=== PATIENT | male | born 1960 | race Caucasian/White ===

== ENCOUNTER 2022-10-17 15:57 | Outpatient (REF) | payer OTHER, SELFPAY | END 2022-10-17 15:58 | disposition home or self-care (01) | LOC: HO.HOSX 15:57 | PROVIDERS: Visit Provider Orthopaedic Surgery | DX: Z13.89 Encounter for screening for other disorder (principal) ==

== ENCOUNTER 2022-10-18 09:44 | Outpatient (REF) | payer OTHER, SELFPAY ==
--- NOTE | ~2022-10-18 | XR_ITS ---
EXAMINATION: XR PELVIS CLINICAL INFORMATION: Hip pain COMPARISON: None available. TECHNIQUE: AP view of the pelvis. FINDINGS: No acute fracture or dislocation. Advanced degenerative changes of the left hip with complete loss of joint space and bony remodeling of the femoral head and acetabulum. Moderate degenerative changes of the right hip with loss of joint space. Sacroiliac joint spaces are maintained. The tissues are unremarkable. XR/XR pelvis 1-2V IMPRESSION: Advanced degenerative changes of the left hip and moderate degenerative changes of the right hip.
== END 2022-10-18 09:45 | disposition home or self-care (01) ==
LOC: HO.HOSX 09:44
PROVIDERS: Visit Provider Orthopaedic Surgery
DX: M16.12 Unilateral primary osteoarthritis, left hip (principal); E66.01 Morbid (severe) obesity due to excess calories; Z68.43 Body mass index [BMI] 50.0-59.9, adult
CPT/HCPCS: 72170; 99202

== ENCOUNTER 2022-10-31 09:56 | Outpatient (REF) | payer OTHER, SELFPAY ==
[2022-10-31 10:24] LABS: Hemoglobin 15.5 g/dl (14.0-18.0); Mean Corpuscular Hemoglobin 28.7 pg (27.0-33.0); Mean Corpuscular Volume 86.9 fL (80.0-98.0); Mean Platelet Volume 10.1 fL (9.4-12.4); Platelet Count 233 X10*3/uL (160-400); Red Blood Count 5.41 X10*6/uL (4.60-5.80); Red Cell Distribution Width 13.5 % (11.0-16.0); White Blood Count 8.1 X10*3/uL (4.8-10.8)
[2022-10-31 11:01] LABS: Alanine Aminotransferase 32 U/L (0-40); Albumin Level 4.4 g/dL (3.5-5.0); Alkaline Phosphatase 108 U/L (39-117); Anion Gap 14 (12-20); Aspartate Amino Transferase 23 U/L (5-37); Bilirubin Total 0.8 mg/dL (0.0-1.0); Blood Urea Nitrogen 14 mg/dL (9-16); Calcium 9.4 mg/dL (8.4-10.2); Carbon Dioxide 25 mmol/L (22-29); Chloride 105 mmol/L (96-108); Cholesterol 274 mg/dL; Estimated Glomerular Filt Rate > 60; Glucose Fasting 122 mg/dL (60-99); HDL Cholesterol 40 mg/dL; LDL Cholesterol Calculated 197 mg/dl; Potassium 4.5 mmol/L (3.3-5.1); Sodium 139 mmol/L (135-145); Total Protein 7.1 g/dL (6.5-8.0); Triglycerides 186 mg/dL
[2022-10-31 11:19] LABS: TSH reflex Free T4 3.09 uIU/mL (0.32-4.0)
[2022-10-31 11:34] LABS: Appearance Urine Clear; Color Urine Yellow; Glucose Urine UA Negative (Negative); Leukocyte Esterase Urine Negative (Negative); Nitrite Urine Negative (Negative); Urine Blood Negative (Negative); Urine Ketones Negative (Negative); Urine Protein Negative (Neg-Trace)
[2022-11-07 01:03] LABS: PSA, Ultra Sensitive 0.49 ng/mL
== END 2022-10-31 09:57 | disposition home or self-care (01) ==
LOC: HO.LAB 09:56
PROVIDERS: PCP Family Medicine; Visit Provider Nurse Practitioner Family
DX: Z00.00 Encounter for general adult medical examination without abnormal findings (principal); Z12.5 Encounter for screening for malignant neoplasm of prostate; R39.9 Unspecified symptoms and signs involving the genitourinary system
CPT/HCPCS: 36415; 80053; 80061; 81003; 84153; 84443; 85027

== ENCOUNTER → 2022-11-07 14:36 | Outpatient (BNVA) | payer OTHER, SELFPAY | PROVIDERS: PCP Family Medicine; Visit Provider Physician Assistant | DX: Z12.11 Encounter for screening for malignant neoplasm of colon (principal); I48.91 Unspecified atrial fibrillation; G47.30 Sleep apnea, unspecified; E66.01 Morbid (severe) obesity due to excess calories; Z68.43 Body mass index [BMI] 50.0-59.9, adult; Z79.82 Long term (current) use of aspirin; Z99.89 Dependence on other enabling machines and devices | CPT/HCPCS: 99202 ==

== ENCOUNTER → 2022-11-28 14:02 | Outpatient (BNVA) | payer OTHER, SELFPAY | PROVIDERS: PCP Family Medicine; Visit Provider Urology | DX: N40.1 Benign prostatic hyperplasia with lower urinary tract symptoms (principal); N13.8 Other obstructive and reflux uropathy; R39.12 Poor urinary stream; R39.15 Urgency of urination | CPT/HCPCS: 51798; 99202 ==

== ENCOUNTER → 2022-12-03 15:03 | Outpatient (BNVA) | payer OTHER, SELFPAY | PROVIDERS: PCP Nurse Practitioner Family; Referring Provider Nurse Practitioner Family; Visit Provider Internal Medicine Cardiovascular Disease | DX: Z01.810 Encounter for preprocedural cardiovascular examination (principal); I48.19 Other persistent atrial fibrillation | CPT/HCPCS: 93005; 99202 ==

== ENCOUNTER 2022-12-07 12:30 | Outpatient (REF) | payer OTHER, SELFPAY ==
--- NOTE | ~2022-12-07 | US_ITS ---
EXAMINATION: US RETROPERITONEAL COMPLETE (RENAL) CLINICAL INFORMATION: Benign prostatic hyperplasia with lower urinary tract symptoms. COMPARISON: None available. TECHNIQUE: Real-time imaging of the kidneys and bladder. FINDINGS: RIGHT KIDNEY: 13.4 x 6.1 x 5.8 cm (SAG x AP x TRV). The kidney is normal in size, contour, and echogenicity. Renal cortical thickness is normal. A few punctate nonshadowing echogenic foci are noted within the right kidney. There is no hydronephrosis. LEFT KIDNEY: 14.7 x 5.6 x 5.7 cm (SAG x AP x TRV). The kidney is normal in size, contour, and echogenicity. Renal cortical thickness is normal.. A few punctate nonshadowing echogenic foci are noted within the left kidney. There is no hydronephrosis. BLADDER: Well distended and normal. Bilateral ureteral jets are demonstrated. Prevoid bladder volume is 328 mL. Postvoid bladder volume is 58.4 mL. Prostate gland: Poorly visualized. Suspected volume 120 mL. US/US retroperitoneal comp IMPRESSION: 1. A few punctate nonshadowing echogenic foci are noted within both kidneys. These are nonspecific but may represent tiny nonobstructing calculi or vascular reflections. There is no hydronephrosis of either kidney. 2. Poorly visualized but suspected significantly enlarged prostate gland. 3. Prominent post void bladder residual of 55 mL.
== END 2022-12-07 12:31 | disposition home or self-care (01) ==
LOC: HO.US 12:30
PROVIDERS: PCP Nurse Practitioner Family; Visit Provider Urology
DX: N40.1 Benign prostatic hyperplasia with lower urinary tract symptoms (principal)
CPT/HCPCS: 76770

== ENCOUNTER → 2022-12-21 07:57 | Outpatient (REF) | payer OTHER, SELFPAY ==
--- NOTE | ~2022-12-21 | NM_ITS ---
Lexiscan Myocardial perfusion study Indication: Preoperative cardiovascular exam Technique: The patient was brought in for a Lexiscan perfusion study on 12/21/2022 and was injected 0.4 mg of Lexiscan intravenously. Within a minute of this injection 40 mCi of sestamibi was given intravenously. Images were obtained using the SPECT gamma camera interlaced with the gating device. Images were obtained in supine position. Resting perfusion study was performed on 12/26/2022. Patient was administered 40 mCi of sestamibi intravenously at rest. Images were then obtained in supine position. Images were processed with the software and compared side to side in short axis, horizontal long axis and vertical long axis views. Total DLP 198mGy-cm. Findings: Raw acquisition reviewed. The stress perfusion study showed diminished tracer uptake along the anterior wall most prominent in the midportion. There is also reduced tracer uptake along the inferior wall. With CT attenuation correction, inferior wall uptake improves. Anterior wall without major changes. The gated study shows low normal LV systolic function with calculated LVEF of 53%. LV cavity is normal in size. The gated study shows possibly reduced anterior wall thickening in the midportion. Resting study shows mildly reduced tracer uptake along the inferior wall. There is improvement with CT attenuation correction suggestive of diaphragmatic attenuation artifact. Gating at rest reveals normal wall motion with ejection fraction at 49%. The findings are consistent with reversible anterior wall perfusion defect that is suggestive of ischemia. NM/NM rehana perf SPECT rest & str Impression: 1. Myocardial perfusion imaging moderate to severe ischemia in the LAD territory. 2. Gated LVEF is 50% during stress and 49% during rest. 3. Transient ischemic dilatation not present. EKG component of the test reported separately.
--- NOTE | 2022-12-21 07:59 | CA_ITS ---
Transthoracic Echocardiogram Patient (Last, First, Middle): Silver Valladares, Gender: Male Date of : 1960 Age: 62 Procedure Date: 12/21/2022 Procedure Type: Transthoracic Echocardiogram Location: OP Height: 180.34 cm Weight: 159.21 kg BSA: 2.68 m2 Heart Rate: bpm BP: 122 / 76 mmHg Asset Management Coordinator: TO Referring MD: Jeffrey Youngblood MD Symptoms: I48.19 - Other persistent atrial fibrillation Study Quality: Fair/Contrast ECG Rhythm: Atrial Fibrillation Conclusions: - The left ventricular systolic function is normal. The visually estimated ejection fraction is between 60-65%. - There is severe septal asymmetric hypertrophy. - No obvious valvular pathology seen on this study. Findings Procedure Information Contrast agent, definity, is being given per protocol without apparent complications. Left Ventricle Normal left ventricular cavity size. There is mildly increased left ventricular wall thickness. The left ventricular systolic function is normal. The visually estimated ejection fraction is between 60-65%. There is no evidence of regional wall motion abnormalities. Diastolic function is indeterminate on the basis of available data. There is severe septal asymmetric hypertrophy. Right Ventricle Normal right ventricular cavity size. There is mildly decreased right ventricular systolic function. Atria Both atria are normal in size. Aortic Valve There is a normal trileaflet aortic valve. There is mild calcification of the aortic valve. There is no aortic valve stenosis. There is trace (trivial) aortic valve regurgitation. Mitral Valve The mitral valve appears normal. There is no mitral valve regurgitation. There is no mitral valve stenosis. Pulmonic Valve The pulmonic valve is likely normal. Tricuspid Valve There is no tricuspid valve regurgitation. Tricuspid regurgitation envelope is inadequate for calculation of right ventricular systolic pressure. Great Vessels The asc aorta is normal in size. Venous The inferior vena cava is normal in size and collapses greater than 50% with inspiration. Pericardium/Pleural Prominent epicardial adipose tissue noted. There is no evidence of pericardial effusion. Prior Study Comparison No prior study available for comparison. Recommendations, Care & Conclusions No obvious valvular pathology seen on this study. Measurements 2D Linear Measurements IVSd: 1.71 0.6-0.9/0.6-1.0 cm LVIDd: 4.98 3.9-5.3/4.2-5.9 cm LVIDd Index: 1.86 2.4-3.2/2.2-3.1 cm/m2 LVIDs: 3.06 2.0-3.6 cm LVPWd: 1.12 0.7-1.1 cm LA Diam: 4.60 2.7-3.8/3.0-4.0 cm LAIDs Index: 1.72 1.5-2.3 cm/m2 LV Mass: 366.99 67-162/88-224 g LV Mass Index: 136.94 43-95/49-115 g/m2 LVOT Diam: 2.50 3.0+(-)1.3 cm 2D Systolic Function EF 4C: 56.60 >55% Mitral Valve MV Pk E: 0.82 MV Decel Time: 170.00 E'Lateral: 11.10 E'Medial: 8.92 E/E' Med: 9.20 E/E' Lat: 7.40 PHT: 50.00 MVA PHT: 4.40 Decel [place]: 4.82 Aortic Valve AoV Pk [place]: 0.89 AoV Pk Grad: 3.00 LVOT LVOT Pk [place]: 0.67 LVOT Mn [place]: 0.43 LVOT VTI: 0.12 LVOT Pk Grad: 2.00 LVOT Mn Grad: 1.00 LVOT Diam: 2.50 LVOT Area: 4.91 Diastolic Function MV Pk E: 0.82 E'Medial: 8.92 E/E' Med: 9.20 E' Laterial: 11.10 E/E' Lat: 7.40 Right Ventricle TAPSE (mm): 16.20 TVS' [place]: 8.05 Tricuspid Valve RA Press: 3.00 Great Vessels Aorta Sinus of Valsalva: 3.92 2.0-3.[address] [place]: 2.74 1.7-3.4 cm Ao Asc: 3.80 2.1-3.4 cm Updated in Other Vendor System with Status of Final Gilberto Frye MD electronically signed on 12/22/2022 1:58:08 PM with status of Final
--- NOTE | 2022-12-21 07:59 | CA_ITS ---
Acquisition Time: 2022-12-21 09:23:09 Total Exercise Time: 00:02:00 Test Indications: AFIB, CP Medications: SEE H Protocol: LEXISCAN Max HR: 116 BPM 72% of Pred: 160 BPM Max BP: 132/082 mmHG Max Work Load: 1.0 METS Pharmacological stress test with Lexiscan injection while sitting and kicking his legs, without anginal symptoms, without arrhythmias, with normotensive reponse to injection, without EKG changes, Aminophylline 75mg IVP given to reverse Lexiscan. Nuclear images pending. Test reviewed with Dr. Frye. Referred By: Jeffrey Youngblood Overread By: MARU LOPEZ
--- NOTE | 2022-12-21 07:59 | HM_ITS ---
* Total monitoring time 3 days. * Underlying rhythm is atrial fibrillation. * Average ventricular rate 94/Min. Range 63 to 189/Min. * About 17% of the time, rate > 100/Min. * Rare PVCs. * No significant pauses or AV blocks. * No patient markers or events in diary. * Overall, atrial fibrillation with less than optimal rate control. MTDD
== END ==
LOC: HO.CARD 07:57
PROVIDERS: PCP Family Medicine; Visit Provider Internal Medicine Cardiovascular Disease
DX: Z01.810 Encounter for preprocedural cardiovascular examination (principal); I48.19 Other persistent atrial fibrillation
CPT/HCPCS: 78452; 93017; 93242; 93306; A9500; J0280; J2785; Q9957

== ENCOUNTER → 2023-01-10 14:49 | Outpatient (BNVA) | payer OTHER, SELFPAY | PROVIDERS: PCP Family Medicine; Visit Provider Urology ==

== ENCOUNTER 2023-01-24 08:30 | Outpatient (REF) | payer OTHER, SELFPAY ==
[2023-01-24 10:22] LABS: Hematocrit 46.7 % (42.0-52.0); Hemoglobin 15.3 g/dl (14.0-18.0); Mean Corpuscular HGB Conc 32.8 g/dl (31.0-36.0); Mean Corpuscular Volume 88.6 fL (80.0-98.0); Mean Platelet Volume 10.8 fL (9.4-12.4); Platelet Count 250 X10*3/uL (160-400); Red Blood Count 5.27 X10*6/uL (4.60-5.80); Red Cell Distribution Width 14.1 % (11.0-16.0); White Blood Count 10.2 X10*3/uL (4.8-10.8)
[2023-01-24 10:25] LABS: INTERNATIONAL NORM RATIO 1.1 (0.9-1.1); Prothrombin Time 12.5 SEC (10.0-13.1)
[2023-01-24 10:56] LABS: Anion Gap 14 (12-20); Blood Urea Nitrogen 21 mg/dL (9-16); Calcium 10.2 mg/dL (8.4-10.2); Carbon Dioxide 24 mmol/L (22-29); Chloride 108 mmol/L (96-108); Estimated Glomerular Filt Rate > 60; Glucose Random 118 mg/dL (60-115); Potassium 4.7 mmol/L (3.3-5.1); Sodium 141 mmol/L (135-145)
== END 2023-01-24 08:31 | disposition home or self-care (01) ==
LOC: HO.LAB 08:30
PROVIDERS: PCP Family Medicine; Referring Provider Family Medicine; Visit Provider Internal Medicine Cardiovascular Disease
DX: R07.9 Chest pain, unspecified (principal); I48.19 Other persistent atrial fibrillation; Z79.899 Other long term (current) drug therapy
CPT/HCPCS: 36415; 80048; 85027; 85610; 99212

== ENCOUNTER → 2023-01-31 23:59 | Outpatient (BNV) | payer OTHER, SELFPAY | PROVIDERS: PCP Family Medicine; Visit Provider Internal Medicine Cardiovascular Disease | DX: I20.0 Unstable angina (principal); R93.1 Abnormal findings on diagnostic imaging of heart and coronary circulation | CPT/HCPCS: 93458; 99152 ==

== ENCOUNTER 2023-02-13 10:59 | Outpatient (AMB) | payer OTHER, SELFPAY ==
[2023-02-13 11:02] VITALS: BP 120/72; PULSE 93; O2SAT 95; BMI 50.8
--- NOTE | 2023-02-13 11:02 | MHC.PC.OV ---
Vital Signs 02/13/23 11:02 Height 5 ft 10.5 in Weight 359 lb BMI 50.8 BP 120/72 Blood Pressure Location Lt brachial Position Sitting Pulse 93 Pulse Source Pulse Oximeter Pulse Oximetry (%) 95 Oxygen Delivery Method Room Air Intake Visit Reasons: Trans of care Intake Note: Patient is here for transfer of care from [facility]. Allergies Penicillins Allergy (Mild, Verified 02/13/23 11:06) Hives Tobacco use date assessed: 02/13/23 Dental Screening Dental Screen Date: 02/13/23 Did you have a dental visit in the last 12 months?: No Did you have a dental problem in the last 6 months where you did not have access to dental care?: No Was dental information given to patient?: No HPI Trans of care HPI Details New patient/transfer of care from [place] Prior PCP: Karan Hansen Last office visit/CPE: Acute issue(s): Morbid Obesity L Hip osteoarthritis PMHx: Multivessel CAD, AFib, left hip osteoarthritis Dr. [facility], psoriasis, hypertension, hyperlipidemia, Morbid obesity, BPH SurgHx: R TibFib ORIF. FHx:Dad: CAD, HLD. Mom: COPD, GERD, Asthma, Afib. Sister: Gall Bladder CA. Brother: DM SocHx: Nonsmoker, EtOH: 2 drinks a week. No drugs. 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 Govind Hoang, Jessica Padilla, Agustin Appiah and colleagues, with an educational pradip from [employer]. Review of Systems Const Denies chills, Denies fatigue, Denies fever(s), Denies headache(s) and Denies weakness ENT Denies dizziness and Denies headache(s) Card Denies chest pain, Denies lightheadedness, Denies dyspnea and Denies other (Palpitations) Resp Denies cough, Denies dyspnea, Denies wheezing and Denies other ( shortness of breath) Musc Denies numbness and Denies tingling Neuro Denies dizziness, Denies headache(s), Denies numbness, Denies tingling, Denies paresthesias and Denies weakness Psych Denies anxiety and Denies depression Endo Denies fatigue Aller/Immun Denies wheezing Physical exam (Primary Care) Vital Signs: Last Vital Signs Pulse 93 02/13/23 11:02 BP 120/72 02/13/23 11:02 Pulse Ox 95 02/13/23 11:02 Oxygen Delivery Method Room Air 02/13/23 11:02 BMI result Body Mass Index 50.8 Tobacco/Smoking Status: Tobacco use Status Tobacco use date assessed 02/13/23 02/13/23 11:10 Patient Tobacco Use Status Never used Tobacco 02/13/23 11:10 e-Cigarette/Vaping Use Never Used 02/13/23 11:10 Thrive Assessment: Date of Thrive Assessment Date Thrive assessed 10/05/22 02/13/23 11:10 Const General: no acute distress and well developed Nutritional Appearance: obese morbidly obese Orientation/consciousness: patient oriented x3 [facility] Head: Yes normocephalic and Yes atraumatic Eyes General: appearance normal, both eyes and all related structures Pupils: Equal, round and reactive pupils present EOM: EOMs intact bilaterally Resp Effort & Inspection: normal respiratory effort Auscultation: clear to auscultation bilaterally Cardio Rate: regular rate Rhythm: abnormal rhythm and abnormal rhythm irregularly irregular Heart sounds: S1 normal heart sound present, S2 normal heart sound present, no gallops, no murmurs and no rubs Neuro General: patient oriented x3 and gait normal Cranial nerves: Yes Equal, round and reactive pupils present Psych Affect: normal affect Assessment and Plan Assessment & Plan (1) Coronary artery disease: Code(s): I25.10 - Atherosclerotic heart disease of augustine coronary artery without angina pectoris Plan: Multi vessel coronary artery disease shown at cardiac catheterization. Stenting was not performed but he is being worked up for open heart surgery bypass Follow-up with Cardiology as recommended (2) Osteoarthritis of left hip: Code(s): M16.12 - Unilateral primary osteoarthritis, left hip Qualifiers: Osteoarthritis type: unspecified Qualified Code(s): M16.12 - Unilateral primary osteoarthritis, left hip Plan: Severe osteoarthritis of left hip He has plans with ortho for a left hip replacement but will require additional weight loss prior to this. Continue working weight loss Follow-up with ortho I have given patient paperwork for a handicap placard Continue using cane for assistance with ambulation (3) Persistent atrial fibrillation: Code(s): I48.19 - Other persistent atrial fibrillation Plan: Stable Continue Eliquis, isosorbide and metoprolol Follow-up with Cardiology (4) Elevated fasting glucose: Code(s): R73.01 - Impaired fasting glucose Plan: History of elevated fasting glucose. He is now on Wegovy secondary to morbid obesity and intention for weight loss Unclear if he carries a diagnosis of diabetes however. Checking A1c which may be artificially low now due to Wegovy (5) Hypertension: Code(s): I10 - Essential (primary) hypertension Plan: Blood pressure is controlled. Goal is less than 130/80 Continue current medication regimen (6) Morbid obesity with BMI of 50.0-59.9, adult: Code(s): E66.01 - Morbid (severe) obesity due to excess calories; Z68.43 - Body mass index [BMI] 50.0-59.9, adult Plan: As above, patient is now on Wegovy for weight loss I have increased his dose (7) Hyperlipidemia: Code(s): E78.5 - Hyperlipidemia, unspecified Plan: He is on atorvastatin 40 mg daily Will recheck lipids in about a month Orders: Orders Comprehensive [place]. Panel Fast Today R73.01 - Impaired fasting glucose, Z00.00 - Encounter for general adult medical examination without abnormal findings Hemoglobin A1c Today R73.01 - Impaired fasting glucose Lipid Panel Today E78.5 - Hyperlipidemia, unspecified, Z00.00 - Encounter for general adult medical examination without abnormal findings Medications: Changed From semaglutide (weight loss) administer weeks 5 through 8 of therapy 0.5 mg (0.5 mL) subcut QWEEK 4 weeks 2 mL 0RF E66.01 - Morbid (severe) obesity due to excess calories, Z68.43 - Body mass index [BMI] 50.0-59.9, adult To semaglutide (weight loss) administer month 3 of therapy 1 mg (0.5 mL) subcut QWEEK 4 weeks 2 mL 0RF E66.01 - Morbid (severe) obesity due to excess calories, Z68.43 - Body mass index [BMI] 50.0-59.9, adult Coding Level of Care Code Est Pt Level 4 (98264) Diagnoses Coronary artery disease I25.10 Osteoarthritis of left hip M16.12 Osteoarthritis type: unspecified Persistent atrial fibrillation I48.19 Elevated fasting glucose R73.01 Hypertension I10 Morbid obesity with BMI of 50.0-59.9, adult E66.01; Z68.43 Hyperlipidemia E78.5
== END 2023-02-13 12:04 | disposition home or self-care (01) ==
PROVIDERS: Visit Provider Family Medicine
DX: I25.10 Atherosclerotic heart disease of native coronary artery without angina pectoris (principal); I48.19 Other persistent atrial fibrillation; E66.01 Morbid (severe) obesity due to excess calories; Z68.43 Body mass index [BMI] 50.0-59.9, adult; I10 Essential (primary) hypertension; M16.12 Unilateral primary osteoarthritis, left hip; R73.01 Impaired fasting glucose; E78.5 Hyperlipidemia, unspecified
CPT/HCPCS: 99214

== ENCOUNTER 2023-03-04 09:48 | Outpatient (REF) | payer OTHER, SELFPAY ==
--- NOTE | ~2023-03-04 | US_ITS ---
EXAMINATION: US EXTRACRANIAL CAROTID DUPLEX, BILATERAL CLINICAL INFORMATION: Atherosclerosis. COMPARISON: None available. TECHNIQUE: Real-time ultrasound and Doppler techniques (integrating B-mode 2-D vascular images, Doppler spectral analysis and color-flow Doppler imaging) were utilized to interrogate the extracranial carotid arteries, the vertebral arteries and proximal subclavian arteries bilaterally. The degree of stenosis is determined by criteria similar to NASCET. FINDINGS: Right Side: 1. There is mild atherosclerotic plaque seen in the bifurcation/proximal ICA region. 2. The common carotid artery PSV proximally is 126.0 cm/s and distally 58.5 cm/s. 3. The proximal internal carotid artery velocities are 70 6. cm/s systolic and 22.3 cm/s diastolic. 4. The proximal external carotid artery PSV is 9.9 cm/s. 5. The vertebral artery shows antegrade flow. 6. The subclavian artery waveforms are normal. Left Side: 1. There is mild atherosclerotic plaque seen in the bifurcation/proximal ICA region. 2. The common carotid artery PSV proximally is 112.0 cm/s and distally 72.7 cm/s. 3. The proximal internal carotid artery velocities are 75.6 cm/s systolic and 21.1 cm/s diastolic. 4. The proximal external carotid artery PSV is 93.8 cm/s. 5. The vertebral artery shows antegrade flow. 6. The subclavian artery waveforms are normal. US/US carotid duplex BI IMPRESSION: 1. RIGHT: Minimal, non-hemodynamically significant stenosis of the proximal right internal carotid artery corresponding to a 0-49% stenosis by velocity criteria. 2. LEFT: Minimal, non-hemodynamically significant stenosis of the proximal left internal carotid artery corresponding to a 0-49% stenosis by velocity criteria. 3. Antegrade flow is seen via the bilateral vertebral arteries.
--- NOTE | ~2023-03-04 | US_ITS ---
EXAMINATION: US VENOUS MAPPING FOR BYPASS SURGERY LOWER EXTREMITIES, BILATERAL CLINICAL INFORMATION: Atherosclerosis. COMPARISON: None available. TECHNIQUE: The size of the great and small saphenous veins along with the depth were calculated bilaterally and are reported below in millimeters. FINDINGS: Diameters in millimeters are listed below along with the depth below the skin surface which appears) after the diameter. Right Great Saphenous Vein: Junction: 5 (31) Proximal thigh: 4 (22) Mid thigh: 2 (23) Above knee: 3 (18) Medial knee: 4 (7) Below knee: 2 (6) [place]calf: 3 (4) Ankle: 3 (4) Right Small Saphenous Vein: Junction: Not seen. Proximal calf: 3 (6) Mid calf: 2 (5) Distal calf: 3 (6) Left Great Saphenous Vein: Junction: 5 (44) Proximal thigh: 3 (27) Mid thigh: 3 (4) Above knee: 4 (3) Medial knee: 2 (3) Below knee: 1 (12) Mid calf: 2 (9) Ankle: 3 (7) Left Small Saphenous Vein: Junction: 2 (23) Proximal calf: 3 (6) Midcalf: 3 (5) Distal calf: 2 (4) Bilateral varicosities are noted measuring 3-4 mm size in the thighs. Incidental note made of a right groin lymph node measuring 3.5 x 0.9 x 2.6 cm. US/US venous duplex LE BI IMPRESSION: The great and small saphenous veins are patent bilaterally with measurements and depths, as described above.
== END 2023-03-04 09:49 | disposition home or self-care (01) ==
LOC: HO.US 09:48
PROVIDERS: PCP Family Medicine; Visit Provider Thoracic Surgery (Cardiothoracic Vascular Surgery)
DX: I70.0 Atherosclerosis of aorta (principal)
CPT/HCPCS: 93880; 93970

== ENCOUNTER 2023-03-07 14:26 | Outpatient (REF) | payer OTHER, SELFPAY ==
--- NOTE | ~2023-03-07 | CT_ITS ---
EXAMINATION: CT CHEST WITHOUT CONTRAST CLINICAL INFORMATION: Chest pain, aortic calcification. COMPARISON: None available. TECHNIQUE: Multidetector volumetric CT imaging of the chest was done. Axial MIP volume rendering provided. Sagittal and coronal reformatted images were obtained. This CT examination was performed using dose optimization techniques as appropriate, variously including the following: *Automated exposure control *Adjustment of mA and/or kV according to patient size (this includes techniques or standardized protocols for targeted exams where dose is matched to indication/reason for exam; i.e. extremities or head) *Use of iterative reconstruction technique DLP: 465 mGy-cm FINDINGS: STRUCTURER: There is moderate elevation of the right hemidiaphragm. The lungs are otherwise expanded. LUNGS: The lungs are well-expanded with platelike atelectasis left lung base. There are no pulmonary nodules, mass or consolidation. No atelectasis seen. MEDIASTINUM: The thyroid lobes are symmetrical and normal. The central trachea and the bronchi are widely patent. Heart size and the great vessels are normal caliber. There is no aortic aneurysm or calcification seen. No pericardial effusion seen. No abnormal size mediastinal or hilar lymph nodes seen. CORONARY ARTERY CALCIFICATION: Mild coronary artery calcifications are present. PLEURA: There is no pleural effusion or thickening. AXILLA: Small shotty lymph nodes are seen in bilateral axilla UPPER ABDOMEN: Visualized liver, spleen, pancreas and bilateral adrenal glands unremarkable. OSSEOUS STRUCTURES: No aggressive lytic or sclerotic process seen. There is mild ventral spondylosis upper and mid dorsal spine. CT/CT chest wo IV con IMPRESSION: 1. Moderate elevation right hemidiaphragm. 2. Platelike atelectasis left lung base. 3. Mild coronary artery calcifications. Fleischner guidelines were followed.
== END 2023-03-07 14:27 | disposition home or self-care (01) ==
LOC: HO.CT 14:26
PROVIDERS: PCP Family Medicine; Visit Provider Thoracic Surgery (Cardiothoracic Vascular Surgery)
DX: R07.89 Other chest pain (principal); I70.0 Atherosclerosis of aorta
CPT/HCPCS: 71250

== ENCOUNTER → 2023-05-10 15:05 | Outpatient (REF) | payer OTHER, SELFPAY ==
--- NOTE | 2023-05-10 15:08 | CA_ITS ---
Transthoracic Echocardiogram Patient (Last, First, Middle): Silver Valladares, Gender: Male Date of : 1960 Age: 62 Procedure Date: 05/10/2023 Procedure Type: Transthoracic Echocardiogram Location: OP Height: 180.34 cm Weight: 152.86 kg BSA: 2.63 m2 Heart Rate: bpm BP: 136 / 86 mmHg Carding Utility Tender: Referring MD: Jeffrey Youngblood MD Symptoms: I25.10 - Atherosclerotic heart disease of [place] coronary artery without... Study Quality: Technically Difficult ECG Rhythm: Sinus Conclusions: - Normal left ventricular cavity size. There is mildly increased left ventricular wall thickness. The left ventricular systolic function is hyperdynamic. The visually estimated ejection fraction is >70%. There is no evidence of regional wall motion abnormalities. Diastolic function is normal for age. - Normal right ventricular cavity size and systolic function. Findings Procedure Information Contrast agent, definity, is being given per protocol without apparent complications. Left Ventricle Normal left ventricular cavity size. There is mildly increased left ventricular wall thickness. The left ventricular systolic function is hyperdynamic. The visually estimated ejection fraction is >70%. There is no evidence of regional wall motion abnormalities. Diastolic function is normal for age. Right Ventricle Normal right ventricular cavity size and systolic function. Atria The left atrium is normal in size. Aortic Valve Normal aortic valve structure and function. There is no aortic valve stenosis. There is no aortic valve regurgitation. Mitral Valve Normal mitral valve structure and function. There is no mitral valve regurgitation. There is no mitral valve stenosis. Pulmonic Valve The pulmonic valve is likely normal. Tricuspid Valve Likely normal tricuspid valve structure and function. Normal right atrial pressure. There is no evidence of pulmonary hypertension. Great Vessels There is mild dilatation of the ascending aorta measuring 3.40 cm. Venous The inferior vena cava is normal in size and collapses greater than 50% with inspiration. Pericardium/Pleural There is no evidence of pericardial effusion. Prior Study Comparison No significant change compared to prior study dated: 12/21/2022. Measurements 2D Linear Measurements IVSd: 1.20 0.6-0.9/0.6-1.0 cm LVIDd: 4.90 3.9-5.3/4.2-5.9 cm LVIDd Index: 1.86 2.4-3.2/2.2-3.1 cm/m2 LVIDs: 3.90 2.0-3.6 cm LVPWd: 1.10 0.7-1.1 cm LA Diam: 4.30 2.7-3.8/3.0-4.0 cm LAIDs Index: 1.63 1.5-2.3 cm/m2 LV Mass: 265.82 67-162/88-224 g LV Mass Index: 101.07 43-95/49-115 g/m2 LVOT Diam: 2.30 3.0+(-)1.3 cm Mitral Valve MV Pk E: 0.56 MV PK A: 0.41 MV Decel Time: 218.00 E/A: 1.40 E'Lateral: 11.20 E'Medial: 8.70 E/E' Med: 6.40 E/E' Lat: 5.00 PHT: 64.00 MVA PHT: 3.44 Decel [place]: 2.55 Aortic Valve AoV Pk [place]: 1.33 AoV Mn [place]: 0.89 AoV VTI: 0.23 AoV Pk Grad: 7.00 Aov Mn Grad: 4.00 KAREN Cont.VTI: 3.38 LVOT LVOT Pk [place]: 1.02 LVOT Mn [place]: 0.71 LVOT VTI: 0.19 LVOT Pk Grad: 4.00 LVOT Mn Grad: 2.00 LVOT Diam: 2.30 LVOT Area: 4.15 Diastolic Function MV Pk E: 0.56 MV Pk A: 0.41 E/A: 1.40 E'Medial: 8.70 E/E' Med: 6.40 E' Laterial: 11.20 E/E' Lat: 5.00 Tricuspid Valve TR Pk [place]: 2.00 TR Pk Grad: 16.00 RA Press: 3.00 RVSP: 19.00 Great Vessels Aorta Ao Asc: 3.40 2.1-3.4 cm Updated in Other Vendor System with Status of Final Carlos Delgado MD electronically signed on 05/12/2023 8:34:02 PM with status of Final
== END ==
LOC: HO.CARD 15:05
PROVIDERS: PCP Family Medicine; Visit Provider Internal Medicine Cardiovascular Disease
DX: I25.10 Atherosclerotic heart disease of native coronary artery without angina pectoris (principal); I24.1 Dressler's syndrome; Z95.1 Presence of aortocoronary bypass graft
CPT/HCPCS: 93306; Q9957

== ENCOUNTER → 2023-05-10 15:08 | Outpatient (BNV) | payer OTHER, SELFPAY | PROVIDERS: PCP Family Medicine; Visit Provider Internal Medicine Cardiovascular Disease | DX: I25.10 Atherosclerotic heart disease of native coronary artery without angina pectoris (principal) | CPT/HCPCS: 93306 ==

== ENCOUNTER 2023-05-20 11:28 | Outpatient (AMB) | payer OTHER, SELFPAY ==
[2023-05-20 11:36] VITALS: BP 122/70; PULSE 82; O2SAT 95; BMI 48.4
--- NOTE | 2023-05-20 11:36 | A.OFFPC_ITS ---
Vital Signs 05/20/23 11:36 Height 5 ft 10.5 in Weight 342 lb BMI 48.4 BP 122/70 Blood Pressure Location Lt brachial Position Sitting Pulse 82 Pulse Source Pulse Oximeter Pulse Oximetry (%) 95 Oxygen Delivery Method Room Air Intake Visit Reasons: f/u lipids & labs, [facility] Cardiac Bypass 04/09/23 Intake Note: Patient is here to follow up on quadruple bypass. Allergies Penicillins Allergy (Mild, Verified 05/20/23 11:39) Hives Tobacco use date assessed: 05/20/23 Dental Screening Dental Screen Date: 05/20/23 Did you have a dental visit in the last 12 months?: No Did you have a dental problem in the last 6 months where you did not have access to dental care?: No Was dental information given to patient?: Yes HPI f/u lipids & labs, [facility] Cardiac Bypass 04/09/23 HPI Details 62 y/o male presents to f/u lipids and l abs. Also f/u [facility] Cardiac bypass 04/09/23. No recent labs to review for his lipids. Pt reports breathing is not back to the way it was but has improved. He has an appt. with Cardiology this afternoon. HPI Comments History of Present Illness Details Documentation assistance for Wilfrid Mcmahon MD, was provided by Sharif Dumont, Supervisor Salvage on 05/20/2023 11:51 AM EST. I, Dr. Mcmahon, have read, observed, and verified documentation. [facility] Medical History (Updated 05/20/23 @ 11:54 by Sharif Dumont) Acute dermatitis Tinnitus Osteoarthritis Sleep apnea Surgical History (Updated 05/20/23 @ 11:46 by Sharif Dumont) S/P ablation of atrial fibrillation S/P quadruple vessel bypass H/O cardiac catheterization History of surgery on lower extremity Family History Mother Afib No family history of mental disorder Father No family history of mental disorder Hyperlipidemia Social History Housing: House Alcohol intake: current Alcohol intake frequency: a few times a week Patient Tobacco Use Status: Never used Tobacco e-Cigarette/Vaping Use: Never Used service: No Current occupational status: employed and disabled 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 Govind Hoang, Jessica Padilla, Agustin Appiah and colleagues, with an educational pradip from [employer]. Review of Systems Const Denies chills, Denies fatigue, Denies fever(s), Denies headache(s) and Denies weakness ENT Denies dizziness and Denies headache(s) Card Denies dyspnea Resp Denies cough, Denies dyspnea, Denies wheezing and Denies other (shortness of breath) Musc Denies numbness and Denies tingling Neuro Denies dizziness, Denies headache(s), Denies numbness, Denies tingling and Denies weakness Psych Denies anxiety and Denies depression Endo Denies fatigue Aller/Immun Denies wheezing Physical exam (Primary Care) Vital Signs: Last Vital Signs Pulse 82 05/20/23 11:36 BP 122/70 05/20/23 11:36 Pulse Ox 95 05/20/23 11:36 Oxygen Delivery Method Room Air 05/20/23 11:36 BMI result Body Mass Index 48.4 Tobacco/Smoking Status: Tobacco use Status Tobacco use date assessed 05/20/23 05/20/23 11:46 Patient Tobacco Use Status Never used Tobacco 05/20/23 11:46 e-Cigarette/Vaping Use Never Used 05/20/23 11:46 Thrive Assessment: Date of Thrive Assessment Date Thrive assessed 10/05/22 05/20/23 11:46 Const General: well developed; No acute distress Nutritional Appearance: well nourished and obese morbidly obese Orientation/consciousness: [facility]: Yes normocephalic and Yes atraumatic Eyes General: appearance normal, both eyes and all related structures Pupils: Equal, round and reactive pupils present EOM: EOMs intact bilaterally Resp Effort & Inspection: normal respiratory effort Auscultation: clear to auscultation bilaterally Cardio Rate: regular rate Rhythm: regular rhythm Heart sounds: S1 normal heart sound present, S2 normal heart sound present, no gallops, no murmurs and no rubs Neuro General: patient oriented x3 and gait normal Cranial nerves: Yes Equal, round and reactive pupils present Psych Affect: normal affect Assessment and Plan Assessment & Plan (1) Status post coronary artery bypass graft: Code(s): Z95.1 - Presence of aortocoronary bypass graft Plan: 62-year-old?male now?s/p?CABG?x4, radiofrequency?ablation?for?atrial?fibrillation?and?atrial?appendage?ligation, doing?well. He?is?now?on?Coreg?rather?than?metoprolol.??He?is?on?Eliquis?and?aspirin. He?has?a?regular?rate?and?rhythm?today.??He?is?breathing?well. Wound?is?well?healed. Continue?current?medication?regimen?and?follow-up?with?Cardiology?later?today. He?had?had?effusions?seen?on?[address]?x-ray?but?these?were?improved?at?follow-up.??Today?lungs?sound?clear.??Will?d efer?to?Cardiology?if?they?feel?he?needs?repeat?chest?x-ray?but?no?need?from?my? point?of?view. Also?had?issues?with?his? potassium?levels?and?had?been?on?furosemide.??He?will?get?his?labs?checked?tomor row?and?will?follow-up?on?electrolytes. (2) Coronary artery disease: Code(s): I25.10 - Atherosclerotic heart disease of [place] coronary artery without angina pectoris Plan: As?above (3) Hyperlipidemia: Code(s): E78.5 - Hyperlipidemia, unspecified Plan: Recently?switched?to?atorvastatin?80?mg?daily H e?was?unable?to?get?the?80?mg?tablets?so?I?have?advised?him?to?take?his?40?mg?ta blets?as?to?tablets?daily?and?he?can?try?to?pick?up?the?80?mg?tablets?when?he?ru ns?out. Sent?script?for?80?mg?tablets?today. He?will?get?his?labs?checked?fasting?tomorrow?to?follow-up?on?lipids. (4) Morbid obesity: Code(s): E66.01 - Morbid (severe) obesity due to excess calories Plan: Continue?to?work?at?weight?loss. He?will?have?cardiac?rehab?which?is?already?ordered. Orders: Orders AMB Hemoglobin A1c Today Z13.9 - Encounter for screening, unspecified Medications: Changed From atorvastatin 40 mg PO DAILY 30 tabs 2RF To atorvastatin 80 mg PO DAILY 90 days 90 tabs 2RF From semaglutide (weight loss) administer month 3 of therapy 1 mg (0.5 mL) subcut QWEEK 4 weeks 2 mL 0RF E66.01 - Morbid (severe) obesity due to excess calories, Z68.43 - Body mass index [BMI] 50.0-59.9, adult To semaglutide (weight loss) administer month 3 of therapy 1.7 mg (0.75 mL) subcut QWEEK 4 weeks 3 mL 2RF E66.01 - Morbid (severe) obesity due to excess calories, Z68.43 - Body mass index [BMI] 50.0-59.9, adult Coding Level of Care Code Est Pt Level 4 (80548) Diagnoses Status post coronary artery bypass graft Z95.1 Coronary artery disease I25.10 Hyperlipidemia E78.5 Morbid obesity E66.01
== END 2023-05-20 12:00 | disposition home or self-care (01) ==
PROVIDERS: PCP Family Medicine; Visit Provider Family Medicine
DX: I25.10 Atherosclerotic heart disease of native coronary artery without angina pectoris (principal); Z95.1 Presence of aortocoronary bypass graft; E66.01 Morbid (severe) obesity due to excess calories; Z68.42 Body mass index [BMI] 45.0-49.9, adult; E78.5 Hyperlipidemia, unspecified
CPT/HCPCS: 99214

== ENCOUNTER 2023-05-20 14:09 | Outpatient (AMB) | payer OTHER, SELFPAY ==
[2023-05-20 14:40] VITALS: BP 120/72; PULSE 91; BMI 49.1
--- NOTE | 2023-05-20 14:40 | MHC.OFFVIS ---
Intake Vital Signs 05/20/23 14:40 Height 5 ft 10 in Weight 342 lb 2.519 oz BMI 49.1 BP 120/72 Blood Pressure Location Lt brachial Position Sitting Pulse 91 Pulse Source Pulse Oximeter Intake Visit Reasons: post CABG and echo Intake Note: post CABG and echo Allergies Penicillins Allergy (Mild, Verified 05/20/23 14:43) Hives Medication List - Last Reconciled 05/20/23 by Raquel Tillman, MAJOR [employer]ALL PLAYER-C alfuzosin ER 10 mg PO DAILY apixaban (Eliquis) 5 mg PO BID aspirin 81 mg PO DAILY atorvastatin 80 mg PO DAILY 90 days carvedilol 3.125 mg PO BID 90 days cyclobenzaprine 10 mg PO TID PRN 30 days ibuprofen 1,200 mg PO Q6H multivitamin (Daily Multi-Vitamin tablet) 1 tab PO DAILY omega-3 fatty acids 500 mg PO DAILY semaglutide (weight loss) 1.7 mg (0.75 mL) subcut QWEEK 4 weeks HPI post CABG and echo HPI Details Rodriguez is a 62-year-old male past medical history of morbid obesity, hypertension, hyperlipidemia, atrial fibrillation who had been evaluated for chest discomfort, had abnormal nuclear stress test followed by cardiac catheterization showing 3 vessel coronary artery disease. He then underwent a 4 vessel coronary artery bypass grafting last month and he now presents for follow-up. Today he reports he has been doing very well. He is pleased with his recovery over the last few weeks. He will be starting cardiac rehab in 2 weeks. He reports only minimal chest wall discomfort. No chest discomfort like his prior angina. No shortness of breath, palpitations, presyncope, syncope, PND, orthopnea or edema. He does notice when he tries to sing that he has to take extra breaths. He states this symptom is gradually improving. He is taking his meds as directed. He had atrial fibrillation previously but now states his heart rhythm is normal since surgery. No bleeding issues reported. He tells me he has been discharged from the cardiac surgery office. [facility] Medical History (Updated 05/21/23 @ 08:13 by Raquel Tillman, AUBREY-C) Acute dermatitis Tinnitus Osteoarthritis Sleep apnea Surgical History (Updated 05/21/23 @ 08:10 by Raquel Tillman NP-C) S/P ablation of atrial fibrillation S/P quadruple vessel bypass H/O cardiac catheterization History of surgery on lower extremity Family History Mother Afib No family history of mental disorder Father No family history of mental disorder Hyperlipidemia Social History Housing: House Alcohol intake: current Alcohol intake frequency: a few times a week Patient Tobacco Use Status: Never used Tobacco e-Cigarette/Vaping Use: Never Used service: No Current occupational status: employed and disabled 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 Cognitive needs: No Hearing needs: No Vision needs: Yes Review of Systems Const All systems reviewed & are unremarkable except as noted in HPI and below ENT Denies dizziness Card Denies chest pain, Denies chest pain at rest, Denies chest pain with activity, Denies rapid heart rate, Denies pedal edema, Denies edema, Denies leg edema, Denies lightheadedness, Denies palpitations, Reports dyspnea (when singing), Denies dyspnea on exertion and Denies orthopnea Resp Denies cough, Reports dyspnea (when singing) and Denies dyspnea on exertion GI Denies hematochezia and Denies change in stool character Musc Denies abnormal gait, Denies limited range of motion, Denies muscle cramps, Denies muscle weakness, Denies numbness, Denies radiating pain into limb, Denies stiffness and Denies tingling Neuro Denies abnormal gait, Denies dizziness, Denies numbness and Denies tingling Endo Denies palpitations Physical Exam Vital Signs: Last Vital Signs Pulse 91 05/20/23 14:40 BP 120/72 05/20/23 14:40 BMI result Body Mass Index 49.1 Const General: cooperative, healthy appearing, comfortable and no acute distress Orientation/consciousness: patient oriented x3 Neck Neck: Yes normal visual inspection Chest Other: sternal incision fully intact Resp Effort & Inspection: normal respiratory effort Auscultation: clear to auscultation bilaterally, no crackles, no rales, no rhonchi and no wheezes Cardio Jugular venous distension: no JVD Rate: regular rate Rhythm: regular rhythm Heart sounds: S1 normal heart sound present, S2 normal heart sound present, no murmurs and no rubs Neuro General: patient oriented x3 Extrem General: Yes normal to inspection Psych Appearance: grossly normal Mental Status: mental status grossly normal Speech and movement: Normal speech and movement present Assessment & Plan Assessment & Plan (1) Coronary artery disease: Code(s): I25.10 - Atherosclerotic heart disease of [place] coronary artery without angina pectoris Plan: Patient had reports of chest discomfort. Cardiac risk factors of morbid obesity, hypertension, hyperlipidemia. He underwent a nuclear stress test on 12/26/2022 showing severe ischemia in the LAD territory. Cardiac catheterization done on 01/31/2023 showed 3 vessel coronary artery disease. He then underwent 4 vessel coronary artery bypass grafting on 04/15/2023. He also had left atrial appendage ligation, bilateral pulmonary vein isolation. Discharge summary indicates he was not started on amiodarone due to finding of junctional rhythm in the postoperative period. He was not started on Plavix. He was continued on aspirin and Eliquis. Echocardiogram was done on 05/10/2023 showing EF greater than 70%, no regional wall motion abnormality, mild LVH. Today he reports feeling well overall. Minor chest wall discomfort. Shortness of breath noted only when singing. He will start cardiac rehab in 2 weeks. Continue current med management without change including aspirin, high-dose atorvastatin, carvedilol. Continue no heavy lifting. Cardiology office visit in 3 months, sooner if needed. (2) Status post coronary artery bypass graft: Comment: 04/09/2023, [place] to LAD, left radial artery to the diagonal, right GSV to OM branch of left circumflex and right GSV to the PLV, bilateral pulmonary vein isolation, left atrial appendage ligation Code(s): Z95.1 - Presence of aortocoronary bypass graft Plan: Sternal incision healing well. Has been discharged by cardiac surgery. (3) Persistent atrial fibrillation: Code(s): I48.19 - Other persistent atrial fibrillation Plan: History of persistent AFib. During his procedure notes indicate that he had pulmonary vein isolation, left atrial appendage ablation/clip. EKG at cardiac surgery follow-up 04/22/2023 showing sinus rhythm. He was in sinus rhythm at the time of his echocardiogram on 05/10/2023. He tells me that he has been in normal rhythm since the time of his surgery. Pulse is very regular on examination today. He denies any palpitations, presyncope, syncope. Will check Holter monitor to assess for any recurrent AFib, junctional rhythm. Continue carvedilol for heart rate control. Continue Eliquis for anticoagulation. (4) Hypertension: Code(s): I10 - Essential (primary) hypertension Qualifiers: Hypertension type: primary hypertension Qualified Code(s): I10 - Essential (primary) hypertension Plan: Well controlled at this time. No medication changes made (5) Morbid obesity: Code(s): E66.01 - Morbid (severe) obesity due to excess calories (6) H/O cardiac catheterization: Comment: 01/31/2023, mid LAD 80% stenosis, 1st diagonal 80% stenosis, distal LAD 75% stenosis, left circumflex 3rd OM, 80% stenosis, proximal RCA 80% stenosis Code(s): Z98.890 - Other specified postprocedural states Plan: Right radial catheterization site well healed. Easily palpable right radial pulse. Orders: Orders ECG 3 day holter monitor Today I48.19 - Other persistent atrial fibrillation Coding Level of Care Code Est Pt Level 4 (70026) Diagnoses Coronary artery disease I25.10 Status post coronary artery bypass graft Z95.1 Persistent atrial fibrillation I48.19 Primary hypertension I10 Hypertension type: primary hypertension Morbid obesity E66.01 H/O cardiac catheterization Z98.890 Time Spent (min) 30
== END 2023-05-20 15:12 | disposition home or self-care (01) ==
PROVIDERS: PCP Family Medicine; Visit Provider Nurse Practitioner Family
DX: I25.10 Atherosclerotic heart disease of native coronary artery without angina pectoris (principal); Z95.1 Presence of aortocoronary bypass graft; I48.19 Other persistent atrial fibrillation; I10 Essential (primary) hypertension; E66.01 Morbid (severe) obesity due to excess calories; Z98.890 Other specified postprocedural states
CPT/HCPCS: 99214

== ENCOUNTER → 2023-05-20 14:09 | Outpatient (BNVA) | payer OTHER, SELFPAY | PROVIDERS: PCP Family Medicine; Visit Provider Nurse Practitioner Family | DX: I25.10 Atherosclerotic heart disease of native coronary artery without angina pectoris (principal); I48.19 Other persistent atrial fibrillation; I10 Essential (primary) hypertension; E66.01 Morbid (severe) obesity due to excess calories; Z95.1 Presence of aortocoronary bypass graft; Z98.890 Other specified postprocedural states; Z68.42 Body mass index [BMI] 45.0-49.9, adult | CPT/HCPCS: 99212 ==

== ENCOUNTER → 2023-05-28 10:32 | Outpatient (REF) | payer OTHER, SELFPAY ==
--- NOTE | 2023-05-28 10:34 | HM_ITS ---
* Total monitoring time 3 days. * Underlying rhythm is sinus with an average rate of 84/Min. Range 76 to 108/Min. * Rare ventricular ectopy. * No significant pauses or AV blocks. * Patient marker used once in association with sinus rhythm. MTDD
== END ==
LOC: HO.CARD 10:32
PROVIDERS: PCP Family Medicine; Visit Provider Nurse Practitioner Family
DX: I48.19 Other persistent atrial fibrillation (principal)
CPT/HCPCS: 93242

== ENCOUNTER → 2023-05-28 10:34 | Outpatient (BNV) | payer OTHER, SELFPAY | PROVIDERS: PCP Family Medicine; Visit Provider Internal Medicine | DX: I48.19 Other persistent atrial fibrillation (principal) | CPT/HCPCS: 93244 ==

== ENCOUNTER 2023-06-17 11:01 | Outpatient (REF) | payer OTHER, SELFPAY ==
[2023-06-13 07:54] VITALS: BP 120/78; BP 156/70; BMI 49.2
[2023-06-17 12:44] LABS: Estimated Average Glucose 117 mg/dL; Hemoglobin A1c % 5.7 % (<6.0)
[2023-06-17 13:12] LABS: Alanine Aminotransferase 27 U/L (0-40); Albumin Level 4.2 g/dL (3.5-5.0); Alkaline Phosphatase 120 U/L (39-117); Anion Gap 11 (12-20); Aspartate Amino Transferase 23 U/L (5-37); Bilirubin Total 0.5 mg/dL (0.0-1.0); Blood Urea Nitrogen 11 mg/dL (9-16); Calcium 9.8 mg/dL (8.4-10.2); Carbon Dioxide 26 mmol/L (22-29); Chloride 106 mmol/L (96-108); Cholesterol 158 mg/dL (<200); Estimated Glomerular Filt Rate > 60; Glucose Fasting 106 mg/dL (60-99); HDL Cholesterol 45 mg/dL (>40); LDL Cholesterol Calculated 88 mg/dL (<100); Potassium 4.4 mmol/L (3.3-5.1); Sodium 139 mmol/L (135-145); Total Protein 7.7 g/dL (6.5-8.0); Triglycerides 129 mg/dL (<150)
== END 2023-06-17 11:02 | disposition home or self-care (01) ==
LOC: HO.LAB 11:01
PROVIDERS: PCP Family Medicine; Visit Provider Family Medicine
DX: Z00.00 Encounter for general adult medical examination without abnormal findings (principal); E78.5 Hyperlipidemia, unspecified; R73.01 Impaired fasting glucose
CPT/HCPCS: 36415; 80053; 80061; 83036

== ENCOUNTER 2023-06-27 15:21 | Outpatient (AMB) | payer OTHER, SELFPAY ==
[2023-06-13 07:54] VITALS: BP 120/78; BP 156/70; BMI 49.2
--- NOTE | 2023-06-27 15:15 | MHC.PC.OV ---
Intake Visit Reasons: f/u hyperlipidemia Intake Note: Patient is following up on hyperlipidemia today. Will need another refill of Wegovy next week. Allergies Penicillins Allergy (Mild, Verified 06/27/23 15:15) Hives Tobacco use date assessed: 06/27/23 HPI f/u hyperlipidemia HPI Details 62 y/o male presents to f/u D via telemedicine. Hx of CAD. Labs were drawn 06/17/23. Reviewed labs with pt. Elevated fasting glucose of 106. A1c 5.7%. Triglycerides 129. TC 158. LDL 88. HDL 45. He is on artovstatin 80mg daily. He notes he has lost about 19lbs since October. Pt states other than his hips he feels well. 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 Govind Hoang, Jessica Padilla, Agustin Appiah and colleagues, with an educational pradip from [employer]. Review of Systems Const Denies chills, Denies fatigue, Denies fever(s), Denies headache(s) and Denies weakness ENT Denies dizziness and Denies headache(s) Card Denies dyspnea Resp Denies cough, Denies dyspnea, Denies wheezing and Denies other (shortness of breath) Musc Denies numbness and Denies tingling Neuro Denies dizziness, Denies headache(s), Denies numbness, Denies tingling and Denies weakness Psych Denies anxiety and Denies depression Endo Denies fatigue Aller/Immun Denies wheezing Physical exam (Primary Care) Tobacco/Smoking Status: Tobacco use Status Tobacco use date assessed 06/27/23 06/27/23 15:18 Patient Tobacco Use Status Never used Tobacco 06/27/23 15:18 e-Cigarette/Vaping Use Never Used 06/27/23 15:18 Thrive Assessment: Date of Thrive Assessment Date Thrive assessed 10/05/22 06/27/23 15:18 Telehealth Telehealth Minutes spent on Phone/Video with Pt.: 9 Assessment and Plan Assessment & Plan (1) Pre-diabetes: Code(s): R73.03 - Prediabetes Plan: Patient?is?already?on?Wegovy?for?weight?loss. Has?had?pre?diabetes?and?has?coronary?artery?disease. Controlling?blood?sugars?and?trying to?keep?them?well?controlled. A1c?at?most?recent?check?was?5.7%?which?is?good?control. Continue?Wegovy?and?watch?sugars?and?starches?in?diet.??Encouraged?weight?loss?as?well. (2) Hyperlipidemia: Code(s): E78.5 - Hyperlipidemia, unspecified Plan: LDL?cholesterol is?88.??Goal?is?less?than?70 He?is?maxed?out?on?atorvastatin?and?will?continue?this.??Will?add?Zetia. He?will?continue?to?work?on?a?diet?low?in?saturated?fats?and?cholesterol?and?will?work?on?weight?loss?and?exercise. We?discussed?that?in?the?future?he?will?hopefully?be?able?to?discontinue?Zetia?and?just?continue?atorvastatin?80?mg (3) Coronary artery disease: Code(s): I25.10 - Atherosclerotic heart disease of [place] coronary artery without angina pectoris Plan: Stable Follow-up?with?Cardiology?as?recommended (4) Osteoarthritis of left hip: Code(s): M16.12 - Unilateral primary osteoarthritis, left hip Qualifiers: Osteoarthritis type: unspecified Qualified Code(s): M16.12 - Unilateral primary osteoarthritis, left hip Plan: Has?seen?ortho No?surgery?so?close?to?his?cardiac?surgeries.??But?he?is?working?on?physical?therapy?and?can?follow-up?with?ortho?in?the?future. Medications: New ezetimibe (Zetia) 10 mg PO DAILY 30 days 30 tabs 2RF Coding Level of Care Code Tele Est Pt Level 2 (74405) Diagnoses Pre-diabetes R73.03 Hyperlipidemia E78.5 Coronary artery disease I25.10 Osteoarthritis of left hip, unspecified osteoarthritis type M16.12 Osteoarthritis type: unspecified
== END 2023-06-27 16:45 ==
LOC: HO.HMGFM 15:21
PROVIDERS: PCP Family Medicine; Visit Provider Family Medicine
DX: R73.03 Prediabetes (principal); E78.5 Hyperlipidemia, unspecified; I25.10 Atherosclerotic heart disease of native coronary artery without angina pectoris; M16.12 Unilateral primary osteoarthritis, left hip
CPT/HCPCS: 99212

== ENCOUNTER 2023-07-08 10:00 | Outpatient (RCR) | payer OTHER, SELFPAY ==
[2023-06-13 07:54] VITALS: BP 120/78; BP 156/70; BMI 49.2
--- NOTE | 2023-06-13 11:47 | MHC.CR.ITI ---
[address] [phone] F: [phone] Please see additional notes from [facility] Initial Assessment/ITP Cardiac Rehab Initial Assessment/ITP Start: 06/13/23 07:54 Freq: Status: Active Protocol: Activity Type Activity Date Activity User E-sign Co-sign Detail Recorded Client Recorded Date Recorded By Document 06/13/23 07:54 PHILIPPE [id number] 06/13/23 08:04 PHILIPPE 06/13/23 07:54 Cardiac Rehab ITP Initial [Excercise] -Supervisor [employer] Required No -Preferred Language Kazakh -Number of sessions approved 36 -Diagnosis CABG Z95.1 -Other Diagnosis HTN,HDL,CAD, Afib, hidradenitis suppurativa, obesity -Comments left hip deformity of head of femur, requires THR, losing weight in preparation. [Functional Assessment] -6 Min Walk (distance in ft) 500 -Stress Test (Mode) WALK -METS Achieved 1.0 -Resting HR 88 -Resting BP 120/78 -Resting SpO2 99 -Exercise HR 94 -Exercise BP 156/70 -Exercise SpO2 96 -RPE 11 -Dyspnea No -ECG Summary SR -Comments WALKING WAS LIMITIED BY HIP PAIN IN LEFT HIP HE CHOSE TO STOP WALKING AT 500 FT. 6 MIN WAS NOT COMPLETE. [Pre Rehab] -Pre Rehab Home Exercise No -Comments does home ADL's . Hip pain is limiting. -Risk Stratification: Low Risk Uncomplicated Participants NC; CABG; angioplasty; atherectomy,No resting or exercise induced myocardial ischemia manifest as angina,No resting or exercise induced complex arrhythmias,No significant left ventricular dysfunction (EF > = 30%) -Fall Risk No -Assistive Devices Cane -Comments Left hip is limiting mobility/pain is significant HAS CANE TO WALK DUE TO HIP PAIN [Exercise Plan] [Intervention] -Exercise Prescription NuStep, Recumbent Bike, Recumbent Elliptical, Rower,Treadmill ,UBE,Upright Bike,Weights -Duration Intensity 36 Sessions -Frequency 2-3x/week -Angina with Exercise No [Exercise Education] -Exercise Education Exercise orientation, Exercise safety ,Home exercise, RPE,Self pulse checking,Signs and symptoms, Warmup/cooldown -Date Completed 06/13/23 -Initials CSP [Exercise Goals] -Exercise Most Days of the Week Yes -Exercise 30-45 mins/day Yes -Target HR Range +20 - +30 beats above resting -Target RPE range 11-13 -Increase METS next 30 days 0.5-1.0 METS Every two weeks -METs goal by Discharge 4 METS -Comments Pt FEELS HE WILL NEED TO DO JUST UPPER BODY EX AND MAYBE TREADMILL FOR EXERCISE [Nutrition] [Hyperlipidemia] -Hyperlipidemia Yes -Are lab results available Yes -Lipid Draw Date 10/31/22 -Total Cholesterol 274 -LDL 197 -HDL 40 -Tryglycerides 186 [Diabetes] -Diabetes No -Are lab results available Yes -Fasting Glucose 122 -Date 10/31/22 [Weight Management] -Height 5 ft 10.5 in -Weight 155.9 kg -BMI 49.21 -Recommended Diet DASH, 2GM SODIUM -Comments Pt IS WORKING HARD ON LOSING WEIGHT IN PREPARATION FOR THR [Drug/Alchohol Use] -Drug/Alcohol Use Yes -Type BEER OR WINE -Amount 1-2 A WEEK [Nutritional Screen (Rate Your Plate)] -Score 53 -Interpretation of Score tHERE ARE SOME WAYS HE CAN IMPROVE HIS HEART HEALTH THROUGH DIETARY CHANGES -Comments 1) ADD 1 MEATLESS MEAL EVERY OTHER WEEK 2) DECREASE NUMBER OF EGGS HE EATS PER WEEK. 3) INCREASE THE NUMBER OF LOW FAT DAILY SERVINGS PER WEEK. 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 STILL MANAGES HIS RENTAL PROPERTIES -Patient Self-Reports Depression No -Family Support HOUSEMATES -Comments HOUSE MATES ARE NOTE CARE GIVERS IN ANY CAPACITY. HE DOES HAVE A SUPPORTIVE FAMILY [Psycho/Social Plan] [Intervention] -Referral(s) No consult needed [Psycho/Social Education] -Psycho/Social Education Advanced directives, Coping techniques, Depression and CAD,Positive support system, Relaxation Techniques, Reviewed PHQ9 Score w/pt, Sexuality and CAD,Signs and symptoms of CAD ,Stress management -Date Completed 06/13/23 -Initials CSP [Psycho/Social Goals] -Goals Not Applicable [Other Core Comp] [Risk Factors] -Risk Factors Dyslipidemia, Family History of CAD, Hypertension, Obesity, Physical Inactivity -Comments: LONG DISCUSSION OF RISK FACTORS, MODIFIABLE AND NON. [Hypertension] -Hypertention Yes -Resting BP: 120/78 [Tobacco Use] -Patient Tobacco Use Status Never used Tobacco [Heart Failure] -Heart Failure No [Other Core Comp Plan] [Other Core Comp Education] -Other Core Comp Education Medication compliance,Risk factor modifications, RPD Scale/SOB management, Understanding hypertension -Education Summary USES PILL BOX IS NEARLY 100% ACCURATE [Other Core Comp Goals] -Goals Improve dyspnea ,Manage risk factors,Manage signs and symptoms of CHF ,Medication compliance, Resting BP < 130/80,Tobacco cessation,Not Applicable [Medication Plan] [Intervention] -Medications ASA 81 MG DIALY ATORVASTATIN 80 MG DAILY APIXABAN 5 MG BID COREG 3.125 MG BID ALFUZOSIN 10 MG DIALY CYCLOBENZAPRINE 10 MG TID PRN MULTIVITAMIN DIALY OMEGA-3 DAILY WEGOVY INJ. WEEKLY IBUPROFEN PRN [Medication Education] -Education Importance of medication compliance, Medication purpose, Medication schedule, Medication side effects -Date Completed 06/13/23 -Initials CSP -Education Summary THOROUGHLY DISCUSSED MED COMPLIANCE. HE UDERSTANDS ALL MED PURPOSES AND SIDE EFFECTS. [Medication Goals] -Goals Adherence to medication compliance [Treatment Times] -Rehab Services with ECG Monitor -Time 1000 -End Time 1120 -Visit Duration 80
[2023-07-09 15:37] VITALS: BP 120/78; BMI 49.2
--- NOTE | 2023-07-09 15:46 | MHC.CR.ITR ---
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 07/09/23 30 day assessment: Pt has only attended 3 sessions. He did have limited ability to exercise but was making it work. No CV symptoms noted. Max met of 4.0 achieved and 40 min of ex between warm up and cardio. Left VM today for patient asking if he plans to return . Will wait for response. He has not attended since 06/24/23 Has not attneded any CV education modules yet. [Functional Assessment] -ECG Summary SR with rare PVC -Home-Based Rehab Pt approved for home-based exercise -Comments Walks to best of his ability but feels he is very limited due to hips. -Fall Risk No [Exercise Plan] [Intervention] -Exercise Prescription NuStep, Recumbent Bike, Recumbent Elliptical, Rower,Treadmill ,UBE,Upright Bike,Weights -Duration Intensity 36 Sessions -Exercise Minutes/Day 40 -Exercise Days/Week 2 -Angina with Exercise No -Peak METs 4.0 [Home Exercise] -Comments not really doing this yet. [Exercise Education] -Exercise Education Exercise orientation, Exercise safety ,Home exercise, RPE,Self pulse checking,Signs and symptoms, Warmup/cooldown -Date Completed 06/13/23 -Initials CSP -Education Summary At consecutive visits reviewed RPE scale and parameters for cardiac ex. [Exercise Goals] -Exercise Most Days of the Week Yes -Exercise 30-45 mins/day Yes -Target HR Range +20 - +30 beats above resting -Target RPE range 11-13 -Increase METS next 30 days 0.5-1.0 METS Every two weeks -METs goal by Discharge 4 METS -Comments Pt FEELS HE WILL NEED TO DO JUST UPPER BODY EX AND MAYBE TREADMILL FOR EXERCISE 07/09/23 Limited to UBE and Treadmill. [Nutrition] [Hyperlipidemia] -Are lab results available Yes -Hyperlipidemia Yes -Comments No new labs available 07/09 [Diabetes] -Diabetes No -Fasting Glucose 122 -Date 10/31/22 [Weight Management] -Weight 155.9 kg -BMI 49.21 -Comments Pt IS WORKING HARD ON LOSING WEIGHT IN PREPARATION FOR THR [Drug/Alchohol Use] -Drug/Alcohol Use Yes -Change in Use No [Nutrition Plan] [Intervention] -Attended Nutrition Brochures [Nutrition Education] -Nutrition Education Hydration, Nutrition, Reading food labels -Date Completed 06/13/23 -Initials CSP -Education Summary UNDERSTANDS GOALS FOR IMPROVED CARDIAC HEALTH THROUGH DIET [Nutrition Goals] -Goals BMI < 25, Fasting BG 80- 120 mg/dL,HDL > 40,LDL < 70, Total CHOL < 200 -Weight goal 145KG -Comments TO LOSE 20 MORE POUNDS AND GET HIP REPLACEMENT SURGERY [Psycho/Social] -Stage of Change Action -Occupation Retired -PHQ9 Score 2 -Interpretation of Score LOW RISK -Plan of Action/Follow-up FEELS -Patient Self-Reports Depression No -Comments HAS TENITIS AFFECTS HEARING WITH BACKGROUND NOISE. STILL MANAGES HIS RENTAL PROPERTIES [Psycho/Social Plan] [Intervention] -Attended No consult needed [Psycho/Social Education] -Psycho/Social Education Advanced directives, Coping techniques, Depression and CAD,Positive support system, Relaxation Techniques, Reviewed PHQ9 Score w/pt, Sexuality and CAD,Signs and symptoms of CAD ,Stress management -Date Completed 06/13/23 -Initials CSP [Psycho/Social Goals] -Goals Not Applicable [Other Core Comp] [Hypertension] -Hypertention Yes -Resting BP: 120/78 [Heart Failure] -Heart Failure No [Other Core Comp Plan] [Other Core Comp Education] -Other Core Comp Education Medication compliance,Risk factor modifications, RPD Scale/SOB management, Understanding hypertension -Education Summary USES PILL BOX IS NEARLY 100% ACCURATE [Other Core Comp Goals] -Goals Improve dyspnea ,Manage risk factors,Manage signs and symptoms of CHF ,Medication compliance, Resting BP < 130/80,Tobacco cessation,Not Applicable [Medication Plan] [Intervention] -Medications ASA 81 MG DIALY ATORVASTATIN 80 MG DAILY APIXABAN 5 MG BID COREG 3.125 MG BID ALFUZOSIN 10 MG DIALY CYCLOBENZAPRINE 10 MG TID PRN MULTIVITAMIN DIALY OMEGA-3 DAILY WEGOVY INJ. WEEKLY IBUPROFEN PRN [Medication Education] -Education Importance of medication compliance, Medication purpose, Medication schedule, Medication side effects -Date Completed 06/13/23 -Initials CSP -Education Summary THOROUGHLY DISCUSSED MED COMPLIANCE. HE UDERSTANDS ALL MED PURPOSES AND SIDE EFFECTS. [Medication Goals] -Goals Adherence to medication compliance -Comments Reported med compliance and no changes last session.
[2023-07-15 12:35] VITALS: BP 120/78; BP 156/70; BMI 49.2
--- NOTE | 2023-07-15 12:41 | MHC.CR.ITD ---
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 07/09/23 30 day assessment: Pt has only attended 3 sessions. He did have limited ability to exercise but was making it work. No CV symptoms noted. Max met of 4.0 achieved and 40 min of ex between warm up and cardio. Left VM today for patient asking if he plans to return . Will wait for response. He has not attended since 06/24/23 Has not attended any CV education modules yet. Discharge-07/15-RN placed call to [facility] . He attended three session of Cardiac Rehab. States he does not have enough energy to do rehab and complete his ADL's at home due to osteoarthritis. He will call if cardiac rehab ever appropriate in the future. VSS . Tel SR.-ST. Max Mets 4. Post assessments unable to be done due to lack of notice of completing rehab. He stated appreciation of the understanding for his decision. [Functional Assessment] -6 Min Walk (distance in ft) 500 -Stress Test (Mode) WALK -METS Achieved 1.0 -Resting HR 88 -Resting BP 120/78 -Resting SpO2 99 -Exercise HR 94 -Exercise BP 156/70 -RPE 11 -ECG Summary SR with rare PVC -Fall Risk No [Exercise Plan] [Intervention] -Exercise Prescription NuStep, Recumbent Bike, Recumbent Elliptical, Rower,Treadmill ,UBE,Upright Bike,Weights -Duration Intensity 36 Sessions -Exercise Minutes/Day 40 -Exercise Days/Week 2 -Angina with Exercise No -Peak METs 4.0 [Home Exercise] -Comments not really doing this yet. [Exercise Education] -Exercise Education Exercise orientation, Exercise safety ,Home exercise, RPE,Self pulse checking,Signs and symptoms, Warmup/cooldown -Date Completed 06/13/23 -Initials CSP -Education Summary At consecutive visits reviewed RPE scale and parameters for cardiac ex. [Exercise Goals] -Exercise Most Days of the Week Yes -Exercise 30-45 mins/day Yes -Target HR Range +20 - +30 beats above resting -Target RPE range 11-13 -Increase METS next 30 days 0.5-1.0 METS Every two weeks -METs goal by Discharge 4 METS -Comments Pt FEELS HE WILL NEED TO DO JUST UPPER BODY EX AND MAYBE TREADMILL FOR EXERCISE 07/09/23 Limited to UBE and Treadmill. [Nutrition] [Hyperlipidemia] -Are lab results available Yes -Hyperlipidemia Yes -Lipid Draw Date 10/31/22 -Total Cholesterol 274 -LDL 197 -HDL 40 -Tryglycerides 186 -Comments No new labs available 07/09 [Diabetes] -Diabetes No -Fasting Glucose 122 -Date 10/31/22 [Weight Management] -Weight 155.9 kg -BMI 49.21 -Comments Pt IS WORKING HARD ON LOSING WEIGHT IN PREPARATION FOR THR [Drug/Alchohol Use] -Drug/Alcohol Use Yes -Change in Use No [Nutrition Plan] [Intervention] -Attended Nutrition Brochures [Nutrition Education] -Nutrition Education Hydration, Nutrition, Reading food labels -Date Completed 06/13/23 -Initials CSP -Education Summary UNDERSTANDS GOALS FOR IMPROVED CARDIAC HEALTH THROUGH DIET [Nutrition Goals] -Goals BMI < 25, Fasting BG 80- 120 mg/dL,HDL > 40,LDL < 70, Total CHOL < 200 -Weight goal 145KG -Comments TO LOSE 20 MORE POUNDS AND GET HIP REPLACEMENT SURGERY [Psycho/Social] -Stage of Change Action -Occupation Retired -PHQ9 Score 2 -Interpretation of Score LOW RISK -Plan of Action/Follow-up FEELS -Patient Self-Reports Depression No -Comments HAS TENITIS AFFECTS HEARING WITH BACKGROUND NOISE. STILL MANAGES HIS RENTAL PROPERTIES [Psycho/Social Plan] [Intervention] -Attended No consult needed [Psycho/Social Education] -Psycho/Social Education Advanced directives, Coping techniques, Depression and CAD,Positive support system, Relaxation Techniques, Reviewed PHQ9 Score w/pt, Sexuality and CAD,Signs and symptoms of CAD ,Stress management -Date Completed 06/13/23 -Initials CSP [Psycho/Social Goals] -Goals Not Applicable [Other Core Comp] [Hypertension] -Hypertention Yes -Resting BP: 120/78 [Other Core Comp Plan] [Other Core Comp Education] -Other Core Comp Education Medication compliance,Risk factor modifications, RPD Scale/SOB management, Understanding hypertension -Education Summary USES PILL BOX IS NEARLY 100% ACCURATE [Other Core Comp Goals] -Goals Improve dyspnea ,Manage risk factors,Manage signs and symptoms of CHF ,Medication compliance, Resting BP < 130/80,Tobacco cessation,Not Applicable [Medication Plan] [Intervention] -Medications ASA 81 MG DIALY ATORVASTATIN 80 MG DAILY APIXABAN 5 MG BID COREG 3.125 MG BID ALFUZOSIN 10 MG DIALY CYCLOBENZAPRINE 10 MG TID PRN MULTIVITAMIN DIALY OMEGA-3 DAILY WEGOVY INJ. WEEKLY IBUPROFEN PRN [Medication Education] -Education Importance of medication compliance, Medication purpose, Medication schedule, Medication side effects -Date Completed 06/13/23 -Initials CSP -Education Summary THOROUGHLY DISCUSSED MED COMPLIANCE. HE UDERSTANDS ALL MED PURPOSES AND SIDE EFFECTS. [Medication Goals] -Goals Adherence to medication compliance -Comments Reported med compliance and no changes last session.
== END 2023-07-16 06:49 | disposition home or self-care (01) ==
LOC: HO.CR 10:00
PROVIDERS: PCP Family Medicine; Visit Provider Internal Medicine Cardiovascular Disease
DX: I25.10 Atherosclerotic heart disease of native coronary artery without angina pectoris (principal); I48.19 Other persistent atrial fibrillation; Z95.1 Presence of aortocoronary bypass graft
CPT/HCPCS: 93798

== ENCOUNTER 2023-08-26 08:56 | Outpatient (AMB) | payer OTHER, SELFPAY ==
[2023-08-26 09:03] VITALS: BP 130/82; PULSE 75; BMI 49.8
--- NOTE | 2023-08-26 09:03 | MHC.OFFVIS ---
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 Allergies Penicillins Allergy (Mild, Verified 08/26/23 09:06) Hives Medication List - Last Reconciled 08/26/23 by Raquel Tillman, INSTRUMENT INSTALLER-C alfuzosin ER 10 mg PO DAILY apixaban (Eliquis) 5 mg PO BID aspirin 81 mg PO DAILY atorvastatin 80 mg PO DAILY 90 days carvedilol 3.125 mg PO BID 90 days cyclobenzaprine 10 mg PO TID PRN 30 days ezetimibe (Zetia) 10 mg PO DAILY 30 days ibuprofen 1,200 mg PO Q6H multivitamin (Daily Multi-Vitamin tablet) 1 tab PO DAILY omega-3 fatty acids 500 mg PO DAILY semaglutide (weight loss) 1.7 mg (0.75 mL) subcut QWEEK 4 weeks HPI 3 M HPI Details Rodriguez is a 62-year-old male past medical history of morbid obesity, hypertension, hyperlipidemia, atrial fibrillation who had been evaluated for chest discomfort, had abnormal nuclear stress test followed by cardiac catheterization showing 3 vessel coronary artery disease. He then underwent a 4 vessel coronary artery bypass grafting last month and he now presents for follow-up. [facility] Medical History Acute dermatitis Tinnitus Osteoarthritis Sleep apnea Surgical History S/P ablation of atrial fibrillation S/P quadruple vessel bypass H/O cardiac catheterization History of surgery on lower extremity Family History Mother Afib No family history of mental disorder Father No family history of mental disorder Hyperlipidemia Social History Housing: House Alcohol intake: current Alcohol intake frequency: a few times a week Patient Tobacco Use Status: Never used Tobacco e-Cigarette/Vaping Use: Never Used service: No Current occupational status: employed and disabled 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 Cognitive needs: No Hearing needs: No Vision needs: Yes Review of Systems Const All systems reviewed & are unremarkable except as noted in HPI and below ENT Denies dizziness Card Denies chest pain, Denies chest pain at rest, Denies chest pain with activity, Denies rapid heart rate, Denies pedal edema, Denies edema, Denies leg edema, Denies lightheadedness, Denies palpitations, Denies dyspnea, Denies dyspnea on exertion and Denies orthopnea Resp Denies cough, Denies dyspnea and Denies dyspnea on exertion GI Denies hematochezia and Denies change in stool character Musc Denies abnormal gait, Denies limited range of motion, Denies muscle cramps, Denies muscle weakness, Denies numbness, Denies radiating pain into limb, Denies stiffness and Denies tingling Neuro Denies abnormal gait, Denies dizziness, Denies numbness and Denies tingling Endo Denies palpitations Physical Exam Const General: cooperative, healthy appearing, comfortable and no acute distress Orientation/consciousness: patient oriented x3 Neck Neck: Yes normal visual inspection Chest Other: sternal scar well healed Resp Effort & Inspection: normal respiratory effort Auscultation: clear to auscultation bilaterally, no crackles, no rales, no rhonchi and no wheezes Cardio Jugular venous distension: no JVD Rate: regular rate Rhythm: regular rhythm Heart sounds: S1 normal heart sound present, S2 normal heart sound present, no murmurs and no rubs Neuro General: patient oriented x3 Extrem General: Yes normal to inspection Psych Appearance: grossly normal Mental Status: mental status grossly normal Speech and movement: Normal speech and movement present Assessment & Plan Assessment & Plan (1) Coronary artery disease: Code(s): I25.10 - Atherosclerotic heart disease of [place] coronary artery without angina pectoris Plan: Patient had reports of chest discomfort. Cardiac risk factors of morbid obesity, hypertension, hyperlipidemia. He underwent a nuclear stress test on 12/26/2022 showing severe ischemia in the LAD territory. Cardiac catheterization done on 01/31/2023 showed 3 vessel coronary artery disease. He then underwent 4 vessel coronary artery bypass grafting on 04/15/2023. He also had left atrial appendage ligation, bilateral pulmonary vein isolation. Discharge summary indicates he was not started on amiodarone due to finding of junctional rhythm in the postoperative period. He was not started on Plavix. He was continued on aspirin and Eliquis. Echocardiogram was done on 05/10/2023 showing EF greater than 70%, no regional wall motion abnormality, mild LVH. He attended a few sessions of cardiac rehab then stopped due to the exercising exacerbating his hip arthritis. Today he reports No chest discomfort or shortness of breath. He reports good activity tolerance. Taking all meds as directed. Continue aspirin, high-dose atorvastatin, carvedilol. Cardiology office visit in 4 months, sooner if needed. (2) Status post coronary artery bypass graft: Comment: 04/09/2023, [place] to LAD, left radial artery to the diagonal, right GSV to OM branch of left circumflex and right GSV to the PLV, bilateral pulmonary vein isolation, left atrial appendage ligation Code(s): Z95.1 - Presence of aortocoronary bypass graft Plan: Sternal incision well healed. Has been discharged by cardiac surgery. (3) Persistent atrial fibrillation: Code(s): I48.19 - Other persistent atrial fibrillation Plan: History of persistent AFib. During his surgical procedure, notes indicate that he had pulmonary vein isolation, left atrial appendage ablation/clip. EKG at cardiac surgery follow-up 04/22/2023 showing sinus rhythm. He was in sinus rhythm at the time of his echocardiogram on 05/10/2023. Holter monitor done 05/28/2023 for 3 days shows sinus rhythm with average heart rate 84, rare ventricular ectopy, no AFib or junctional rhythm reported. Pulse is very regular on examination today. He denies any palpitations, presyncope, syncope. Continue carvedilol for heart rate control. Continue Eliquis for anticoagulation. (4) Hypertension: Code(s): I10 - Essential (primary) hypertension Qualifiers: Hypertension type: primary hypertension Qualified Code(s): I10 - Essential (primary) hypertension Plan: Well controlled at this time. No medication changes made (5) H/O cardiac catheterization: Comment: 01/31/2023, mid LAD 80% stenosis, 1st diagonal 80% stenosis, distal LAD 75% stenosis, left circumflex 3rd OM, 80% stenosis, proximal RCA 80% stenosis Code(s): Z98.890 - Other specified postprocedural states Plan: As above (6) Hyperlipidemia: Code(s): E78.5 - Hyperlipidemia, unspecified Plan: [place] LDL goal less than 70 in patient with CAD. Labs done 06/17/2023 showed LDL 88. He was on atorvastatin 80 mg daily at that point. Zetia was then added. At this time will put orders in for fasting lipids and LFTs. Patient informed. Benefits of weight loss, increasing physical activity and following low-fat diet reviewed. Plan Time spent on chart review, documentation, interview and assessment Orders: Orders Lipid Panel Today I25.10 - Atherosclerotic heart disease of [place] coronary artery without angina pectoris Comprehensive Met. Panel Today I25.10 - Atherosclerotic heart disease of [place] coronary artery without angina pectoris Coding Level of Care Code Est Pt Level 4 (24176) Diagnoses Coronary artery disease I25.10 Status post coronary artery bypass graft Z95.1 Persistent atrial fibrillation I48.19 Primary hypertension I10 Hypertension type: primary hypertension H/O cardiac catheterization Z98.890 Hyperlipidemia E78.5 Time Spent (min) 28
== END 2023-08-26 09:25 | disposition home or self-care (01) ==
PROVIDERS: PCP Family Medicine; Referring Provider Family Medicine; Visit Provider Nurse Practitioner Family
DX: I25.10 Atherosclerotic heart disease of native coronary artery without angina pectoris (principal); Z95.1 Presence of aortocoronary bypass graft; I48.19 Other persistent atrial fibrillation; I10 Essential (primary) hypertension; Z98.890 Other specified postprocedural states; E78.5 Hyperlipidemia, unspecified
CPT/HCPCS: 99214

== ENCOUNTER → 2023-08-26 08:56 | Outpatient (BNVA) | payer OTHER, SELFPAY | PROVIDERS: PCP Family Medicine; Visit Provider Nurse Practitioner Family | DX: I25.10 Atherosclerotic heart disease of native coronary artery without angina pectoris (principal); I10 Essential (primary) hypertension; I48.19 Other persistent atrial fibrillation; E78.5 Hyperlipidemia, unspecified; Z95.1 Presence of aortocoronary bypass graft; Z98.890 Other specified postprocedural states | CPT/HCPCS: 99212 ==

== ENCOUNTER 2023-10-07 10:32 | Outpatient (AMB) | payer OTHER, SELFPAY ==
[2023-06-13 07:54] VITALS: BP 120/78; BP 156/70; BMI 49.2
[2023-10-07 10:41] VITALS: BP 132/80; PULSE 83; RESP 13; TEMP 36.3; O2SAT 98; BMI 48.7
--- NOTE | 2023-10-07 10:41 | MHC.PC.OV ---
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 No recent labs to review for his lipids. Blood pressure today 132/80. He is on carvedilol 3.125mg b.i.d. Pt continues to be on semaglutide for weight loss. [facility] Medical History Acute dermatitis Tinnitus Osteoarthritis Sleep apnea Surgical History S/P ablation of atrial fibrillation S/P quadruple vessel bypass H/O cardiac catheterization History of surgery on lower extremity Family History Mother Afib No family history of mental disorder Father No family history of mental disorder Hyperlipidemia Social History Housing: House Alcohol intake: current Alcohol intake frequency: a few times a week Patient Tobacco Use Status: Never used Tobacco e-Cigarette/Vaping Use: Never Used service: No Current occupational status: employed and disabled 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 Govind Hoang, Jessica Padilla, Agustin Appiah and colleagues, with an educational pradip from [employer]. Review of Systems Const Denies chills, Denies fatigue, Denies fever(s), Denies headache(s) and Denies weakness ENT Denies dizziness and Denies headache(s) Card Denies dyspnea Resp Denies cough, Denies dyspnea, Denies wheezing and Denies other (shortness of breath) Musc Denies numbness and Denies tingling Neuro Denies dizziness, Denies headache(s), Denies numbness, Denies tingling and Denies weakness Psych Denies anxiety and Denies depression Endo Denies fatigue Aller/Immun Denies wheezing Physical exam (Primary Care) Vital Signs: Last Vital Signs Temp 97.4 F 10/07/23 10:41 Pulse 83 10/07/23 10:41 Resp 13 10/07/23 10:41 BP 132/80 10/07/23 10:41 Pulse Ox 98 10/07/23 10:41 Oxygen Delivery Method Room Air 10/07/23 10:41 BMI result Body Mass Index 48.7 Tobacco/Smoking Status: Tobacco use Status Tobacco use date assessed 06/27/23 10/07/23 10:51 Patient Tobacco Use Status Never used Tobacco 10/07/23 10:51 e-Cigarette/Vaping Use Never Used 10/07/23 10:51 Thrive Assessment: Date of Thrive Assessment Date Thrive assessed 10/05/22 10/07/23 10:51 Const General: well developed; No acute distress Nutritional Appearance: obese morbidly obese Orientation/consciousness: patient oriented x3 [facility] Head: Yes normocephalic and Yes atraumatic Eyes General: appearance normal, both eyes and all related structures Pupils: Equal, round and reactive pupils present EOM: EOMs intact bilaterally Resp Effort & Inspection: normal respiratory effort Auscultation: clear to auscultation bilaterally Cardio Rate: regular rate Rhythm: regular rhythm Heart sounds: S1 normal heart sound present, S2 normal heart sound present, no gallops, no murmurs and no rubs Neuro General: patient oriented x3 and gait normal Cranial nerves: Yes Equal, round and reactive pupils present Psych Affect: normal affect Assessment and Plan Assessment & Plan (1) Hypertension: Code(s): I10 - Essential (primary) hypertension Qualifiers: Hypertension type: primary hypertension Qualified Code(s): I10 - Essential (primary) hypertension Plan: Blood?pressure?is?borderline?or?a?little?above?goal?as?patient?has?coronary?artery?disease.??Goal?less?than?130/80. Patient?notes?that?he?has?not?taken?his?carvedilol?yet?today. Continue?current?medication?regimen.??Continue?working?on?weight?loss?and?salt/sodium?avoidance. Will?give?him?a?blood?pressure?monitor?for?home?and?he?can?let?us?know?if?blood?pressures?are?high?there?as?well. (2) Coronary artery disease: Code(s): I25.10 - Atherosclerotic heart disease of [place] coronary artery without angina pectoris Plan: Stable Follow-up?with?Cardiology?as?recommended (3) Hyperlipidemia: Code(s): E78.5 - Hyperlipidemia, unspecified Plan: LDL?cholesterol?was?above?goal?and?he?was?maxed?out?on?atorvastatin?so?I?added?Zetia. Cardiology?had?ordered?a?new?lipid?panel. He?will?get?this?drawn?today (4) Morbid obesity: Code(s): E66.01 - Morbid (severe) obesity due to excess calories Plan: Patient?continues?to?work?on?weight?loss.??He?is?also?on?[place] Encouraged?further?weight?loss. (5) Osteoarthritis of left hip: Code(s): M16.12 - Unilateral primary osteoarthritis, left hip Qualifiers: Osteoarthritis type: unspecified Qualified Code(s): M16.12 - Unilateral primary osteoarthritis, left hip Plan: Ongoing?pain?and?would?like?to?follow-up?with?ortho?regarding?possible?surgery.??He?was?told?he?would?need?to?lose?an?additional?10?lb As?above,?encouraged?weight?loss Will?refer?him?back?to?ortho?after?that. Coding Level of Care Code Est Pt Level 4 (71372) Diagnoses Primary hypertension I10 Hypertension type: primary hypertension Coronary artery disease I25.10 Hyperlipidemia E78.5 Morbid obesity E66.01 Osteoarthritis of left hip, unspecified osteoarthritis type M16.12 Osteoarthritis type: unspecified
== END 2023-10-07 11:00 | disposition home or self-care (01) ==
PROVIDERS: PCP Family Medicine; Visit Provider Family Medicine
DX: I10 Essential (primary) hypertension (principal); E66.01 Morbid (severe) obesity due to excess calories; Z68.42 Body mass index [BMI] 45.0-49.9, adult; E78.5 Hyperlipidemia, unspecified; I25.10 Atherosclerotic heart disease of native coronary artery without angina pectoris; M16.12 Unilateral primary osteoarthritis, left hip
CPT/HCPCS: 99214

== ENCOUNTER 2023-11-12 09:18 | Outpatient (REF) | payer OTHER, SELFPAY ==
[2023-11-12 10:41] LABS: Alanine Aminotransferase 30 U/L (0-40); Albumin Level 4.1 g/dL (3.5-5.0); Alkaline Phosphatase 114 U/L (39-117); Anion Gap 13 (12-20); Aspartate Amino Transferase 20 U/L (5-37); Bilirubin Total 0.5 mg/dL (0.0-1.0); Blood Urea Nitrogen 18 mg/dL (9-16); Calcium 9.7 mg/dL (8.4-10.2); Carbon Dioxide 22 mmol/L (22-29); Chloride 106 mmol/L (96-108); Cholesterol 146 mg/dL (<200); Estimated Glomerular Filt Rate > 60; Glucose Random 107 mg/dL (60-115); HDL Cholesterol 43 mg/dL (>40); LDL Cholesterol Calculated 86 mg/dL (<100); Potassium 4.4 mmol/L (3.3-5.1); Sodium 137 mmol/L (135-145); Total Protein 7.5 g/dL (6.5-8.0); Triglycerides 86 mg/dL (<150)
== END 2023-11-12 09:19 | disposition home or self-care (01) ==
LOC: HO.LAB 09:18
PROVIDERS: Visit Provider Nurse Practitioner Family
DX: I25.10 Atherosclerotic heart disease of native coronary artery without angina pectoris (principal)
CPT/HCPCS: 36415; 80053; 80061

== ENCOUNTER 2024-01-06 09:43 | Outpatient (AMB) | payer OTHER, SELFPAY ==
--- NOTE | 2024-01-06 09:45 | MHC.OFFVIS ---
Vital Signs 01/06/24 09:46 Height 5 ft 10 in Weight 343 lb 14.738 oz BMI 49.3 BP 126/78 Blood Pressure Location Lt brachial Pulse 76 Intake Visit Reasons: 4 mth f/up Intake Note: 4 month follow-up with ekg feeling good Psychologist Private Practice Required: No Allergies Penicillins Allergy (Mild, Verified 10/07/23 10:47) Hives Medication List - Last Reconciled 01/06/24 by Jeffrey Youngblood MD alfuzosin ER 10 mg PO DAILY apixaban (Eliquis) 5 mg PO BID aspirin 81 mg PO DAILY atorvastatin 80 mg PO DAILY 90 days carvedilol 3.125 mg PO BID 90 days cyclobenzaprine 10 mg PO TID PRN 30 days evolocumab (Repatha SureClick) 140 mg subcut Q2W 90 days ezetimibe (Zetia) 10 mg PO DAILY 30 days ibuprofen 1,200 mg PO Q6H magnesium 200 mg PO DAILY multivitamin (Daily Multi-Vitamin tablet) 1 tab PO DAILY omega-3 fatty acids 500 mg PO DAILY semaglutide (weight loss) 2.4 mg (0.75 mL) subcut QWEEK 4 weeks HPI Comments Details: Gerardo comes for follow-up. Currently markedly limited because of his hip arthritis which limits his activity level. However he said he is feeling great since his bypass in his heart he has been doing well. He has not had any recurrent atrial fibrillation symptoms of palpitations. He denies any chest pain or shortness of breath. Takes all his medications. Denies any bleeding issues or neurologic events. Uses CPAP at nighttime. Denies any orthopnea, PND, leg edema. No lightheadedness, syncope. His LDL is at 86 mg/dL on triple therapy. He has been started on weight loss therapy and says has lost about 20 lb. [facility] Medical History (Updated 01/06/24 @ 10:11 by Jeffrey Youngblood MD) Paroxysmal atrial fibrillation Persistent atrial fibrillation Acute dermatitis Tinnitus Osteoarthritis Sleep apnea Surgical History S/P ablation of atrial fibrillation S/P quadruple vessel bypass H/O cardiac catheterization History of surgery on lower extremity Family History Mother Afib No family history of mental disorder Father No family history of mental disorder Hyperlipidemia Social History (Reviewed 10/07/23 @ 10:50 by Deb Swartz [facility] Housing: House Alcohol intake: current Alcohol intake frequency: a few times a week Patient Tobacco Use Status: Never used Tobacco e-Cigarette/Vaping Use: Never Used service: No Current occupational status: employed and disabled 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 Cognitive needs: No Hearing needs: No Vision needs: Yes Review of Systems Const Denies chills, Denies fatigue, Denies fever(s), Denies frequent falls, Denies weakness, Denies weight gain and Denies weight loss ENT Denies dizziness Card Denies chest pain, Denies leg edema, Denies lightheadedness, Denies palpitations, Denies dyspnea, Denies dyspnea on exertion, Denies orthopnea and Denies other (loss of consciousness) Resp Denies cough, Denies dyspnea and Denies dyspnea on exertion GI Denies hematochezia and Denies change in stool character Musc Denies abnormal gait, Denies muscle weakness, Denies numbness, Denies radiating pain into limb and Denies tingling Neuro Denies abnormal gait, Denies dizziness, Denies frequent falls, Denies numbness, Denies tingling and Denies weakness Endo Denies fatigue and Denies palpitations Physical Exam Vital Signs: Last Vital Signs Pulse 76 01/06/24 09:46 BP 126/78 01/06/24 09:46 BMI result Body Mass Index 49.3 Const General: cooperative, healthy appearing, comfortable and no acute distress Orientation/consciousness: patient oriented x3 Neck Neck: Yes normal visual inspection Chest Other: sternal scar well healed Resp Effort & Inspection: normal respiratory effort Auscultation: clear to auscultation bilaterally, no crackles, no rales, no rhonchi and no wheezes Cardio Jugular venous distension: no JVD Rate: regular rate Rhythm: regular rhythm Heart sounds: S1 normal heart sound present, S2 normal heart sound present, no murmurs and no rubs Neuro General: patient oriented x3 Extrem General: Yes normal to inspection Psych Appearance: grossly normal Mental Status: mental status grossly normal Speech and movement: Normal speech and movement present Office Procedures EKG Details: EKG shows normal sinus rhythm with normal EKG [id number], Complete Assessment & Plan Assessment & Plan (1) Coronary artery disease: Code(s): I25.10 - Atherosclerotic heart disease of [place] coronary artery without angina pectoris Category: Medical Plan: CAD status post 4 vessel coronary artery bypass grafting doing well with no symptoms of angina. Continue aspirin to March of 2023. Beyond that continue full oral anticoagulation Eliquis and avoid dual therapy to reduce bleeding risk. Continue aggressive risk factor modification. Weight loss will certainly help with his management. If he is requiring hip surgery to improve his functionality, he is optimized to undergo the surgery with low to intermediate risk. Continue aggressive control of diabetes goal hemoglobin A1c less than 7%. LDL goal less than 70 mg/dL. He is working on it with diet as well as weight loss program. Follow-up lipid panel in 6 months time. Continue aggressive blood pressure control which is currently well optimized on current therapy. (2) Paroxysmal atrial fibrillation: Comment: Status post surgical pulmonary vein isolation Code(s): I48.0 - Paroxysmal atrial fibrillation Category: Medical Plan: Longstanding history of atrial fibrillation and since his surgical correction he has been doing well and has had no recurrent episodes of atrial fibrillation feels well. Continue aggressive risk factor modification including aggressive control of diabetes. Weight reduction showed suddenly help with reducing reduction of burden of atrial fibrillation. Continue full oral anticoagulation Eliquis at 5 mg b.i.d.. Semi annual renal function test to be pursued. Continue CPAP therapy. Will follow up in the clinic in 1 year's time after an echocardiogram. Thank you for allowing me to partake in his care Coding Level of Care Code Est Pt Level 4 (77501) Diagnoses Coronary artery disease I25.10 Paroxysmal atrial fibrillation I48.0 CPT Codes EKG - CPT: [id number], Complete ([id number])
[2024-01-06 09:46] VITALS: BP 126/78; PULSE 76; BMI 49.3
== END 2024-01-06 10:09 | disposition home or self-care (01) ==
PROVIDERS: PCP Family Medicine; Visit Provider Internal Medicine Cardiovascular Disease
DX: I25.10 Atherosclerotic heart disease of native coronary artery without angina pectoris (principal); I48.0 Paroxysmal atrial fibrillation
CPT/HCPCS: 93010; 99214

== ENCOUNTER 2024-01-06 09:43 | Outpatient (REF) | payer OTHER, SELFPAY ==
[2024-01-06 11:14] LABS: Cholesterol 90 mg/dL (<200); HDL Cholesterol 50 mg/dL (>40); LDL Cholesterol Calculated 20 mg/dL (<100); Triglycerides 100 mg/dL (<150)
== END 2024-01-06 09:44 | disposition home or self-care (01) ==
LOC: HO.LAB 09:43
PROVIDERS: Nurse Practitioner Family; Absent Provider Urology; PCP Family Medicine; Visit Provider Internal Medicine Cardiovascular Disease
DX: I25.10 Atherosclerotic heart disease of native coronary artery without angina pectoris (principal); I48.0 Paroxysmal atrial fibrillation; E78.5 Hyperlipidemia, unspecified; Z95.1 Presence of aortocoronary bypass graft
CPT/HCPCS: 36415; 80061; 93005; 99212

== ENCOUNTER 2024-01-07 10:43 | Outpatient (AMB) | payer OTHER, SELFPAY ==
--- NOTE | 2024-01-07 10:50 | A.OFFPC_ITS ---
Vital Signs 01/07/24 10:51 Height 5 ft 10 in Weight 343 lb BMI 49.2 BP 122/70 Blood Pressure Location Rt brachial Position Sitting Pulse 70 Pulse Source Pulse Oximeter Pulse Oximetry (%) 97 Oxygen Delivery Method Room Air Intake Visit Reasons: f/u hypertension and HLD Intake Note: Patient is here to follow up on hypertension, and HLD, and chronic conditions. Patient would like refill of Wegovy. Allergies Penicillins Allergy (Mild, Verified 01/07/24 10:53) Hives Medication List - Last Reconciled 01/07/24 by Wilfrid Mcmahon MD alfuzosin ER 10 mg PO DAILY apixaban (Eliquis) 5 mg PO BID aspirin 81 mg PO DAILY atorvastatin 80 mg PO DAILY 90 days carvedilol 3.125 mg PO BID 90 days cyclobenzaprine 10 mg PO TID PRN 30 days evolocumab (Repatha SureClick) 140 mg subcut Q2W 90 days ezetimibe (Zetia) 10 mg PO DAILY 30 days ibuprofen 1,200 mg PO Q6H magnesium 200 mg PO DAILY magnesium oxide 1,000 mg PO DAILY multivitamin (Daily Multi-Vitamin tablet) 1 tab PO DAILY omega-3 fatty acids 500 mg PO DAILY semaglutide (weight loss) 2.4 mg (0.75 mL) subcut QWEEK 4 weeks Tobacco use date assessed: 01/07/24 Dental Screening Dental Screen Date: 10/07/23 HPI f/u hypertension and HLD HPI Details 63 y/o male presents to f/u hypertension and hyperlipidemia. Labs were drawn 01/06/24. Reviewed labs with pt. Triglycerides 100. TC 90. LDL 20. HDL 50. He is on artovastatin 80mg daily, Zetia 10mg, Repatha 140mg. Blood pressure today is 122/70. He is on carvedilol 3.125mg b.i.d. A1c today 01/07/24 is 5.9%. [facility] Medical History Paroxysmal atrial fibrillation Persistent atrial fibrillation Acute dermatitis Tinnitus Osteoarthritis Sleep apnea Surgical History S/P ablation of atrial fibrillation S/P quadruple vessel bypass H/O cardiac catheterization History of surgery on lower extremity Family History Mother Afib No family history of mental disorder Father No family history of mental disorder Hyperlipidemia Social History Housing: House Alcohol intake: current Alcohol intake frequency: a few times a week Patient Tobacco Use Status: Never used Tobacco e-Cigarette/Vaping Use: Never Used service: No Current occupational status: employed and disabled 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 1. Little interest or pleasure in doing things: not at all 2. Feeling down, depressed, or hopeless: not at all 3. Trouble falling or staying asleep, or sleeping too much: not at all 4. Feeling tired or having little energy: not at all 5. Poor appetite or overeating: not at all 6. Feeling bad about yourself - or that you are a failure or have let yourself or your family down: not at all 7. Trouble concentrating on things, such as reading the newspaper or watching television: not at all 8. Moving or speaking so slowly that other people could have noticed. Or the opposite - being so fidgety or restless that you have been moving around a lot more than usual: not at all 9. Thoughts that you would be better off or of hurting yourself in some way: not at all Total score: 0 Source: Developed by Drs. Govind Hoang, Jessica Padilla, Agustin Appiah and colleagues, with an educational pradip from [employer]. Thrive Questionnaire Date Thrive assessed: 10/05/22 AUDIT C Alcohol Use Questionnaire (AUDIT-C) 1. How often do you have a drink containing alcohol?: 2-4 times a month 2. How many drinks containing alcohol do you have on a typical day when you are drinking?: 1 or 2 (per week) 3. How often do you have six or more drinks on one occasion?: Never Total Score: 2 SHAMAR-7 AMB Questionnaire SHAMAR-7 Date SHAMAR - 7 assessed: 01/07/24 Feeling nervous, anxious, or on edge: 0 = Not at all Not being able to stop or control worryin = Not at all Worrying too much about different things: 0 = Not at all Trouble relaxin = Not at all Being so restless that it is hard to sit still: 0 = Not at all Becoming easily annoyed or irritable: 0 = Not at all Feeling afraid as if something awful might happen: 0 = Not at all Total SHAMAR-7 score (0-4 normal; 5-9 mild; 10-14 moderate; 15-21 severe): 0 Source: Developed by Drs. Govind Hoang, Jessica Padilla, Agustin Appiah and colleagues, with an educational pradip from [employer]. Review of Systems Const Denies chills, Denies fatigue, Denies fever(s), Denies headache(s) and Denies weakness ENT Denies dizziness and Denies headache(s) Card Denies chest pain, Denies lightheadedness, Denies dyspnea and Denies other (Palpitations) Resp Denies cough, Denies dyspnea, Denies wheezing and Denies other ( shortness of breath) Musc Denies numbness and Denies tingling Neuro Denies dizziness, Denies headache(s), Denies numbness, Denies tingling, Denies paresthesias and Denies weakness Psych Denies anxiety and Denies depression Endo Denies fatigue Aller/Immun Denies wheezing Physical exam (Primary Care) Vital Signs: Last Vital Signs Pulse 70 01/07/24 10:51 BP 122/70 01/07/24 10:51 Pulse Ox 97 01/07/24 10:51 Oxygen Delivery Method Room Air 01/07/24 10:51 BMI result Body Mass Index 49.2 Tobacco/Smoking Status: Tobacco use Status Tobacco use date assessed 01/07/24 01/07/24 11:05 Patient Tobacco Use Status Never used Tobacco 01/07/24 10:52 e-Cigarette/Vaping Use Never Used 01/07/24 10:52 PHQ-9: PHQ-9 Score PHQ-9: Total score 0 01/07/24 11:05 Thrive Assessment: Date of Thrive Assessment Date Thrive assessed 10/05/22 01/07/24 10:52 Const General: no acute distress and well developed Nutritional Appearance: well nourished Orientation/consciousness: patient oriented x3 HENMT Head: Yes normocephalic and Yes atraumatic Eyes General: appearance normal, both eyes and all related structures Pupils: Equal, round and reactive pupils present EOM: EOMs intact bilaterally Resp Effort & Inspection: normal respiratory effort Auscultation: clear to auscultation bilaterally Cardio Rate: regular rate Rhythm: regular rhythm Heart sounds: S1 normal heart sound present, S2 normal heart sound present, no gallops, no murmurs and no rubs Neuro General: patient oriented x3 and gait normal Cranial nerves: Yes Equal, round and reactive pupils present Psych Affect: normal affect Results AMB Hemoglobin A1c AMB Hemoglobin A1c 5.9 % Last Edit by Susan Noonan CMA on 01/07/24 11:13 Assessment and Plan Assessment & Plan (1) Hypertension: Code(s): I10 - Essential (primary) hypertension Qualifiers: Hypertension type: primary hypertension Qualified Code(s): I10 - Essential (primary) hypertension Plan: Blood?pressure?is?well?controlled.??Goal?is?less?than?130/80 Continue?carvedilol (2) Hyperlipidemia: Code(s): E78.5 - Hyperlipidemia, unspecified Plan: Now?on?atorvastatin,?Repatha?and?Zetia LDL?cholesterol?is?at?goal?of?less?than?70 Continue?current?medication?regimen (3) Coronary artery disease: Code(s): I25.10 - Atherosclerotic heart disease of [place] coronary artery without angina pectoris Plan: Stable Follow-up?with?Cardiology?as?recommended (4) Pre-diabetes: Code(s): R73.03 - Prediabetes Plan: Patient?has?pre?diabetes,?not?diabetes. He?is?on?[place]?due?to?elevated?fasting?blood?sugars?and?obe sity?with?comorbid?condition?of?coronary?artery?disease. Maintaining?A1c?under?6.5 A1c?today?5.9%?which?is?slightly?higher?than?prior?testing?at?5.7%. No?medication?change?today?but?encouraged?diet?lower?in?sugars?and?starches (5) Hip pain: Code(s): M25.559 - Pain in unspecified hip Plan: Left?lateral?hip?pain?which?radiates?down?the?lateral?aspect?of?his?left?thigh?t o?knee. Possible?bursitis?or?iliotibial?band?syndrome Start?physical?therapy Check?imaging Patient?does?have?history?of ?osteoarthritis?of?the?left?knee?as?well?and?has?seen??in?the?past. Referred?back?to??[facility],?[facility]?at?patient?request. Orders: Orders PT Evaluation and Treatment Today M25.559 - Pain in unspecified hip XR femur LT 2V Today M25.559 - Pain in unspecified hip XR hip LT min 2V Today M25.559 - Pain in unspecified hip AMB Hemoglobin A1c Today Z13.9 - Encounter for screening, unspecified Referrals Orthopedics Referral M25.559 - Pain in unspecified hip Medications: Refilled semaglutide (weight loss) administer month 3 of therapy 2.4 mg (0.75 mL) subcut QWEEK 4 weeks 3 mL 2RF E66.01 - Morbid (severe) obesity due to excess calories, Z68.43 - Body mass index [BMI] 50.0-59.9, adult Coding Level of Care Code Est Pt Level 4 (99942) Diagnoses Primary hypertension I10 Hypertension type: primary hypertension Hyperlipidemia E78.5 Coronary artery disease I25.10 Pre-diabetes R73.03 Hip pain M25.559
[2024-01-07 10:51] VITALS: BP 122/70; PULSE 70; O2SAT 97; BMI 49.2
== END 2024-01-07 11:23 | disposition home or self-care (01) ==
PROVIDERS: PCP Family Medicine; Visit Provider Family Medicine
DX: I10 Essential (primary) hypertension (principal); E78.5 Hyperlipidemia, unspecified; I25.10 Atherosclerotic heart disease of native coronary artery without angina pectoris; R73.03 Prediabetes; M25.552 Pain in left hip
CPT/HCPCS: 83036; 99214

== ENCOUNTER 2024-01-08 12:56 | Outpatient (AMB) | payer OTHER, SELFPAY ==
--- NOTE | 2024-01-08 12:57 | A.OFFVIS_ITS ---
Intake Visit Reasons: 1y/PSA Intake Note: Patient presents today for a follow-up on PSA: Meds- Alfuzosin Allergies to Antibiotic- Penicillin Blood Thinner- Aspirin & Eliquis Head Of [employer] Required: No Accompanied by: Self / Same As Patient Allergies Penicillins Allergy (Mild, Verified 01/07/24 10:53) Hives Medication List - Last Reconciled 01/08/24 by Ottoniel Corrales MD alfuzosin ER 10 mg PO DAILY apixaban (Eliquis) 5 mg PO BID aspirin 81 mg PO DAILY atorvastatin 80 mg PO DAILY 90 days carvedilol 3.125 mg PO BID 90 days cyclobenzaprine 10 mg PO TID PRN 30 days evolocumab (Repatha SureClick) 140 mg subcut Q2W 90 days ezetimibe (Zetia) 10 mg PO DAILY 30 days ibuprofen 1,200 mg PO Q6H magnesium 200 mg PO DAILY magnesium oxide 1,000 mg PO DAILY multivitamin (Daily Multi-Vitamin tablet) 1 tab PO DAILY omega-3 fatty acids 500 mg PO DAILY semaglutide (weight loss) 2.4 mg (0.75 mL) subcut QWEEK 4 weeks HPI Comments Details: 01/08/2024--Rodriguez is a 63-year-old male who is followed for obstructive lower urinary tract symptoms from BPH. He is on alfuzosin 10 mg daily. He states that since he was seen in our office he had open heart surgery, CABG x4 about 9 months ago at [facility]. He states he is urinating well on the alfuzosin medication. Denies irritative voiding symptoms. He went to the lab to have PSA checked and the lab sent blood for other testing. Review of testing US retroperitoneum 12/07/22--Enlarged prostate, estimated volume 120 mL PSA 10/31/22?0.49. Will continue alfuzosin, continue PSA screening. Review of chart: 01/10/23-- Silver is a 62-year-old male who is here tele-health follow-up for discussion of renal US results. Video-Attempted.the patient states moderate benefits with Alfuzosin 10 mg QD. States having weak urine stream. Retroperitoneal US result reviewed--12/07/22-- The prostate volume is estimated to be 120 milliliters. Non-shadowing punctate calcification within both kidneys. PSA blood work prior was ordered. Continue Alfuzosin 10 mg QD. Follow-up after one year. 11/28/22--Silver is a 62-year-old male who presents to the office as a new patient evaluation for urinary urgency and weak urinary stream. The patient had initial feeling of difficulty emptying with intermittent dribbling and urgency. He was prescribed Flomax, but he states his urinary flow seemed weaker so he stopped the medication after 15 days. States having stronger urine flow after discontinuation, but other symptoms returned. Evaluation today: Blood: negative, leukocytes: negative. Bladder scan PVR: 0 mL. AUA symptom score: 6. PSA results reviewed?10/31/22?0.49. Plan: Renal/bladder US was ordered. Alfuzosin 10 mg QD was ordered. Side effects including but not limited to nasal congestion and retrograde ejaculation were discussed. Follow-up in 6 weeks. [facility] Medical History Paroxysmal atrial fibrillation Persistent atrial fibrillation Acute dermatitis Tinnitus Osteoarthritis Sleep apnea Surgical History S/P ablation of atrial fibrillation S/P quadruple vessel bypass H/O cardiac catheterization History of surgery on lower extremity Family History Mother Afib No family history of mental disorder Father No family history of mental disorder Hyperlipidemia Social History Housing: House Alcohol intake: current Alcohol intake frequency: a few times a week Patient Tobacco Use Status: Never used Tobacco e-Cigarette/Vaping Use: Never Used service: No Current occupational status: employed and disabled 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 Cognitive needs: No Hearing needs: No Vision needs: Yes Review of Systems Const All systems reviewed & are unremarkable except as noted in HPI and below Reports no additional complaints Eyes Reports no additional complaints ENT Reports no additional complaints Card Reports no additional complaints Resp Reports no additional complaints GI Reports no additional complaints Reports as per HPI Musc Reports no additional complaints Skin/Breast Reports system reviewed and no additional complaints, except as documented Neuro Reports no additional complaints Psych Reports no additional complaints Endo Reports no additional complaints Mejia/Lymph Reports no additional complaints Aller/Immun Reports no additional complaints Results AMB Urinalysis, Automated UA Leukoctes 0 Rogelio/uL Last Edit by Amaris Harvey Mary on 01/08/24 13:10 UA Nitrite Negative Last Edit by Amaris Harvey [facility] on 01/08/24 13:10 UA Urobilinogen 0.2 mg/dL Last Edit by Amaris Harvey [facility] on 01/08/24 13:1 0 UA Protein 15 mg/dL Last Edit by Amaris Harvey [facility] on 01/08/24 13:10 UA pH 6.0 Last Edit by Amaris Harvey [facility] on 01/08/24 13:10 UA Blood 0 Jose/uL Last Edit by Amaris Harvey [facility] on 01/08/24 13:10 UA Specific [place] 1.025 Last Edit by Amaris Harvey [facility] on 01/08/24 13: 10 UA Ketone Negative Last Edit by Amaris Harvey [facility] on 01/08/24 13:10 UA Bilirubin 1 mg/dL Last Edit by Amaris Harvey [facility] on 01/08/24 13:10 UA Glucose 0 mg/dL Last Edit by Amaris Harvey [facility] on 01/08/24 13:10 Results Reviewed Results Reviewed: Laboratory Last Values Urine pH (Auto) 6.0 01/08/24 13:08 Specific [place] (Auto) 1.025 01/08/24 13:08 Urine Protein (Auto) 15 mg/dL 01/08/24 13:08 Glucose (UA)(Auto) 0 mg/dL 01/08/24 13:08 Urine Ketones (Auto) Negative 01/08/24 13:08 Urine Blood (Auto) 0 Jose/uL 01/08/24 13:08 Urine Nitrite (Auto) Negative 01/08/24 13:08 Urine Bilirubin (Auto) 1 mg/dL 01/08/24 13:08 Urine Urobilinogen (Auto) 0.2 mg/dL 01/08/24 13:08 Leukocyte Esterase (Auto) 0 Rogelio/uL 01/08/24 13:08 Date of Service: 12/07/22 EXAMINATION: US RETROPERITONEAL COMPLETE (RENAL) CLINICAL INFORMATION: Benign prostatic hyperplasia with lower urinary tract symptoms. COMPARISON: None available. TECHNIQUE: Real-time imaging of the kidneys and bladder. FINDINGS: RIGHT KIDNEY: 13.4 x 6.1 x 5.8 cm (SAG x AP x TRV). The kidney is normal in size, contour, and echogenicity. Renal cortical thickness is normal. A few punctate nonshadowing echogenic foci are noted within the right kidney. There is no hydronephrosis. LEFT KIDNEY: 14.7 x 5.6 x 5.7 cm (SAG x AP x TRV). The kidney is normal in size, contour, and echogenicity. Renal cortical thickness is normal.. A few punctate nonshadowing echogenic foci are noted within the left kidney. There is no hydronephrosis. BLADDER: Well distended and normal. Bilateral ureteral jets are demonstrated. Prevoid bladder volume is 328 mL. Postvoid bladder volume is 58.4 mL. Prostate gland: Poorly visualized. Suspected volume 120 mL. IMPRESSION: 1. A few punctate nonshadowing echogenic foci are noted within both kidneys. These are nonspecific but may represent tiny nonobstructing calculi or vascular reflections. There is no hydronephrosis of either kidney. 2. Poorly visualized but suspected significantly enlarged prostate gland. 3. Prominent post void bladder residual of 55 mL. Assessment & Plan Assessment & Plan (1) BPH loc w urin obs/LUTS: Code(s): N40.1 - Benign prostatic hyperplasia with lower urinary tract symptoms Category: Medical (2) Weak urinary stream: Code(s): R39.12 - Poor urinary stream Category: Medical (3) Urgency of urination: Code(s): R39.15 - Urgency of urination Category: Medical (4) Screening PSA (prostate specific antigen): Code(s): Z12.5 - Encounter for screening for malignant neoplasm of prostate Category: Medical Plan Will continue alfuzosin, continue PSA screening. Orders: Orders AMB Urinalysis Automated Today Z13.9 - Encounter for screening, unspecified PSA,Total (Free>4and<10) Today Z12.5 - Encounter for screening for malignant neoplasm of prostate PSA,Total (Free>4and<10) 11 Months Z12.5 - Encounter for screening for malignant neoplasm of prostate Medications: Refilled alfuzosin ER administer after the same meal each day 10 mg PO DAILY 90 tabs 3RF Patient Instructions: The patient had an opportunity to ask questions regarding treatment plan. The patient expressed understanding and agreement with the above treatment plan. The patient is aware they should contact our office by phone for worsening of their current condition or the appearance of new symptoms. Compliance is encouraged with any medications and followup testing that is ordered. It is a privilege to be allowed the opportunity to participate in the urologic care of your patient. If you have any questions or concerns regarding treatment for the above conditions please do not hesitate to contact me. The office telephone contact is [phone]. This note is constructed in part using voice recognition software. While every effort has been made to ensure accuracy finish molder errors may have been included. Yours sincerely, Ottoniel Corrales MD Coding Level of Care Code Est Pt Level 4 (46589) Diagnoses BPH loc w urin obs/LUTS N40.1 Weak urinary stream R39.12 Urgency of urination R39.15 Screening PSA (prostate specific antigen) Z12.5
== END 2024-01-08 13:32 | disposition home or self-care (01) ==
PROVIDERS: PCP Family Medicine; Visit Provider Urology
DX: N40.1 Benign prostatic hyperplasia with lower urinary tract symptoms (principal); R39.12 Poor urinary stream; R39.15 Urgency of urination; Z12.5 Encounter for screening for malignant neoplasm of prostate; Z13.9 Encounter for screening, unspecified
CPT/HCPCS: 99214

== ENCOUNTER → 2024-01-08 12:56 | Outpatient (BNVA) | payer OTHER, SELFPAY | PROVIDERS: PCP Family Medicine; Visit Provider Urology | DX: N40.1 Benign prostatic hyperplasia with lower urinary tract symptoms (principal); Z12.5 Encounter for screening for malignant neoplasm of prostate; R39.12 Poor urinary stream; R39.15 Urgency of urination | CPT/HCPCS: 81003; 99212 ==

== ENCOUNTER 2024-02-06 14:08 | Outpatient (REF) | payer OTHER, SELFPAY ==
--- NOTE | ~2024-02-06 | XR_ITS ---
Exam: X-ray left hip, left femur INDICATION: Pain and unspecified TECHNIQUE: Hip 5 views of the left hip and femur. COMPARISON: 10/18/2022 pelvis x-ray FINDINGS: LEFT HIP/FEMUR: Diffuse demineralization. Progression of severe degenerative changes of the left hip with obliteration/destruction of the joint space and remodeling of the subjacent femoral head and acetabulum. Small knee joint effusion. Mild degenerative changes in the left knee. XR/XR femur LT 2V IMPRESSION: 1. Progression of severe degenerative changes of the left hip with obliteration/destruction of the joint space and remodeling of the subjacent femoral head and acetabulum. 2. Small knee joint effusion. Mild degenerative changes in the left knee.
--- NOTE | ~2024-02-06 | XR_ITS ---
Exam: X-ray left hip, left femur INDICATION: Pain and unspecified TECHNIQUE: Hip 5 views of the left hip and femur. COMPARISON: 10/18/2022 pelvis x-ray FINDINGS: LEFT HIP/FEMUR: Diffuse demineralization. Progression of severe degenerative changes of the left hip with obliteration/destruction of the joint space and remodeling of the subjacent femoral head and acetabulum. Small knee joint effusion. Mild degenerative changes in the left knee. XR/XR hip LT min 2V IMPRESSION: 1. Progression of severe degenerative changes of the left hip with obliteration/destruction of the joint space and remodeling of the subjacent femoral head and acetabulum. 2. Small knee joint effusion. Mild degenerative changes in the left knee.
== END 2024-02-06 14:09 | disposition home or self-care (01) ==
LOC: HO.XRAY 14:08
PROVIDERS: PCP Family Medicine; Visit Provider Family Medicine
DX: M25.552 Pain in left hip (principal)
CPT/HCPCS: 73502; 73552

== ENCOUNTER 2024-02-13 14:48 | Outpatient (AMB) | payer OTHER, SELFPAY ==
--- NOTE | 2024-02-13 14:53 | MHC.PC.OV ---
Vital Signs 02/13/24 14:54 Height 5 ft 10 in Weight 341 lb BMI 48.9 BP 138/74 Blood Pressure Location Rt brachial Position Sitting Respiration 16 Pulse 79 Pulse Source Pulse Oximeter Temp 97.8 F Temp Source Temporal Artery Scan Pulse Oximetry (%) 96 Oxygen Delivery Method Room Air Intake Visit Reasons: f/u hip pain Intake Note: Patient does not currently have any concerns. 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 He has an appt. with orthopedics coming up. He also notes he has physical therapy scheduled. Has been taking ibuprofen 400mg t.i.d. HPI Comments History of Present Illness Details Documentation assistance for Wilfrid Mcmahon MD, was provided by Sharif Dumont,? Business Support Professional on 02/13/2024 at 3:44 PM EST. I, Dr. Mcmahon, have read, observed, and verified documentation.? [facility] Medical History Paroxysmal atrial fibrillation Persistent atrial fibrillation Acute dermatitis Tinnitus Osteoarthritis Sleep apnea Surgical History S/P ablation of atrial fibrillation S/P quadruple vessel bypass H/O cardiac catheterization History of surgery on lower extremity Family History Mother Afib No family history of mental disorder Father No family history of mental disorder Hyperlipidemia Social History Housing: House Alcohol intake: current Alcohol intake frequency: a few times a week Patient Tobacco Use Status: Never used Tobacco e-Cigarette/Vaping Use: Never Used service: No Current occupational status: employed and disabled 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 Govind Hoang, Jessica Padilla, Agustin Appiah and colleagues, with an educational pradip from [employer]. Review of Systems Const Denies chills, Denies fatigue, Denies fever(s), Denies headache(s) and Denies weakness ENT Denies dizziness and Denies headache(s) Card Denies dyspnea Resp Denies cough, Denies dyspnea, Denies wheezing and Denies other (shortness of breath) Musc Details: Hip pain Denies numbness and Denies tingling Neuro Denies dizziness, Denies headache(s), Denies numbness, Denies tingling and Denies weakness Psych Denies anxiety and Denies depression Endo Denies fatigue Aller/Immun Denies wheezing Physical exam (Primary Care) Vital Signs: Last Vital Signs Temp 97.8 F 02/13/24 14:54 Pulse 79 02/13/24 14:54 Resp 16 02/13/24 14:54 BP 138/74 02/13/24 14:54 Pulse Ox 96 02/13/24 14:54 Oxygen Delivery Method Room Air 02/13/24 14:54 BMI result Body Mass Index 48.9 Tobacco/Smoking Status: Tobacco use Status Tobacco use date assessed 01/07/24 02/13/24 15:04 Patient Tobacco Use Status Never used Tobacco 02/13/24 15:04 e-Cigarette/Vaping Use Never Used 02/13/24 15:04 Thrive Assessment: Date of Thrive Assessment Date Thrive assessed 10/05/22 02/13/24 15:04 Const General: well developed; No acute distress Nutritional Appearance: well nourished and obese morbidly obese Orientation/consciousness: patient oriented x3 HENMT Head: Yes normocephalic and Yes atraumatic Eyes General: appearance normal, both eyes and all related structures Pupils: Equal, round and reactive pupils present EOM: EOMs intact bilaterally Resp Effort & Inspection: normal respiratory effort Auscultation: clear to auscultation bilaterally Cardio Rate: regular rate Rhythm: regular rhythm Heart sounds: S1 normal heart sound present, S2 normal heart sound present, no gallops, no murmurs and no rubs Neuro General: patient oriented x3 and gait normal Cranial nerves: Yes Equal, round and reactive pupils present Psych Affect: normal affect Assessment and Plan Assessment & Plan (1) Hip pain: Code(s): M25.559 - Pain in unspecified hip Plan: Ongoing?left?lateral?hip?pain?from?lateral?hip?down?to?lateral?knee He?has?not?started?physical?therapy?yet?but?his?appointment?is?coming?up?soon. Had?referred?him?to?Ortho?and?he?is?appointment?next?week. X-rays?are?acquired?but?report?is?not?available He?is?taking?ibuprofen?and?magnesium?with?some?improvement?temporarily Will?renew?his?muscle?relaxant?as?well Follow-up?with?ortho Orders: Orders Lipid Panel Today Z00.00 - Encounter for general adult medical examination without abnormal findings Microalbumin, Random (w Creat) Today I10 - Essential (primary) hypertension Prostate Specific Antigen Scr Today Z12.5 - Encounter for screening for malignant neoplasm of prostate TSH reflex Free T4 Today Z00.00 - Encounter for general adult medical examination without abnormal findings Hemoglobin A1c Today R73.01 - Impaired fasting glucose Comprehensive [place]. Panel Fast Today Z00.00 - Encounter for general adult medical examination without abnormal findings Complete Blood Count Auto Diff Today Z00.00 - Encounter for general adult medical examination without abnormal findings UA and rflx microscopic Today Z00.00 - Encounter for general adult medical examination without abnormal findings Medications: Changed From cyclobenzaprine 10 mg PO TID 30 days PRN 90 tabs 2RF muscle spasm To cyclobenzaprine 10 mg PO BID 30 days PRN 60 tabs 0RF muscle spasm Coding Level of Care Code Est Pt Level 3 (26779) Diagnoses Hip pain M25.559
[2024-02-13 14:54] VITALS: BP 138/74; PULSE 79; RESP 16; TEMP 36.6; O2SAT 96; BMI 48.9
== END 2024-02-13 15:48 | disposition home or self-care (01) ==
PROVIDERS: PCP Family Medicine; Visit Provider Family Medicine
DX: M25.559 Pain in unspecified hip (principal)
CPT/HCPCS: 99213

== ENCOUNTER 2024-02-20 11:33 | Outpatient (AMB) | payer OTHER, SELFPAY ==
--- NOTE | 2024-02-20 11:36 | A.OFFVIS_ITS ---
Vital Signs 02/20/24 11:44 Height 5 ft 10 in Weight 334 lb BMI 47.9 Intake Visit Reasons: OV left hip pain Intake Note: Silver is a 63 year old male who presents today for a follow up of his left hip OA. Patient reports he is having continuous pain at all times. He states he had mild pain that turns to severe pain with certain movement. He states he can not stand for longer than 15 minutes or prolonged ambulation because then he feels pain for hours after, even washing dishes has become difficult for him. He also utilizes a recliner at home because standing is painful and difficult for him. He is having muscle spams that are constant between his left hip and left knee. He has an order put in from Dr Mcmahon for PT, 02/27 is his first appointment. He takes ibuprofen and cyclobenzaprine but finds little relief. X-rays done at [facility] on 02/06/24 for hips. Allergies Penicillins Allergy (Mild, Verified 02/13/24 15:01) Hives HPI HPI OV left hip pain: Details: Silver is a 63 year old male who presents today for a follow up of his left hip OA. Patient reports he is having continuous pain at all times. He states he had mild pain that turns to severe pain with certain movement. He states he can not stand for longer than 15 minutes or prolonged ambulation because then he feels pain for hours after, even washing dishes has become difficult for him. He also utilizes a recliner at home because standing is painful and difficult for him. He is having muscle spams that are constant between his left hip and left knee. He has an order put in from Dr Mcmahon for PT, 02/27 is his first appointment. He takes ibuprofen and cyclobenzaprine but finds little relief. X-rays done at [facility] on 02/06/24 for hips PFSH Medical History Paroxysmal atrial fibrillation Persistent atrial fibrillation Acute dermatitis Tinnitus Osteoarthritis Sleep apnea Surgical History S/P ablation of atrial fibrillation S/P quadruple vessel bypass H/O cardiac catheterization History of surgery on lower extremity Family History Mother Afib No family history of mental disorder Father No family history of mental disorder Hyperlipidemia Social History Housing: House Alcohol intake: current Alcohol intake frequency: a few times a week Patient Tobacco Use Status: Never used Tobacco e-Cigarette/Vaping Use: Never Used service: No Current occupational status: employed and disabled 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 Cognitive needs: No Hearing needs: No Vision needs: Yes Physical Exam Vital Signs: BMI result Body Mass Index 47.9 Const General: no acute distress, alert and awake Orientation/consciousness: patient oriented x3 HEENT Head: Yes normocephalic and Yes atraumatic Eyes EOM: EOMs intact bilaterally Resp Effort & Inspection: normal respiratory effort and able to speak in complete sentences Cardio Jugular venous distension: no JVD Skin General skin exam: turgor normal Rashes: no rashes Neuro General: patient oriented x3 Extrem Other: Left Hip: + impingement antalgic gait Psych Appearance: grossly normal Affect: normal affect Attitude: cooperative Results Reviewed Results Reviewed: I personally reviewed relevant radiographs. Obliteration of the left hip joint c/w severe hip OA Assessment & Plan Assessment & Plan (1) Osteoarthritis of left hip: Code(s): M16.12 - Unilateral primary osteoarthritis, left hip Category: Medical Qualifiers: Osteoarthritis type: unspecified Qualified Code(s): M16.12 - Unilateral primary osteoarthritis, left hip Plan: This is a 63 yo M with severe left hip OA who is painfully disabled. He cannot ambulate and I have discussed options with him. He could undoubtedly benefit from a hip replacemnet. His caridac issues have been treated with catherterization and ablation and he reports doing well from a cardiac standpoint. We will need clearance, obviously. His weight is an issue but it is more abdominal and I can plalpate his left hip bony landmarks well and I think the surgery can be done safely. I discussed the risks benefits and alternatives including but not limited to the risk of pain, infection, stiffness,fracture, dislocation, LLD ,need for further surgery as well as potential medical complications such as blood clots, pulmonary embolism and cardiac complications. (2) H/O cardiac catheterization: Comment: 01/31/2023, mid LAD 80% stenosis, 1st diagonal 80% stenosis, distal LAD 75% stenosis, left circumflex 3rd OM, 80% stenosis, proximal RCA 80% stenosis Code(s): Z98.890 - Other specified postprocedural states Category: Surgical Plan: Coding Level of Care Code Est Pt Level 4 (82905) Diagnoses Osteoarthritis of left hip, unspecified osteoarthritis type M16.12 Osteoarthritis type: unspecified H/O cardiac catheterization Z98.890
[2024-02-20 11:44] VITALS: BMI 47.9
== END 2024-02-20 12:35 | disposition home or self-care (01) ==
PROVIDERS: PCP Family Medicine; Visit Provider Orthopaedic Surgery
DX: M16.12 Unilateral primary osteoarthritis, left hip (principal)
CPT/HCPCS: 99214

== ENCOUNTER → 2024-02-20 11:33 | Outpatient (BNVA) | payer OTHER, SELFPAY | PROVIDERS: PCP Family Medicine; Visit Provider Orthopaedic Surgery | DX: M16.12 Unilateral primary osteoarthritis, left hip (principal); Z98.890 Other specified postprocedural states | CPT/HCPCS: 99212 ==

== ENCOUNTER → 2024-02-27 13:06 | Outpatient (BNVA) | payer OTHER, SELFPAY ==
[2024-02-24 10:56] VITALS: BP 120/78; BP 156/70; BMI 49.2
== END ==
PROVIDERS: PCP Family Medicine
DX: Z01.818 Encounter for other preprocedural examination (principal)

== ENCOUNTER 2024-02-28 11:50 | Outpatient (RCR) | payer OTHER, SELFPAY ==
--- NOTE | 2024-02-28 13:42 | MHC.PT.DC ---
[facility] [place] Office [place] Office [place] Office [address] 140 [facility] [phone] F: [phone] F: [phone] F: [phone] F: [phone] Physical Therapy Discharge Report Diagnosis: L hip pain (RL) Date of Surgery: N/A Date of Evaluation: 02/28/24 Date of Discharge: 02/28/24 Treatments to Date: Cancellations to Date: No Shows to Date: Discharge Status: Discharge Summary: pt is a 63 y/o male presenting to physical therapy w/ referring diagnosis of pain in unspecified hip. pt presents w/ severe resting and provocative L hip pain that is chronic in nature. He endorses spending 20+ hours a day in his recliner d/t severe pain. He feels he is most limited by hip pain and muscle spasms that can occur w/ even simple LE movements. He has an anticipated surgical date of 03/24/24 w/ Dr. Colorado for a AMBER. Given how difficult it is to get out of his house, the severe pain he is experiencing, and poor chance PT will be able to remediate these symptoms I do not feel he is an appropriate PT candidate at this time. He will most likely have much better tolerance after his AMBER later this month. He is discharged from this PT POC. Electronically signed by: Kelly Chowdary PT, DPT Please sign and return to therapist. Thank you for your referral.
== END 2024-02-28 13:43 | disposition home or self-care (01) ==
LOC: HO.PT 11:50
PROVIDERS: PCP Family Medicine; Visit Provider Family Medicine
DX: M25.552 Pain in left hip (principal)
CPT/HCPCS: 97162

== ENCOUNTER 2024-03-12 14:36 | Outpatient (AMB) | payer OTHER, SELFPAY ==
[2024-02-24 10:56] VITALS: BP 120/78; BP 156/70; BMI 49.2
--- NOTE | 2024-03-12 14:32 | MHC.PC.OV ---
Vital Signs 03/12/24 14:40 Height 5 ft 10 in Weight 336 lb 8 oz BMI 48.3 BP 132/68 Blood Pressure Location Rt brachial Position Sitting Respiration 14 Pulse 68 Pulse Source Pulse Oximeter Pulse Oximetry (%) 97 Oxygen Delivery Method Room Air Intake Visit Reasons: preop for surgery hip replacement Intake Note: Preop for total hip replacement. Dr Mejía, [facility] Allergies Penicillins Allergy (Mild, Verified 03/12/24 14:33) Hives Tobacco use date assessed: 01/07/24 Dental Screening Dental Screen Date: 10/07/23 HPI preop for surgery hip replacement HPI Details Patient is a 63-year-old male with a significant past medical history of hypertension, hyperlipidemia, history of AFib, on chronic anticoagulation, prediabetes and osteoarthritis of the left hip who presents today for a preop. He states he is scheduled for a Left hip replacement 03/[address] [place]. He states that he has already been instructed on what to do with his medications and he understands he has to stop his GLP 1 1 week prior to surgery. He will be stopping his Eliquis 3 days prior. He knows to avoid any NSAIDs 7 days prior. We did discuss that he should not be taking this anyways as he is on anticoagulation. His blood pressure has been well-controlled and he is currently on carvedilol 3.125 mg twice a day. Cholesterol is well-controlled with atorvastatin 80 mg and Repatha. He follows closely with Cardiology and has sought clearance for this procedure as well. He states that they are in agreement that he needs to have his hip replaced. He is greatly limited by his left hip and is using a cane and walker to get around. Had coronary bypass last year and states that he has been well since then. No reoccurrence of AFib. His limitations are the hip and he states he does not have any cardiac symptoms. He denies any chest pain, shortness of breath or difficulty breathing. No recent URIs or lung infections. He is not smoking. His last A1c was 5.9. [facility] Medical History Paroxysmal atrial fibrillation Persistent atrial fibrillation Acute dermatitis Tinnitus Osteoarthritis Sleep apnea Surgical History S/P ablation of atrial fibrillation S/P quadruple vessel bypass H/O cardiac catheterization History of surgery on lower extremity Family History Mother Afib No family history of mental disorder Father No family history of mental disorder Hyperlipidemia Social History Housing: House Alcohol intake: current Alcohol intake frequency: a few times a week Patient Tobacco Use Status: Never used Tobacco e-Cigarette/Vaping Use: Never Used service: No Current occupational status: employed and disabled 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 Govind Hoang, Jessica Padilla, Agustin Appiah and colleagues, with an educational pradip from [employer]. Physical exam (Primary Care) Vital Signs: Last Vital Signs Pulse 68 03/12/24 14:40 Resp 14 03/12/24 14:40 BP 132/68 03/12/24 14:40 Pulse Ox 97 03/12/24 14:40 Oxygen Delivery Method Room Air 03/12/24 14:40 BMI result Body Mass Index 48.3 Tobacco/Smoking Status: Tobacco use Status Tobacco use date assessed 01/07/24 03/12/24 14:33 Patient Tobacco Use Status Never used Tobacco 03/12/24 14:33 e-Cigarette/Vaping Use Never Used 03/12/24 14:33 Thrive Assessment: Date of Thrive Assessment Date Thrive assessed 10/05/22 03/12/24 14:33 Const Orientation/consciousness: patient oriented x3 HENMT Ears: hearing grossly normal bilaterally Neck Thyroid: Thyroid normal Lymphatic: no lymphadenopathy noted Resp Auscultation: clear to auscultation bilaterally Cardio Rate: regular rate Rhythm: regular rhythm Heart sounds: S1 normal heart sound present and S2 normal heart sound present GI Inspection: Yes normal to inspection Palpation (GI): Soft to palpation and Other GI palpation findings present (nontender, no cva tenderness) Auscultation: normoactive bowel sounds Rectal Exam - Male: Yes deferred Skin General skin exam: no rashes or lesions noted Neuro General: patient oriented x3, gait normal and no focal motor deficits Office Procedures EKG Details: EKG today in office is normal sinus rhythm at a rate of 73 beats per minute with nonspecific STT wave abnormalities. No significant change from prior study. EKG interpreted by myself and Dr. Mcmahon. [id number], Complete Results Reviewed Results Reviewed: Laboratory Tests 11/12/23 01/06/24 09:41 10:27 Sodium 137 Potassium 4.4 Chloride 106 Carbon Dioxide 22 Anion Gap 13 Creatinine 0.81 Estimated GFR > 60 Random Glucose 107 AST 20 ALT 30 Triglycerides 100 Cholesterol 90 LDL Cholesterol, Calc 20 HDL Cholesterol 50 Assessment and Plan Assessment & Plan (1) Pre-op chest exam: Code(s): Z01.811 - Encounter for preprocedural respiratory examination Plan: met score greater than or equal to 4. Given his bypass within the here we did discuss that he is at above average risk for surgery, but is cleared by Cardiology as well. Labs ordered today. Will follow up pending test results. Patient provided clearance today for surgery. (2) Osteoarthritis of left hip: Code(s): M16.12 - Unilateral primary osteoarthritis, left hip Qualifiers: Osteoarthritis type: unspecified Qualified Code(s): M16.12 - Unilateral primary osteoarthritis, left hip Plan: Following with ortho and scheduled for hip replacement. He has an appointment next week with his surgeon to go over further details regarding surgery.. (3) Hypertension: Code(s): I10 - Essential (primary) hypertension Qualifiers: Hypertension type: primary hypertension Qualified Code(s): I10 - Essential (primary) hypertension Plan: WNL. Continue current regimen (4) Status post coronary artery bypass graft: Comment: 04/09/2023, [place] to LAD, left radial artery to the diagonal, right GSV to OM branch of left circumflex and right GSV to the PLV, bilateral pulmonary vein isolation, left atrial appendage ligation Code(s): Z95.1 - Presence of aortocoronary bypass graft Plan: Has felt well. Has clearance from cardiology. No significant change from EKG today compared to December. Interpreted by Dr. Mcmahon as well. Orders: Orders Basic Metabolic Panel 03/12/24 I10 - Essential (primary) hypertension, M16.12 - Unilateral primary osteoarthritis, left hip, Z01.811 - Encounter for preprocedural respiratory examination, Z95.1 - Presence of aortocoronary bypass graft Complete Blood Count Auto Diff 03/12/24 I10 - Essential (primary) hypertension, M16.12 - Unilateral primary osteoarthritis, left hip, Z01.811 - Encounter for preprocedural respiratory examination, Z95.1 - Presence of aortocoronary bypass graft AMB INR 03/12/24 I10 - Essential (primary) hypertension, M16.12 - Unilateral primary osteoarthritis, left hip, Z01.811 - Encounter for preprocedural respiratory examination, Z13.9 - Encounter for screening, unspecified, Z95.1 - Presence of aortocoronary bypass graft Hemoglobin A1c 03/12/24 I10 - Essential (primary) hypertension, M16.12 - Unilateral primary osteoarthritis, left hip, Z01.811 - Encounter for preprocedural respiratory examination, Z95.1 - Presence of aortocoronary bypass graft Coding Level of Care Code Est Pt Level 4 (66976) Complex EM visit Add On G2211 Diagnoses Pre-op chest exam Z01.811 Osteoarthritis of left hip, unspecified osteoarthritis type M16.12 Osteoarthritis type: unspecified Primary hypertension I10 Hypertension type: primary hypertension Status post coronary artery bypass graft Z95.1 CPT Codes EKG - CPT: [id number], Complete ([id number])
[2024-03-12 14:40] VITALS: BP 132/68; PULSE 68; RESP 14; O2SAT 97; BMI 48.3
== END 2024-03-12 16:29 | disposition home or self-care (01) ==
PROVIDERS: PCP Family Medicine; Visit Provider Physician Assistant
DX: I10 Essential (primary) hypertension (principal)
CPT/HCPCS: 93000; 99214; G2211

== ENCOUNTER 2024-03-20 10:45 | Outpatient (REF) | payer OTHER, SELFPAY ==
[2024-02-24 10:56] VITALS: BP 120/78; BP 156/70; BMI 49.2
== END 2024-03-20 10:46 | disposition home or self-care (01) ==
LOC: HO.HOSX 10:45
PROVIDERS: Visit Provider Physician Assistant
DX: Z01.818 Encounter for other preprocedural examination (principal); M16.12 Unilateral primary osteoarthritis, left hip
CPT/HCPCS: 99212

== ENCOUNTER 2024-03-20 14:37 | Outpatient (AMB) | payer OTHER, SELFPAY ==
[2024-02-24 10:56] VITALS: BP 120/78; BP 156/70; BMI 49.2
--- NOTE | 2024-03-20 13:52 | A.OFFVIS_ITS ---
Intake Visit Reasons: TM TAINA: Pre-Op: L AMBER w/NE 03/24/24 Intake Note: Silver is a 63 year old male who presents today for a pre op appointment for his ?L AMBER w/NE 03/24/24. Allergies Penicillins Allergy (Intermediate, Verified 03/20/24 14:45) Hives HPI HPI TM TAINA: Pre-Op: L AMBER w/NE 03/24/24: Details: 63-year-old male who presents in the office today for his preoperative history and physical exam prior to a left total hip arthroplasty to be performed on 03/24/[address] Trevor Colorado.? ? Patient has an allergy history, as follows:? -Penicillin; hives? ? Patient is currently taking, as follows:? -Alfuzosin ER 10 mg PO daily? -Apixaban (Eliquis) 5 mg PO BID? -Atorvastatin 80 mg PO daily? -Carvedilol 3.125 mg PO BID? -Cyclobenzaprine 10 mg PO BID PRN? -Evolocumab 140 mg subcut Q2W? -Ibuprofen 400 mg PO Q6H PRN? -Magnesium oxide 400 mg PO daily? -Multivitamin 1 tab PO daily? -[place]-3 fatty acids 1,000 mg PO daily? -Semaglutide 2.4 mg subcut QSunday? ? Patient has a medical history, as follows:? -Pre-diabetes? -Morbid obesity; BMI of 48.4 as of 03/13/24? -Coronary artery disease? -Hypertension? -Urgency of urination? -Benign prostatic hyperplasia with lower urinary tract symptoms? -Hyperlipidemia? -Psoriasis? -Paroxysmal atrial fibrillation? -Acute dermatitis? -Tinnitus? -Sleep apnea? ? Patient has a surgical history, as follows:? -Hx of Maze operation for atrial fibrillation; 04/09/23? -Hx of ablation of atrial fibrillation; 04/09/23? -Hx of quadruple vessel bypass; 04/09/23? -Hx of?cardiac catheterization; 01/31/2023? -Hx of surgery on lower extremity; repair tib/fib fracture? ? Patient has a social history, as follows:? -Patient ambulates with a cane.? -Alcohol: a few times weekly? PFSH Medical History (Updated 03/13/24 @ 10:34 by Adry Fili, RN) Psoriasis BPH (benign prostatic hyperplasia) History of concussion (~1977) Ambulates with cane HLD (hyperlipidemia) HTN (hypertension) Paroxysmal atrial fibrillation Persistent atrial fibrillation Acute dermatitis Tinnitus Osteoarthritis Sleep apnea Surgical History (Updated 03/13/24 @ 10:28 by Adry Penn RN) Status post Maze operation for atrial fibrillation (04/09/23) S/P ablation of atrial fibrillation (04/09/23) S/P quadruple vessel bypass (04/09/23) H/O cardiac catheterization History of surgery on lower extremity Family History Mother Afib No family history of mental disorder Father No family history of mental disorder Hyperlipidemia Social History (Updated 03/13/24 @ 10:36 by Adry Penn RN) Household Members: Other Household Members Other:: housemate Housing: House Are you a primary pulmonary care nurse to a significant other at home: No Do you presently have visiting nurse or other home services: No 75 years or older and lives alone: No Alcohol intake: current Alcohol intake frequency: a few times a week Comment: aware of trip hazard Patient Tobacco Use Status: Never used Tobacco e-Cigarette/Vaping Use: Never Used service: No Current occupational status: employed and disabled 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 Cognitive needs: No Hearing needs: No Vision needs: Yes Review of Systems Const All systems reviewed & are unremarkable except as noted in HPI and below Physical Exam Const General: cooperative, healthy appearing, comfortable, no acute distress, well developed, alert and awake Orientation/consciousness: patient oriented x3 HEENT Head: Yes normal to inspection, Yes normocephalic and Yes atraumatic Eyes General: appearance normal, both eyes and all related structures EOM: EOMs intact bilaterally Neck Neck: Yes normal visual inspection and Yes no lymphadenopathy Resp Effort & Inspection: normal respiratory effort and able to speak in complete sentences Cardio Jugular venous distension: no JVD Rate: regular rate Peripheral pulses: Peripheral pulses 2+ throughout GI Inspection: Yes normal to inspection Palpation (GI): Soft to palpation Skin General skin exam: no rashes or lesions noted Rashes: no rashes Neuro General: patient oriented x3 Extrem Other: Left Hip: Skin is clean, dry, and intact. + impingement antalgic gait Psych Appearance: grossly normal Mental Status: mental status grossly normal Affect: normal affect Attitude: cooperative Assessment & Plan Assessment & Plan (1) Osteoarthritis of left hip: Code(s): M16.12 - Unilateral primary osteoarthritis, left hip Category: Medical Qualifiers: Osteoarthritis type: unspecified Qualified Code(s): M16.12 - Unilateral primary osteoarthritis, left hip (2) H/O cardiac catheterization: Comment: 01/31/2023, mid LAD 80% stenosis, 1st diagonal 80% stenosis, distal LAD 75% stenosis, left circumflex 3rd OM, 80% stenosis, proximal RCA 80% stenosis Code(s): Z98.890 - Other specified postprocedural states Category: Surgical Plan Mr. Valladares is a 63-year-old male who presents in the office today for his pre operative history and physical exam prior to a left total hip arthroplasty to be performed on 03/24/[address] Trevor Colorado.? ? Patient has an allergy history, as follows:? -Penicillin; hives? ? Patient is currently taking, as follows:? -Alfuzosin ER 10 mg PO daily? -Apixaban (Eliquis) 5 mg PO BID? -Atorvastatin 80 mg PO daily? -Carvedilol 3.125 mg PO BID? -Cyclobenzaprine 10 mg PO BID PRN? -Evolocumab 140 mg subcut Q2W? -Ibuprofen 400 mg PO Q6H PRN? -Magnesium oxide 400 mg PO daily? -Multivitamin 1 tab PO daily? -[place]-3 fatty acids 1,000 mg PO daily? -Semaglutide 2.4 mg subcut QSunday? ? Patient has a medical history, as follows:? -Pre-diabetes?- last A1c 5.5 -Morbid obesity; BMI of 48.4 as of 03/13/24? -Coronary artery disease - s/p CABG x [address] Youngblood ? -PAD - Eliquis and MAZE -[place] CPAP QHS -Hypertension? -Urgency of urination? -Benign prostatic hyperplasia with lower urinary tract symptoms? -Hyperlipidemia? -Psoriasis? -Paroxysmal atrial fibrillation? -Acute dermatitis? -Tinnitus? -Sleep apnea? ? Patient has a surgical history, as follows:? -Hx of Maze operation for atrial fibrillation; 04/09/23? -Hx of ablation of atrial fibrillation; 04/09/23? -Hx of quadruple vessel bypass; 04/09/23? -Hx of?cardiac catheterization; 01/31/2023? -Hx of surgery on lower extremity; repair tib/fib fracture? ? Patient has a social history, as follows:? -Patient ambulates with a cane.? -Alcohol: a few times weekly? ? I discussed in detail the procedure and what to expect pre and post operatively. We discussed the risks, benefits, alternatives to the surgery and the rehabilitation course. The risks include infection, bleeding, nerve injury, ongoing pain, swelling, and stiffness, perioperative risk of injury to bones and soft tissues, and blood clots.?? ? I have answered all questions and with their understanding they have consented to move forward with a left total hip arthroplasty to be performed on 03/24/[address] Trevor Colorado.? ? Follow-up will be at the post operative appointment on 04/09/24, or sooner if needed.? Cardiac clearance from Dr. Youngblood is as follows: He was recently seen in the office. No new cardiac symptoms. Echocardiogram shows normal LV ejection fraction. Unless he is having new symptoms from cardiac perspective is optimized to undergo surgery with low to intermediate risk for perioperative cardiovascular morbidity mortality. Eliquis can be hold as per surgeon's discretion for 2-3 days prior to the surgery and resumed as soon as possible after surgery with associated risk. Continue Repatha and all other medications Orders: Orders XR hip LT min 2V Today M25.559 - Pain in unspecified hip PT Evaluation and Treatment Today Z96.642 - Presence of left artificial hip joint Patient Instructions: Scribed by Kelin Echeverria medical communication specialist, for Malini Valencia PA-C on 03/20/2024 at 2:48 pm, EST.? Coding Level of Care Code Global (69302) Diagnoses Osteoarthritis of left hip, unspecified osteoarthritis type M16.12 Osteoarthritis type: unspecified H/O cardiac catheterization Z98.890
== END 2024-03-20 15:11 | disposition home or self-care (01) ==
LOC: HO.HOS 14:38
PROVIDERS: PCP Family Medicine; Visit Provider Physician Assistant
DX: M16.12 Unilateral primary osteoarthritis, left hip (principal)
CPT/HCPCS: 99024

== ENCOUNTER 2024-03-23 09:15 | Outpatient (REF) | payer OTHER, SELFPAY ==
[2024-02-24 10:56] VITALS: BP 120/78; BP 156/70; BMI 49.2
--- NOTE | ~2024-03-23 | XR_ITS ---
EXAMINATION: XR HIP, LEFT CLINICAL INFORMATION: Left hip pain. COMPARISON: Left hip radiographs dated 02/06/2024. TECHNIQUE: AP view of the pelvis as well as AP and frog-leg lateral views of the left hip. FINDINGS: Severe superior joint space narrowing with bony remodeling, subchondral sclerosis, and subchondral cystic change. Large marginal osteophytes with femoral neck buttressing. No acute fracture or dislocation. No concerning lytic or blastic osseous lesion. Moderate to severe right hip joint space narrowing with superior subchondral cystic change and prominent marginal osteophytes as well as mild femoral neck buttressing. No abnormal soft tissue calcification. XR/XR hip LT min 2V IMPRESSION: Severe left and moderate to severe right hip osteoarthritis with femoral neck buttressing. Electronically signed by: Philippe Pereira MD 03/27/2024 10:10 AM EDT
== END 2024-03-23 09:16 | disposition home or self-care (01) ==
LOC: HO.XRAY 09:15
PROVIDERS: PCP Family Medicine; Visit Provider Physician Assistant
DX: M25.552 Pain in left hip (principal)
CPT/HCPCS: 73502

== ENCOUNTER 2024-03-24 06:05 | Inpatient (IN) | payer OTHER, SELFPAY ==
[2024-02-24 10:56] VITALS: BP 120/78; BP 156/70; BMI 49.2
[2024-03-13 10:04] VITALS: BP 118/62; PULSE 74; RESP 16; O2SAT 98; BMI 48.4
--- NOTE | 2024-03-13 10:52 | HO.ANESPROP2 ---
Documented by User: Vidhya Cochran NP 03/13/24 12:08 HPI - Anesthesia Eval Consult details Narrative: 63yo M for Left Hip Total Replacement Cardiac optimized Medically optimized No recent illness No CP/SOB within limits of hip pain. Very limited activity PAF: Eliquis, s/p MAZE CAD: s/p CABG x 4 2022. Follows [facility] [place] Cardiology [place]: CPAP QHS. Sometimes sleeps elevated in recliner and no symptoms then. Encouraged bryant trim and pt receptive. PMFSH Active Problems Active Problems: All Active Problems Pre-op chest exam (Acute) Hip pain (Acute) Pre-diabetes (Acute) Morbid obesity (Acute) Status post coronary artery bypass graft (Acute) Elevated fasting glucose (Acute) Coronary artery disease (Acute) Exertional chest pain (Acute) Screening PSA (prostate specific antigen) (Acute) Hypertension (Acute) Preoperative cardiovascular examination (Acute) Urgency of urination (Acute) Weak urinary stream (Acute) BPH loc w urin obs/LUTS (Acute) Hyperlipidemia (Acute) Elevated BP without diagnosis of hypertension (Acute) Physical exam, annual (Acute) Vaccine counseling (Acute) Lower urinary tract symptoms (LUTS) (Acute) Colon cancer screening (Acute) Morbid obesity with BMI of 50.0-59.9, adult (Acute) Psoriasis (Acute) Osteoarthritis of left hip (Acute) Laboratory tests ordered as part of a complete physical exam (CPE) (Acute) Paroxysmal atrial fibrillation (Acute) H/O cardiac catheterization (Acute) Past Medical History Medical History Psoriasis BPH (benign prostatic hyperplasia) History of concussion (~1977) Ambulates with cane HLD (hyperlipidemia) HTN (hypertension) Paroxysmal atrial fibrillation Persistent atrial fibrillation Acute dermatitis Tinnitus Osteoarthritis Sleep apnea Family History Family History Mother Afib No family history of mental disorder Father No family history of mental disorder Hyperlipidemia Family history of problems with anesthesia: No Surgical History Surgical History Status post Maze operation for atrial fibrillation (04/09/23) S/P ablation of atrial fibrillation (04/09/23) S/P quadruple vessel bypass (04/09/23) H/O cardiac catheterization History of surgery on lower extremity History of Problems with Anesthesia: No Social History Social History Household Members: Other Household Members Other:: housemate Housing: House Are you a primary direct care counselor to a significant other at home: No Do you presently have visiting nurse or other home services: No Alcohol intake: current Alcohol intake frequency: a few times a week Comment: aware of trip hazard Patient Tobacco Use Status: Never used Tobacco e-Cigarette/Vaping Use: Never Used Use of substances other than those prescribed or required for medical reasons: No Have you been hit, kicked, punched, or otherwise hurt by someone within the past year? 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 Cognitive needs: No Hearing needs: No Vision needs: Yes Meds Allergies Allergy/AdvReac Type Severity Reaction Status Date / Time Penicillins Allergy Intermediate Hives Verified 03/24/24 06:26 Home Medications ?Medication ?Instructions ?Recorded ?Confirmed ?Last Taken ?Type multivitamin (Daily Multi-Vitamin 1 tab PO DAILY 10/05/22 03/24/24 03/17/24 History tablet) omega-3 fatty acids 500 mg capsule 1,000 mg PO DAILY 10/05/22 03/24/24 03/17/24 History ibuprofen 200 mg tablet 400 mg PO Q6H PRN Pain 02/13/24 03/24/24 03/17/24 History magnesium oxide 400 mg PO DAILY 03/12/24 03/24/24 03/17/24 History semaglutide (weight loss) 2.4 2.4 mg subcut .QSUNDAY 03/13/24 03/24/24 03/15/24 History mg/0.75 mL subcutaneous pen injector Exam Height,Weight and Vital Signs: Height 5 ft 10 in Weight 153 kg Last Vital Signs Pulse 74 03/13/24 10:04 Resp 16 03/13/24 10:04 BP 118/62 03/13/24 10:04 Pulse Ox 98 03/13/24 10:04 O2 Del Method Room Air 03/13/24 10:04 Narrative Narrative: EKG 02/2024 normal sinus rhythm at a rate of 73 beats per minute with nonspecific STT wave abnormalities. No significant change from prior study. Holter Total monitoring time 3 days. Underlying rhythm is sinus with an average rate of 84/Min. Range 76 to 108/Min. Rare ventricular ectopy. No significant pauses or AV blocks. Patient marker used once in association with sinus rhythm. ECHO 04/2023 Conclusions: - Normal left ventricular cavity size. There is mildly increased left ventricular wall thickness. The left ventricular systolic function is hyperdynamic. The visually estimated ejection fraction is >70%. There is no evidence of regional wall motion abnormalities. Diastolic function is normal for age. - Normal right ventricular cavity size and systolic function. Airway Mallampati Class: II TM Dist: <=3cm Neck ROM: Full Loose/Missing/Broken Teeth: No (1 x crown molar, 1 x filling broken molar) Heart: RRR Lungs: CTAB Assessment and Plan Assessment Anesthesia Assessment: Anesthesia Plan Discussed and PAT Visit Final Anesthetic Review Family History of Problems with Anesthesia: No History of Problems with Anesthesia: No Documented by User: Christina Graham MD 03/24/24 09:07 HPI - Anesthesia Eval Consult details Narrative: 63yo M for Left Hip Total Replacement Cardiac optimized Medically optimized No recent illness No CP/SOB within limits of hip pain. Very limited activity PAF: Eliquis, s/p MAZE CAD: s/p CABG x March 2023. Follows [facility] [place] Cardiology [place]: CPAP QHS. Sometimes sleeps elevated in recliner and no symptoms then. Encouraged bryant trim and pt receptive. Anesthesia Pre-Procedure Meds Is the patient on any of the following meds?: GLP1/DPP4 (Last dose of semaglutide 03/15/24) [facility] Active Problems Active Problems: All Active Problems Pre-op chest exam (Acute) Hip pain (Acute) Pre-diabetes (Acute) Morbid obesity (Acute) Status post coronary artery bypass graft (Acute) Elevated fasting glucose (Acute) Coronary artery disease (Acute) S/p CABG x 01 April 2023. Patient states surgery done at same setting to treat afib. Denies any cardiac symptoms since surgery Exertional chest pain (Acute) Screening PSA (prostate specific antigen) (Acute) Hypertension (Acute) Preoperative cardiovascular examination (Acute) Urgency of urination (Acute) Weak urinary stream (Acute) BPH loc w urin obs/LUTS (Acute) Hyperlipidemia (Acute) Elevated BP without diagnosis of hypertension (Acute) Physical exam, annual (Acute) Vaccine counseling (Acute) Lower urinary tract symptoms (LUTS) (Acute) Colon cancer screening (Acute) Morbid obesity with BMI of 50.0-59.9, adult (Acute) Psoriasis (Acute) Osteoarthritis of left hip (Acute) Laboratory tests ordered as part of a complete physical exam (CPE) (Acute) Paroxysmal atrial fibrillation (Acute). Last dose of eliquis 03/20/24 H/O cardiac catheterization (Acute) Past Medical History Medical History Psoriasis BPH (benign prostatic hyperplasia) History of concussion (~1977) Ambulates with cane HLD (hyperlipidemia) HTN (hypertension) Paroxysmal atrial fibrillation Persistent atrial fibrillation Acute dermatitis Tinnitus Osteoarthritis Sleep apnea Family History Family History Mother Afib No family history of mental disorder Father No family history of mental disorder Hyperlipidemia Family history of problems with anesthesia: No Surgical History Surgical History Status post Maze operation for atrial fibrillation (04/09/23) S/P ablation of atrial fibrillation (04/09/23) S/P quadruple vessel bypass (04/09/23) H/O cardiac catheterization History of surgery on lower extremity History of Problems with Anesthesia: No Social History Social History Household Members: Other Household Members Other:: housemate Housing: House Are you a primary direct care counselor to a significant other at home: No Do you presently have visiting nurse or other home services: No Alcohol intake: current Alcohol intake frequency: a few times a week Comment: aware of trip hazard Patient Tobacco Use Status: Never used Tobacco e-Cigarette/Vaping Use: Never Used Use of substances other than those prescribed or required for medical reasons: No Have you been hit, kicked, punched, or otherwise hurt by someone within the past year? 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 Cognitive needs: No Hearing needs: No Vision needs: Yes Meds Allergies Allergy/AdvReac Type Severity Reaction Status Date / Time Penicillins Allergy Intermediate Hives Verified 03/24/24 06:26 Home Medications ?Medication ?Instructions ?Recorded ?Confirmed ?Last Taken ?Type multivitamin (Daily Multi-Vitamin 1 tab PO DAILY 10/05/22 03/24/24 03/17/24 History tablet) omega-3 fatty acids 500 mg capsule 1,000 mg PO DAILY 10/05/22 03/24/24 03/17/24 History ibuprofen 200 mg tablet 400 mg PO Q6H PRN Pain 02/13/24 03/24/24 03/17/24 History magnesium oxide 400 mg PO DAILY 03/12/24 03/24/24 03/17/24 History semaglutide (weight loss) 2.4 2.4 mg subcut .QSUNDAY 03/13/24 03/24/24 03/15/24 History mg/0.75 mL subcutaneous pen injector Exam Height,Weight and Vital Signs: Height 5 ft 10 in Weight 153 kg Last Vital Signs Pulse 74 03/13/24 10:04 Resp 16 03/13/24 10:04 BP 118/62 03/13/24 10:04 Pulse Ox 98 03/13/24 10:04 O2 Del Method Room Air 03/13/24 10:04 Vital Signs Temp Pulse Resp BP Pulse Ox O2 Del Method 03/24/24 06:30 97.6 F 70 16 158/80 H 97 Room Air Pertinent Lab Results Pertinent Lab Results: Lab Results 03/13/24 03/13/24 03/13/24 Range/Units 10:30 11:30 11:39 WBC 8.1 (4.8-10.8) X10*3/uL RBC 4.82 (4.60-5.80) X10*6/uL Hgb 13.8 L (14.0-18.0) g/dl Hct 41.1 L (42.0-52.0) % MCV 85.3 (80.0-98.0) fL MCH 28.6 (27.0-33.0) pg MCHC 33.6 (31.0-36.0) g/dl RDW 14.2 (11.0-16.0) % Plt Count 215 (160-400) X10*3/uL MPV 10.0 (9.4-12.4) fL Immature Gran % (Auto) 0.4 (0.0-0.4) % Neut % (Auto) 72.4 (45-73) % Lymph % (Auto) 17.9 L (20-40) % [place] % (Auto) 6.9 (2-11) % Eos % (Auto) 2.2 (0-4) % Baso % (Auto) 0.2 (0-2) % Lymph # (Auto) 1.5 (1.2-4.9) X10*3/uL [place] # (Auto) 0.6 (0.1-1.2) X10*3/uL Eos # (Auto) 0.2 (0.0-0.4) X10*3/uL Baso # (Auto) 0.0 (0.0-0.2) X10*3/uL Abs Immat Gran (auto) 0.03 (0.00-0.03) X10*3/uL Absolute Neuts (auto) 5.9 (2.0-8.3) x10*3/uL Absolute Nucleated RBC 0.000 (0.0-0.012) X10*3/uL Nucleated RBC % (auto) 0.0 (0.0-0.2) /100WBC Sodium 139 (135-145) mmol/L Potassium 4.5 (3.3-5.1) mmol/L Chloride 109 H (96-108) mmol/L Carbon Dioxide 24 (22-29) mmol/L Anion Gap 11 L (12-20) BUN 18 H (9-16) mg/dL Creatinine 0.85 (0.5-1.4) mg/dL Estim Creat Clear Calc 135.5 Estimated GFR > 60 Random Glucose 85 (60-115) mg/dL Estimat Average Glucose 111 mg/dL Hemoglobin A1c % 5.5 (<6.0) % Calcium 9.8 (8.4-10.2) mg/dL Nasal Screen MRSA (PCR) NEGATIVE (Negative) Nasal S. aureus Screen POSITIVE A (Negative) Nasal MRSA/S.aureus Interp SEE NOTE Blood Type A Positive Antibody Screen NEGATIVE Airway Mallampati Class: II TM Dist: >3cm Neck ROM: Full Loose/Missing/Broken Teeth: Yes (Filling dislodged from molar) Heart: RRR Lungs: CTAB Assessment and Plan Assessment Anesthesia Assessment: Anesthesia Plan Discussed and Chart Reviewed Final Anesthetic Review Family History of Problems with Anesthesia: No History of Problems with Anesthesia: No NPO: Yes ASA Class: III Final Preanesthetic Review: No Changes in Pt Med Stat, Meds/Allgs Chart Reviewed, Consent Obtained/Reviewed and Anes Risks/Benef Reviewed Patient Risk: Intermediate Procedure Risk: Intermediate Assessment/Block/Sedation in SS: Assess/Block/Sedation-SS Anesthetic Plan Anesthetic Plan: GA Disposition: Standard PACU and Inp. Admit - Standard Bed
[2024-03-13 11:40] LABS: MANUAL DIFF FLAG NO
[2024-03-13 12:33] LABS: Basophils Percent Auto 0.2 % (0-2); Eosinophils Absolute Auto 0.2 X10*3/uL (0.0-0.4); Eosinophils Percent Auto 2.2 % (0-4); Hematocrit 41.1 % (42.0-52.0); Hemoglobin 13.8 g/dl (14.0-18.0); Imm Gran Abs Auto 0.03 X10*3/uL (0.00-0.03); Imm Gran Pct Auto 0.4 % (0.0-0.4); Lymphocytes Absolute Auto 1.5 X10*3/uL (1.2-4.9); Lymphocytes Percent Auto 17.9 % (20-40); Mean Corpuscular HGB Conc 33.6 g/dl (31.0-36.0); Mean Corpuscular Hemoglobin 28.6 pg (27.0-33.0); Mean Corpuscular Volume 85.3 fL (80.0-98.0); Monocytes Absolute Auto 0.6 X10*3/uL (0.1-1.2); Monocytes Percent Auto 6.9 % (2-11); Neutrophils Absolute Auto 5.9 x10*3/uL (2.0-8.3); Neutrophils Percent Auto 72.4 % (45-73); Platelet Count 215 X10*3/uL (160-400); Red Blood Count 4.82 X10*6/uL (4.60-5.80); Red Cell Distribution Width 14.2 % (11.0-16.0); White Blood Count 8.1 X10*3/uL (4.8-10.8)
[2024-03-13 12:41] LABS: Estimated Average Glucose 111 mg/dL; Hemoglobin A1c % 5.5 % (<6.0)
[2024-03-13 12:55] LABS: MRSA Nasal PCR NEGATIVE (Negative); SA Nasal PCR POSITIVE (Negative)
[2024-03-13 13:06] LABS: Anion Gap 11 (12-20); Blood Urea Nitrogen 18 mg/dL (9-16); Calcium 9.8 mg/dL (8.4-10.2); Carbon Dioxide 24 mmol/L (22-29); Chloride 109 mmol/L (96-108); Creatinine Clr Calc Pharmacy 135.5; Estimated Glomerular Filt Rate > 60; Glucose Random 85 mg/dL (60-115); Potassium 4.5 mmol/L (3.3-5.1); Sodium 139 mmol/L (135-145)
[2024-03-24] VITALS (23 sets, daily range): BP systolic 139–189; BP diastolic 71–92; PULSE 70–90; RESP 11–20; TEMP 36–37.6; O2SAT 94–99; BMI 48.1
--- NOTE | ~2024-03-24 | XR_ITS ---
EXAMINATION: XR PELVIS CLINICAL INFORMATION: Left total hip arthroplasty COMPARISON: Pelvic radiograph 03/23/2024 TECHNIQUE: AP view of the pelvis. FINDINGS: Status post total left hip arthroplasty. The prosthetic components are adequately aligned. No periprosthetic fracture. Small amount of postoperative gas in the surrounding soft tissues. Mild degenerative changes involving the right hip joint. The pubic symphysis is intact. XR/XR pelvis 1-2V IMPRESSION: Status post total left hip arthroplasty with expected postoperative changes and adequate alignment of the surgical hardware. Electronically signed by: Evin Longoria MD 03/24/2024 11:21 AM EDT
[2024-03-24] MEDS: oxyCODONE HCl ER 10 MG TAB.ER.12H PO ×2 (06:48→19:49)
[2024-03-24] MEDS: Lactated Ringers 1,000 ML 100 ML IVCONT ×3 (07:01→21:52)
--- NOTE | 2024-03-24 07:29 | MHC.SHP ---
Pre-Procedural Eval Section A - 24 Hr Update-Section A only Date of Service: 03/24/24 The patient is an INPATIENT: No Changes since office visit: No Cold of Flu in the past 2 weeks, No New Medical Problems, No Changes in Medication and No Patient answered all questions The patient has been examined within 24 hours of the surgical procedure. The History & Physical has been completed within 30 days and I have reviewed it.: Yes Section B - Complete if H&P > 30 days Chief Complaint: Lt AMBER Allergies: Allergies Allergy/AdvReac Type Severity Reaction Status Date / Time Penicillins Allergy Intermediate Hives Verified 03/24/24 06:26 Plan I have reviewed the history and physical and performed a pertinent physical examination on my patient. No changes have occurred unless specified. Time Spent With Patient Time: Total time managing care of this patient today ____ minutes.
--- NOTE | 2024-03-24 07:31 | PC.NURSE ---
Patient has PCN allergy, hives one time when he was [age] year old. Tamra made aware. Okay to pull cefazolin preop.
--- NOTE | 2024-03-24 09:56 | PM.OP ---
Brief Operative Note Date of Service: 03/24/24 Pre-op diagnosis: Left hip OA Post-op diagnosis: same Procedure: Left AMBER Implants: [place] 2 56/ 20 deg lip Patricia Accolade2 #6 132 with +2.5 36 ceramic femoral head Surgeon: Trevor Colorado MD Anesthesia: GETA and local Was an Measurement Analyst used for this Procedure?: Yes Measurement Analyst: Ryland Acosta Estimated blood loss (mL): 300 IV fluids (mL): 1,200 Pathology: other Condition: stable Disposition: PACU
--- NOTE | 2024-03-24 10:22 | P.DS_ITS ---
DS: Providers Provider Date of Service: 03/25/24 Date of admission: 03/24/24 06:05 Primary care physician: Wilfrid Mcmahon MD DS: Summary Hospital Course Hospital Course: The patient underwent a successful left total hip arthroplasty, they were transferred to PACU and then to the floor to recover. During their stay, their vitals were stable, afebrile at 97.6. Labs were unremarkable, H/H 10.8/33.0. POD 1 they received a dose of Lovenox 40mg sub q and then resumed Eliquis 5mg po BID for DVT ppx, they also received Physical Therapy services twice a day. Prior to discharge, their dressing was clean dry and intact, and the plan was to be discharged home with VNA services. Time Attestation Discharge Coordination Time (in mins): 30 Quality: Safe Use of Opioids Does Pt have an Active Cancer Diagnosis on the Problem List?: No Quality: Stroke Does the patient have a stroke diagnosis?: No Physical Exam Vital Signs: Vital Signs: Last Vital Signs Temp 99.6 F 03/24/24 10:15 Pulse 80 03/24/24 10:20 Resp 12 03/24/24 10:20 BP 179/71 H 03/24/24 10:20 Pulse Ox 97 03/24/24 10:20 O2 Del Method Nasal Cannula wit h Capnography 03/24/24 10:20 O2 Flow Rate 3 03/24/24 10:20 BMI result Body Mass Index 48.1 Const: General: cooperative, healthy appearing and no acute distress Resp: Effort & Inspection: normal respiratory effort and able to speak in complete sentences Cardio: Rate: regular rate Peripheral pulses: Peripheral pulses 2+ throughout GI: Palpation (GI): Soft to palpation Skin: Lesions: no lesions Rashes: no rashes Extrem: Other: left hip dressing is c/d/i. Able to dorsi/plantar flex. Calf is supple and nontender. Sensation intact. Pedal pulse intact. DS: Data Data Completed and Pending Pending studies at discharge: Pending at discharge 03/24/24 09:38 Surgical [PTH] Routine Discharge Plan Discharge Anticipated Discharge Date/Time: 03/25/24 11:00 Patient Disposition: Home Health Service Discharge Diagnosis: s/p LTHA Referrals: hvns [Other] - 1 Week Ryland Acosta PA-C [Physician Mine Administrator Supervisor] - 04/09/24 1:00 pm Discharge Medications: New acetaminophen 325 mg Tablet 650 mg PO Q6H PRN (Reason: Pain, Mild (Pain Scale 1-3), fever or headache) 30 Days Qty: 240 0RF celecoxib 200 mg Capsule 200 mg PO BID 30 Days Qty: 60 0RF oxycodone 10 mg tablet 10 mg PO Q4H PRN (Reason: Pain, Moderate(Pain Scale 4-6)) 7 Days Qty: 42 0RF Rx Instructions: Partial Fill upon patient request. sennosides [Senna Lax] 8.6 mg Tablet 17.2 mg PO BEDTIME 30 Days Qty: 60 0RF Continued Repatha SureClick 140 mg/mL pen injector 140 mg subcut Q2W 90 Days Qty: 6 3RF Eliquis 5 mg tablet 5 mg PO BID Qty: 60 5RF carvedilol 3.125 mg tablet 3.125 mg PO BID 90 Days Qty: 180 1RF Rx Instructions: must administer with a meal/food atorvastatin 80 mg tablet 80 mg PO DAILY 90 Days Qty: 90 2RF semaglutide (weight loss) 2.4 mg/0.75 mL pen injector 2.4 mg subcut .QSUNDAY Rx Instructions: administer month 3 of therapy cyclobenzaprine 10 mg tablet 10 mg PO BID PRN (Reason: muscle spasm) 30 Days Qty: 60 0RF magnesium oxide 400 mg magnesium capsule 400 mg PO DAILY omega-3 fatty acids 500 mg capsule 1,000 mg PO DAILY multivitamin [Daily Multi-Vitamin] Tablet 1 tab PO DAILY alfuzosin 10 mg tablet extended release 24 hr 10 mg PO DAILY Qty: 90 3RF Rx Instructions: administer after the same meal each day Discontinued ibuprofen 200 mg tablet 400 mg PO Q6H PRN (Reason: Pain) Discharge Orders: Discharge Order (Routine); Ordered 03/25/24 Ordered By: Malini Valencia Diet: Advance to usual diet Activity on Discharge: Use cane or walker Stand Alone Forms: Patient Portal Discharge page Print Language: [place] Leonean Care Plan Goals: Restore fxn to left hip Health Concerns: None Plan of Treatment: Physical Therapy for total hip arthroplasty: posterior precautions, gait training, ROM, strength Limit stair climbing No showering, no tub bath-keep dressing clean, dry and intact No driving x6 weeks Resume Eliquis 5mg po BID Follow up with [facility] in 2 weeks Assessment: stable for discharge Patient Instructions: Total Hip Replacement (DC)
--- NOTE | 2024-03-24 10:24 | P.F2F_ITS ---
Service Date Service Date: 03/24/24 Encounter Date of encounter: 03/25/24 Reasons for Services Signs and symptoms assessed: s/p LTHA Pt. is considered homebound due to recent surgery. Unable to drive, poor balance, poor gait mechanics. Reason for physical therapy: home safety and mobility, therapeutic exercises, restore joint function, gait/transfer training, assess need for DME and ADL training Reason for occupational therapy: home safety and mobility, therapeutic exercises, restore joint function, gait/transfer training, assess need for DME and ADL training Homebound: Leaving the home is medically contraindicated at this time without the asist of a device and/or another person due th the listed conditions above and below. Reason homebound: unsteady gait / fall risk, leg weakness, pain with ambulation, pain with transfers, poor balance / fall risk and unable to drive Certification: Based on the above findings, I certify that this patient is confined to the home and needs intermittent longterm care, physical therapy and/or speech therapy, or continues to need occupational therapy. The patient is under my care, and I have initiated the establishment of the plan of care. The patient will be followed by a physician who will periodically review the plan of care. Time Spent With Patient Time: Total time managing care of this patient today ____ minutes.
--- NOTE | 2024-03-24 10:33 | PHA.MEDREC ---
Addendum entered by Jose Helton RP 03/24/24 11:03: MED REC CHECKED BY [facility] Original Note: Pharmacy Consult ? Medication Reconciliation Pharmacy has completed the medication reconciliation. Pharmacy has reviewed the med rec done by nursing through pharmacy claims.
[2024-03-24] MEDS: fentaNYL citrate/PF 100 MCG/2 ML VIAL 50 MCG IVPUSH ×4 (10:42→11:13)
--- NOTE | 2024-03-24 11:59 | P.CONHOSP_ITS ---
History of Present Illness Data of Consult Service Date: 03/24/24 Requesting physician: Ryland Acosta Primary Care Provider: Wilfrid Mcmahon MD [facility] Reason for consult: medical management 63-year-old male with history of coronary artery disease s/p CABG x4 01/2023, paroxysmal atrial fibrillation anticoagulated with Eliquis, prediabetes, BPH, hyperlipidemia, hypertension admitted to Orthopedic surgery for osteoarthritis of the left hip s/p AMBER with consult placed to hospitalist service for medical management. His only complaint at this time is irritation of the right eye. There is no purulent drainage or crusting. Denies any vision changes, pain with EOMs, or globe pain. He has also been hypertensive intraoperatively and postoperatively. He states he did not take his Coreg this morning. Vitals are otherwise stable, no hypoxia. No other complaints at this time. Review of Systems 2 Review of Systems: Yes all other systems are reviewed and are negative [facility] Medical History Psoriasis BPH (benign prostatic hyperplasia) History of concussion (~1977) Ambulates with cane HLD (hyperlipidemia) HTN (hypertension) Paroxysmal atrial fibrillation Persistent atrial fibrillation Acute dermatitis Tinnitus Osteoarthritis Sleep apnea Family History Mother Afib No family history of mental disorder Father No family history of mental disorder Hyperlipidemia Surgical History Status post Maze operation for atrial fibrillation (04/09/23) S/P ablation of atrial fibrillation (04/09/23) S/P quadruple vessel bypass (04/09/23) H/O cardiac catheterization History of surgery on lower extremity Social History Household Members: Friend(s) Household Members Other:: housemate Housing: House Are you a primary customer care associate to a significant other at home: No Do you presently have visiting nurse or other home services: No Alcohol intake: current Alcohol intake frequency: a few times a week Comment: aware of trip hazard Patient Tobacco Use Status: Never used Tobacco e-Cigarette/Vaping Use: Never Used Use of substances other than those prescribed or required for medical reasons: Yes Substance Use Type: Marijuana and Caffiene Substance Use Frequency: Occasionally Last Used Substance: Unknown Last Used Substance Other:: marijuana Currently Displaying Signs/Symptoms of Drug Intoxication Withdrawal: No Any prior treatment program specific to substance use: No Have you been hit, kicked, punched, or otherwise hurt by someone within the past year? 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 Cognitive needs: No Hearing needs: No Vision needs: Yes Meds Allergies Allergy/AdvReac Type Severity Reaction Status Date / Time Penicillins Allergy Intermediate Hives Verified 03/24/24 06:26 Active Medications: Current Medications Acetaminophen (Acetaminophen 325 Mg Tablet) 650 mg PO Q6H PRN PRN Reason: Pain, Mild (Pain Scale 1-3), fever or headache Carvedilol (Carvedilol 3.125 Mg Tablet) 3.125 mg PO BID KRISTINA; Protocol Celecoxib (Celecoxib 200 Mg Capsule) 200 mg PO BID KRISTINA Cyclobenzaprine HCl (Cyclobenzaprine Hcl 10 Mg Tablet) 10 mg PO BID PRN PRN Reason: muscle spasm Enoxaparin Sodium (Enoxaparin Sodium 40 Mg/0.4 Ml Syringe) 40 mg SUBCUT Q24H KRISTINA Hydromorphone HCl (Hydromorphone Hcl 0.5 Mg/0.5 Ml Syringe) 0.5 mg IVPUSH Q3H PRN; Protocol PRN Reason: Pain, Severe (Pain Scale 7-10) Lactated Ringer's (Lr) 1,000 mls @ 100 mls/hr IVCONT .Q10H KRISTINA Stop: 03/25/24 10:10 Cefazolin Sodium 3 gm/ Sodium (Chloride) 100 mls @ 200 mls/hr IV POSTOP ONE Stop: 03/24/24 12:03 Magnesium Oxide (Magnesium Oxide 400 Mg Tablet) 400 mg PO DAILY KRISTINA Non-Formulary Medication (Alfuzosin) 10 mg PO DAILY KRISTINA Non-Formulary Medication (Semaglutide (Weight Loss)) 2.4 mg SUBCUT .QSUNDAY [facility] Ondansetron HCl (Ondansetron Hcl 4 Mg/2 Ml Vial) 4 mg IVPUSH Q8H PRN PRN Reason: Nausea and Vomiting Oxycodone HCl (Oxycodone Hcl Immed Release 5 Mg Tablet) 10 mg PO Q4H PRN PRN Reason: Pain, Moderate(Pain Scale 4-6) Oxycodone HCl (Oxycodone Hcl Er 10 Mg Tab.Er.12h) 10 mg PO BID [facility] Senna (Sennosides 8.6 Mg Tablet) 17.2 mg PO BEDTIME [facility] Sodium Chloride (0.9 % Sodium Chloride Flush 3 Ml Syringe) 3 ml IVFLUSH QSHIFT [facility] Home Medications ?Medication ?Instructions ?Recorded ?Confirmed ?Last Taken ?Type multivitamin (Daily Multi-Vitamin 1 tab PO DAILY 10/05/22 03/24/24 03/17/24 History tablet) omega-3 fatty acids 500 mg capsule 1,000 mg PO DAILY 10/05/22 03/24/24 03/17/24 History ibuprofen 200 mg tablet 400 mg PO Q6H PRN Pain 02/13/24 03/24/24 03/17/24 History magnesium oxide 400 mg PO DAILY 03/12/24 03/24/24 03/17/24 History semaglutide (weight loss) 2.4 2.4 mg subcut .QSUNDAY 03/13/24 03/24/24 03/15/24 History mg/0.75 mL subcutaneous pen injector Physical Exam 2 Vital Signs and Narrative: Vital Signs: Last Vital Signs Temp 96.8 F 03/24/24 11:55 Pulse 83 03/24/24 11:55 Resp 20 03/24/24 11:55 BP 175/81 H 03/24/24 11:55 Pulse Ox 99 03/24/24 11:55 O2 Del Method Nasal Cannula 03/24/24 11:55 O2 Flow Rate 2 03/24/24 11:55 BMI result Body Mass Index 48.1 Constitutional - Awake and Alert, No apparent distress Eyes - PERRLA, EOMI. Conjunctival injection R eye, no purulent drainage or crusting. No pain with EOMs Cardiovascular - S1S2, RRR, No edema Respiratory - Normal lung expansion, Normal respiratory effort, No respiratory distress, CTA bilaterally Gastrointestinal - NT / ND; +BS; No rebound or guarding Extremities - no calf tenderness bilaterally, no swelling Skin - Warm/Dry Neurological - Alert & oriented x3, CN II-XII in tact Psychological - Appropriate affect Results Labs 03/13/24 11:39 03/24/24 12:29 Imaging Radiologist's Impressions: Impressions Pelvis X-Ray 03/24/24 10:30 IMPRESSION: Status post total left hip arthroplasty with expected postoperative changes and adequate alignment of the surgical hardware. Electronically signed by: Evin Longoria MD 03/24/2024 11:21 AM EDT RP Assessment and Plan (1) Osteoarthritis of left hip: Qualifiers: Osteoarthritis type: unspecified Qualified Code(s): M16.12 - Unilateral primary osteoarthritis, left hip Status: Acute Plan 63-year-old male with history of coronary artery disease s/p CABG x4 01/2023, paroxysmal atrial fibrillation anticoagulated with Eliquis, prediabetes, BPH, hyperlipidemia, hypertension admitted to Orthopedic surgery for osteoarthritis of the left hip s/p AMBER with consult placed to hospitalist service for medical management. #OA R hip s/p AMBER POD 0 -plan per ortho surgery #R eye irritation -no evidence of infection at this time -artificial tears prn, monitor #Hypertension- uncontrolled -missed dose of coreg this morning -Given 3.125mg x1 1 hour ago with improvement in BP to 159/75 -Resume coreg, monitor bp #CAD s/p CABG x4/hyperlipidemia -continue coreg, statin. Resume eliquis per ortho #Paroxysmal atrial fibrillation- rate controlled -hold eliquis- resume per ortho surgery -continue coreg for rate control #Predm -lifestyle modifications recommended, last A1c 5.9% #BPH -alfuzosin Thank you for this consult, will continue following
[2024-03-24 12:51] LABS: Creatinine Clr Calc Pharmacy 143.5; Estimated Glomerular Filt Rate > 60
[2024-03-24] MEDS: oxyCODONE HCl Immed Release 5 MG TABLET 10 MG PO (13:31)
[2024-03-24] MEDS: ceFAZolin Sodium 3 GM in 0.9 % Sodium Chloride 100 ML IV (15:01)
[2024-03-24] MEDS: HYDROmorphone HCl 0.5 MG/0.5 ML SYRINGE IVPUSH (15:41)
[2024-03-24] MEDS: carvediloL 3.125 MG TABLET PO ×2 (15:42→19:49)
[2024-03-24] MEDS: 0.9 % Sodium Chloride Flush 3 ML SYRINGE IVFLUSH (15:46)
[2024-03-24] MEDS: Celecoxib 200 MG CAPSULE PO (19:49)
[2024-03-24] MEDS: Sennosides 8.6 MG TABLET 17.2 MG PO (19:49)
[2024-03-25 03:05] VITALS: BP 127/60; PULSE 70; RESP 16; TEMP 36.4; O2SAT 95
[2024-03-25] MEDS: oxyCODONE HCl Immed Release 5 MG TABLET 10 MG PO (07:00)
[2024-03-25] MEDS: Tamsulosin HCL 0.4 MG CAPSULE PO (07:00)
[2024-03-25] MEDS: oxyCODONE HCl ER 10 MG TAB.ER.12H PO (07:00)
[2024-03-25] MEDS: Celecoxib 200 MG CAPSULE PO (07:01)
[2024-03-25] MEDS: carvediloL 3.125 MG TABLET PO (07:01)
[2024-03-25] MEDS: Enoxaparin Sodium 40 MG/0.4 ML SYRINGE SUBCUT (07:01)
[2024-03-25] MEDS: Magnesium Oxide 400 MG TABLET PO (07:01)
[2024-03-25] MEDS: Lactated Ringers 1,000 ML 100 ML IVCONT (07:04)
[2024-03-25 07:11] VITALS: BP 162/75; PULSE 72; RESP 18; TEMP 37.1; O2SAT 95
--- NOTE | 2024-03-25 07:19 | P.PNIM_ITS ---
Subjective Subjective Date of Service: 03/25/24 Interval History: Seen in follow up for consult Interval history: No complaints. Eye irritation has resolved. Blood pressures improved with coreg resumed. Reports BP's at PCP office always wnl Review of Systems Review of Systems: Yes all other systems are reviewed and are negative Physical Exam 2 Vital Signs: Vital Signs: Last Vital Signs Temp 98.7 F 03/25/24 07:11 Pulse 72 03/25/24 07:11 Resp 18 03/25/24 07:11 BP 162/75 H 03/25/24 07:11 Pulse Ox 95 03/25/24 07:11 O2 Del Method Room Air 03/25/24 07:11 O2 Flow Rate 2 03/24/24 11:55 BMI result Body Mass Index 48.1 Constitutional - Awake and Alert, No apparent distress Eyes - PERRLA, EOMI. No conjunctival injection Cardiovascular - S1S2, RRR, No edema Respiratory - Normal lung expansion, Normal respiratory effort, No respiratory distress, CTA bilaterally Gastrointestinal - NT / ND; +BS; No rebound or guarding Extremities - no calf tenderness bilaterally, no swelling Skin - Warm/Dry Neurological - Alert & oriented x3 Objective Data Active Medications Acetaminophen (Acetaminophen 325 Mg Tablet) 650 mg PO Q6H PRN PRN Reason: Pain, Mild (Pain Scale 1-3), fever or headache Artificial Tears (Artificial Tears 15 Ml Drops) 1 drop EYE-BOTH Q2H PRN PRN Reason: dry/tearing eyes Carvedilol (Carvedilol 3.125 Mg Tablet) 3.125 mg PO BID [facility]; Protocol Last Admin: 03/25/24 07:01 Dose: 3.125 mg Documented By: BUBBA Celecoxib (Celecoxib 200 Mg Capsule) 200 mg PO BID [facility] Last Admin: 03/25/24 07:01 Dose: 200 mg Documented By: BUBBA Cyclobenzaprine HCl (Cyclobenzaprine Hcl 10 Mg Tablet) 10 mg PO BID PRN PRN Reason: muscle spasm Enoxaparin Sodium (Enoxaparin Sodium 40 Mg/0.4 Ml Syringe) 40 mg SUBCUT Q24H [facility] Last Admin: 03/25/24 07:01 Dose: 40 mg Documented By: BUBBA Hydromorphone HCl (Hydromorphone Hcl 0.5 Mg/0.5 Ml Syringe) 0.5 mg IVPUSH Q3H PRN; Protocol PRN Reason: Pain, Severe (Pain Scale 7-10) Last Admin: 03/24/24 15:41 Dose: 0.5 mg Documented By: LOTTIE Lactated Ringer's (Lr) 1,000 mls @ 100 mls/hr IVCONT .Q10H [facility] Stop: 03/25/24 10:10 Last Admin: 03/25/24 07:04 Dose: 100 mls/hr Documented By: BUBBA Magnesium Oxide (Magnesium Oxide 400 Mg Tablet) 400 mg PO DAILY [facility] Last Admin: 03/25/24 07:01 Dose: 400 mg Documented By: BUBBA Non-Formulary Medication (Semaglutide (Weight Loss)) 2.4 mg SUBCUT .QSUNDAY [facility] Ondansetron HCl (Ondansetron Hcl 4 Mg/2 Ml Vial) 4 mg IVPUSH Q8H PRN PRN Reason: Nausea and Vomiting Oxycodone HCl (Oxycodone Hcl Immed Release 5 Mg Tablet) 10 mg PO Q4H PRN PRN Reason: Pain, Moderate(Pain Scale 4-6) Last Admin: 03/25/24 07:00 Dose: 10 mg Documented By: BUBBA Oxycodone HCl (Oxycodone Hcl Er 10 Mg Tab.Er.12h) 10 mg PO BID [facility] Last Admin: 03/25/24 07:00 Dose: 10 mg Documented By: BUBBA Senna (Sennosides 8.6 Mg Tablet) 17.2 mg PO BEDTIME [facility] Last Admin: 03/24/24 19:49 Dose: 17.2 mg Documented By: CORNELIUS Sodium Chloride (0.9 % Sodium Chloride Flush 3 Ml Syringe) 3 ml IVFLUSH QSHIFT [facility] Last Admin: 03/25/24 06:27 Dose: Not Given Documented By: SIGRID Non-Admin Reason: IV Running Tamsulosin HCl (Tamsulosin Hcl 0.4 Mg Capsule) 0.4 mg PO DAILY [facility] Last Admin: 03/25/24 07:00 Dose: 0.4 mg Documented By: BUBBA Labs 03/25/24 07:54 03/25/24 07:54 Labs: Laboratory Results - last 24 hr 03/24/24 12:29 Estim Creat Clear Calc 143.5 Estimated GFR > 60 Assessment and Plan (1) Osteoarthritis of left hip: Status: Acute Plan 63-year-old male with history of coronary artery disease s/p CABG x4 01/2023, paroxysmal atrial fibrillation anticoagulated with Eliquis, prediabetes, BPH, hyperlipidemia, hypertension admitted to Orthopedic surgery for osteoarthritis of the left hip s/p AMBER with consult placed to hospitalist service for medical management. #OA R hip s/p AMBER POD 0 -plan per ortho surgery #R eye irritation- resovled -no evidence of infection at this time -artificial tears prn #Hypertension- bp improved -continue coreg, monitor bp -outpt follow up with pcp. would also benefit from outpt sleep study to eval for sada #CAD s/p CABG x4/hyperlipidemia -continue coreg, statin. Resume eliquis per ortho #Paroxysmal atrial fibrillation- rate controlled -hold eliquis- resume per ortho surgery -continue coreg for rate control #Predm -lifestyle modifications recommended, last A1c 5.9% #BPH -alfuzosin Thank you for allowing me to participate in this consult. Signing off at this time. Please do not hesitate to call for further questions or for any acute medical issues Quality Stroke Does the patient have a stroke diagnosis?: No VTE Prior VTE?: No VTE Risk Level:: Medical - moderate - high VTE Device Contraindication: Treatment Not Indicated VTE Drug Contraindication: N/A - Med Ordered
[2024-03-25 08:07] LABS: MANUAL DIFF FLAG NO
[2024-03-25 08:14] LABS: Basophils Percent Auto 0.2 % (0-2); Eosinophils Percent Auto 0.3 % (0-4); Hemoglobin 10.8 g/dl (14.0-18.0); Imm Gran Abs Auto 0.05 X10*3/uL (0.00-0.03); Imm Gran Pct Auto 0.5 % (0.0-0.4); Lymphocytes Absolute Auto 1.5 X10*3/uL (1.2-4.9); Lymphocytes Percent Auto 15.2 % (20-40); Mean Corpuscular HGB Conc 32.7 g/dl (31.0-36.0); Mean Corpuscular Hemoglobin 28.1 pg (27.0-33.0); Mean Corpuscular Volume 85.7 fL (80.0-98.0); Mean Platelet Volume 9.4 fL (9.4-12.4); Monocytes Absolute Auto 0.9 X10*3/uL (0.1-1.2); Monocytes Percent Auto 8.5 % (2-11); Neutrophils Absolute Auto 7.5 x10*3/uL (2.0-8.3); Neutrophils Percent Auto 75.3 % (45-73); Platelet Count 243 X10*3/uL (160-400); Red Blood Count 3.85 X10*6/uL (4.60-5.80); Red Cell Distribution Width 14.1 % (11.0-16.0)
[2024-03-25 08:22] LABS: Anion Gap 11 (12-20); Blood Urea Nitrogen 9 mg/dL (9-16); Calcium 8.9 mg/dL (8.4-10.2); Carbon Dioxide 25 mmol/L (22-29); Chloride 107 mmol/L (96-108); Creatinine Clr Calc Pharmacy 147.2; Estimated Glomerular Filt Rate > 60; Glucose Fasting 121 mg/dL (60-99); Sodium 139 mmol/L (135-145)
--- NOTE | 2024-03-25 09:05 | MHC.CM.PN ---
pt dcd home with hvns has own transport home
--- NOTE | 2024-03-27 14:39 | P.OP_ITS ---
Operative Note Operative Note Date of Service: 03/24/24 Narrative: Date of Service: 03/24/24 Pre-op diagnosis: Left hip OA Post-op diagnosis: same Procedure: Left AMBER Implants: Grandin Trident 2 56/ 20 deg lip Grandin Accolade2 #6 132 with +2.5 36 ceramic femoral head Surgeon: Trevor Colorado MD Anesthesia: GETA and local Was an Press Room Supervisor used for this Procedure?: Yes Press Room Supervisor: Ryland Acosta Estimated blood loss (mL): 300 IV fluids (mL): 1,200 Pathology: other Condition: stable Disposition: PACU Patient was brought into the operating room and placed in the right lateral decubitus position. All bony prominences were well padded and the limb was prepped and draped in standard sterile fashion. A time-out was called to identify proper site procedure proper surgeon IV antibiotics and 1 g of tranexamic acid were administered. I began by making a curvilinear incision over the posterolateral aspect of the greater trochanter. Dissection was taken down to the tensor fascia which was incised in line with the incision and a Charnley retractor was placed. Cautery was used to maintain hemostasis. The hip was internally rotated and the external rotators were identified. The vessels were cauterized and a full-thickness capsular/external rotator layer was developed starting just proximal to the piriformis. This layer was tagged and a dull Hohmann retractor was placed underneath the neck in the hip was dislocated. A neck cut was made 1 cm proximal to the lesser trochanter and the head and neck were removed and measured 54mm on the back table. The head was deformed and eburnated. I then removed the labrum and cauterized the fovea. I started with a 46 reamer and medialized to the inner table. I sequentially reamed up to a size 56 and impacted a 56mm cup at 45 degrees of inclination and 25 degrees of version. I then placed a 20 deg posterior lipped liner and turned my attention to the femur. I identified the piriformis insertion and used this as a starting point for my marjorie cutter. The medius tendon was protected with a Hibs retractor. A Charnley awl was inserted in the canal and a curved curette used to remove the lateral bone. I irrigated copiously. I then sequentially broached in the patient's natural version to a size 6 and placed my trial implants. I used a #6/132 based on my pre-operative template. I removed all instrumentation and copiously irrigated. I placed my final femoral implant and again took the hip through range of motion and was satisfied with the stability and length. I trialed a variety of femoral heads and settled on a +2.5 mm head. The final +2.5 implant was impacted in place and the hip reduced. I then irrigated copiously and placed 1 g of local tranexamic acid. I performed a capsular closure with 2.0 fiberwire, Magno's fascia with 0 Vicryl, subcuticular with 2-0 Vicryl and the skin with teodoro. Patient was placed into a sterile dressing. Patient was extubated brought to the recovery room in stable condition. There were no known complications.
== END 2024-03-25 10:59 | disposition home health service (06) | DRG 324 ==
LOC: HO.SSSA 09:36 → HO.S3 10:42
PROVIDERS: Nurse Practitioner; Orthopaedic Surgery; Admitting Provider Physician Assistant; PCP Family Medicine; Visit Provider Physician Assistant
PROC: 0SRB03A Replacement of Left Hip Joint with Ceramic Synthetic Substitute, Uncemented, Open Approach (ICD-10-PCS; CPT 27130; principal; 2024-03-24 07:30)
DX: M16.12 Unilateral primary osteoarthritis, left hip (principal); I10 Essential (primary) hypertension; N40.0 Benign prostatic hyperplasia without lower urinary tract symptoms; I25.10 Atherosclerotic heart disease of native coronary artery without angina pectoris; I48.0 Paroxysmal atrial fibrillation; R73.03 Prediabetes; Z95.1 Presence of aortocoronary bypass graft; Z79.01 Long term (current) use of anticoagulants; Z79.899 Other long term (current) drug therapy
CPT/HCPCS: 36415; 72170; 80048; 82565; 83036; 85025; 86850; 86900; 86901; 87640; 87641; 88304; 88311; 97116; 97161; C1776; J0131; J0690; J1100; J1170; J1596; J1650; J2250; J2405; J2704; J2795; J3010; J7120

== ENCOUNTER → 2024-03-24 06:05 | Outpatient (BNV) | payer OTHER, SELFPAY ==
[2024-02-24 10:56] VITALS: BP 120/78; BP 156/70; BMI 49.2
== END ==
PROVIDERS: Admitting Provider Physician Assistant; PCP Family Medicine; Visit Provider Orthopaedic Surgery
DX: M16.12 Unilateral primary osteoarthritis, left hip (principal)
CPT/HCPCS: 27130; 99024; G0180

== ENCOUNTER → 2024-03-24 06:05 | Outpatient (BNV) | payer OTHER, SELFPAY ==
[2024-02-24 10:56] VITALS: BP 120/78; BP 156/70; BMI 49.2
== END ==
PROVIDERS: Admitting Provider Physician Assistant; PCP Family Medicine; Visit Provider Physician Assistant
DX: I10 Essential (primary) hypertension (principal); M16.12 Unilateral primary osteoarthritis, left hip
CPT/HCPCS: 99222; 99232

== ENCOUNTER 2024-04-09 10:29 | Outpatient (REF) | payer OTHER, SELFPAY ==
[2024-02-24 10:56] VITALS: BP 120/78; BP 156/70; BMI 49.2
== END 2024-04-09 10:30 | disposition home or self-care (01) ==
LOC: HO.HOSX 10:29
DX: M25.552 Pain in left hip (principal); Z96.642 Presence of left artificial hip joint
CPT/HCPCS: 99212

== ENCOUNTER 2024-04-09 11:50 | Outpatient (REF) | payer OTHER, SELFPAY ==
[2024-02-24 10:56] VITALS: BP 120/78; BP 156/70; BMI 49.2
--- NOTE | ~2024-04-09 | XR_ITS ---
EXAMINATION: XR HIP, LEFT CLINICAL INFORMATION: Pain in left hip Status post AMBER COMPARISON: Pelvis 03/24/2024 TECHNIQUE: Two views of the left hip. FINDINGS: No concerning lytic or blastic osseous lesions. The patient is status post left total hip arthroplasty. There is no evidence of periprosthetic lucency or fracture. Skin teodoro are seen over the left hip. There is moderate to marked superior-lateral joint space narrowing of the right hip. XR/XR hip LT min 2V IMPRESSION: Status post left total hip arthroplasty without evidence of hardware complication. Electronically signed by: Mojgan Juarez MD 04/30/2024 02:04 PM EDT
== END 2024-04-09 11:51 | disposition home or self-care (01) ==
LOC: HO.XRAY 11:50
PROVIDERS: PCP Family Medicine
DX: M25.552 Pain in left hip (principal)
CPT/HCPCS: 73502

== ENCOUNTER 2024-04-09 12:49 | Outpatient (AMB) | payer OTHER, SELFPAY ==
[2024-02-24 10:56] VITALS: BP 120/78; BP 156/70; BMI 49.2
--- NOTE | 2024-04-09 12:57 | A.OFFVIS_ITS ---
Vital Signs 04/09/24 13:00 Height 5 ft 10.5 in Weight 335 lb BMI 47.4 Intake Visit Reasons: 2WK PO: L AMBER w/NE 03/24/24 Intake Note: Silver is a 63 year old male who presents today post operatively s/p Left AMBER DOS: 03/24/2024 w/ Dr [place]. Patient reports he felt okay until 45 minutes ago. He says he had discomfort during x-rays due to his positioning. He presents with a cane for ambulation. He walked over to our office from the [facility] and says he felt good. He feels muscle soreness and weakness in the left leg but says he expects this. Allergies Penicillins Allergy (Intermediate, Verified 04/09/24 13:00) Hives HPI HPI 2WK PO: L AMBER w/NE 03/24/24: Details: Patient presents to the office today s/p LTHA performed by Dr. Colorado on 03/24/24. Patient is overall doing very well. He is walking with the use of a walker. Pain is managed. No additional complaints. [facility] Medical History Osteoarthritis of left hip Psoriasis BPH (benign prostatic hyperplasia) History of concussion (~1977) Ambulates with cane HLD (hyperlipidemia) HTN (hypertension) Paroxysmal atrial fibrillation Persistent atrial fibrillation Acute dermatitis Tinnitus Osteoarthritis Sleep apnea Surgical History Status post Maze operation for atrial fibrillation (04/09/23) S/P ablation of atrial fibrillation (04/09/23) S/P quadruple vessel bypass (04/09/23) H/O cardiac catheterization History of surgery on lower extremity Family History Mother Afib No family history of mental disorder Father No family history of mental disorder Hyperlipidemia Social History Household Members: Friend(s) Household Members Other:: housemate Housing: House Are you a primary child care attendant school to a significant other at home: No Do you presently have visiting nurse or other home services: No 75 years or older and lives alone: No Alcohol intake: current Alcohol intake frequency: a few times a week Comment: aware of trip hazard Patient Tobacco Use Status: Never used Tobacco e-Cigarette/Vaping Use: Never Used Substance Use Type: Marijuana and Caffiene service: No Current occupational status: employed and disabled 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 [place] intact. Able to perform good internal external rotation, as well as flexion and extension. NVI. Assessment & Plan Assessment & Plan (1) S/P total left hip arthroplasty: Code(s): Z96.642 - Presence of left artificial hip joint Category: Surgical Plan: Patient presents to the office today s/p LTHA performed by Dr. Colorado on 03/24/24. Patient is overall doing very well. He is walking with the use of a walker. Sarmad were removed. Steri-strips applied. Patient will transition to out patient physical therapy. X-rays obtained today reveal intact orthopedic hardware with proper alignment of hip prosthesis. Patient will continue with his posterior precautions. He will follow-up in [address] [place], sooner if needed. Orders: Orders XR hip LT min 2V Today M25.552 - Pain in left hip Coding Level of Care Code Global (99287) Diagnoses S/P total left hip arthroplasty Z96.642
[2024-04-09 13:00] VITALS: BMI 47.4
== END 2024-04-09 16:36 | disposition home or self-care (01) ==
PROVIDERS: PCP Family Medicine; Visit Provider Physician Assistant
DX: Z47.1 Aftercare following joint replacement surgery (principal); Z96.642 Presence of left artificial hip joint
CPT/HCPCS: 99024

== ENCOUNTER 2024-04-30 11:29 | Outpatient (AMB) | payer OTHER, SELFPAY ==
[2024-02-24 10:56] VITALS: BP 120/78; BP 156/70; BMI 49.2
[2024-04-30 11:34] VITALS: BMI 47.4
--- NOTE | 2024-04-30 11:34 | MHC.OFFVIS ---
Vital Signs 04/30/24 11:34 Height 5 ft 10.5 in Weight 335 lb BMI 47.4 Intake Visit Reasons: 6WK PO: L AMBER w/NE 03/24/24 Intake Note: Silver is a 63 year old male who presents today post operatively s/p Left AMBER 03/24/2024 Allergies Penicillins Allergy (Intermediate, Verified 04/09/24 13:00) Hives HPI HPI 6WK PO: L AMBER w/NE 03/24/24: Details: Silver is a 63 year old male who presents today post operatively s/p Left AMBER 03/24/2024. He has no complaints. Mild limp with gait. No pain. [facility] Medical History Osteoarthritis of left hip Psoriasis BPH (benign prostatic hyperplasia) History of concussion (~1977) Ambulates with cane HLD (hyperlipidemia) HTN (hypertension) Paroxysmal atrial fibrillation Persistent atrial fibrillation Acute dermatitis Tinnitus Osteoarthritis Sleep apnea Surgical History Status post Maze operation for atrial fibrillation (04/09/23) S/P ablation of atrial fibrillation (04/09/23) S/P quadruple vessel bypass (04/09/23) H/O cardiac catheterization History of surgery on lower extremity Family History Mother Afib No family history of mental disorder Father No family history of mental disorder Hyperlipidemia Social History Household Members: Friend(s) Household Members Other:: housemate Housing: House Are you a primary care transition mgr to a significant other at home: No Do you presently have visiting nurse or other home services: No 75 years or older and lives alone: No Alcohol intake: current Alcohol intake frequency: a few times a week Comment: aware of trip hazard Patient Tobacco Use Status: Never used Tobacco e-Cigarette/Vaping Use: Never Used Substance Use Type: Marijuana and Caffiene service: No Current occupational status: employed and disabled 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 Continue PT. November f/u 6 weeks. Coding Level of Care Code Global (15170) Diagnoses S/P total left hip arthroplasty Z96.642
== END 2024-04-30 13:01 | disposition home or self-care (01) ==
PROVIDERS: PCP Family Medicine; Visit Provider Orthopaedic Surgery
DX: Z96.642 Presence of left artificial hip joint (principal)
CPT/HCPCS: 99024

== ENCOUNTER → 2024-04-30 11:29 | Outpatient (BNVA) | payer OTHER, SELFPAY ==
[2024-02-24 10:56] VITALS: BP 120/78; BP 156/70; BMI 49.2
== END ==
PROVIDERS: PCP Family Medicine; Visit Provider Orthopaedic Surgery
DX: Z47.1 Aftercare following joint replacement surgery (principal); Z96.642 Presence of left artificial hip joint
CPT/HCPCS: 99212

== ENCOUNTER 2024-05-12 11:00 | Outpatient (RCR) | payer OTHER, SELFPAY ==
[2024-02-24 10:56] VITALS: BP 120/78; BP 156/70; BMI 49.2
== END 2024-07-03 09:20 | disposition home or self-care (01) ==
LOC: HO.PT 11:00
PROVIDERS: PCP Family Medicine; Visit Provider Physician Assistant
DX: Z96.642 Presence of left artificial hip joint (principal)
CPT/HCPCS: 97110; 97161; 97530

== ENCOUNTER 2024-05-27 10:12 | Outpatient (REF) | payer OTHER, SELFPAY ==
[2024-02-24 10:56] VITALS: BP 120/78; BP 156/70; BMI 49.2
[2024-05-27 10:48] LABS: MANUAL DIFF FLAG NO
[2024-05-27 11:22] LABS: Basophils Percent Auto 0.4 % (0-2); Eosinophils Absolute Auto 0.1 X10*3/uL (0.0-0.4); Eosinophils Percent Auto 1.9 % (0-4); Hematocrit 38.1 % (42.0-52.0); Hemoglobin 11.9 g/dl (14.0-18.0); Imm Gran Abs Auto 0.03 X10*3/uL (0.00-0.03); Imm Gran Pct Auto 0.4 % (0.0-0.4); Lymphocytes Percent Auto 14.2 % (20-40); Mean Corpuscular HGB Conc 31.2 g/dl (31.0-36.0); Mean Corpuscular Volume 86.4 fL (80.0-98.0); Mean Platelet Volume 10.1 fL (9.4-12.4); Monocytes Absolute Auto 0.5 X10*3/uL (0.1-1.2); Monocytes Percent Auto 6.4 % (2-11); Neutrophils Absolute Auto 5.6 x10*3/uL (2.0-8.3); Neutrophils Percent Auto 76.7 % (45-73); Platelet Count 239 X10*3/uL (160-400); Red Blood Count 4.41 X10*6/uL (4.60-5.80); Red Cell Distribution Width 15.4 % (11.0-16.0); White Blood Count 7.3 X10*3/uL (4.8-10.8)
[2024-05-27 11:28] LABS: INTERNATIONAL NORM RATIO 1.2 (0.9-1.1)
[2024-05-27 11:31] LABS: Estimated Average Glucose 117 mg/dL; Hemoglobin A1C 125.1808 umol/L; Hemoglobin A1c % 5.7 % (<6.0); Total Hemoglobin (HGBA1C) 3198.5259 umol/L
[2024-05-27 11:32] LABS: Estimated Average Glucose 117 mg/dL; Hemoglobin A1C 125.5884 umol/L; Hemoglobin A1c % 5.7 % (<6.0); Total Hemoglobin (HGBA1C) 3216.1276 umol/L
[2024-05-27 11:52] LABS: Appearance Urine Clear; Color Urine Dark Yellow; Glucose Urine UA Negative (Negative); Leukocyte Esterase Urine Negative (Negative); Nitrite Urine Negative (Negative); PH 5.5 (5.0-9.0); Specific Gravity - Urine >= 1.030 (1.005-1.025); Urine Blood Negative (Negative); Urine Ketones Negative (Negative); Urine Protein Negative (Neg-Trace)
[2024-05-27 12:14] LABS: Prostate Specific Antigen Scr 0.48 ng/mL (<0.05-4.0)
[2024-05-27 12:20] LABS: Creatinine Urine 244.53 mg/dL
[2024-05-27 12:42] LABS: Alanine Aminotransferase 44 U/L (0-40); Albumin Level 4.1 g/dL (3.5-5.0); Alkaline Phosphatase 124 U/L (39-117); Anion Gap 14 (12-20); Aspartate Amino Transferase 40 U/L (5-37); Bilirubin Total 0.4 mg/dL (0.0-1.0); Blood Urea Nitrogen 19 mg/dL (9-16); Calcium 9.3 mg/dL (8.4-10.2); Carbon Dioxide 22 mmol/L (22-29); Chloride 108 mmol/L (96-108); Cholesterol 123 mg/dL (<200); Estimated Glomerular Filt Rate > 60; Glucose Fasting 161 mg/dL (60-99); Glucose Random 161 mg/dL (60-115); HDL Cholesterol 48 mg/dL (>40); LDL Cholesterol Calculated 53 mg/dL (<100); Potassium 4.1 mmol/L (3.3-5.1); Sodium 140 mmol/L (135-145); Total Protein 7.3 g/dL (6.5-8.0); Triglycerides 114 mg/dL (<150)
[2024-05-27 13:08] LABS: TSH reflex Free T4 2.18 uIU/mL (0.32-4.0)
== END 2024-05-27 10:13 | disposition home or self-care (01) ==
LOC: HO.LAB 10:12
PROVIDERS: Physician Assistant; PCP Family Medicine; Visit Provider Family Medicine
DX: Z01.810 Encounter for preprocedural cardiovascular examination (principal); I10 Essential (primary) hypertension; Z12.5 Encounter for screening for malignant neoplasm of prostate; R73.01 Impaired fasting glucose; Z01.811 Encounter for preprocedural respiratory examination; Z95.1 Presence of aortocoronary bypass graft; M16.12 Unilateral primary osteoarthritis, left hip
CPT/HCPCS: 36415; 80048; 80053; 80061; 81003; 82043; 82570; 83036; 84153; 84443; 85025; 85610

== ENCOUNTER 2024-06-11 11:03 | Outpatient (REF) | payer OTHER, SELFPAY ==
[2024-02-24 10:56] VITALS: BP 120/78; BP 156/70; BMI 49.2
== END 2024-06-11 11:04 | disposition home or self-care (01) ==
LOC: HO.HOSX 11:03
PROVIDERS: Visit Provider Orthopaedic Surgery
DX: Z96.642 Presence of left artificial hip joint (principal)
CPT/HCPCS: 99212

== ENCOUNTER 2024-06-11 11:14 | Outpatient (AMB) | payer OTHER, SELFPAY ==
[2024-02-24 10:56] VITALS: BP 120/78; BP 156/70; BMI 49.2
--- NOTE | 2024-06-11 11:23 | MHC.OFFVIS ---
Intake Visit Reasons: 6WK PO: L AMBER w/NE 03/24/24 Intake Note: Silver is a 63 year old male who presents today for a post operative appointment s/p Left AMBER 03/24/2024 Allergies Penicillins Allergy (Intermediate, Verified 04/09/24 13:00) Hives HPI HPI 6WK PO: L AMBER w/NE 03/24/24: Details: Silver is almost 3 months status post left hip replacement. He is doing very well. He has no hip pain. He was last seen with some quadriceps pain that is improving and he notes some mild but improving Trendelenburg gait. [facility] Medical History Osteoarthritis of left hip Psoriasis BPH (benign prostatic hyperplasia) History of concussion (~1977) Ambulates with cane HLD (hyperlipidemia) HTN (hypertension) Paroxysmal atrial fibrillation Persistent atrial fibrillation Acute dermatitis Tinnitus Osteoarthritis Sleep apnea Surgical History Status post Maze operation for atrial fibrillation (04/09/23) S/P ablation of atrial fibrillation (04/09/23) S/P quadruple vessel bypass (04/09/23) H/O cardiac catheterization History of surgery on lower extremity Family History Mother Afib No family history of mental disorder Father No family history of mental disorder Hyperlipidemia Social History Household Members: Friend(s) Household Members Other:: housemate Housing: House Are you a primary childbirth and infant care teacher to a significant other at home: No Do you presently have visiting nurse or other home services: No 75 years or older and lives alone: No Alcohol intake: current Alcohol intake frequency: a few times a week Comment: aware of trip hazard Patient Tobacco Use Status: Never used Tobacco e-Cigarette/Vaping Use: Never Used Substance Use Type: Marijuana and Caffiene service: No Current occupational status: employed and disabled 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 Assessment & Plan Assessment & Plan (1) S/P total left hip arthroplasty: Code(s): Z96.642 - Presence of left artificial hip joint Category: Surgical Plan: Left hip arthroplasty doing well 3 months postop. Continue strengthening and weight loss. May follow up in 9 months or as needed. Orders: Orders XR pelvis 1-2V Today M25.559 - Pain in unspecified hip Coding Level of Care Code Global (54850) Diagnoses S/P total left hip arthroplasty Z96.642
== END 2024-06-11 14:12 | disposition home or self-care (01) ==
PROVIDERS: PCP Family Medicine; Visit Provider Orthopaedic Surgery
DX: Z96.642 Presence of left artificial hip joint (principal)
CPT/HCPCS: 99024

== ENCOUNTER 2024-07-31 11:42 | Outpatient (AMB) | payer OTHER, SELFPAY ==
[2024-02-24 10:56] VITALS: BP 120/78; BP 156/70; BMI 49.2
--- NOTE | 2024-07-31 12:12 | MHC.PC.OV ---
Vital Signs 07/31/24 12:17 Height 5 ft 10.5 in Weight 353 lb BMI 49.9 BP 126/62 Blood Pressure Location Lt brachial Position Sitting Respiration 16 Pulse 66 Pulse Source Pulse Oximeter Temp 99.3 F Temp Source Oral Pulse Oximetry (%) 96 Oxygen Delivery Method Room Air Intake Visit Reasons: Med review Intake Note: update pcp with previous hip surgery info and a pulmonology and derm referral per pt request Allergies Penicillins Allergy (Intermediate, Verified 07/31/24 12:15) Hives Medication List - Last Reconciled 07/31/24 by Wilfrid Mcmahon MD acetaminophen 650 mg (2 x 325 mg) PO Q6H PRN 30 days alfuzosin ER 10 mg PO DAILY apixaban (Eliquis) 5 mg PO BID atorvastatin 80 mg PO DAILY 90 days carvedilol 3.125 mg PO BID 90 days evolocumab (Repatha SureClick) 140 mg subcut Q2W 90 days multivitamin (Daily Multi-Vitamin tablet) 1 tab PO DAILY omega-3 fatty acids 1,000 mg PO DAILY semaglutide (weight loss) (Wegovy) 0.25 mg (0.5 mL) subcut QWEEK 28 days Tobacco use date assessed: 01/07/24 Dental Screening Dental Screen Date: 10/07/23 HPI Med review HPI Details 63 y/o male presents to f/u chronic conditions. S/p total L hip arthroplasty and had been following up with Trevor Colorado. Had been doing well postop. States he has sleep apnea and does have a CPAP machine. Notes this has not been recalibrated in quite some time. Last A1c 5.7% and in the pre-diabetes range. [facility] Medical History (Updated 07/31/24 @ 12:37 by Sharif Dumont) Osteoarthritis of left hip Psoriasis BPH (benign prostatic hyperplasia) History of concussion (~1977) Ambulates with cane HLD (hyperlipidemia) HTN (hypertension) Paroxysmal atrial fibrillation Persistent atrial fibrillation Acute dermatitis Tinnitus Osteoarthritis Sleep apnea Surgical History (Updated 04/09/24 @ 15:50 by Malini Valencia PA-C) Status post Maze operation for atrial fibrillation (04/09/23) S/P ablation of atrial fibrillation (04/09/23) S/P quadruple vessel bypass (04/09/23) H/O cardiac catheterization History of surgery on lower extremity Family History Mother Afib No family history of mental disorder Father No family history of mental disorder Hyperlipidemia Social History Household Members: Friend(s) Household Members Other:: housemate Housing: House Are you a primary complex care nurse to a significant other at home: No Do you presently have visiting nurse or other home services: No 75 years or older and lives alone: No Alcohol intake: current Alcohol intake frequency: a few times a week Comment: aware of trip hazard Patient Tobacco Use Status: Never used Tobacco e-Cigarette/Vaping Use: Never Used Substance Use Type: Marijuana and Caffiene service: No Current occupational status: employed and disabled 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 Cognitive needs: No Hearing needs: No Vision needs: Yes Questionnaire Thrive Questionnaire Date Thrive assessed: 07/24/24 I am a: Patient What is your living situation today?: I choose not to answer this question Within the past 12 months, did the food you bought not last and you didn't have the money to get more?: I choose not to answer this question Within the past 12 months, did you worry whether your food would run out before you got money to buy more?: I choose not to answer this question Do you have trouble paying for medicines?: I choose not to answer this question Do you have trouble getting transportation to medical appointments?: I choose not to answer this question Do you have trouble paying your heating and electricity bill?: I choose not to answer this question Do you have trouble taking care of your child, family member or friend?: I choose not to answer this question Do you have trouble with day-to-day activities such as bathing, preparing meals, shopping, managing finances, etc.?: I choose not to answer this question Are you currently unemployed and looking for a job?: I choose not to answer this question Are you interested in more education?: I choose not to answer this question Please select the resources that you would like help with: None Currently or been in a relationship where the following occur: I choose not to answer THRIVE Score: 0 AUDIT C Alcohol Use Questionnaire (AUDIT-C) 1. How often do you have a drink containing alcohol?: 2-4 times a month 2. How many drinks containing alcohol do you have on a typical day when you are drinking?: 1 or 2 3. How often do you have six or more drinks on one occasion?: Never Total Score: 2 SHAMAR-7 AMB Questionnaire SHAMAR-7 Date SHAMAR - 7 assessed: 01/07/24 Feeling nervous, anxious, or on edge: 0 = Not at all Not being able to stop or control worryin = Not at all Worrying too much about different things: 0 = Not at all Trouble relaxin = Not at all Being so restless that it is hard to sit still: 0 = Not at all Becoming easily annoyed or irritable: 0 = Not at all Feeling afraid as if something awful might happen: 0 = Not at all Total SHAMAR-7 score (0-4 normal; 5-9 mild; 10-14 moderate; 15-21 severe): 0 Source: Developed by Drs. Govind Hoang, Jessica Padilla, Agustin Appiah and colleagues, with an educational pradip from [employer]. Review of Systems Const Denies chills, Denies fatigue, Denies fever(s), Denies headache(s) and Denies weakness ENT Denies dizziness and Denies headache(s) Card Denies chest pain, Denies lightheadedness, Denies dyspnea and Denies other (Palpitations) Resp Denies cough, Denies dyspnea, Denies wheezing and Denies other ( shortness of breath) Musc Denies numbness and Denies tingling Neuro Denies dizziness, Denies headache(s), Denies numbness, Denies tingling, Denies paresthesias and Denies weakness Psych Denies anxiety and Denies depression Endo Denies fatigue Aller/Immun Denies wheezing Physical exam (Primary Care) Vital Signs: Last Vital Signs Temp 99.3 F 07/31/24 12:17 Pulse 66 07/31/24 12:17 Resp 16 07/31/24 12:17 BP 126/62 07/31/24 12:17 Pulse Ox 96 07/31/24 12:17 Oxygen Delivery Method Room Air 07/31/24 12:17 BMI result Body Mass Index 49.9 Tobacco/Smoking Status: Tobacco use Status Tobacco use date assessed 01/07/24 07/31/24 12:12 Patient Tobacco Use Status Never used Tobacco 07/31/24 12:12 e-Cigarette/Vaping Use Never Used 07/31/24 12:12 Thrive Assessment: Date of Thrive Assessment Date Thrive assessed 07/24/24 07/31/24 12:12 Currently or been in a relationship where the following occur: I choose not to answer Const General: no acute distress and well developed Nutritional Appearance: obese morbidly obese Orientation/consciousness: patient oriented x3 HENMT Head: Yes normocephalic and Yes atraumatic Eyes General: appearance normal, both eyes and all related structures Pupils: Equal, round and reactive pupils present EOM: EOMs intact bilaterally Resp Effort & Inspection: normal respiratory effort Auscultation: clear to auscultation bilaterally Cardio Rate: regular rate Rhythm: regular rhythm Heart sounds: S1 normal heart sound present, S2 normal heart sound present, no gallops, no murmurs and no rubs Neuro General: patient oriented x3 and gait normal Cranial nerves: Yes Equal, round and reactive pupils present Psych Affect: normal affect Coding Level of Care Code Est Pt Level 4 (73894) Diagnoses Hip pain M25.559 S/P total left hip arthroplasty Z96.642 Sleep apnea G47.30 Pre-diabetes R73.03 Morbid obesity E66.01 Assessment & Plan Assessment & Plan (1) Hip pain: Code(s): M25.559 - Pain in unspecified hip Category: Medical Plan: Right?hip?pain?and?osteoarthritis. Will?benefit?from?hip?arthroplasty?as?was?done?with?left?hip. He?is?recovering?from?left?hip?arthroplasty?and?needs?to?work?on?weight?loss?as?well - see?below (2) S/P total left hip arthroplasty: Code(s): Z96.642 - Presence of left artificial hip joint Category: Surgical Plan: Doing?very?well. No?hip?pain?and?strength?is?improving. Continued?exercise Encouraged?weight?loss (3) Sleep apnea: Comment: treated with CPAP Code(s): G47.30 - Sleep apnea, unspecified Category: Medical Plan: Longstanding?sleep?apnea?and?patient?was?prescribed?a?CPAP?in?the?past. More?recently,?patient?but?CPAP?machine?to?replace?his?old?one,?on?[facility]cer's?list I?referred?him?to?Sleep?Medicine?to?evaluate?for?new?machine?and calibrated?properly. (4) Pre-diabetes: Code(s): R73.03 - Prediabetes Category: Medical Plan: Last?A1c?was?5.7% Encouraged?diet?lower?in?sugars?and?starches Patient?is?working?on?weight?loss?and?had?used?Wegovy?in?the?past.??Will?resume?this (5) Morbid obesity: Code(s): E66.01 - Morbid (severe) obesity due to excess calories Category: Medical Plan: As?above,?patient?is?working?on?weight?loss Will?resume?Wegovy Follow-up?in?a?few?months Orders: Referrals Sleep Medicine Referral G47.30 - Sleep apnea, unspecified Medications: New semaglutide (weight loss) (Wegovy) administer weeks 1 through 4 of therapy 0.25 mg (0.5 mL) subcut QWEEK 28 days 2 mL 2RF semaglutide (weight loss) (Wegovy) administer weeks 1 through 4 of therapy 0.5 mg subcut QWEEK 28 days 4 mL 2RF
[2024-07-31 12:17] VITALS: BP 126/62; PULSE 66; RESP 16; TEMP 37.4; O2SAT 96; BMI 49.9
== END 2024-07-31 12:56 | disposition home or self-care (01) ==
PROVIDERS: PCP Family Medicine; Visit Provider Family Medicine
DX: M25.552 Pain in left hip (principal); Z96.642 Presence of left artificial hip joint; E66.01 Morbid (severe) obesity due to excess calories; Z68.42 Body mass index [BMI] 45.0-49.9, adult; G47.30 Sleep apnea, unspecified; R73.03 Prediabetes

== ENCOUNTER → 2024-07-31 11:42 | Outpatient (BNVA) | payer OTHER, SELFPAY ==
[2024-02-24 10:56] VITALS: BP 120/78; BP 156/70; BMI 49.2
== END ==
PROVIDERS: PCP Family Medicine; Visit Provider Family Medicine
DX: M17.11 Unilateral primary osteoarthritis, right knee (principal); G47.30 Sleep apnea, unspecified; R73.03 Prediabetes; E66.01 Morbid (severe) obesity due to excess calories; Z99.89 Dependence on other enabling machines and devices; Z68.42 Body mass index [BMI] 45.0-49.9, adult; Z96.642 Presence of left artificial hip joint
CPT/HCPCS: 99212

== ENCOUNTER 2024-08-05 10:54 | Outpatient (AMB) | payer OTHER, SELFPAY ==
[2024-02-24 10:56] VITALS: BP 120/78; BP 156/70; BMI 49.2
[2024-08-05 11:03] VITALS: BP 136/70; PULSE 75; O2SAT 97; BMI 49.4
--- NOTE | 2024-08-05 11:03 | MHC.OFFVIS ---
Vital Signs 08/05/24 11:03 Height 5 ft 10.5 in Weight 349 lb BMI 49.4 BP 136/70 Blood Pressure Location Lt brachial Position Sitting Pulse 75 Pulse Source Pulse Oximeter Pulse Oximetry (%) 97 Oxygen Delivery Method Room Air Intake Visit Reasons: [id number] Time Buyer Required: No Accompanied by: Self / Same As Patient Allergies Penicillins Allergy (Intermediate, Verified 08/05/24 11:05) Hives Medication List - Last Reconciled 08/05/24 by Woo Dickson PA-C alfuzosin ER 10 mg PO DAILY apixaban (Eliquis) 5 mg PO BID atorvastatin 80 mg PO DAILY 90 days carvedilol 3.125 mg PO BID 90 days coenzyme Q10 (Co Q-10) 10 mg PO DAILY evolocumab (Repatha SureClick) 140 mg subcut Q2W 90 days multivitamin (Daily Multi-Vitamin tablet) 1 tab PO DAILY omega-3 fatty acids 1,000 mg PO DAILY semaglutide (weight loss) (Wegovy) 0.5 mg subcut QWEEK 28 days HPI Comments Details: 63 year old male referred to us for sleep evaluation by PCP. Interval Medical History: L. Hip Replacement Feb 2024. He goes to sleep at 10pm gets up at 5-6 am, with one bathroom break. He had a sleep study done in Jun 2008 in the [facility]. Started using CPAP, purchased one himself, and orders his supplies online, cleans and changes mask, tubing as needed periodically. His BMI is elevated 49, he had lost 75 pounds and gained it all back last year. He is not sure if the pressures are accurate for him, and would like to be evaluated as he has not had a study in over 10 years. Memory, is good, but he tends to always forget names and writes everything down. Mood is okay, is a boredom eater . 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) H/O cardiac catheterization History of surgery on lower extremity Family History Mother Afib No family history of mental disorder Father No family history of mental disorder Hyperlipidemia Social History Household Members: Friend(s) Household Members Other:: housemate Housing: House Are you a primary summer child caregiver to a significant other at home: No Do you presently have visiting nurse or other home services: No 75 years or older and lives alone: No Alcohol intake: current Alcohol intake frequency: a few times a week Comment: aware of trip hazard Patient Tobacco Use Status: Never used Tobacco e-Cigarette/Vaping Use: Never Used Substance Use Type: Marijuana and Caffiene service: No Current occupational status: employed and disabled 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 Cognitive needs: No Hearing needs: No Vision needs: Yes Review of Systems ENT Reports Normal hearing present Neuro Reports Normal hearing present Physical Exam Vital Signs: Last Vital Signs Pulse 75 08/05/24 11:03 BP 136/70 08/05/24 11:03 Pulse Ox 97 08/05/24 11:03 Oxygen Delivery Method Room Air 08/05/24 11:03 BMI result Body Mass Index 49.4 Const General: cooperative, comfortable and no acute distress Orientation/consciousness: patient oriented x3 HEENT Face and sinus: Yes normal facial exam and Yes face symmetric Throat: Yes other (Mallmpti score of 4) Eyes Pupils: Equal, round and reactive pupils present Neck Neck: Yes full ROM (Limited ROM on Extension) Resp Effort & Inspection: normal respiratory effort and able to speak in complete sentences Neuro General: patient oriented x3 and moves all extremities Cranial nerves: Yes CN's II-XII intact bilaterally, Yes Facial sensation intact/muscles of mastication intact, Yes Equal, round and reactive pupils present, Yes Normal accommodation reflex present, Yes Nystagmus not present, Yes Normal facial strength present, Yes Midline tongue present, Yes Normal hearing present, Yes Ability to bilaterally rotate head present, Yes Ability to bilaterally elevate shoulders present and Yes Other cranial nerve findings present (Limited Extension and Flexion of the neck) Cognition (Neuro): normal cognition Gait exam (Neuro): Assistive device used Motor exam (neuro): 5/5 motor strength present throughout, Pronator motor function not present, no tremor noted and Normal motor muscle tone present throughout Deep tendon reflexes (DTR's): Right triceps reflex intensity grade: 2+, Left triceps reflex intensity grade: 2+, Rt Biceps (C5, C6): 2+, Left biceps reflex intensity grade: 2+, Right brachioradialis reflex intensity grade: 2+, Left brachioradialis reflex intensity grade: 2+, Right patellar reflex intensity grade: 2+ and Left patellar reflex intensity grade: 2+ Coordination: [id number] test normal Psych Appearance: well kempt Mental Status: mental status grossly normal Speech and movement: Normal speech and movement present Affect: normal affect Attitude: cooperative Thought process: Normal thought process present Thought content: Normal thought content present Insight: Good insight present (Psych) Judgement: Good judgement present (Psych) Assessment & Plan Assessment & Plan (1) Sleep apnea: Comment: treated with CPAP Code(s): G47.30 - Sleep apnea, unspecified Category: Medical Qualifiers: Sleep apnea type: unspecified type Qualified Code(s): G47.30 - Sleep apnea, unspecified (2) Morbid obesity: Code(s): E66.01 - Morbid (severe) obesity due to excess calories Category: Medical (3) Pre-diabetes: Code(s): R73.03 - Prediabetes Category: Medical (4) Fatigue due to sleep pattern disturbance: Code(s): R53.83 - Other fatigue; G47.9 - Sleep disorder, unspecified Category: Medical Plan Daytime Excessive Fatigue: Will evaluate patient for Sleep apnea and f/u with CPAP machine that is calibrated, so he can stop using the one purchased from [employer] and we can continue to get accurate data. BMI Elevated: Will continue on Wegovy, recently had L. Hip arthroplasty, and is planning on having the R. Hip evaluated. (osteoarthritis) PT recommend daily low intensitiy exercises as tolerable. Labs: Vitamin D, TSH, B12, CBC CMP F/U in 3 months. Coding Level of Care Code New Pt Level 4 (79220) Diagnoses Sleep apnea, unspecified type G47.30 Sleep apnea type: unspecified type Morbid obesity E66.01 Pre-diabetes R73.03 Fatigue due to sleep pattern disturbance R53.83; G47.9 Time Spent (min) 30 Comment Evaluation Sleep Questionnaire Difficulty falling asleep: No Difficulty staying asleep?: No Number of arousals: 1x bathroom Snoring: Yes (when not wearing CPAP / Lost weight ) Witnessed apneas: No Gasping arousals: No Nocturia: No GERD: Yes (control with diet ) Vivid dreams: No Acting out dreams: Yes Abnormal behavior in sleep: No Abnormal movements in sleep: No Morning headaches: No Excessive daytime sleepiness: No Daytime naps: Yes Restless legs: No Hallucinations: No Sleep paralysis: No Drop attacks: No Sleep Study: Yes (Sleep center in [place] in 2007) CPAP: Yes
== END 2024-08-05 12:11 | disposition home or self-care (01) ==
PROVIDERS: PCP Family Medicine; Visit Provider Physician Assistant Medical
DX: G47.30 Sleep apnea, unspecified (principal); E66.01 Morbid (severe) obesity due to excess calories; R73.03 Prediabetes; R53.83 Other fatigue; G47.9 Sleep disorder, unspecified
CPT/HCPCS: 99204

== ENCOUNTER → 2024-08-05 10:54 | Outpatient (BNVA) | payer OTHER, SELFPAY ==
[2024-02-24 10:56] VITALS: BP 120/78; BP 156/70; BMI 49.2
== END ==
PROVIDERS: PCP Family Medicine; Visit Provider Physician Assistant Medical
DX: G47.30 Sleep apnea, unspecified (principal); G47.9 Sleep disorder, unspecified; R53.83 Other fatigue; R73.03 Prediabetes; E66.01 Morbid (severe) obesity due to excess calories; Z68.42 Body mass index [BMI] 45.0-49.9, adult
CPT/HCPCS: 99202

== ENCOUNTER → 2024-09-17 11:01 | Outpatient (REF) | payer OTHER, SELFPAY ==
[2024-02-24 10:56] VITALS: BP 120/78; BP 156/70; BMI 49.2
--- OUTSIDE RECORDS SUMMARY | 2024-09-17 12:19 | XMS_ITS | Clinical Summary ---
Author Organization [facility] Facility Address [address] [place] [id number] Care Team Providers Care Ecological Economist Name Role Phone Wilfrid Mcmahon MD Primary Care Provider Social History Tobacco Use Types Packs/Day Years Used Date Smoking Tobacco: Never Assessed Sex and Gender Information Value Date Recorded Sex Assigned at Not on file Legal Sex Male 10:29 AM EDT Gender Identity Not on file Sexual Orientation Not on file Plan of Treatment Health Maintenance Due Date Last Done Comments Colorectal Cancer Screening: Annual FOBT 10/04/2011 Colorectal Cancer Screening: Colonoscopy 10/04/2011 Colorectal Cancer Screening: Sigmoidoscopy 10/04/2011 Influenza Vaccine (#1) 2024 09/18/2017 Hepatitis B Vaccine Aged Out No longe r eligible based on patient's age to complete this topic Pneumococcal Vaccine: Pediat rics (0 to 5 Years) and At-Risk Patients (6 to 64 Years) Aged Out No longer eligi ble based on patient's age to complete this topic Insurance [facility] Care Teams Ecological Economist Relationship Specialty Start Date End Date Wilfrid Mcmahon MD [address] [place] [address] [place] [address] PCP - General Family Medicine 04/18/23
== END ==
LOC: HO.SL 11:01
PROVIDERS: PCP Family Medicine; Visit Provider Physician Assistant Medical
DX: G47.9 Sleep disorder, unspecified (principal); R53.83 Other fatigue
CPT/HCPCS: 95806

== ENCOUNTER → 2024-09-17 11:19 | Outpatient (BNV) | payer OTHER, SELFPAY ==
[2024-02-24 10:56] VITALS: BP 120/78; BP 156/70; BMI 49.2
== END ==
PROVIDERS: PCP Family Medicine; Visit Provider Psychiatry & Neurology Neurology
DX: R06.83 Snoring (principal); G47.10 Hypersomnia, unspecified
CPT/HCPCS: 95806

== ENCOUNTER 2024-10-28 10:40 | Outpatient (AMB) | payer OTHER, SELFPAY ==
[2024-02-24 10:56] VITALS: BP 120/78; BP 156/70; BMI 49.2
--- NOTE | 2024-10-28 10:51 | A.OFFPC_ITS ---
Vital Signs 10/28/24 10:53 10/28/24 10:59 Height 5 ft 10.5 in Weight 355 lb BMI 50.2 BP 140/70 H 120/68 Blood Pressure Location Rt brachial Rt brachial Position Sitting Respiration 14 Pulse 65 Pulse Source Pulse Oximeter Temp 98.5 F Temp Source Oral Pulse Oximetry (%) 97 Oxygen Delivery Method Room Air Intake Visit Reasons: f/u chronic conditions Intake Note: patient is scheduled to follow up for chronic conditiond Camera Systems Engineer Required: No Allergies Penicillins Allergy (Intermediate, Verified 10/28/24 10:52) Hives Medication List - Last Reconciled 10/28/24 by Wilfrid Mcmahon MD alfuzosin ER 10 mg PO DAILY apixaban (Eliquis) 5 mg PO BID atorvastatin 80 mg PO DAILY 90 days carvedilol 3.125 mg PO BID 90 days coenzyme Q10 (Co Q-10) 10 mg PO DAILY evolocumab (Repatha SureClick) 140 mg subcut Q2W 90 days meloxicam 15 mg PO DAILY 30 days multivitamin (Daily Multi-Vitamin tablet) 1 tab PO DAILY omega-3 fatty acids 1,000 mg PO DAILY semaglutide (weight loss) (Wegovy) 0.25 mg (0.5 mL) subcut QWEEK 28 days triamcinolone acetonide 0.1% 1 appl topical BID 30 days Tobacco use date assessed: 01/07/24 Dental Screening Dental Screen Date: 10/07/23 HPI f/u chronic conditions HPI Details 64 y/o male presents to f/u chronic cond itions. Hx of prediabetes and last A1c 5.7%. A1c today 10/28/24 6.2%. Continues to follow up with orthopedics for hip pain. Has been taking ibuprofen for relief. [facility] Medical History (Updated 10/28/24 @ 11:38 by Wilfrid Mcmahon MD) Osteoarthritis of left hip Psoriasis BPH (benign prostatic hyperplasia) History of concussion (~1977) Ambulates with cane HLD (hyperlipidemia) HTN (hypertension) Paroxysmal atrial fibrillation Persistent atrial fibrillation Acute dermatitis Tinnitus Osteoarthritis Sleep apnea Surgical History Status post Maze operation for atrial fibrillation (04/09/23) S/P ablation of atrial fibrillation (04/09/23) S/P quadruple vessel bypass (04/09/23) H/O cardiac catheterization History of surgery on lower extremity Family History Mother Afib No family history of mental disorder Father No family history of mental disorder Hyperlipidemia Social History Household Members: Friend(s) Household Members Other:: housemate Housing: House Are you a primary career services representative to a significant other at home: No Do you presently have visiting nurse or other home services: No 75 years or older and lives alone: No Alcohol intake: current Alcohol intake frequency: a few times a week Comment: aware of trip hazard Patient Tobacco Use Status: Never used Tobacco e-Cigarette/Vaping Use: Never Used Substance Use Type: Marijuana and Caffiene service: No Current occupational status: employed and disabled 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 1. Little interest or pleasure in doing things: not at all 2. Feeling down, depressed, or hopeless: not at all 3. Trouble falling or staying asleep, or sleeping too much: not at all 4. Feeling tired or having little energy: not at all 5. Poor appetite or overeating: not at all 6. Feeling bad about yourself - or that you are a failure or have let yourself or your family down: not at all 7. Trouble concentrating on things, such as reading the newspaper or watching television: several days 8. Moving or speaking so slowly that other people could have noticed. Or the opposite - being so fidgety or restless that you have been moving around a lot more than usual: not at all 9. Thoughts that you would be better off or of hurting yourself in some way: not at all Total score: 1 Depression Screening Interpretation: Negative Depression Screening Done: Yes 34073 - PHQ-9 Billing: Yes Source: Developed by Drs. Govind Hoang, Jessica Padilla, Agustin Appiah and colleagues, with an educational pradip from [employer]. Thrive Questionnaire Date Thrive assessed: 07/31/24 I am a: Patient What is your living situation today?: I choose not to answer this question Within the past 12 months, did the food you bought not last and you didn't have the money to get more?: I choose not to answer this question Within the past 12 months, did you worry whether your food would run out before you got money to buy more?: I choose not to answer this question Do you have trouble paying for medicines?: I choose not to answer this question Do you have trouble getting transportation to medical appointments?: I choose not to answer this question Do you have trouble paying your heating and electricity bill?: I choose not to answer this question Do you have trouble taking care of your child, family member or friend?: I choose not to answer this question Do you have trouble with day-to-day activities such as bathing, preparing meals, shopping, managing finances, etc.?: I choose not to answer this question Are you currently unemployed and looking for a job?: I choose not to answer this question Are you interested in more education?: I choose not to answer this question Please select the resources that you would like help with: None Currently or been in a relationship where the following occur: I choose not to answer THRIVE Score: 0 SHAMAR-7 AMB Questionnaire SHAMAR-7 Date SHAMAR - 7 assessed: 01/07/24 Source: Developed by Drs. Govind Hoang, Jessica Padilla, Agustin Appiah and colleagues, with an educational pradip from [employer]. Review of Systems Const Denies chills, Denies fatigue, Denies fever(s), Denies headache(s) and Denies weakness ENT Denies dizziness and Denies headache(s) Card Denies dyspnea Resp Denies cough, Denies dyspnea, Denies wheezing and Denies other (shortness of breath) Musc Denies numbness and Denies tingling Neuro Denies dizziness, Denies headache(s), Denies numbness, Denies tingling and Denies weakness Psych Denies anxiety and Denies depression Endo Denies fatigue Aller/Immun Denies wheezing Physical exam (Primary Care) Vital Signs: Last Vital Signs Temp 98.5 F 10/28/24 10:53 Pulse 65 10/28/24 10:53 Resp 14 10/28/24 10:53 BP 120/68 10/28/24 10:59 Pulse Ox 97 10/28/24 10:53 Oxygen Delivery Method Room Air 10/28/24 10:53 BMI result Body Mass Index 50.2 Tobacco/Smoking Status: Tobacco use Status Tobacco use date assessed 01/07/24 10/28/24 10:55 Patient Tobacco Use Status Never used Tobacco 10/28/24 10:55 e-Cigarette/Vaping Use Never Used 10/28/24 10:55 PHQ-9: PHQ-9 Score PHQ-9: Total score 1 10/28/24 10:55 Depression Screening Interpretation: Negative Thrive Assessment: Date of Thrive Assessment Date Thrive assessed 07/31/24 10/28/24 10:55 Currently or been in a relationship where the following occur: I choose not to answer Const General: well developed; No acute distress Nutritional Appearance: well nourished and obese morbidly obese Orientation/consciousness: patient oriented x3 HENMT Head: Yes normocephalic and Yes atraumatic Eyes General: appearance normal, both eyes and all related structures Pupils: Equal, round and reactive pupils present EOM: EOMs intact bilaterally Resp Effort & Inspection: normal respiratory effort Neuro General: patient oriented x3 and gait normal Cranial nerves: Yes Equal, round and reactive pupils present Psych Affect: normal affect Coding Level of Care Code Est Pt Level 4 (13323) Diagnoses Pre-diabetes R73.03 Hip pain M25.559 Hidradenitis suppurativa L73.2 Morbid obesity E66.01 Rash R21 Additional Codes PHQ-9 - 83015 - PHQ-9 Billing: Yes ([id number]) Assessment & Plan Assessment & Plan (1) Pre-diabetes: Code(s): R73.03 - Prediabetes Category: Medical Plan: A1c?has?climbed?from?5.7%?to?6.2%. Encouraged?diet?lower?in?sugars?and?starches Patient?had?been?on?Wegovy?in?the?past?for?weight?loss.??Restarting?this?as?well (2) Hip pain: Code(s): M25.559 - Pain in unspecified hip Category: Medical Plan: Ongoing?and?worsening?hip?pain He?will?talk?to?his?orthopedic?specialist?about?hip?replacement (3) Hidradenitis suppurativa: Code(s): L73.2 - Hidradenitis suppurativa Category: Medical Plan: Hidradenitis?suppurativa?at?anterior?abdomen?along?waistband Referred?to?dermatology (4) Morbid obesity: Code(s): E66.01 - Morbid (severe) obesity due to excess calories Category: Medical Plan: As?above,?restarting?Wegovy Will?get?prior?authorization?and?possible Advised?patient?contact?his?insurer to?see?what?else?they?might?improve?if?they?decline (5) Rash: Code(s): R21 - Rash and other nonspecific skin eruption Category: Medical Plan: Eczematous?rash?on?legs Gave?him?script?for?triamcinolone Referred?to?dermatology Orders: Referrals Dermatology Referral L30.9 - Dermatitis, unspecified, L73.2 - Hidradenitis suppurativa Medications: New triamcinolone acetonide 0.1% 1 appl topical BID 30 days 45 grams 2RF meloxicam 15 mg PO DAILY 30 days 30 tabs 2RF Changed From semaglutide (weight loss) (Wegovy) administer weeks 1 through 4 of therapy 0.5 mg subcut QWEEK 28 days 4 mL 2RF To semaglutide (weight loss) (Wegovy) administer weeks 1 through 4 of therapy 0.25 mg (0.5 mL) subcut QWEEK 28 days 2 mL 2RF
[2024-10-28 10:53] VITALS: BP 140/70; PULSE 65; RESP 14; TEMP 36.9; O2SAT 97; BMI 50.2
[2024-10-28 10:59] VITALS: BP 120/68
--- OUTSIDE RECORDS SUMMARY | 2024-10-28 12:41 | XMS_ITS | Clinical Summary ---
Author Organization [facility] Facility Address [address] [place] [id number] Care Team Providers Care Cloth Inspector Name Role Phone Wilfrid Mcmahon MD Primary [...] Colorectal Cancer Screening: Sigmoidoscopy 10/04/2011 Influenza Vaccine (Season Ended) 2025 09/18/19 18 Hepatitis B Vaccine Aged Out No longe r eligible based on patient's age to complete this topic Pneumococcal Vaccine: Pediat rics (0 to 5 Years) and At-Risk Patients (6 to 64 Years) Aged Out No longer eligi ble based on patient's age to complete this topic Insurance [facility] Care Teams Cloth Inspector Relationship Specialty Start Date End Date Wilfrid Mcmahon MD [address] [address] PCP - General Family Medicine 04/18/23
== END 2024-10-28 11:38 | disposition home or self-care (01) ==
LOC: HO.HMCFM 10:40
PROVIDERS: PCP Family Medicine; Visit Provider Family Medicine
DX: R73.03 Prediabetes (principal); M25.552 Pain in left hip; E66.01 Morbid (severe) obesity due to excess calories; Z68.43 Body mass index [BMI] 50.0-59.9, adult; L73.2 Hidradenitis suppurativa; R21 Rash and other nonspecific skin eruption

== ENCOUNTER → 2024-10-28 10:40 | Outpatient (BNVA) | payer OTHER, SELFPAY ==
[2024-02-24 10:56] VITALS: BP 120/78; BP 156/70; BMI 49.2
== END ==
PROVIDERS: PCP Family Medicine; Visit Provider Family Medicine
DX: G47.30 Sleep apnea, unspecified (principal); E66.01 Morbid (severe) obesity due to excess calories; R73.03 Prediabetes; R53.83 Other fatigue; G47.9 Sleep disorder, unspecified; L73.2 Hidradenitis suppurativa; R21 Rash and other nonspecific skin eruption
CPT/HCPCS: 83036; 96127; 99212

== ENCOUNTER 2024-10-28 14:26 | Outpatient (AMB) | payer OTHER, SELFPAY ==
[2024-02-24 10:56] VITALS: BP 120/78; BP 156/70; BMI 49.2
[2024-10-28 14:31] VITALS: BP 140/80; PULSE 60; O2SAT 97; BMI 50.1
--- NOTE | 2024-10-28 14:31 | A.OFFVIS_ITS ---
Vital Signs 10/28/24 14:31 Height 5 ft 10.5 in Weight 354 lb BMI 50.1 BP 140/80 H Blood Pressure Location Lt brachial Position Sitting Pulse 60 Pulse Source Pulse Oximeter Pulse Oximetry (%) 97 Oxygen Delivery Method Room Air Intake Visit Reasons: Obstructive sleep apnea Intake Note: Patient presents follow up fatigue due to sleep pattern disturbance. Culinary Specialist Required: No Accompanied by: Self / Same As Patient Allergies Penicillins Allergy (Intermediate, Verified 10/28/24 10:52) Hives HPI Comments Details: 64 year old male f/u for sleep apnea. Interval Medical History: HST was inconclusive AHI less than 4 and oxygen desaturation to 86%, will evaluate with in lab sleep study. L. Hip Replacement Feb 2024 and recovering slowly with PT and rehab. He is planning to have the R. Hip replaced in February 2025. He goes to sleep at 11pm gets up at 7am, with one bathroom break has BPH on alfuzosin 10mg. He sleeps well if using the CPAP, however without the CPAP, he will snore, choke and gasp for air with multiple nightly arousals. He had a CABG procedure in Mar [address] [facility]. He started using CPAP, over 10 years ago but no one is monitoring the pressures and he is uncertain if they are accurate. His BMI is elevated to 50, will refer him to weight management for Wegovy, and nutritional counseling. He is forgetful, stm is poor, w/ word finding difficulty, he has to write things down, forgets appointments, and has a family h/o of alzheimers dementia. He feels overwhelmed and stress eats out of boredom. He is unable to walk and exercise due to the hip and de-conditioning of R. Hip, however drinks 64 oz of water daily along with Ballard juice for gout type symptoms. 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) H/O cardiac catheterization History of surgery on lower extremity Family History Mother Afib No family history of mental disorder Father No family history of mental disorder Hyperlipidemia Social History Household Members: Friend(s) Household Members Other:: housemate Housing: House Are you a primary hiv/aids care nurse to a significant other at home: No Do you presently have visiting nurse or other home services: No 75 years or older and lives alone: No Alcohol intake: current Alcohol intake frequency: a few times a week Comment: aware of trip hazard Patient Tobacco Use Status: Never used Tobacco e-Cigarette/Vaping Use: Never Used Substance Use Type: Marijuana and Caffiene service: No Current occupational status: employed and disabled 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 Cognitive needs: No Hearing needs: No Vision needs: Yes Review of Systems Const All systems reviewed & are unremarkable except as noted in HPI and below ENT Reports Normal hearing present Neuro Reports Normal hearing present Physical Exam Vital Signs: Last Vital Signs Pulse 60 10/28/24 14:31 BP 140/80 H 10/28/24 14:31 Pulse Ox 97 10/28/24 14:31 Oxygen Delivery Method Room Air 10/28/24 14:31 BMI result Body Mass Index 50.1 Const General: cooperative, comfortable and no acute distress Orientation/consciousness: patient oriented x3 HEENT Face and sinus: Yes normal facial exam and Yes face symmetric Throat: Yes other (Mallmpti score of 4) Eyes Pupils: Equal, round and reactive pupils present Neck Neck: Yes full ROM (Limited ROM on Extension) Resp Effort & Inspection: normal respiratory effort and able to speak in complete sentences Neuro Other: UE tremor noted on exam L>R. General: patient oriented x3 and moves all extremities Cranial nerves: Yes Facial sensation intact/muscles of mastication intact, Yes Equal, round and reactive pupils present, Yes Normal accommodation reflex present, Yes Nystagmus not present, Yes Normal facial strength present, Yes Midline tongue present, Yes Normal hearing present, Yes Ability to bilaterally rotate head present, Yes Ability to bilaterally elevate shoulders present and Yes Other cranial nerve findings present (Limited Extension and Flexion of the neck) Cognition (Neuro): normal cognition Gait exam (Neuro): Assistive device used Motor exam (neuro): Pronator motor function not present, no tremor noted, Normal motor muscle tone present throughout and Abnormal motor strength present (LLE) Deep tendon reflexes (DTR's): Right triceps reflex intensity grade: 2+, Left triceps reflex intensity grade: 2+, Rt Biceps (C5, C6): 2+, Left biceps reflex intensity grade: 2+, Right brachioradialis reflex intensity grade: 2+, Left brachioradialis reflex intensity grade: 2+, Right patellar reflex intensity grade: 2+ and Left patellar reflex intensity grade: 2+ Coordination: [id number]-[id number] test normal Psych Appearance: well kempt Thought process: Normal thought process present Thought content: Normal thought content present Results Reviewed Results Reviewed: HST completed with AHI is less than 4 and oxygen desaturation to 86%, will evaluate with PSG. Assessment & Plan Assessment & Plan (1) Sleep apnea: Comment: treated with CPAP Code(s): G47.30 - Sleep apnea, unspecified Category: Medical Qualifiers: Sleep apnea type: unspecified type Qualified Code(s): G47.30 - Sleep apnea, unspecified (2) Morbid obesity: Code(s): E66.01 - Morbid (severe) obesity due to excess calories Category: Medical (3) Pre-diabetes: Code(s): R73.03 - Prediabetes Category: Medical (4) Fatigue due to sleep pattern disturbance: Code(s): R53.83 - Other fatigue; G47.9 - Sleep disorder, unspecified Category: Medical Plan Daytime Excessive Fatigue: HST c/w so he can stop using the one purchased from [employer] and we can continue to get accurate data. BMI Elevated: 50 Will restart on Wegovy, recently had L. Hip arthroplasty, and is planning on having the R. Hip evaluated. (osteoarthritis) PT recommend daily low intensitiy exercises as tolerable with stretching/ strength training at rehab PT. Labs to complete to r/o deficiencies Vitamin D, TSH, B12, MMA, homocysteine, A1c, Iron Ferritin CBC CMP F/U in 3 months. Orders: Referrals Medical Weight Management Referral E66.01 - Morbid (severe) obesity due to excess calories Patient Instructions: Sleep Hygiene provided: set a scheduled bedtime and wake time to help regulate the circadian rhythm and balance the release of pituitary hormones. Sleep in a dark room, temperatures below 68 degrees, and no devices n bed. Limit caffeinated products 6 hours prior to bed, and limit fluids 2-4 hours prior to bed. Gentle night yoga, diffusing essential oils, and playing soft music can be relaxing. Coding Level of Care Code Est Pt Level 4 (49394) Diagnoses Sleep apnea, unspecified type G47.30 Sleep apnea type: unspecified type Morbid obesity E66.01 Pre-diabetes R73.03 Fatigue due to sleep pattern disturbance R53.83; G47.9
--- OUTSIDE RECORDS SUMMARY | 2024-10-28 17:14 | XMS_ITS | Clinical Summary ---
Author Organization [facility] Facility Address [address] [place] [id number] Care Team Providers Care Building Inspection Engineer Name Role Phone Wilfrid Mcmahon MD Primary [...] patient's age to complete this topic Insurance [facility] Care Teams Building Inspection Engineer Relationship Specialty Start Date End Date Wilfrid Mcmahon MD [address] [address] PCP - General Family Medicine 04/18/23
== END 2024-10-28 15:26 | disposition home or self-care (01) ==
LOC: HO.HSMS 14:27
PROVIDERS: PCP Family Medicine; Visit Provider Physician Assistant Medical
DX: G47.30 Sleep apnea, unspecified (principal); E66.01 Morbid (severe) obesity due to excess calories; R73.03 Prediabetes; R53.83 Other fatigue; G47.9 Sleep disorder, unspecified
CPT/HCPCS: 99214

== ENCOUNTER 2024-12-18 10:05 | Outpatient (AMB) | payer OTHER, SELFPAY ==
[2024-02-24 10:56] VITALS: BP 120/78; BP 156/70; BMI 49.2
--- NOTE | 2024-12-18 10:12 | MHC.OFFVIS ---
Intake Visit Reasons: New Prob - Right Hip Pain Intake Note: Silver is a 64 year old male who presents today with complaints of right hip pain. Hx of Left AMBER 03/24/24. Patient reports that the right hip has been painful since after the left hip was replaced. He explanis some loosness of the hip. After the start of the year the right hip has become increasingly pain. Denies numbness and tingling. He also has muscle spasms in the anterior thigh. He is taking Ibuprofen for his pain and inflammation which is helping. l Allergies Penicillins Allergy (Intermediate, Verified 10/28/24 10:52) Hives HPI HPI New Prob - Right Hip Pain: Details: Silver returns for his right hip. He had a successful left AMBER about 9 months ago. He has been having continued severe right hip pain. he has known right hip OA. He feels he cannot ambulate for more than a few minutes without pain. 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) H/O cardiac catheterization History of surgery on lower extremity Family History Mother Afib No family history of mental disorder Father No family history of mental disorder Hyperlipidemia Social History Household Members: Friend(s) Household Members Other:: housemate Housing: House Are you a primary career services assistant to a significant other at home: No Do you presently have visiting nurse or other home services: No 75 years or older and lives alone: No Alcohol intake: current Alcohol intake frequency: a few times a week Comment: aware of trip hazard Patient Tobacco Use Status: Never used Tobacco e-Cigarette/Vaping Use: Never Used Substance Use Type: Marijuana and Caffiene service: No Current occupational status: employed and disabled 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 Cognitive needs: No Hearing needs: No Vision needs: Yes Physical Exam Const General: no acute distress, alert and awake Orientation/consciousness: patient oriented x3 HEENT Head: Yes normocephalic and Yes atraumatic Eyes EOM: EOMs intact bilaterally Resp Effort & Inspection: normal respiratory effort and able to speak in complete sentences Cardio Jugular venous distension: no JVD Skin General skin exam: turgor normal Rashes: no rashes Neuro General: patient oriented x3 Extrem Other: RightHip: + impingement antalgic gait Psych Appearance: grossly normal Affect: normal affect Attitude: cooperative Results Reviewed Results Reviewed: I personally reviewed relevant radiographs. Severe right hip OA Assessment & Plan Assessment & Plan (1) Osteoarthritis of right hip: Code(s): M16.11 - Unilateral primary osteoarthritis, right hip Category: Medical Plan: This is a 64 yo M with known right hip OA. He had a successful left AMBER 9 months ago and is ready to treat his right. He was introduced to our Nurse Navigator. I recommend right AMBER. He understands the procedure as well and I discussed the risks benefits and alternatives. We will begin the pre operative clearance process. Coding Level of Care Code Est Pt Level 4 (08694) Diagnoses Osteoarthritis of right hip M16.11
--- OUTSIDE RECORDS SUMMARY | 2024-12-18 10:20 | XMS_ITS | Clinical Summary ---
Author Organization [facility] Facility Address [address] [place] [address], [place] [address] Care Team Providers Care River Expedition Guide Name Role Phone Wilfrid Mcmahon MD Primary [...] Colonoscopy 10/04/2011 Colorectal Cancer Screening: Sigmoidoscopy 10/04/2011 Pneumococcal Vaccine: 50+ Ye ars (1 - PCV) 2012 Influenza Vaccine (Season Ended) 2025 09/18/19 18 Hepatitis B Vaccine Aged Out No longe r eligible based on patient's age to complete this topic Insurance [facility] Care Teams River Expedition Guide Relationship Specialty Start Date End Date Wilfrid Mcmahon MD 10 [facility] [address] [place] [id number] PCP - General Family Medicine 04/18/23
== END 2024-12-18 10:57 | disposition home or self-care (01) ==
LOC: HO.HOS 10:06
PROVIDERS: PCP Family Medicine; Visit Provider Orthopaedic Surgery
DX: M16.11 Unilateral primary osteoarthritis, right hip (principal)
CPT/HCPCS: 99214

== ENCOUNTER → 2024-12-18 10:05 | Outpatient (BNVA) | payer OTHER, SELFPAY ==
[2024-02-24 10:56] VITALS: BP 120/78; BP 156/70; BMI 49.2
== END ==
PROVIDERS: PCP Family Medicine; Visit Provider Orthopaedic Surgery
DX: M16.11 Unilateral primary osteoarthritis, right hip (principal)
CPT/HCPCS: 99212

== ENCOUNTER → 2024-12-28 12:52 | Outpatient (REF) | payer OTHER, SELFPAY ==
[2024-02-24 10:56] VITALS: BP 120/78; BP 156/70; BMI 49.2
--- NOTE | 2024-12-28 12:54 | CA_ITS ---
Transthoracic Echocardiogram Patient (Last, First, Middle): Silver Valladares, Gender: Male Date of : 1960 Age: 64 Procedure Date: 12/28/2024 Procedure Type: Transthoracic Echocardiogram Location: OP Height: 177.8 cm Weight: 153.77 kg BSA: 2.61 m2 Heart Rate: 68 bpm BP: 134 / 80 mmHg Director Of Residential Services: Referring MD: Jeffrey Youngblood MD Symptoms: I48.0 - Paroxysmal atrial fibrillation Study Quality: Adequate w contrast ECG Rhythm: Sinus Conclusions: - The left ventricular systolic function is hyperdynamic. The visually estimated ejection fraction is >70%. - There is moderately increased left ventricular wall thickness. - No obvious valvular pathology seen on this study. Findings Procedure Information Contrast agent, definity, is being given per protocol without apparent complications. Left Ventricle Normal left ventricular cavity size. There is moderately increased left ventricular wall thickness. The left ventricular systolic function is hyperdynamic. The visually estimated ejection fraction is >70%. There is no evidence of regional wall motion abnormalities. Diastolic function is normal for age. Right Ventricle Normal right ventricular cavity size and systolic function. Atria Both atria are normal in size. Aortic Valve There is a normal trileaflet aortic valve. There is no aortic valve stenosis. There is trace (trivial) aortic valve regurgitation. Mitral Valve The mitral valve appears normal. There is no mitral valve regurgitation. There is no mitral valve stenosis. Pulmonic Valve The pulmonic valve is likely normal. Tricuspid Valve There is trace tricuspid valve regurgitation. There is no evidence of pulmonary hypertension. Great Vessels The asc aorta is normal in size. Venous The inferior vena cava is mildly dilated and collapses greater than 50% with inspiration. Pericardium/Pleural There is no evidence of pericardial effusion. Prior Study Comparison No significant change compared to prior study dated: 05/10/2023. Recommendations, Care & Conclusions No obvious valvular pathology seen on this study. Measurements 2D Linear Measurements IVSd: 1.41 0.6-0.9/0.6-1.0 cm LVIDd: 4.42 3.9-5.3/4.2-5.9 cm LVIDd Index: 1.69 2.4-3.2/2.2-3.1 cm/m2 LVIDs: 2.72 2.0-3.6 cm LVPWd: 1.31 0.7-1.1 cm LA Diam: 4.80 2.7-3.8/3.0-4.0 cm LAIDs Index: 1.84 1.5-2.3 cm/m2 LV Mass: 288.75 67-162/88-224 g LV Mass Index: 110.63 43-95/49-115 g/m2 LVOT Diam: 2.10 3.0+(-)1.3 cm 2D Systolic Function EF 4C: 59.80 >55% EF 2C: 61.80 >55% Mitral Valve MV Pk E: 0.63 MV PK A: 0.45 MV Decel Time: 194.00 E/A: 1.40 E'Lateral: 10.40 E'Medial: 5.33 E/E' Med: 11.90 E/E' Lat: 6.10 PHT: 57.00 MVA PHT: 3.86 Decel [place]: 3.27 Aortic Valve AoV Pk [place]: 1.38 AoV Mn [place]: 0.86 AoV VTI: 0.32 AoV Pk Grad: 8.00 Aov Mn Grad: 4.00 KAREN Cont.VTI: 2.69 LVOT LVOT Pk [place]: 1.02 LVOT Mn [place]: 0.70 LVOT VTI: 0.25 LVOT Pk Grad: 4.00 LVOT Mn Grad: 2.00 LVOT Diam: 2.10 LVOT Area: 3.46 Diastolic Function MV Pk E: 0.63 MV Pk A: 0.45 E/A: 1.40 E'Medial: 5.33 E/E' Med: 11.90 E' Laterial: 10.40 E/E' Lat: 6.10 Right Ventricle TAPSE (mm): 24.40 Tricuspid Valve TR Pk Cruz[place]: 1.27 TR Pk Grad: 6.00 RA Press: 3.00 RVSP: 9.00 Great Vessels Aorta Sinus of Valsalva: 3.70 2.0-3.5 cm Ao Asc: 3.60 2.1-3.4 cm Pulmonary Valve PV Pk Cruz[place]: 1.15 Peak PV Grad: 5.00 Updated in Other Vendor System with Status of Final Gilberto Frye MD electronically signed on 12/29/2024 3:24:16 PM with status of Final
--- OUTSIDE RECORDS SUMMARY | 2024-12-28 13:52 | XMS_ITS | Clinical Summary ---
Author Organization [facility] Facility Address [address] [place] [address], [place] [address] Care Team Providers Care Bingo Attendant Name Role Phone Wilfrid Mcmahon MD Primary [...] patient's age to complete this topic Insurance [facility] Care Teams Bingo Attendant Relationship Specialty Start Date End Date Wilfrid Mcmahon MD 10 [facility] [address] [place] [id number] PCP - General Family Medicine 04/18/23
== END ==
LOC: HO.CARD 12:52
PROVIDERS: PCP Family Medicine; Visit Provider Internal Medicine Cardiovascular Disease
DX: I48.0 Paroxysmal atrial fibrillation (principal)
CPT/HCPCS: 93306; Q9957

== ENCOUNTER → 2024-12-28 12:54 | Outpatient (BNV) | payer OTHER, SELFPAY ==
[2024-02-24 10:56] VITALS: BP 120/78; BP 156/70; BMI 49.2
== END ==
PROVIDERS: PCP Family Medicine; Visit Provider Internal Medicine
DX: I48.0 Paroxysmal atrial fibrillation (principal)
CPT/HCPCS: 93306

== ENCOUNTER 2025-01-07 10:01 | Outpatient (AMB) | payer OTHER, SELFPAY ==
[2024-02-24 10:56] VITALS: BP 120/78; BP 156/70; BMI 49.2
--- NOTE | 2025-01-07 10:03 | A.OFFVIS_ITS ---
Intake Visit Reasons: 1yr/PSA Intake Note: Patient presents today via telehealth for a 1 year follow-up on PSA * 05-27-24 PSA:0.48 Urology Meds- Alfuzosin Allergies to Antibiotic- Penicillin Blood Thinner- Aspirin & Eliquis Waste Management Recycling Technician Required: No Accompanied by: Self / Same As Patient Allergies Penicillins Allergy (Intermediate, Verified 01/07/25 10:04) Israel MCCARTNEY Comments Details: 01/07/25--Rodriguez is a 63-year-old male who is followed for obstructive lower urinary tract symptoms from BPH. He is on alfuzosin 10 mg daily. He states he was urinating well on the alfuzosin medication. However he feels he is having more hesitancy. I have discussed alternative therapies to include green-light laser, will have him fu for further evaluation with office cystoscopy. 01/08/2024--Rodriguez is a 63-year-old male who is followed for obstructive lower urinary tract symptoms from BPH. He is on alfuzosin 10 mg daily. He states that since he was seen in our office he had open heart surgery, CABG x4 about 9 months ago at [facility]. He states he is urinating well on the alfuzosin medication. Denies irritative voiding symptoms. He went to the lab to have PSA checked and the lab sent blood for other testing. Review of testing US retroperitoneum 12/07/22--Enlarged prostate, estimated volume 120 mL PSA 10/31/22?0.49. Will continue alfuzosin, continue PSA screening. 01/10/23-- Silver is a 62-year-old male who is here tele-health follow-up for discussion of renal US results. Video-Attempted.the patient states moderate benefits with Alfuzosin 10 mg QD. States having weak urine stream. Retroperitoneal US result reviewed--12/07/22-- The prostate volume is estimated to be 120 milliliters. Non-shadowing punctate calcification within both kidneys. PSA blood work prior was ordered. Continue Alfuzosin 10 mg QD. Follow-up after one year. 11/28/22--Silver is a 62-year-old male who presents to the office as a new patient evaluation for urinary urgency and weak urinary stream. The patient had initial feeling of difficulty emptying with intermittent dribbling and urgency. He was prescribed Flomax, but he states his urinary flow seemed weaker so he stopped the medication after 15 days. States having stronger urine flow after discontinuation, but other symptoms returned. Evaluation today: Blood: negative, leukocytes: negative. Bladder scan PVR: 0 mL. AUA symptom score: 6. PSA results reviewed?10/31/22?0.49. Plan: Renal/bladder US was ordered. Alfuzosin 10 mg QD was ordered. Side effects including but not limited to nasal congestion and retrograde ejaculation were discussed. Follow-up in 6 weeks. [facility] Medical History Osteoarthritis of left hip Psoriasis BPH (benign prostatic hyperplasia) History of concussion (~1977) Ambulates with cane HLD (hyperlipidemia) HTN (hypertension) Paroxysmal atrial fibrillation Persistent atrial fibrillation Acute dermatitis Tinnitus Osteoarthritis Sleep apnea Surgical History Status post Maze operation for atrial fibrillation (04/09/23) S/P ablation of atrial fibrillation (04/09/23) S/P quadruple vessel bypass (04/09/23) H/O cardiac catheterization History of surgery on lower extremity Family History Mother Afib No family history of mental disorder Father No family history of mental disorder Hyperlipidemia Social History Household Members: Friend(s) Household Members Other:: housemate Housing: House Are you a primary customer care consultant to a significant other at home: No Do you presently have visiting nurse or other home services: No 75 years or older and lives alone: No Alcohol intake: current Alcohol intake frequency: a few times a week Comment: aware of trip hazard Patient Tobacco Use Status: Never used Tobacco e-Cigarette/Vaping Use: Never Used Substance Use Type: Marijuana and Caffiene service: No Current occupational status: employed and disabled 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 Cognitive needs: No Hearing needs: No Vision needs: Yes Review of Systems Const All systems reviewed & are unremarkable except as noted in HPI and below Reports no additional complaints Eyes Reports no additional complaints ENT Reports no additional complaints Card Reports no additional complaints Resp Reports no additional complaints GI Reports no additional complaints Reports as per HPI Musc Reports no additional complaints Skin/Breast Reports system reviewed and no additional complaints, except as documented Neuro Reports no additional complaints Psych Reports no additional complaints Endo Reports no additional complaints Mejia/Lymph Reports no additional complaints Aller/Immun Reports no additional complaints Telehealth Telehealth Telehealth Platform: D[employer] Location of provider rendering services: practice address Location of patient: address on file Patient Identification confirmed using: Name, : Yes Telehealth method: voice only Patient verbally consented to treatment: Yes Patient verbally consented to billing insurance company: Yes Patient informed of any privacy concerns related to visit: Yes Minutes spent on Phone/Video with Pt.: 14 Assessment & Plan Assessment & Plan (1) BPH loc w urin obs/LUTS: Code(s): N40.1 - Benign prostatic hyperplasia with lower urinary tract symptoms Category: Medical (2) Weak urinary stream: Code(s): R39.12 - Poor urinary stream Category: Medical (3) Urgency of urination: Code(s): R39.15 - Urgency of urination Category: Medical (4) Screening PSA (prostate specific antigen): Code(s): Z12.5 - Encounter for screening for malignant neoplasm of prostate Category: Medical Plan FU office cysto Patient Instructions: The patient had an opportunity to ask questions regarding treatment plan. The patient expressed understanding and agreement with the above treatment plan. The patient is aware they should contact our office by phone for worsening of their current condition or the appearance of new symptoms. Compliance is encouraged with any medications and followup testing that is ordered. It is a privilege to be allowed the opportunity to participate in the urologic care of your patient. If you have any questions or concerns regarding treatment for the above conditions please do not hesitate to contact me. The office telephone contact is [phone]. This note is constructed in part using voice recognition software. While every effort has been made to ensure accuracy survey engineer errors may have been included. Yours sincerely, Ottoniel Corrales MD Coding Level of Care Code Tele Est Pt Level 3 (54493) Complex EM visit Add On G2211 Diagnoses BPH loc w urin obs/LUTS N40.1 Weak urinary stream R39.12 Urgency of urination R39.15 Screening PSA (prostate specific antigen) Z12.5
--- OUTSIDE RECORDS SUMMARY | 2025-01-07 11:24 | XMS_ITS | Clinical Summary ---
Author Organization [facility] Facility Address [address] [place] [address], [place] [address] Care Team Providers Care Hoe Worker Name Role Phone Wilfrid Mcmahon MD Primary Care Provider [phone] Social History Tobacco Use Types Packs/Day Years [...] patient's age to complete this topic Insurance [facility] Care Teams Hoe Worker Relationship Specialty Start Date End Date Wilfrid Mcmahon MD 10 [facility] [address] [place] [id number] PCP - General Family Medicine 04/18/23
== END 2025-01-07 10:59 | disposition home or self-care (01) ==
LOC: HO.HUSH 10:02
PROVIDERS: PCP Family Medicine; Visit Provider Urology
DX: N40.1 Benign prostatic hyperplasia with lower urinary tract symptoms (principal); R39.12 Poor urinary stream; R39.15 Urgency of urination; Z12.5 Encounter for screening for malignant neoplasm of prostate
CPT/HCPCS: 98013

== ENCOUNTER → 2025-01-07 10:01 | Outpatient (BNVA) | payer OTHER, SELFPAY ==
[2024-02-24 10:56] VITALS: BP 120/78; BP 156/70; BMI 49.2
== END ==
PROVIDERS: PCP Family Medicine; Visit Provider Urology

== ENCOUNTER 2025-01-14 10:10 | Outpatient (AMB) | payer OTHER, SELFPAY ==
[2025-01-07 11:12] VITALS: BP 120/78; BP 156/70; BMI 49.2
[2025-01-14 10:12] VITALS: BP 118/78; PULSE 78; BMI 49.6
--- NOTE | 2025-01-14 10:12 | A.OFFVIS_ITS ---
Vital Signs 01/14/25 10:12 Height 5 ft 10.5 in Weight 350 lb 8.56 oz BMI 49.6 BP 118/78 Blood Pressure Location Lt brachial Position Sitting Pulse 78 Intake Visit Reasons: 1 yr fu after echo/ ortho clearance Intake Note: 1 year follow-up with ekg after echo and pre-op right hip feeling good Allergies Penicillins Allergy (Intermediate, Verified 01/07/25 10:04) Hives HPI Comments Details: Gerardo comes for follow-up. He is scheduled to undergo right hip replacement surgery in March. He did undergo left hip replacement surgery last year with excellent results with much improved pain. He had a recent echocardiogram shows normal LV ejection fraction but moderate blood thickened left ventricular consistent with hypertensive heart disease. He has limited exercise capacity but has had no new anginal symptoms. As you know he underwent coronary artery bypass grafting March of 2023 for severe three-vessel coronary artery bypass grafting his symptoms of angina at that point time. He has had no recurrent atrial fibrillation episodes. He is taking all his medications regularly. Blood pressures been generally well controlled. He denies any heart failure symptoms. [facility] Medical History Osteoarthritis of left hip Psoriasis BPH (benign prostatic hyperplasia) History of concussion (~1977) Ambulates with cane HLD (hyperlipidemia) HTN (hypertension) Paroxysmal atrial fibrillation Persistent atrial fibrillation Acute dermatitis Tinnitus Osteoarthritis Sleep apnea Surgical History Status post Maze operation for atrial fibrillation (04/09/23) S/P ablation of atrial fibrillation (04/09/23) S/P quadruple vessel bypass (04/09/23) H/O cardiac catheterization History of surgery on lower extremity Family History Mother Afib No family history of mental disorder Father No family history of mental disorder Hyperlipidemia Social History Household Members: Friend(s) Household Members Other:: housemate Housing: House Are you a primary health care facility administrator to a significant other at home: No Do you presently have visiting nurse or other home services: No 75 years or older and lives alone: No Alcohol intake: current Alcohol intake frequency: a few times a week Comment: aware of trip hazard Patient Tobacco Use Status: Never used Tobacco e-Cigarette/Vaping Use: Never Used Substance Use Type: Marijuana and Caffiene service: No Current occupational status: employed and disabled 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 Cognitive needs: No Hearing needs: No Vision needs: Yes Review of Systems Const Denies chills, Denies fatigue, Denies fever(s), Denies frequent falls, Denies weakness, Denies weight gain and Denies weight loss ENT Denies dizziness Card Denies chest pain, Denies leg edema, Denies lightheadedness, Denies palpitations, Denies dyspnea, Denies dyspnea on exertion, Denies orthopnea and Denies other (loss of consciousness) Resp Denies cough, Denies dyspnea and Denies dyspnea on exertion GI Denies hematochezia and Denies change in stool character Musc Denies abnormal gait, Denies muscle weakness, Denies numbness, Denies radiating pain into limb and Denies tingling Neuro Denies abnormal gait, Denies dizziness, Denies frequent falls, Denies numbness, Denies tingling and Denies weakness Endo Denies fatigue and Denies palpitations Physical Exam Vital Signs: Last Vital Signs Pulse 78 01/14/25 10:12 BP 118/78 01/14/25 10:12 BMI result Body Mass Index 49.6 Const General: cooperative, healthy appearing, comfortable and no acute distress Orientation/consciousness: patient oriented x3 Neck Neck: Yes normal visual inspection Chest Other: sternal scar well healed Resp Effort & Inspection: normal respiratory effort Auscultation: clear to auscultation bilaterally, no crackles, no rales, no rhonchi and no wheezes Cardio Jugular venous distension: no JVD Rate: regular rate Rhythm: regular rhythm Heart sounds: S1 normal heart sound present, S2 normal heart sound present, no murmurs and no rubs Neuro General: patient oriented x3 Extrem General: Yes normal to inspection Psych Appearance: grossly normal Mental Status: mental status grossly normal Speech and movement: Normal speech and movement present Office Procedures EKG Details: EKG shows normal sinus rhythm normal EKG [id number], Complete Assessment & Plan Assessment & Plan (1) Coronary artery disease: Code(s): I25.10 - Atherosclerotic heart disease of [place] coronary artery without angina pectoris Category: Medical Plan: Coronary artery disease status post 4 vessel coronary artery bypass grafting March of 2023 in his middle-aged man with no recurrent symptoms of angina. Currently well optimized for medical perspective. No further workup is indicated. We discussed about continue aggressive risk factor modification. Continue PCSK9 inhibitor therapy with target goal LDL less than 60 mg/dL. Blood pressure is currently well optimized. Importance of good blood pressure control was discussed as well. Currently on full oral anticoagulation and would continue jail and avoid antiplatelet therapy to reduce bleeding risk. Strongly encouraged aggressive weight loss program. Also advise to consider bariatric surgery referral. (2) Paroxysmal atrial fibrillation: Comment: Status post surgical pulmonary vein isolation Code(s): I48.0 - Paroxysmal atrial fibrillation Category: Medical Plan: Paroxysmal atrial fibrillation which has been suppressed status post Maze procedure. Doing well from that perspective. Continue aggressive risk factor modifications above. Continue full oral anticoagulation, currently on Eliquis 5 mg b.i.d.. (3) Preoperative cardiovascular examination: Code(s): Z01.810 - Encounter for preprocedural cardiovascular examination Category: Medical Plan: Preoperative cardiovascular risk stratification for hip surgery which is considered intermediate risk surgery in patient with prior coronary artery bypass grafting and atrial fibrillation with hypertensive heart disease as well as morbid obesity. From cardiac perspective he is currently not having any symptoms and he underwent surgical revascularization lives in 2 years ago. He has no new concerning symptoms. He is currently optimized to undergo surgery with intermediate risk for perioperative cardiovascular morbidity mortality. His Eliquis can be withheld 3 days prior to the surgery and resumed as soon as possible after surgery with associated thromboembolic risk. Close hemodynamic monitoring during surgery should be pursued and avoid significant fluid shifts as well as transfuse as soon as necessary if there is significant blood loss. Will follow up in the clinic in 1 year's time, sooner p.r.n.. Thank you for allowing me to partake in his care Coding Level of Care Code Est Pt Level 4 (45142) Complex EM visit Add On G2211 Diagnoses Coronary artery disease I25.10 Paroxysmal atrial fibrillation I48.0 Preoperative cardiovascular examination Z01.810 CPT Codes EKG - CPT: 65978-[id number], Complete ([id number])
--- OUTSIDE RECORDS SUMMARY | 2025-01-14 11:31 | XMS_ITS | Clinical Summary ---
Author Organization [facility] Facility Address [address] [place] [address], [place] [address] Care Team Providers Care Dietary Internship Name Role Phone Wilfrid Mcmahon MD Primary [...] topic Insurance [facility] Care Teams Dietary Internship Relationship Specialty Start Date End Date Wilfrid Mcmahon MD [address] [facility] [address] [place] [id number] PCP - General Family Medicine 04/18/23
== END 2025-01-14 10:36 | disposition home or self-care (01) ==
LOC: HO.HCS 10:11
PROVIDERS: PCP Family Medicine; Visit Provider Internal Medicine Cardiovascular Disease
DX: I25.10 Atherosclerotic heart disease of native coronary artery without angina pectoris (principal); I48.0 Paroxysmal atrial fibrillation; Z01.810 Encounter for preprocedural cardiovascular examination
CPT/HCPCS: 93010; 99214; G2211

== ENCOUNTER → 2025-01-14 10:10 | Outpatient (BNVA) | payer OTHER, SELFPAY ==
[2025-01-07 11:12] VITALS: BP 120/78; BP 156/70; BMI 49.2
== END ==
PROVIDERS: PCP Family Medicine; Visit Provider Internal Medicine Cardiovascular Disease
DX: Z01.810 Encounter for preprocedural cardiovascular examination (principal); I25.10 Atherosclerotic heart disease of native coronary artery without angina pectoris; I48.0 Paroxysmal atrial fibrillation
CPT/HCPCS: 93005; 99212

== ENCOUNTER 2025-01-27 11:24 | Outpatient (AMB) | payer OTHER, SELFPAY ==
[2025-01-07 11:12] VITALS: BP 120/78; BP 156/70; BMI 49.2
--- NOTE | 2025-01-27 11:54 | MHC.PC.OV ---
Vital Signs 01/27/25 12:02 Height 5 ft 10.5 in Weight 349 lb BMI 49.4 BP 130/80 Blood Pressure Location Rt brachial Position Sitting Respiration 14 Pulse 71 Pulse Source Pulse Oximeter Temp 98.3 F Temp Source Oral Pulse Oximetry (%) 95 Oxygen Delivery Method Room Air Intake Visit Reasons: f/u preDM Intake Note: patient is scheduled to follow up for pre-dm /pt also needs a pre-op for ortho surgery Allergies Penicillins Allergy (Intermediate, Verified 01/27/25 12:01) Hives Tobacco use date assessed: 01/07/24 Dental Screening Dental Screen Date: 10/07/23 HPI f/u preDM HPI Details 64 y/o male presents to f/u pre-diabetes. A1c climbed from 5.7% to 6.2% on 10/28/24. Had been using Wegovy for weight loss in the past. Trying to start wegovy again. Also f/u on hip pain, skin conditions. Pt notes he has a hip replacement scheduled in March. A1c today 01/27/25 is 6.3%. He notes he had been unable to get wegovy. HPI Comments History of Present Illness Details Documentation assistance for Wilfrid Mcmahon MD, was provided by Sharif Dumont,? [employer] on 01/27/2025 at 12:29 PM EST. I, Dr. Mcmahon, have read, observed, and verified documentation. ?? [facility] Medical History Osteoarthritis of left hip Psoriasis BPH (benign prostatic hyperplasia) History of concussion (~1977) Ambulates with cane HLD (hyperlipidemia) HTN (hypertension) Paroxysmal atrial fibrillation Persistent atrial fibrillation Acute dermatitis Tinnitus Osteoarthritis Sleep apnea Surgical History Status post Maze operation for atrial fibrillation (04/09/23) S/P ablation of atrial fibrillation (04/09/23) S/P quadruple vessel bypass (04/09/23) H/O cardiac catheterization History of surgery on lower extremity Family History Mother Afib No family history of mental disorder Father No family history of mental disorder Hyperlipidemia Social History Household Members: Friend(s) Household Members Other:: housemate Housing: House Are you a primary acute care nurse to a significant other at home: No Do you presently have visiting nurse or other home services: No 75 years or older and lives alone: No Alcohol intake: current Alcohol intake frequency: a few times a week Comment: aware of trip hazard Patient Tobacco Use Status: Never used Tobacco e-Cigarette/Vaping Use: Never Used Substance Use Type: Marijuana and Caffiene service: No Current occupational status: employed and disabled 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 Cognitive needs: No Hearing needs: No Vision needs: Yes Questionnaire Thrive Questionnaire Date Thrive assessed: 07/31/24 I am a: Patient What is your living situation today?: I choose not to answer this question Within the past 12 months, did the food you bought not last and you didn't have the money to get more?: I choose not to answer this question Within the past 12 months, did you worry whether your food would run out before you got money to buy more?: I choose not to answer this question Do you have trouble paying for medicines?: I choose not to answer this question Do you have trouble getting transportation to medical appointments?: I choose not to answer this question Do you have trouble paying your heating and electricity bill?: I choose not to answer this question Do you have trouble taking care of your child, family member or friend?: I choose not to answer this question Do you have trouble with day-to-day activities such as bathing, preparing meals, shopping, managing finances, etc.?: I choose not to answer this question Are you currently unemployed and looking for a job?: I choose not to answer this question Are you interested in more education?: I choose not to answer this question Please select the resources that you would like help with: None Currently or been in a relationship where the following occur: I choose not to answer THRIVE Score: 0 SHAMAR-7 AMB Questionnaire SHAMAR-7 Date SHAMAR - 7 assessed: 01/07/24 Source: Developed by Drs. Govind Hoang, Jessica Padilla, Agustin Appiah and colleagues, with an educational pradip from [employer]. Review of Systems Const Denies chills, Denies fatigue, Denies fever(s), Denies headache(s) and Denies weakness ENT Denies dizziness and Denies headache(s) Card Denies dyspnea Resp Denies cough, Denies dyspnea, Denies wheezing and Denies other (shortness of breath) Musc Denies numbness and Denies tingling Neuro Denies dizziness, Denies headache(s), Denies numbness, Denies tingling and Denies weakness Psych Denies anxiety and Denies depression Endo Denies fatigue Aller/Immun Denies wheezing Physical exam (Primary Care) Vital Signs: Last Vital Signs Temp 98.3 F 01/27/25 12:02 Pulse 71 01/27/25 12:02 Resp 14 01/27/25 12:02 BP 130/80 01/27/25 12:02 Pulse Ox 95 01/27/25 12:02 Oxygen Delivery Method Room Air 01/27/25 12:02 BMI result Body Mass Index 49.4 Tobacco/Smoking Status: Tobacco use Status Tobacco use date assessed 01/07/24 01/27/25 11:54 Patient Tobacco Use Status Never used Tobacco 01/27/25 11:54 e-Cigarette/Vaping Use Never Used 01/27/25 11:54 Thrive Assessment: Date of Thrive Assessment Date Thrive assessed 07/31/24 01/27/25 11:54 Currently or been in a relationship where the following occur: I choose not to answer Const General: well developed; No acute distress Nutritional Appearance: well nourished and obese morbidly obese Orientation/consciousness: patient oriented x3 HENMT Head: Yes normocephalic and Yes atraumatic Eyes General: appearance normal, both eyes and all related structures Pupils: Equal, round and reactive pupils present EOM: EOMs intact bilaterally Resp Effort & Inspection: normal respiratory effort Neuro General: patient oriented x3 and gait normal Cranial nerves: Yes Equal, round and reactive pupils present Psych Affect: normal affect Coding Level of Care Code Est Pt Level 4 (02704) Diagnoses Pre-diabetes R73.03 Primary hypertension I10 Hypertension type: primary hypertension Coronary artery disease I25.10 Morbid obesity E66.01 Sleep apnea, unspecified type G47.30 Sleep apnea type: unspecified type Assessment & Plan Assessment & Plan (1) Pre-diabetes: Code(s): R73.03 - Prediabetes Category: Medical Plan: A1c?continues?to?climb.??Now?at?6.3% Patient?also?has?coronary?artery?disease Had?been?on?semaglutide?in?the?past?but?his?insurance?has?declined?this?more?recently. Will?send?another?script?and try?to?get?prior?authorization?for?patient?with?A1c?6.3%?in?or?coronary?artery?disease. Continue?to?work?at?a?diet?low?in?sugars?and?starches.??Continue?to?work?at?weight?loss (2) Hypertension: Code(s): I10 - Essential (primary) hypertension Category: Medical Qualifiers: Hypertension type: primary hypertension Qualified Code(s): I10 - Essential (primary) hypertension Plan: Blood?pressure?is?fairly?well?controlled.??Goal?is?less?than?130/80 Continue?carvedilol (3) Coronary artery disease: Code(s): I25.10 - Atherosclerotic heart disease of [place] coronary artery without angina pectoris Category: Medical Plan: Coronary?artery?disease?and?paroxysmal?atrial?fibrillation. Continue?atorvastatin,?carvedilol?and?Eliquis. Follow-up?with?Cardiology?as?recommended (4) Morbid obesity: Code(s): E66.01 - Morbid (severe) obesity due to excess calories Category: Medical Plan: Had?been?on Wegov[employer] Will?recent?script?in?get?prior?authorization (5) Sleep apnea: Comment: treated with CPAP Code(s): G47.30 - Sleep apnea, unspecified Category: Medical Qualifiers: Sleep apnea type: unspecified type Qualified Code(s): G47.30 - Sleep apnea, unspecified Plan: Followed?by?sleep?medicine Stable Encouraged?weight?loss Continue?CPAP
[2025-01-27 12:02] VITALS: BP 130/80; PULSE 71; RESP 14; TEMP 36.8; O2SAT 95; BMI 49.4
--- OUTSIDE RECORDS SUMMARY | 2025-01-27 12:13 | XMS_ITS | Clinical Summary ---
Author Organization [facility] Facility Address [address] [place] [address], [place] [address] Care Team Providers Care Environmental Programs Specialist Name Role Phone Wilfrid Mcmahon MD Primary [...] 10/04/2011 Pneumococcal Vaccine: 50+ Ye ars (1 of 1 - PCV) 2012 Influenza Vaccine (#1) 2025 09/18/2017 Hepatitis B Vaccine Aged Out No longe r eligible based on patient's age to complete this topic Insurance [facility] Care Teams Environmental Programs Specialist Relationship Specialty Start Date End Date Wilfrid Mcmahon MD [address] [facility] [address] [place] [address] [phone] PCP - General Family Medicine 04/18/23
== END 2025-01-27 12:38 | disposition home or self-care (01) ==
LOC: HO.HMCFM 11:25
PROVIDERS: PCP Family Medicine; Visit Provider Family Medicine
DX: R73.03 Prediabetes (principal); E66.01 Morbid (severe) obesity due to excess calories; Z68.42 Body mass index [BMI] 45.0-49.9, adult; I10 Essential (primary) hypertension; I25.10 Atherosclerotic heart disease of native coronary artery without angina pectoris; G47.30 Sleep apnea, unspecified

== ENCOUNTER → 2025-01-27 11:24 | Outpatient (BNVA) | payer OTHER, SELFPAY ==
[2025-01-07 11:12] VITALS: BP 120/78; BP 156/70; BMI 49.2
== END ==
PROVIDERS: PCP Family Medicine; Visit Provider Family Medicine
DX: I25.10 Atherosclerotic heart disease of native coronary artery without angina pectoris (principal); I48.0 Paroxysmal atrial fibrillation; I48.91 Unspecified atrial fibrillation; R73.03 Prediabetes; E66.01 Morbid (severe) obesity due to excess calories; G47.30 Sleep apnea, unspecified; Z68.42 Body mass index [BMI] 45.0-49.9, adult
CPT/HCPCS: 99212

== ENCOUNTER 2025-02-11 12:56 | Outpatient (AMB) | payer OTHER, SELFPAY ==
[2025-01-07 11:12] VITALS: BP 120/78; BP 156/70; BMI 49.2
--- NOTE | 2025-02-11 13:13 | A.OFFPC_ITS ---
Vital Signs 02/11/25 13:28 02/11/25 13:31 02/11/25 13:49 Height 5 ft 10.5 in Weight 348 lb 8 oz BMI 49.3 BP 150/70 H 140/70 H 128/78 Blood Pressure Location Rt brachial Rt brachial Lt brachial Position Sitting Sitting Respiration 16 Pulse 59 Pulse Source Pulse Oximeter Temp 98.3 F Temp Source Oral Pulse Oximetry (%) 97 Oxygen Delivery Method Room Air Intake Visit Reasons: undergo a R AMBER w/Dr. Colorado 04/06/25 Intake Note: patient is scheduled for a pre op exam Switch Tender Required: No Allergies Penicillins Allergy (Intermediate, Verified 02/11/25 13:33) Hives Medication List - Last Reconciled 02/11/25 by Wilfrid Mcmahon MD alfuzosin ER 10 mg PO DAILY apixaban (Eliquis) 5 mg PO BID atorvastatin 80 mg PO DAILY 90 days carvedilol 3.125 mg PO BID coenzyme Q10 (Co Q-10) 100 mg PO DAILY evolocumab (Repatha SureClick) 140 mg subcut Q2W 90 days [Folding Front Wheeled walker Duration: 99 days] multivitamin (Daily Multi-Vitamin tablet) 1 tab PO DAILY omega-3 fatty acids 1,000 mg PO DAILY [Raised toilet seat duration - 99 days] triamcinolone acetonide 0.1% 1 appl topical BID 30 days Tobacco use date assessed: 01/07/24 Dental Screening Dental Screen Date: 10/07/23 HPI undergo a R AMBER w/Dr. [place] 04/06/25 HPI Details Patient presents for preoperative clearance prior to right total hip ar throplasty Procedure: Right total hip arthroplasty Date:? 04/06/2025 Surgeon: Dr. Colorado Anesthesia: General Cardiac Hx: Coronary artery disease s/p CABG, atrial fibrillation s/p ablation. Pulmonary Hx: None Prior Surgical Complications: None Prior Anesthesia Complications: None Coag issues: None Functional [place]: Patient can climb 2 flights of stairs without stopping. 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 [facility] Medical History Osteoarthritis of left hip Psoriasis BPH (benign prostatic hyperplasia) History of concussion (~1977) Ambulates with cane HLD (hyperlipidemia) HTN (hypertension) Paroxysmal atrial fibrillation Persistent atrial fibrillation Acute dermatitis Tinnitus Osteoarthritis Sleep apnea Surgical History Status post Maze operation for atrial fibrillation (04/09/23) S/P ablation of atrial fibrillation (04/09/23) S/P quadruple vessel bypass (04/09/23) H/O cardiac catheterization History of surgery on lower extremity Family History Mother Afib No family history of mental disorder Father No family history of mental disorder Hyperlipidemia Social History Household Members: Friend(s) Household Members Other:: housemate Housing: House Are you a primary home health care worker to a significant other at home: No Do you presently have visiting nurse or other home services: No 75 years or older and lives alone: No Alcohol intake: current Alcohol intake frequency: a few times a week Comment: aware of trip hazard Patient Tobacco Use Status: Never used Tobacco e-Cigarette/Vaping Use: Never Used Substance Use Type: Marijuana and Caffiene service: No Current occupational status: employed and disabled 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 Cognitive needs: No Hearing needs: No Vision needs: Yes Questionnaire Thrive Questionnaire Date Thrive assessed: 07/31/24 I am a: Patient What is your living situation today?: I choose not to answer this question Within the past 12 months, did the food you bought not last and you didn't have the money to get more?: I choose not to answer this question Within the past 12 months, did you worry whether your food would run out before you got money to buy more?: I choose not to answer this question Do you have trouble paying for medicines?: I choose not to answer this question Do you have trouble getting transportation to medical appointments?: I choose not to answer this question Do you have trouble paying your heating and electricity bill?: I choose not to answer this question Do you have trouble taking care of your child, family member or friend?: I choose not to answer this question Do you have trouble with day-to-day activities such as bathing, preparing meals, shopping, managing finances, etc.?: I choose not to answer this question Are you currently unemployed and looking for a job?: I choose not to answer this question Are you interested in more education?: I choose not to answer this question Please select the resources that you would like help with: None Currently or been in a relationship where the following occur: I choose not to answer THRIVE Score: 0 SHAMAR-7 AMB Questionnaire SHAMAR-7 Date SHAMAR - 7 assessed: 01/07/24 Source: Developed by Drs. Govind Hoang, Jessica Padilla, Agustin Appiah and colleagues, with an educational pradip from [employer]. Review of Systems Const Denies chills, Denies fatigue, Denies fever(s), Denies headache(s) and Denies weakness ENT Denies dizziness and Denies headache(s) Card Denies chest pain, Denies lightheadedness, Denies dyspnea and Denies other (Palpitations) Resp Denies cough, Denies dyspnea, Denies wheezing and Denies other ( shortness of breath) Musc Denies numbness and Denies tingling Neuro Denies dizziness, Denies headache(s), Denies numbness, Denies tingling, Denies paresthesias and Denies weakness Psych Denies anxiety and Denies depression Endo Denies fatigue Aller/Immun Denies wheezing Physical exam (Primary Care) Vital Signs: Last Vital Signs Temp 98.3 F 02/11/25 13:28 Pulse 59 02/11/25 13:28 Resp 16 02/11/25 13:28 BP 128/78 02/11/25 13:49 Pulse Ox 97 02/11/25 13:28 Oxygen Delivery Method Room Air 02/11/25 13:28 BMI result Body Mass Index 49.3 Tobacco/Smoking Status: Tobacco use Status Tobacco use date assessed 01/07/24 02/11/25 13:15 Patient Tobacco Use Status Never used Tobacco 02/11/25 13:15 e-Cigarette/Vaping Use Never Used 02/11/25 13:15 Thrive Assessment: Date of Thrive Assessment Date Thrive assessed 07/31/24 02/11/25 13:15 Currently or been in a relationship where the following occur: I choose not to answer Const General: no acute distress and well developed Nutritional Appearance: well nourished and obese morbidly obese Orientation/consciousness: patient oriented x3 HENMT Head: Yes normocephalic and Yes atraumatic Eyes General: appearance normal, both eyes and all related structures Pupils: Equal, round and reactive pupils present EOM: EOMs intact bilaterally Resp Effort & Inspection: normal respiratory effort Auscultation: clear to auscultation bilaterally Cardio Rate: regular rate Rhythm: regular rhythm Heart sounds: S1 normal heart sound present, S2 normal heart sound present, no gallops, no murmurs and no rubs Neuro General: patient oriented x3 and gait normal Cranial nerves: Yes Equal, round and reactive pupils present Psych Affect: normal affect Coding Level of Care Code Est Pt Level 4 (14697) Diagnoses Pre-operative clearance Z01.818 Paroxysmal atrial fibrillation I48.0 Coronary artery disease I25.10 Osteoarthritis of right hip M16.11 Status post coronary artery bypass graft Z95.1 Assessment & Plan Assessment & Plan (1) Pre-operative clearance: Code(s): Z01.818 - Encounter for other preprocedural examination Category: Medical Plan: Patient presents for preoperative clearance prior to right total hip arthroplasty History of coronary artery disease and CABG. History of paroxysmal atrial fibrillation and ablation. Denies chest pain or shortness of breath. EKG today shows sinus bradycardia, 57 beats per minute, ?inferior infarct age undetermined with subtle changes Leads III, AVF verses February 2024 EKG. Discussed with Cardiology and not considered as increased risk for surgery compared with recent cardiac clearance in December. Cardiac auscultation normal today. No pulmonary disease and normal pulmonary exam New prior complications from surgeries or anesthesia No clotting/bleeding disorders - patient is on Eliquis. Functional reserve is good Intermediate risk patient - Cardiac clearance by Cardiology in December and review with Cardiology feels there is no further increased risk - for intermediate risk procedure. Patient currently optimized - no contraindications to proceeding with surgery. (2) Paroxysmal atrial fibrillation: Comment: Status post surgical pulmonary vein isolation Code(s): I48.0 - Paroxysmal atrial fibrillation Category: Medical (3) Coronary artery disease: Code(s): I25.10 - Atherosclerotic heart disease of [place] coronary artery without angina pectoris Category: Medical (4) Osteoarthritis of right hip: Code(s): M16.11 - Unilateral primary osteoarthritis, right hip Category: Medical (5) Status post coronary artery bypass graft: Comment: 04/09/2023, [place] to LAD, left radial artery to the diagonal, right GSV to OM branch of left circumflex and right GSV to the PLV, bilateral pulmonary vein isolation, left atrial appendage ligation Code(s): Z95.1 - Presence of aortocoronary bypass graft Category: Surgical Plan Patient presents for preoperative clearance prior to right total hip arthroplasty History of coronary artery disease and CABG. History of paroxysmal atrial fibrillation and ablation. Denies chest pain or shortness of breath. EKG today shows sinus bradycardia, 57 beats per minute, ?inferior infarct age undetermined with subtle changes Leads III, AVF verses February 2024 EKG. Disc ussed with Cardiology and not considered as increased risk for surgery compared with recent cardiac clearance in December. Cardiac auscultation normal today. No pulmonary disease and normal pulmonary exam New prior complications from surgeries or anesthesia No clotting/bleeding disorders - patient is on Eliquis. Functional reserve is good Intermediate risk patient - Cardiac clearance by Cardiology in December and review with Cardiology feels there is no further increased risk - for intermediate risk procedure. * Patient currently optimized - no contraindications to proceeding with surgery. Orders: Orders Basic Metabolic Panel Today Z00.00 - Encounter for general adult medical examination without abnormal findings, Z01.818 - Encounter for other preprocedural examination Complete Blood Count Auto Diff Today Z00.00 - Encounter for general adult medical examination without abnormal findings, Z01.818 - Encounter for other preprocedural examination Prothrombin Time INR Today Z01.818 - Encounter for other preprocedural examination Partial Thromboplastin Time Today Z01.818 - Encounter for other preprocedural examination
--- OUTSIDE RECORDS SUMMARY | 2025-02-11 13:23 | XMS_ITS | Clinical Summary ---
Author Organization [facility] Address [address] [place] [address], [place] [address] Care Team Providers Care Service Order Taker Name Role Phone Wilfrid Mcmahon MD Primary [...] patient's age to complete this topic Insurance [facility] Care Teams Service Order Taker Relationship Specialty Start Date End Date Wilfrid Mcmahon MD [address] [facility] [address] [place] [address] [phone] PCP - General Family Medicine 04/18/23
[2025-02-11 13:28] VITALS: BP 150/70; PULSE 59; RESP 16; TEMP 36.8; O2SAT 97; BMI 49.3
[2025-02-11 13:31] VITALS: BP 140/70
[2025-02-11 13:49] VITALS: BP 128/78
== END 2025-02-11 13:59 | disposition home or self-care (01) ==
LOC: HO.HMCFM 12:56
PROVIDERS: PCP Family Medicine; Visit Provider Family Medicine
DX: Z01.818 Encounter for other preprocedural examination (principal); I48.0 Paroxysmal atrial fibrillation; I25.10 Atherosclerotic heart disease of native coronary artery without angina pectoris; M16.11 Unilateral primary osteoarthritis, right hip; Z95.1 Presence of aortocoronary bypass graft

== ENCOUNTER → 2025-02-11 12:56 | Outpatient (BNVA) | payer OTHER, SELFPAY ==
[2025-01-07 11:12] VITALS: BP 120/78; BP 156/70; BMI 49.2
== END ==
PROVIDERS: PCP Family Medicine; Visit Provider Family Medicine
DX: Z01.818 Encounter for other preprocedural examination (principal); I48.0 Paroxysmal atrial fibrillation; I25.10 Atherosclerotic heart disease of native coronary artery without angina pectoris; M16.11 Unilateral primary osteoarthritis, right hip; Z95.1 Presence of aortocoronary bypass graft
CPT/HCPCS: 99212

== ENCOUNTER 2025-02-17 12:44 | Outpatient (REF) | payer OTHER, SELFPAY ==
[2025-01-07 11:12] VITALS: BP 120/78; BP 156/70; BMI 49.2
--- NOTE | ~2025-02-17 | XR_ITS ---
EXAMINATION: XR HIP, RIGHT CLINICAL INFORMATION: M25.551 - Pain in right hip COMPARISON: No priors. Correlated to left hip x-ray dated April 09, 2024. TECHNIQUE: AP and oblique views of the right hip. FINDINGS: Subchondral cyst formation asymmetric joint space narrowing and sclerosis along the articular surface of the right coxofemoral joint. No acute cortical disruption or malalignment, right coxofemoral joint. Total metallic left hip prosthesis well-seated in the osseous acetabulum and osseous fever. XR/XR hip RT w [id number] IMPRESSION: Moderate osteoarthrosis, right hip. Electronically signed by: Harvinder Glover MD 02/17/2025 01:10 PM EDT
--- OUTSIDE RECORDS SUMMARY | 2025-02-17 13:06 | XMS_ITS | Clinical Summary ---
Author Organization [facility] Address [address] [place] [phone] Phone Care Team Providers Care Wick And Base Assembler Name Role Phone Pcp, Unknown Primary Care Provider Unavailabl e Allergies Active Allergy Reactions Criticality Noted Date Comments Penicillins Swelling 09/18/2017 Medications aspirin 81 mg chewable tablet Take 1 tablet by mouth daily. Active omega 3-klo-vio-fish oil 1,000 mg (120 mg-180 mg) Cap [...] topic Medical Devices Not on file Insurance [facility] CAREPLUS [facility] TOGETHER [facility] [place] [facility] [place] [facility] [place] [facility] [place] [facility] [place] [facility] [place] [facility] [place] [facility] [place] [facility] [place] [facility] [place] [facility] [place] TOGETHER Member Subscriber Plan / Payer (Ef fective 2017-Present) Name:Silver Valladares Relation to Subscriber:Self Name:Silver Valladares Payer ID:[id number] (NAIC) Group ID:Not on file Type:Medicaid Address: [place] [id number] [facility] [place] CAREPLUS [facility] [place]HER [facility] DIRECT Care Teams Wick And Base Assembler Relationship Specialty Start Date End Date Pcp, Unknown PCP - General 03/09/21 Additional Source Comments The information contained in this document represents components of the legal health record. It is not the complete legal health record.[facility]
--- OUTSIDE RECORDS SUMMARY | 2025-02-17 13:06 | XMS_ITS | Clinical Summary ---
Author Organization [facility] Address [address] [place] [address], [place] [address] Care Team Providers Care Rn New Graduate Name Role Phone Wilfrid Mcmahon MD Primary [...] patient's age to complete this topic Insurance [facility] Care Teams Rn New Graduate Relationship Specialty Start Date End Date Wilfrid Mcmahon MD [address] [facility] [address] [place] [address] [phone] PCP - General Family Medicine 04/18/23
[2025-02-17 13:54] LABS: MANUAL DIFF FLAG NO
[2025-02-17 14:29] LABS: Hematocrit 41.4 % (42.0-52.0); Hemoglobin 14.0 g/dl (14.0-18.0); Imm Gran Abs Auto 0.04 X10*3/uL (0.00-0.03); Imm Gran Pct Auto 0.5 % (0.0-0.4); Lymphocytes Absolute Auto 1.2 X10*3/uL (1.2-4.9); Mean Corpuscular HGB Conc 33.8 g/dl (31.0-36.0); Mean Corpuscular Hemoglobin 29.5 pg (27.0-33.0); Mean Corpuscular Volume 87.2 fL (80.0-98.0); NRBC Abs Auto 0.000 X10*3/uL (0.0-0.012); NRBC Pct Auto 0.0 /100WBC (0.0-0.2); Platelet Count 234 X10*3/uL (160-400); Red Blood Count 4.75 X10*6/uL (4.60-5.80); White Blood Count 8.9 X10*3/uL (4.8-10.8)
[2025-02-17 14:33] LABS: INTERNATIONAL NORM RATIO 1.1 (0.9-1.1); Prothrombin Time 12.9 SEC (10.9-12.4)
[2025-02-17 14:36] LABS: Partial Thromboplastin Time 49.7 SEC (26.0-36.8)
[2025-02-17 15:00] LABS: Anion Gap 12 (12-20); Blood Urea Nitrogen 19 mg/dL (9-16); Calcium 9.4 mg/dL (8.4-10.2); Carbon Dioxide 23 mmol/L (22-29); Chloride 109 mmol/L (96-108); Estimated Glomerular Filt Rate > 60; Potassium 4.3 mmol/L (3.3-5.1); Sodium 140 mmol/L (135-145)
== END 2025-02-17 12:45 | disposition home or self-care (01) ==
LOC: HO.XRAY 12:44
PROVIDERS: Absent Provider Family Medicine; PCP Family Medicine; Visit Provider Physician Assistant
DX: Z00.00 Encounter for general adult medical examination without abnormal findings (principal); M25.551 Pain in right hip
CPT/HCPCS: 36415; 73502; 80048; 85025; 85610; 85730

== ENCOUNTER → 2025-02-17 12:49 | Outpatient (BNV) | payer OTHER, SELFPAY ==
[2025-01-07 11:12] VITALS: BP 120/78; BP 156/70; BMI 49.2
== END ==
PROVIDERS: Absent Provider Family Medicine; PCP Family Medicine; Visit Provider Radiology Diagnostic Radiology
DX: M16.11 Unilateral primary osteoarthritis, right hip (principal)
CPT/HCPCS: 73502

== ENCOUNTER → 2025-03-05 10:57 | Outpatient (BNVA) | payer OTHER, SELFPAY ==
[2025-01-07 11:12] VITALS: BP 120/78; BP 156/70; BMI 49.2
== END ==
PROVIDERS: PCP Family Medicine
DX: Z01.818 Encounter for other preprocedural examination (principal)

== ENCOUNTER 2025-04-01 14:28 | Outpatient (AMB) | payer OTHER, SELFPAY ==
[2025-01-07 11:12] VITALS: BP 120/78; BP 156/70; BMI 49.2
--- NOTE | 2025-04-01 14:43 | MHC.OFFVIS ---
Vital Signs 04/01/25 16:11 Height 5 ft 10.5 in Weight 348 lb BMI 49.2 Intake Visit Reasons: Pre-Op: R AMBER w/NE 04/06/25 Intake Note: RT AMBER pre op Allergies Penicillins Allergy (Intermediate, Verified 03/05/25 11:14) Hives Medication List - Last Reconciled 04/01/25 by Ryland Acosta PA-C alfuzosin ER 10 mg PO BEDTIME apixaban (Eliquis) 5 mg PO BID atorvastatin 80 mg PO QAM carvedilol 3.125 mg PO BID coenzyme Q10 (Co Q-10) 200 mg PO BEDTIME evolocumab (Repatha SureClick) 140 mg subcut Q2W 90 days [Folding Front Wheeled walker Duration: 99 days] multivitamin (Daily Multi-Vitamin tablet) 1 tab PO QAM omega-3 fatty acids 1,000 mg PO QAM [Raised toilet seat duration - 99 days] triamcinolone acetonide 0.1% 1 appl topical QAM HPI Comments Details: Mr Valladares presents to the office today for Orthopedic Pre op clearance. He is scheduled for right total hip arthroplasty on 04/06/[address] Colorado. The patient has been experiencing pain in the right hip for over a year and can not ambulate for more than a few minutes without pain. The pain is located along the groin. He has difficulty with getting in and out of a car. He had a left total hip arthroplasty with Dr. Colorado on 03/24/2024 which was successful without complications. He was placed on Lovenox for DVT prophylaxis and later resumed his Eliquis. Patient lives with 2 housemates in a 2 level home with 15 steps to enter. He has a walker at home. Patient was seen by Dr. Youngblood on 01/14/2025 for cardiac clearance: Patient had an echocardiogram which showed normal LV ejection fraction but moderate blood thickened left ventricular consistent with hypertension heart disease. He underwent coronary artery bypass grafting in March of 2023. No recurrent AFib episodes since MAZE procedure. His blood pressure has been well controlled. Preoperative cardiovascular risk stratification for hip surgery which is considered intermediate risk surgery in patient with prior coronary artery bypass grafting and atrial fibrillation with hypertensive heart disease as well as morbid obesity. From cardiac perspective he is currently not having any symptoms and he underwent surgical revascularization lives in 2 years ago. He has no new concerning symptoms. He is currently optimized to undergo surgery with intermediate risk for perioperative cardiovascular morbidity mortality. His Eliquis can be withheld 3 days prior to the surgery and resumed as soon as possible after surgery with associated thromboembolic risk. Close hemodynamic monitoring during surgery should be pursued and avoid significant fluid shifts as well as transfuse as soon as necessary if there is significant blood loss. Patient was seen by his primary care provider Dr. Siddiqui on 08/04/2016 25 for medical clearance: Intermediate risk patient - Cardiac clearance by Cardiology in December and review with Cardiology feels there is no further increased risk - for intermediate risk procedure. * Patient currently optimized - no contraindications to proceeding with surgery. [facility] Medical History (Updated 03/08/25 @ 10:11 by Teodora Montano RN) Pre-diabetes CAD (coronary artery disease) Psoriasis BPH (benign prostatic hyperplasia) History of concussion (~1977) HLD (hyperlipidemia) HTN (hypertension) Paroxysmal atrial fibrillation Tinnitus Osteoarthritis Sleep apnea Surgical History (Updated 04/01/25 @ 15:09 by Ryland Acosta PA-C) History of total left hip arthroplasty Status post Maze operation for atrial fibrillation (04/09/23) S/P quadruple vessel bypass (04/09/23) H/O cardiac catheterization History of surgery on lower extremity Family History Mother Afib No family history of mental disorder Father No family history of mental disorder Hyperlipidemia Social History Household Members: Friend(s) Household Members Other:: rents rooms to 2 people Housing: House Are you a primary plant care worker to a significant other at home: No Do you presently have visiting nurse or other home services: No 75 years or older and lives alone: No Alcohol intake: current Alcohol intake frequency: a few times a week Comment: aware of trip hazard & will remove Patient Tobacco Use Status: Never used Tobacco Tobacco use type: Cigar e-Cigarette/Vaping Use: Never Used Substance Use Type: Marijuana and Caffiene service: No Current occupational status: employed and disabled 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 Cognitive needs: No Hearing needs: No Vision needs: Yes Review of Systems Const All systems reviewed & are unremarkable except as noted in HPI and below Physical Exam Const General: cooperative and no acute distress Orientation/consciousness: patient oriented x3 HEENT Head: Yes normal to inspection and Yes atraumatic Ears: hearing grossly normal bilaterally Eyes General: appearance normal, both eyes and all related structures EOM: EOMs intact bilaterally Neck Neck: Yes normal visual inspection and Yes no lymphadenopathy Resp Effort & Inspection: normal respiratory effort and able to speak in complete sentences Cardio Jugular venous distension: no JVD Peripheral pulses: Peripheral pulses 2+ throughout Skin General skin exam: turgor normal Rashes: no rashes Neuro General: patient oriented x3 Extrem Other: Right hip skin is intact no open wounds or abrasions. He has pain with range of motion and hip flexion of the hip. He walks with antalgic gait Right fraser has some psoriasis, there is no open wounds or excoriations. He does have some scabbed areas from a tree branch rubbing on the skin but no signs of infection. Neurovascularly intact. Psych Appearance: well kempt Affect: normal affect Attitude: cooperative Assessment & Plan Assessment & Plan (1) Osteoarthritis of right hip: Code(s): M16.11 - Unilateral primary osteoarthritis, right hip Category: Medical Plan: Mr Valladares exhausted all conservative measures consisting of lifestyle modifications, physical therapy, and analgesics and use of assisted devices and continues to have significant limitations in daily activities along with decreased quality of life. Given the patient's desire to improve their quality of life, surgical intervention consisting of joint replacement surgery is recommended at this time.? We discussed the procedure in detail today; which includes pre op preparation with labs and reviewing patients medication regimen prior to surgery. The patient was sent for preop labs at the hospital. He was advised to stop all vitamins or anti-inflammatories preop. He will also hold his Eliquis 3 days before surgery. I discussed at length the post op course which includes physical therapy services in the hospital along with the discharge routine and the patients plan upon discharge. The patient's plan is to be discharged home with VNA services. He does have a walker at home. I explained to the patient, once they are DC home, they will receive VNA services which will include PT 2-3x per week. We also discussed their choice for outpatient PT once they are discharged from home PT. The patient will attend [facility] physical therapy. An order was placed and the patient was given their contact information to make an appointment. Post op DVT ppx was also discussed and the considering the patients cardiovascular history he will initially be placed on Lovenox and then resume Eliquis postoperatively. I reviewed with the patient their post op pain medication regimen along with the detailed wean program. The patient did express understanding of this and agreed to the narcotic policy. Lastly, I discussed with the patient the risks to the procedure. Risks including but not limited to infection, injury to surrounding nerves, tissue , bone, small and large vessels, stiffness, aseptic loosening, fracture, dislocation, amputation, DVT/PE along with intraoperative complications including but not limited to . The patient does express understanding, all questions were answered and the patient would like to proceed? with right total hip arthroplasty 04/06/[address] Colorado. Consents were signed and dated while in the office today.? Post-Operative Recovery Notes: DVT ppx : Lovenox x1 then resume [facility] Hospital DC plan: Home with VNA Physical Therapy: [facility] Walker obtained Close hemodynamic monitoring during surgery should be pursued and avoid significant fluid shifts as well as transfuse as soon as necessary if there is significant blood loss. Orders: Orders Basic Metabolic Panel Today Z01.818 - Encounter for other preprocedural examination Complete Blood Count Auto Diff Today Z01.818 - Encounter for other preprocedural examination Type and Screen 25 Days Z01.818 - Encounter for other preprocedural examination Hemoglobin A1c Today E11.9 - Type 2 diabetes mellitus without complications PT Evaluation and Treatment Today Z96.641 - Presence of right artificial hip joint Coding Level of Care Code Est Pt Level 4 (31264) Complex EM visit Add On G2211 Diagnoses Osteoarthritis of right hip M16.11
--- OUTSIDE RECORDS SUMMARY | 2025-04-01 15:47 | XMS_ITS | Clinical Summary ---
Author Organization [facility] Facility Address [address] [place] [address], [place] [address] Care Team Providers Care Lifeline Representatives Name Role Phone Wilfrid Mcmahon MD Primary Care Provider [phone] Social History Tobacco Use Types Packs/Day Years [...] patient's age to complete this topic Insurance [facility] Care Teams Lifeline Representatives Relationship Specialty Start Date End Date Wilfrid Mcmahon MD [address] [facility] [address] [place] [address] [phone] PCP - General Family Medicine 04/18/23
--- OUTSIDE RECORDS SUMMARY | 2025-04-01 15:47 | XMS_ITS | Clinical Summary ---
Author Organization [facility] Address [address] [place] [id number] Phone Care Team Providers Care Hot Roll Laminator Name Role Phone Pcp, Unknown Primary Care Provider Unavailabl e Allergies Active Allergy Reactions Criticality Noted Date Comments Penicillins Swelling 09/18/2017 Medications aspirin 81 mg chewable tablet Take 1 tablet by mouth daily. Active omega 1-npk-scc-fish oil 1,000 mg (120 mg-180 mg) Cap [...] - Risk 60-74 years 1-dose series) 2022 INFLUENZA VACCINE (#1) 2025 2, 05/31/2021, 09/18/2017 COVID-19 VACCINE (2024- season) 2025 06/13/2022, 01/01/2022, 06/19/2021, Additional history exists SMOKING [...] topic Medical Devices Not on file Insurance [facility] CAREPLUS [facility] CAREPL[facility] [place] [facility] [place] [facility] [place] [facility] [facility] TOGETHER [facility] [place] [facility] [place] [facility] CAREPLUS TOGETHER Member Subscriber Plan / Payer (Ef fective 2017-Present) Name:Silver Valladares Relation to Subscriber:Self Name:German Valladareshen Payer ID:[id number] (NAIC) Group ID:Not on file Type:Medicaid Phone: Address: [address] [place] [employer] [facility] [place] [facility] [place] [facility] Care Teams Hot Roll Laminator Relationship Specialty Start Date End Date Pcp, Unknown PCP - General 03/09/21 Additional Source Comments The information contained in this document represents components of the legal health record. It is not the complete legal health record.[facility]
[2025-04-01 16:11] VITALS: BMI 49.2
== END 2025-04-01 15:20 | disposition home or self-care (01) ==
LOC: HO.HOS 14:29
PROVIDERS: PCP Family Medicine; Visit Provider Physician Assistant
DX: M16.11 Unilateral primary osteoarthritis, right hip (principal)
CPT/HCPCS: 99024

== ENCOUNTER → 2025-04-01 14:28 | Outpatient (BNVA) | payer OTHER, SELFPAY ==
[2025-01-07 11:12] VITALS: BP 120/78; BP 156/70; BMI 49.2
== END ==
PROVIDERS: PCP Family Medicine; Visit Provider Physician Assistant
DX: Z01.818 Encounter for other preprocedural examination (principal); M16.11 Unilateral primary osteoarthritis, right hip; Z96.642 Presence of left artificial hip joint
CPT/HCPCS: 99212

== ENCOUNTER 2025-04-06 07:55 | Day surgery (SDC) | payer OTHER, SELFPAY ==
[2025-01-07 11:12] VITALS: BP 120/78; BP 156/70; BMI 49.2
--- OUTSIDE RECORDS SUMMARY | 2025-02-16 14:17 | XMS_ITS | Clinical Summary ---
Author Organization [facility] Address [address] [place] [id number] Phone Care Team Providers Care Language Assistant Name Role Phone Pcp, Unknown Primary Care Provider Unavailabl e Allergies Active Allergy Reactions Criticality Noted Date Comments Penicillins Swelling 09/18/2017 Medications aspirin 81 mg chewable tablet Take 1 tablet by mouth daily. Active omega 0-uwc-vtj-fish oil 1,000 mg (120 mg-180 mg) Cap Take 1 capsule by mouth daily. Active multivitamin per tablet Take 1 tablet by mouth daily. Active efinaconazole (JUBLIA) 10 % Flavia 1 applicator by Topical (Top) route daily. 8 mL 4 8 Active ciclopirox (LOPROX) 0.77 % Susp Apply topically 2 (two) times a day. 60 mL 1 8 Active Active Problems Problem Noted Date Diagnosed Date Impaired fasting glucose 09/18/2017 Obesity 09/18/2017 Obstructive sleep apnea syndrome 09/18/2017 Premature beats 09/18/2017 Hyperlipidemia 09/18/2017 Primary osteoarthritis of left hip 09/18/2017 Paroxysmal atrial fibrillation 09/18/2017 Onychomycosis 09/18/2017 Immunizations Immunization Administration Dates Next Due COVID-19 (Pre-05/20) Pfizer Vaccine, mRNA, PF Influenza Quadrivalent MDCK Preservative Free IM 05/31/2021 Influenza Quadrivalent Preservative Free IM 05/29,09/18/2017 Family History Medical History Relation Comments Diabetes Brother Heart disease Father Aortic valve stenosis Mother COPD Mother Mitochondrial disorder Sister 1 No Known Problems Sister 2 Relation Status Comments Brother Alive Father Alive Mother (Age 91) Sister 1 Alive Sister 2 Alive Social History Tobacco Use Types Packs/Day Years Used Date Smoking Tobacco: Never Smokeless Tobacco: Never Alcohol Use Standard Drinks/Week Comments Yes 0 (1 standard drink = 0.6 oz pur e alcohol) 2 drinks per week Education Answer Date Recorded Are you interested in more education? Not on nori e 11/23/2022 Are you concerned about learning? Not on file 11/23/2022 No 11/23/2022 No 11/23/2022 Digital Access Answer Date Recorded No 12/22/2022 No 12/22/2022 Reliable internet access at home? Not on file 12/22/2022 Device with a working camera? Not on file Sex and Gender Information Value Date Recorded Sex Assigned at Not on file Legal Sex Male 9:44 PM EDT Gender Identity Not on file Sexual Orientation Not on file Last Filed Vital Signs Vital Sign Reading Time Taken Comments Blood Pressure 118/78 09/18/2017 3:21 PM EST Pulse 89 09/18/2017 3:21 PM EST Temperature - - Respiratory Rate - - Oxygen Saturation 98% 09/18/2017 3:21 PM EST Inhaled Oxygen Concentration - - Weight 157.7 kg (347 lb 9.6 oz) 09/18/2017 3:21 PM EST Height 177.8 cm (5' 10 ) 09/18/2017 3:21 PM EST Body Mass Index 49.88 09/18/2017 3:21 PM EST Plan of Treatment Health Maintenance Due Date Last Done Comments Adult Td,Tdap Booster 1962 LIPID PANEL 1962 DEPRESSION SCREENING 1974 HEPATITIS C SCREENING 1980 HIV ONE-TIME SCREENING (18-65 YEARS) 1980 COLOGUARD 10/04/2007 COLONOSCOPY 10/04/2007 COLORECTAL CANCER SCREENING 10/04/2007 FIT TEST 10/04/2007 FOBT 10/04/2007 SIGMOIDOSCOPY 10/04/2007 VIRTUAL COLONOSCOPY 10/04/2007 PNEUMOCOCCAL VACCINES (50+ years) (1 of 1 - PCV) 2012 ZOSTER VACCINES (1 of 2) 2012 RSV VACCINE (1 - Risk 60-74 years 1-dose series) 2022 COVID-19 VACCINE (2023- season) 2024 06/13/2022, 01/01/2022, 06/19/2021, Additional history exists SMOKING STATUS SCREENING (Once After 26 Yrs) Completed 09/18/2017 HEPATITIS A VACCINES Aged Out No long er eligible based on patient's age to complete this topic HIB VACCINES Aged Out No longer eligi ble based on patient's age to complete this topic MENINGOCOCCAL VACCINES (ACWY) Aged Out No longer eligible based on patient's age to complete this topic MENINGOCOCCAL VACCINES (B) Aged Out N o longer eligible based on patient's age to complete this topic Medical Devices Not on file Insurance [facility] CAREPLUS [facility] CAREPLUS TOGETHER [facility] [place] [facility] [place] [facility] [place] [facility] [place] [facility] [place] [facility] [place]GETHER [facility] [place] [facility] [place] [facility] [place] [facility] [place] [facility] [place] TOGETHER Member Subscriber Plan / Payer (Ef fective 2017-Present) Name:Silver Valladares Relation to Subscriber:Self Name:Silver Valladares Payer ID:[id number] (NAIC) Group ID:Not on file Type:Medicaid Address: [place] [id number] [facility] [place] CAREPL[place] [facility] [place] TOGETHER [facility] DIRECT Care Teams Language Assistant Relationship Specialty Start Date End Date Pcp, Unknown PCP - General 03/09/21 Additional Source Comments The information contained in this document represents components of the legal health record. It is not the complete legal health record.[facility]
--- OUTSIDE RECORDS SUMMARY | 2025-02-16 14:17 | XMS_ITS | Clinical Summary ---
Author Organization [facility] Address [address] [place] [address], [place] [address] Care Team Providers Care Handicapped Teacher Name Role Phone Wilfrid Mcmahon MD Primary [...] patient's age to complete this topic Insurance [facility] Care Teams Handicapped Teacher Relationship Specialty Start Date End Date Wilfrid Mcmahon MD [address] [facility] [address] [place] [address] [phone] PCP - General Family Medicine 04/18/23
[2025-03-08 10:17] VITALS: BP 160/72; PULSE 59; RESP 20; O2SAT 97; BMI 49.5
[2025-03-08 12:56] LABS: MRSA Nasal PCR NEGATIVE (Negative); SA Nasal PCR POSITIVE (Negative)
[2025-04-02 15:06] LABS: MANUAL DIFF FLAG NO
[2025-04-02 15:40] LABS: Hematocrit 40.7 % (42.0-52.0); Hemoglobin 13.9 g/dl (14.0-18.0); Imm Gran Abs Auto 0.03 X10*3/uL (0.00-0.03); Imm Gran Pct Auto 0.3 % (0.0-0.4); Lymphocytes Absolute Auto 1.4 X10*3/uL (1.2-4.9); Mean Corpuscular HGB Conc 34.2 g/dl (31.0-36.0); Mean Corpuscular Hemoglobin 29.4 pg (27.0-33.0); Mean Corpuscular Volume 86.0 fL (80.0-98.0); NRBC Abs Auto 0.000 X10*3/uL (0.0-0.012); NRBC Pct Auto 0.0 /100WBC (0.0-0.2); Platelet Count 230 X10*3/uL (160-400); Red Blood Count 4.73 X10*6/uL (4.60-5.80); White Blood Count 9.2 X10*3/uL (4.8-10.8)
[2025-04-02 15:49] LABS: Hemoglobin A1C 153.6861 umol/L; Total Hemoglobin (HGBA1C) 3602.4114 umol/L
[2025-04-02 16:40] LABS: Anion Gap 12 (12-20); Blood Urea Nitrogen 14 mg/dL (9-16); Calcium 9.6 mg/dL (8.4-10.2); Carbon Dioxide 26 mmol/L (22-29); Chloride 107 mmol/L (96-108); Creatinine Clr Calc Pharmacy 149.0; Estimated Glomerular Filt Rate > 60; Potassium 4.2 mmol/L (3.3-5.1); Sodium 141 mmol/L (135-145)
[2025-04-06] VITALS (22 sets, daily range): BP systolic 132–199; BP diastolic 44–109; PULSE 56–82; RESP 12–18; TEMP 35.8–36.9; O2SAT 94–100; BMI 48.3
--- NOTE | ~2025-04-06 | XR_ITS ---
CLINICAL HISTORY: rt hedy Single view of the pelvis. COMPARISON: XR pelvis and right hip dated 02/17/25 at 12:56 EDT FINDINGS: Pelvic ring appears maintained. Left total hip arthroplasty appears in anatomic alignment. Interval placement of a right total hip arthroplasty. Arthroplasty components appear in anatomic alignment. Visualized portions of the proximal right femur appear intact. There are overlying cutaneous teodoro and small amount of overlying gas. IMPRESSION: 1. Anatomic alignment of recent right total hip arthroplasty without evidence of acute complication. This document has been electronically signed by: Afshin Saha MD on 04/06/2025 18:41:48
--- NOTE | 2025-04-06 08:21 | MHC.SHP ---
Pre-Procedural Eval Section A - 24 Hr Update-Section A only Date of Service: 04/06/25 The patient is an INPATIENT: No Changes since office visit: No Cold of Flu in the past 2 weeks, No New Medical Problems, No Changes in Medication and No Patient answered all questions The patient has been examined within 24 hours of the surgical procedure. The History & Physical has been completed within 30 days and I have reviewed it.: Yes Section B - Complete if H&P > 30 days Chief Complaint: Unilateral primary osteoarthritis, right hip Allergies: Allergies Allergy/AdvReac Type Severity Reaction Status Date / Time Penicillins Allergy Intermediate Hives Verified 03/05/25 11:14 Plan I have reviewed the history and physical and performed a pertinent physical examination on my patient. No changes have occurred unless specified. Time Spent With Patient Time: Total time managing care of this patient today ____ minutes.
[2025-04-06] MEDS: oxyCODONE HCl ER 10 MG TAB.ER.12H PO ×2 (08:53→21:16)
[2025-04-06] MEDS: Lactated Ringers 1,000 ML 100 ML IVCONT ×2 (09:02→21:10)
--- NOTE | 2025-04-06 10:31 | HO.ANESPROP2 ---
Documented by User: Vidhya Cochran NP 03/08/25 10:42 HPI - Anesthesia Eval Consult details Narrative: 64yo M for Right Hip Total Replacement, 04/06/25 s/p L AMBER 02/2024 with GA-ETT 8 - anesthesia went very well Cardiac optimized. Follows [facility] [place] Cardiology for CAD s/p CABG x 3 03/2023, afib (on Eliquis) s/p MAZE 03/2023 Medically optimized. EKG changes noted with preop eval - PCP reviewed with cards - no further testing No recent illness No CP/SOB with house work, repair - limited by pain KWAKU: CPAP or recliner PMFSH Active Problems Active Problems: All Active Problems (Updated 03/08/25 @ 10:13 by Teodora Montano RN) Pre-operative clearance (Acute) Osteoarthritis of right hip (Acute) Chronic eczema (Acute) Hidradenitis suppurativa (Acute) Rash (Acute) Blurred vision, bilateral (Acute) Fatigue due to sleep pattern disturbance (Acute) S/P total left hip arthroplasty (Acute) Pre-op chest exam (Acute) Hip pain (Acute) Pre-diabetes (Acute) Morbid obesity (Acute) Status post coronary artery bypass graft (Acute) Elevated fasting glucose (Acute) Coronary artery disease (Acute) Exertional chest pain (Acute) Screening PSA (prostate specific antigen) (Acute) Hypertension (Acute) Preoperative cardiovascular examination (Acute) Urgency of urination (Acute) Weak urinary stream (Acute) BPH loc w urin obs/LUTS (Acute) Hyperlipidemia (Acute) Elevated BP without diagnosis of hypertension (Acute) Physical exam, annual (Acute) Vaccine counseling (Acute) Lower urinary tract symptoms (LUTS) (Acute) Colon cancer screening (Acute) Morbid obesity with BMI of 50.0-59.9, adult (Acute) Psoriasis (Acute) Laboratory tests ordered as part of a complete physical exam (CPE) (Acute) Sleep apnea (Acute) Paroxysmal atrial fibrillation (Acute) H/O cardiac catheterization (Acute) Past Medical History Medical History Pre-diabetes CAD (coronary artery disease) Psoriasis BPH (benign prostatic hyperplasia) History of concussion (~1977) HLD (hyperlipidemia) HTN (hypertension) Paroxysmal atrial fibrillation Tinnitus Osteoarthritis Sleep apnea Family History Family History Mother Afib No family history of mental disorder Father No family history of mental disorder Hyperlipidemia Family history of problems with anesthesia: No Surgical History Surgical History History of total left hip arthroplasty Status post Maze operation for atrial fibrillation (04/09/23) S/P quadruple vessel bypass (04/09/23) H/O cardiac catheterization History of surgery on lower extremity History of Problems with Anesthesia: No Social History Social History Household Members: Friend(s) Household Members Other:: rents rooms to 2 people Housing: House Are you a primary care associate to a significant other at home: No Do you presently have visiting nurse or other home services: No Alcohol intake: current Alcohol intake frequency: a few times a week Comment: aware of trip hazard & will remove Patient Tobacco Use Status: Never used Tobacco Tobacco use type: Cigar e-Cigarette/Vaping Use: Never Used Use of substances other than those prescribed or required for medical reasons: No Substance Use Type: Marijuana and Caffiene Have you been hit, kicked, punched, or otherwise hurt by someone within the past year? 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 Cognitive needs: No Hearing needs: No Vision needs: Yes Meds Allergies Allergy/AdvReac Type Severity Reaction Status Date / Time Penicillins Allergy Intermediate Hives Verified 03/05/25 11:14 Home Medications ?Medication ?Instructions ?Recorded ?Confirmed ?Last Taken ?Type multivitamin (Daily Multi-Vitamin 1 tab PO QAM 10/05/22 04/01/25 04/01/25 History tablet) omega-3 fatty acids 500 mg capsule 1,000 mg PO QAM 10/05/22 04/01/25 04/01/25 History coenzyme Q10 10 mg capsule (Co 200 mg PO BEDTIME 01/27/25 04/01/25 04/01/25 History Q-10) alfuzosin 10 mg tablet,extended 10 mg PO BEDTIME 03/08/25 04/06/25 Unknown History release 24 hr atorvastatin 80 mg tablet 80 mg PO QAM 03/08/25 04/01/25 04/05/25 History triamcinolone acetonide 0.1 % 1 appl topical QAM 03/08/25 04/01/25 Unknown History topical cream Exam Height,Weight and Vital Signs: Height 5 ft 10.5 in Weight 158.757 kg Last Vital Signs Pulse 59 03/08/25 10:17 Resp 20 03/08/25 10:17 BP 160/72 H 03/08/25 10:17 Pulse Ox 97 03/08/25 10:17 O2 Del Method Room Air 03/08/25 10:17 Narrative Narrative: EKG 01/2025 sinus bradycardia, 57 beats per minute, ?inferior infarct age undetermined with subtle changes Leads III, AVF verses February 2024 EKG. ECHO 12/2024 Conclusions: - The left ventricular systolic function is hyperdynamic. The visually estimated ejection fraction is >70%. - There is moderately increased left ventricular wall thickness. - No obvious valvular pathology seen on this study. Holter 2022 Total monitoring time 3 days. Underlying rhythm is sinus with an average rate of 84/Min. Range 76 to 108/Min. Rare ventricular ectopy. No significant pauses or AV blocks. Patient marker used once in association with sinus rhythm. Airway Mallampati Class: II TM Dist: >3cm Neck ROM: Full Loose/Missing/Broken Teeth: No (1 x crown molar, 1 x filling broken molar) Heart: RRR Lungs: CTAB Assessment and Plan Assessment Anesthesia Assessment: Anesthesia Plan Discussed and PAT Visit Final Anesthetic Review Family History of Problems with Anesthesia: No History of Problems with Anesthesia: No Documented by User: Farzaneh Morales NP 04/02/25 15:04 [facility] Past Medical History Medical History Pre-diabetes CAD (coronary artery disease) Psoriasis BPH (benign prostatic hyperplasia) History of concussion (~1977) HLD (hyperlipidemia) HTN (hypertension) Paroxysmal atrial fibrillation Tinnitus Osteoarthritis Sleep apnea Family History Family History Mother Afib No family history of mental disorder Father No family history of mental disorder Hyperlipidemia Surgical History Surgical History History of total left hip arthroplasty Status post Maze operation for atrial fibrillation (04/09/23) S/P quadruple vessel bypass (04/09/23) H/O cardiac catheterization History of surgery on lower extremity Social History Social History Household Members: Friend(s) Household Members Other:: rents rooms to 2 people Housing: House Are you a primary care associate to a significant other at home: No Do you presently have visiting nurse or other home services: No Alcohol intake: current Alcohol intake frequency: a few times a week Comment: aware of trip hazard & will remove Patient Tobacco Use Status: Never used Tobacco Tobacco use type: Cigar e-Cigarette/Vaping Use: Never Used Use of substances other than those prescribed or required for medical reasons: No Substance Use Type: Marijuana and Caffiene Have you been hit, kicked, punched, or otherwise hurt by someone within the past year? 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 Cognitive needs: No Hearing needs: No Vision needs: Yes Meds Allergies Allergy/AdvReac Type Severity Reaction Status Date / Time Penicillins Allergy Intermediate Hives Verified 03/05/25 11:14 Home Medications ?Medication ?Instructions ?Recorded ?Confirmed ?Last Taken ?Type multivitamin (Daily Multi-Vitamin 1 tab PO QAM 10/05/22 04/01/25 04/01/25 History tablet) omega-3 fatty acids 500 mg capsule 1,000 mg PO QAM 10/05/22 04/01/25 04/01/25 History coenzyme Q10 10 mg capsule (Co 200 mg PO BEDTIME 0704/01/25 04/01/25 History Q-10) alfuzosin 10 mg tablet,extended 10 mg PO BEDTIME 03/08/25 04/06/25 Unknown History release 24 hr atorvastatin 80 mg tablet 80 mg PO QAM 03/08/25 04/01/25 04/05/25 History triamcinolone acetonide 0.1 % 1 appl topical QAM 03/08/25 04/01/25 Unknown History topical cream Exam Pertinent Lab Results Pertinent Lab Results: Laboratory Tests 02/17/25 13:52 WBC 8.9 RBC 4.75 Hgb 14.0 Hct 41.4 L Plt Count 234 Sodium 140 Potassium 4.3 BUN 19 H Creatinine 0.84 Documented by User: Ana Olguin DO 04/06/25 10:32 [facility] Past Medical History Medical History Pre-diabetes CAD (coronary artery disease) Psoriasis BPH (benign prostatic hyperplasia) History of concussion (~1977) HLD (hyperlipidemia) HTN (hypertension) Paroxysmal atrial fibrillation Tinnitus Osteoarthritis Sleep apnea Family History Family History Mother Afib No family history of mental disorder Father No family history of mental disorder Hyperlipidemia Family history of problems with anesthesia: No Surgical History Surgical History History of total left hip arthroplasty Status post Maze operation for atrial fibrillation (04/09/23) S/P quadruple vessel bypass (04/09/23) H/O cardiac catheterization History of surgery on lower extremity History of Problems with Anesthesia: No Social History Social History Household Members: Friend(s) Household Members Other:: rents rooms to 2 people Housing: House Are you a primary care associate to a significant other at home: No Do you presently have visiting nurse or other home services: No Alcohol intake: current Alcohol intake frequency: a few times a week Comment: aware of trip hazard & will remove Patient Tobacco Use Status: Never used Tobacco Tobacco use type: Cigar e-Cigarette/Vaping Use: Never Used Use of substances other than those prescribed or required for medical reasons: No Substance Use Type: Marijuana and Caffiene Have you been hit, kicked, punched, or otherwise hurt by someone within the past year? 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 Cognitive needs: No Hearing needs: No Vision needs: Yes Meds Allergies Allergy/AdvReac Type Severity Reaction Status Date / Time Penicillins Allergy Intermediate Hives Verified 03/05/25 11:14 Home Medications ?Medication ?Instructions ?Recorded ?Confirmed ?Last Taken ?Type multivitamin (Daily Multi-Vitamin 1 tab PO QAM 10/05/22 04/01/25 04/01/25 History tablet) omega-3 fatty acids 500 mg capsule 1,000 mg PO QAM 10/05/22 04/01/25 04/01/25 History coenzyme Q10 10 mg capsule (Co 200 mg PO BEDTIME 01/27/25 04/01/25 04/01/25 History Q-10) alfuzosin 10 mg tablet,extended 10 mg PO BEDTIME 03/08/25 04/06/25 Unknown History release 24 hr atorvastatin 80 mg tablet 80 mg PO QAM 03/08/25 04/01/25 04/05/25 History triamcinolone acetonide 0.1 % 1 appl topical QAM 03/08/25 04/01/25 Unknown History topical cream Exam Exam Date and Time: 04/06/25 1010 Height,Weight and Vital Signs: Height 5 ft 10.5 in Weight 158.757 kg Last Vital Signs Pulse 59 03/08/25 10:17 Resp 20 03/08/25 10:17 BP 160/72 H 03/08/25 10:17 Pulse Ox 97 03/08/25 10:17 O2 Del Method Room Air 03/08/25 10:17 Vital Signs Pulse Rate 59 03/08/25 10:17 Respiratory Rate 20 03/08/25 10:17 Blood Pressure 160/72 H 03/08/25 10:17 Pulse Oximetry 97 03/08/25 10:17 Oxygen Delivery Method Room Air 03/08/25 10:17 Temperature 96.5 F L 04/06/25 08:50 Pulse Rate 59 04/06/25 08:50 Respiratory Rate 16 04/06/25 08:50 Blood Pressure 165/57 H 04/06/25 08:50 Pulse Oximetry 94 04/06/25 08:50 Oxygen Delivery Method Room Air 04/06/25 08:50 Airway Mallampati Class: III TM Dist: >3cm Neck ROM: Full Loose/Missing/Broken Teeth: No (1 x crown molar, 1 x filling broken molar) Heart: S1S2 Assessment and Plan Assessment Anesthesia Assessment: Anesthesia Plan Discussed and Chart Reviewed Final Anesthetic Review Family History of Problems with Anesthesia: No History of Problems with Anesthesia: No NPO: Yes ASA Class: III Final Preanesthetic Review: No Changes in Pt Med Stat, Meds/Allgs Chart Reviewed, Consent Obtained/Reviewed and Anes Risks/Benef Reviewed Patient Risk: Intermediate Procedure Risk: Intermediate Anesthetic Plan Anesthetic Plan: GA and Agree w/ Assess. and Plan Disposition: Standard PACU
--- NOTE | 2025-04-06 17:25 | P.BOP_ITS ---
Brief Operative Note Date of Service: 04/06/25 Pre-op diagnosis: Right hip OA Post-op diagnosis: same Procedure: Right AMBER Implants: Patricia 58/#6/132/+5/36/ceramic Surgeon: Trevor Colorado MD Anesthesia: GETA and local Was an Senior Process Analyst used for this Procedure?: Yes Senior Process Analyst: Ryland Acosta Estimated blood loss (mL): 200 IV fluids (mL): 1,000 Pathology: other Condition: stable Disposition: PACU
[2025-04-06] MEDS: 0.9 % Sodium Chloride Flush 3 ML SYRINGE IVFLUSH (21:17)
[2025-04-07] MEDS: oxyCODONE HCl Immed Release 5 MG TABLET PO ×3 (00:08→15:10)
[2025-04-07 03:52] VITALS: BP 173/72; PULSE 72; RESP 19; TEMP 36.2; O2SAT 96
[2025-04-07] MEDS: Lactated Ringers 1,000 ML 100 ML IVCONT (05:51)
[2025-04-07 05:52] LABS: MANUAL DIFF FLAG NO
[2025-04-07 06:01] LABS: Hematocrit 35.1 % (42.0-52.0); Hemoglobin 11.6 g/dl (14.0-18.0); Imm Gran Abs Auto 0.06 X10*3/uL (0.00-0.03); Imm Gran Pct Auto 0.5 % (0.0-0.4); Lymphocytes Absolute Auto 1.3 X10*3/uL (1.2-4.9); Mean Corpuscular HGB Conc 33.0 g/dl (31.0-36.0); Mean Corpuscular Hemoglobin 29.1 pg (27.0-33.0); Mean Corpuscular Volume 88.0 fL (80.0-98.0); NRBC Abs Auto 0.000 X10*3/uL (0.0-0.012); NRBC Pct Auto 0.0 /100WBC (0.0-0.2); Platelet Count 210 X10*3/uL (160-400); Red Blood Count 3.99 X10*6/uL (4.60-5.80); White Blood Count 11.5 X10*3/uL (4.8-10.8)
[2025-04-07 06:14] LABS: Anion Gap 13 (12-20); Blood Urea Nitrogen 13 mg/dL (9-16); Calcium 8.3 mg/dL (8.4-10.2); Carbon Dioxide 25 mmol/L (22-29); Chloride 104 mmol/L (96-108); Creatinine Clr Calc Pharmacy 141.5; Estimated Glomerular Filt Rate > 60; Potassium 4.0 mmol/L (3.3-5.1); Sodium 138 mmol/L (135-145)
[2025-04-07 07:21] VITALS: BP 141/65; PULSE 60; RESP 18; TEMP 36.4; O2SAT 97
--- NOTE | 2025-04-07 08:00 | PM.PNORT ---
Subjective Subjective Date of Service: 04/07/25 Interval history: POD1 s/p RTHA Patient is resting in bed comfortably No overnight events Pain is managed No additional complaints Physical Exam Vital Signs: Vital Signs: Last Vital Signs Temp 97.6 F 04/07/25 07:21 Pulse 60 04/07/25 07:21 Resp 18 04/07/25 07:21 BP 141/65 H 04/07/25 07:21 Pulse Ox 97 04/07/25 07:21 O2 Del Method Room Air 04/07/25 07:21 O2 Flow Rate 2 04/07/25 03:52 BMI result Body Mass Index 48.3 Const: General: cooperative, healthy appearing and no acute distress Resp: Effort & Inspection: normal respiratory effort and able to speak in complete sentences Extrem: Other: right hip dressing is c/d/i. Able to dorsi/plantar flex. Calf is supple and nontender. Sensation intact. Pedal pulse intact. Psych: Appearance: grossly normal Mental Status: mental status grossly normal Attitude: cooperative Procedures Date of Service Date of Service: 04/07/25 Progress Note: A&P Assessment and plan (1) Status post total hip replacement, right: Status: Acute Plan Continue pain mgmnt Begin lovenox for dvt ppx - transition to Eliquis 48 hours post op begin PT/OT for RTHA Dispo planning-Pending PT eval, pain mgmnt Time Spent With Patient Time: Total time managing care of this patient today ____ minutes. Quality Stroke Does the patient have a stroke diagnosis?: No VTE Prior VTE?: No VTE Risk Level:: Medical - moderate - high VTE Device Contraindication: N/A - Device Ordered VTE Drug Contraindication: N/A - Med Ordered
--- NOTE | 2025-04-07 08:03 | W.MHC.F2F ---
Service Date Service Date: 04/07/25 Encounter Date of encounter: 04/07/25 Reasons for Services Signs and symptoms assessed: s/p RTHA Pt. is considered homebound due to recent surgery. Unable to drive, poor balance, poor gait mechanics. Reason for physical therapy: home safety and mobility, therapeutic exercises, restore joint function, gait/transfer training and ADL training Reason for occupational therapy: home safety and mobility, therapeutic exercises, restore joint function, gait/transfer training and ADL training Homebound: Leaving the home is medically contraindicated at this time without the asist of a device and/or another person due th the listed conditions above and below. Reason homebound: unsteady gait / fall risk, leg weakness, pain with ambulation, pain with transfers, poor balance / fall risk and unable to drive Certification: Based on the above findings, I certify that this patient is confined to the home and needs intermittent residential care, physical therapy and/or speech therapy, or continues to need occupational therapy. The patient is under my care, and I have initiated the establishment of the plan of care. The patient will be followed by a physician who will periodically review the plan of care. Time Spent With Patient Time: Total time managing care of this patient today ____ minutes.
--- NOTE | 2025-04-07 08:03 | PM.DS ---
DS: Providers Provider Date of Service: 04/07/25 Date of discharge: 04/07/25 Primary care physician: Wilfrid Mcmahon MD Consults: 04/06/25 20:42 Consult to Case Management Routine Comment: rt hedy home w vna Consult to Hospitalist Routine Comment: Consulting Provider: [facility] Hospitalists Reason For Exam: h/o afib , h/o coronary bypass DS: Diagnosis Discharge Diagnosis (1) Status post total hip replacement, right: Status: Acute DS: Summary Hospital Course Hospital Course: The patient underwent a successful right total hip arthroplasty, they were transferred to PACU and then to the floor to recover. During their stay, their vitals were stable, afebrile at 97.6. Labs were unremarkable, H/H 11.6/35.1. POD 1 they were restarted on his regular dose of eliquis 5mg PO BID to begin at 6:00pm, they also received Physical Therapy services twice a day. Prior to discharge, their dressing was clean dry and intact and the plan was to be discharged home with VNA services. Time Attestation Discharge Coordination Time (in mins): 30 Quality: Safe Use of Opioids Does Pt have an Active Cancer Diagnosis on the Problem List?: No Quality: Stroke Does the patient have a stroke diagnosis?: No Physical Exam Vital Signs: Vital Signs: Last Vital Signs Temp 97.6 F 04/07/25 07:21 Pulse 60 04/07/25 07:21 Resp 18 04/07/25 07:21 BP 141/65 H 04/07/25 07:21 Pulse Ox 97 04/07/25 07:21 O2 Del Method Room Air 04/07/25 07:21 O2 Flow Rate 2 04/07/25 03:52 BMI result Body Mass Index 48.3 Const: General: cooperative, healthy appearing and no acute distress Resp: Effort & Inspection: normal respiratory effort and able to speak in complete sentences Extrem: Other: right hip dressing is c/d/i. Able to dorsi/plantar flex. Calf is supple and nontender. Sensation intact. Pedal pulse intact. Psych: Appearance: grossly normal Mental Status: mental status grossly normal Attitude: cooperative DS: Data Data Completed and Pending Completed studies during hospitalization [Text1]: Procedures Replacement of Left Hip Joint with Ceramic Synthetic Substitute, Uncemented, Open Approach (03/24/24) Pending studies at discharge: Pending at discharge 04/06/25 17:00 Surgical [PTH] Routine Labs on day of discharge: Laboratory Results - last 24 hr 04/07/25 05:32 WBC 11.5 H RBC 3.99 L Hgb 11.6 L Hct 35.1 L MCV 88.0 MCH 29.1 MCHC 33.0 RDW 13.9 Plt Count 210 MPV 10.5 Immature Gran % (Auto) 0.5 H Neut % (Auto) 79.1 H Lymph % (Auto) 11.4 L [place] % (Auto) 8.5 Eos % (Auto) 0.2 Baso % (Auto) 0.3 Lymph # (Auto) 1.3 [place] # (Auto) 1.0 Eos # (Auto) 0.0 Baso # (Auto) 0.0 Abs Immat Gran (auto) 0.06 H Absolute Neuts (auto) 9.1 H Absolute Nucleated RBC 0.000 Nucleated RBC % (auto) 0.0 Sodium 138 Potassium 4.0 Chloride 104 Carbon Dioxide 25 Anion Gap 13 BUN 13 Creatinine 0.81 Estim Creat Clear Calc 141.5 Estimated GFR > 60 Fasting Glucose 144 H Calcium 8.3 L D Discharge Plan Discharge Patient Disposition: Home Health Service Referrals: Ryland Acosta PA-C [Physician Ground Support Equipment Assembler, Orthopedics] - 04/22/25 9:45 am Discharge Medications: New acetaminophen 325 mg Tablet 650 mg PO Q6H PRN (Reason: Pain, Mild 1-3,Fever,Headache) 30 Days Qty: 240 0RF celecoxib 200 mg Capsule 200 mg PO BID 30 Days Qty: 60 0RF docusate sodium 100 mg Capsule 100 mg PO BID 30 Days Qty: 60 0RF oxycodone 5 mg Tablet 5 mg PO Q4H PRN (Reason: Pain, Moderate(Pain Scale 4-6)) 7 Days Qty: 42 0RF Rx Instructions: Partial Fill upon patient request. Continued carvedilol 3.125 mg tablet 3.125 mg PO BID Qty: 180 3RF Repatha SureClick 140 mg/mL pen injector 140 mg subcut Q2W 90 Days Qty: 6 3RF (DME) Folding Front Wheeled walker See Rx Instructions .ROUTE .MEDSUPPLY Qty: 1 0RF Rx Instructions: Duration: 99 days (DME) Raised toilet seat See Rx Instructions .ROUTE .MEDSUPPLY Qty: 1 0RF Rx Instructions: duration - 99 days Eliquis 5 mg tablet 5 mg PO BID Qty: 180 3RF atorvastatin 80 mg tablet 80 mg PO QAM triamcinolone acetonide 0.1 % cream 1 appl topical QAM alfuzosin 10 mg tablet extended release 24 hr 10 mg PO BEDTIME Rx Instructions: administer after the same meal each day omega-3 fatty acids 500 mg capsule 1,000 mg PO QAM multivitamin [Daily Multi-Vitamin] Tablet 1 tab PO QAM coenzyme Q10 [Co Q-10] 10 mg capsule 200 mg PO BEDTIME Discharge Orders: Discharge Order (Routine); Ordered 04/07/25 Ordered By: Malini Valencia Diet: Advance to usual diet Activity on Discharge: Use cane or walker Activity Restrictions/Additional Instructions: Physical Therapy for total hip arthroplasty: posterior precautions, gait training, ROM, strength Limit stair climbing No showering, no tub bath-keep dressing clean, dry and intact No driving x 6 weeks Continue Aspirin tabs once a day x 6 weeks Follow up with [facility] Orthopedics in 2 weeks -Bandage/Incision Site Care: -Ice 20mins at a time -Make sure you use a towel or cloth on your skin as a barrier -DO NOT remove the bandage -Keep Bandage clean, dry and intact -Do not get the bandage wet: -No tub bath, pools or hot tubs -If there are any concerns regarding the bandage please call orthopedics: [phone] -Hip Precautions: -Do not bend hip past 90 degrees -Do not cross at your knees or ankles -Do not turn your operative leg inward (avoid twisting the foot in) -Avoid low chairs and deep couches -Use supportive shoes with nonslip soles -Physical Therapy: -Patient is WBAT with the use of a walker -Gait training -Limit stair climbing -Hip range of motion -Strengthening: Quadriceps and hip muscles -Walking: Gait training and gradually increasing distance with walker -Ankle pumps and incentive spirometry to limit the risk of blood clot -Diet: -Resume regular diet as tolerated. -Drink plenty of fluids and eat a high-fiber foods to avoid constipation -This is a common side effect of pain medication) -Take stool softeners as prescribed -Blood Clot Prevention: -Take the prescribed blood thinner as directed for 6 weeks -Perform ankle pumps and walk frequently with the walker and assistance if needed -Report calf pain, swelling, or shortness of breath immediately Print Language: Mongolian
[2025-04-07] MEDS: oxyCODONE HCl ER 10 MG TAB.ER.12H PO (08:11)
--- NOTE | 2025-04-07 09:11 | HO.POSTANES ---
Post Anesthesia Evaluation Post Anesthesia Evaluation Date of Service: 04/07/25 Vital Signs: Vital Signs Temp Pulse Resp BP Pulse Ox O2 Del Method O2 Flow Rate 04/07/25 07:21 97.6 F 60 18 141/65 H 97 Room Air 04/07/25 03:52 97.1 F 72 19 173/72 H 96 Nasal Cannula 2 04/06/25 21:19 97.3 F 82 18 182/80 H 97 Nasal Cannula 2 Anesthesia: General Mental Status: Awake Pain Control: Satisfactory Nausea/Vomiting: None Hydration: Adequate Anesthesia-Related Issues: No Anes. Related Issues
--- NOTE | 2025-04-07 12:16 | MHC.CM.PN ---
S/P AMBER Lives with others Independent with ADLS. DME Walker+ Cane A copy of pts HCP requested DP home with [facility]. Patient has arranged for private transport Discharge order received.
[2025-04-07 15:27] VITALS: BP 169/73; PULSE 67; RESP 18; TEMP 37.1; O2SAT 98
--- NOTE | 2025-04-12 10:28 | P.OP_ITS ---
Operative Note Operative Note Date of Service: 04/12/25 Narrative: Date of Service: 04/06/25 Pre-op diagnosis: Right hip OA Post-op diagnosis: same Procedure: Right AMBER Implants: [place] 58/#6/132/+5/36/ceramic Surgeon: Trevor Colorado MD Anesthesia: GETA and local Was an Manager Occupational used for this Procedure?: Yes Manager Occupational: Ryland Acosta Estimated blood loss (mL): 200 IV fluids (mL): 1,000 Pathology: other Condition: stable Disposition: PACU Patient was brought into the operating room and placed in the left lateral decubitus position. All bony prominences were well padded and the limb was prepped and draped in standard sterile fashion. A time-out was called to identify proper site procedure proper surgeon IV antibiotics and 1 g of tranexamic acid were administered. I began by making a curvilinear incision over the posterolateral aspect of the greater trochanter. Dissection was taken down to the tensor fascia which was incised in line with the incision and a Charnley retractor was placed. Cautery was used to maintain hemostasis. The hip was internally rotated and the external rotators were identified. The vessels were cauterized and a full-thickness capsular/external rotator layer was developed starting just distal to the piriformis. This layer was tagged and a dull Hohmann retractor was placed underneath the neck in the hip was dislocated. A neck cut was made 1 cm proximal to the lesser trochanter and the head and neck were removed and measured 54mm on the back table. The head was deformed and eburnated. I then removed the labrum and cauterized the fovea. I started with a 46 reamer and medialized to the inner table. I sequentially reamed up to a size 58 and impacted a 58mm cup at 45 degrees of inclination and 25 degrees of version. I then placed a 20 deg posterior lipped liner and turned my attention to the femur. I identified the piriformis insertion and used this as a starting point for my marjorie cutter. The medius tendon was protected with a Hibs retractor. A Charnley awl was inserted in the canal and a curved curette used to remove the lateral bone. I irrigated copiously. I then sequentially broached in the patient's natural version to a size 6 and placed my trial implants. I used a #6/132/+5 based on my pre-operative template. I removed all instrumentation and copiously irrigated. I placed my final femoral implant and again took the hip through range of motion and was satisfied with the stability and length. The final +5 implant was impacted in place and the hip reduced. I then irrigated copiously and placed 1 g of local tranexamic acid. I performed a capsular closure with 2.0 fiberwire, Magno's fascia with 0 Vicryl, s ubcuticular with 2-0 Vicryl and the skin with teodoro. Patient was placed into a sterile dressing. A Werewolf cautery wand was used to maintain hemostasis over the capsule and meniscal beds, the gutters and peripatellar soft tissues. Patient was extubated brought to the recovery room in stable condition. There were no known complications.
== END 2025-04-07 17:09 | disposition home health service (06) ==
LOC: HO.SSS 11:40 → HO.S3 17:45
PROVIDERS: Physician Assistant; PCP Family Medicine; Visit Provider Orthopaedic Surgery
PROC: (CPT 27130; principal; 2025-04-06 10:40)
DX: M16.11 Unilateral primary osteoarthritis, right hip (principal); M25.551 Pain in right hip; R26.2 Difficulty in walking, not elsewhere classified; M62.838 Other muscle spasm; Z96.642 Presence of left artificial hip joint; I10 Essential (primary) hypertension; I25.10 Atherosclerotic heart disease of native coronary artery without angina pectoris; Z95.1 Presence of aortocoronary bypass graft; R73.03 Prediabetes; I48.0 Paroxysmal atrial fibrillation; G47.33 Obstructive sleep apnea (adult) (pediatric); N40.0 Benign prostatic hyperplasia without lower urinary tract symptoms; L40.9 Psoriasis, unspecified; Z79.1 Long term (current) use of non-steroidal anti-inflammatories (NSAID); Z79.01 Long term (current) use of anticoagulants; Z79.899 Other long term (current) drug therapy; Z99.89 Dependence on other enabling machines and devices; Z88.0 Allergy status to penicillin
CPT/HCPCS: 27130; 36415; 72170; 80048; 83036; 85025; 86850; 86900; 86901; 87640; 87641; 88304; 88311; 97162; 97166; 97535; C1776; C9088; J0131; J0360; J0690; J1171; J2250; J2405; J2704; J2795; J3010; J7120

== ENCOUNTER → 2025-04-06 07:55 | Outpatient (BNV) | payer OTHER, SELFPAY ==
[2025-01-07 11:12] VITALS: BP 120/78; BP 156/70; BMI 49.2
== END ==
PROVIDERS: PCP Family Medicine; Visit Provider Orthopaedic Surgery
DX: Z47.1 Aftercare following joint replacement surgery (principal); Z96.641 Presence of right artificial hip joint
CPT/HCPCS: 27130; 99024; G0180

== ENCOUNTER → 2025-04-06 17:36 | Outpatient (BNV) | payer OTHER, SELFPAY ==
[2025-01-07 11:12] VITALS: BP 120/78; BP 156/70; BMI 49.2
== END ==
PROVIDERS: PCP Family Medicine; Visit Provider Radiology Diagnostic Radiology
DX: Z96.641 Presence of right artificial hip joint (principal)
CPT/HCPCS: 72170

== ENCOUNTER 2025-04-14 12:53 | Outpatient (AMB) | payer OTHER, SELFPAY ==
[2025-01-07 11:12] VITALS: BP 120/78; BP 156/70; BMI 49.2
--- NOTE | 2025-04-14 13:01 | A.OFFVIS_ITS ---
Intake Visit Reasons: PO- RT AMBER, bandage change, DOS 04/06/25 NE Intake Note: Silver is a 64 year old male who presents today for a post operative bandage change status post right AMBER, performed by Dr. Colorado on 04/06/25 NE. Allergies Penicillins Allergy (Intermediate, Verified 03/05/25 11:14) Hives HPI HPI PO- RT AMBER, bandage change, DOS 04/06/25 NE: Details: Patient comes into the office today for a bandage change. He is status post right total hip arthroplasty on 04/06/[address] Colorado. [facility] Medical History (Updated 04/09/25 @ 00:01 by Background Daemon) Pre-diabetes CAD (coronary artery disease) Psoriasis BPH (benign prostatic hyperplasia) History of concussion (~1977) HLD (hyperlipidemia) HTN (hypertension) Paroxysmal atrial fibrillation Tinnitus Osteoarthritis Sleep apnea Surgical History (Updated 04/09/25 @ 00:01 by Background Daemon) History of total left hip arthroplasty Status post Maze operation for atrial fibrillation (04/09/23) S/P quadruple vessel bypass (04/09/23) H/O cardiac catheterization History of surgery on lower extremity Family History Mother Afib No family history of mental disorder Father No family history of mental disorder Hyperlipidemia Social History Household Members: Friend(s) Household Members Other:: rents rooms to 2 people Housing: House Are you a primary director of primary care to a significant other at home: No Do you presently have visiting nurse or other home services: No 75 years or older and lives alone: No Alcohol intake: current Alcohol intake frequency: a few times a week Comment: aware of trip hazard & will remove Patient Tobacco Use Status: Never used Tobacco Tobacco use type: Cigar e-Cigarette/Vaping Use: Never Used Substance Use Type: Marijuana and Caffiene service: No Current occupational status: employed and disabled 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 The patient will keep it clean dry and intact. He will see me back next week for his routine postop appointment. Coding Level of Care Code Global (74055) Diagnoses Status post total hip replacement, right Z96.641
--- OUTSIDE RECORDS SUMMARY | 2025-04-14 16:19 | XMS_ITS | Clinical Summary ---
Author Organization [facility] Address [address] [place] [address] Phone Care Team Providers Care Consumer Safety Officer Name Role Phone Pcp, Unknown Primary Care Provider Unavailabl e Allergies Active Allergy Reactions Criticality Noted Date Comments Penicillins Swelling 09/18/2017 Medications aspirin 81 mg chewable tablet Take 1 tablet by mouth daily. Active omega 4-ftk-grw-fish oil 1,000 mg (120 mg-180 mg) Cap [...] [facility] CAREPLUS [facility] CAREPLUS TOGETHER [facility] [place] [facility] TOGETHER [facility] [place] [facility] [facility] [place] [facility]AREPL[facility] [place] [facility]ARE[facility] TOGETHER [facility] [place] [facility] CARE[facility] [place] CARE[facility]US [facility] CAREPLUS TOGETHER Member Subscriber Plan / Payer (Ef fective 2017-Present) Name:Silver Valladares Relation to Subscriber:Self Name:German Valladareshen Payer ID:[id number] (NAIC) Group ID:Not on file Type:Medicaid Phone: Address: [address] [place] CARE[place] [facility] [place] TOGET[facility] [place] [facility]ARE[facility] TO[facility]HER [facility] DIRECT Care Teams Consumer Safety Officer Relationship Specialty Start Date End Date Pcp, Unknown PCP - General 03/09/21 Additional Source Comments The information contained in this document represents components of the legal health record. It is not the complete legal health record.[facility]
--- OUTSIDE RECORDS SUMMARY | 2025-04-14 16:19 | XMS_ITS | Clinical Summary ---
Author Organization [facility] Facility Address [address] [place] [address], [place] [address] Care Team Providers Care Production Mechanic Tin Cans Name Role Phone Wilfrid Mcmahon MD Primary [...] patient's age to complete this topic Insurance [facility] Care Teams Production Mechanic Tin Cans Relationship Specialty Start Date End Date Wilfrid Mcmahon MD [facility] [address] [place] [address] [phone] PCP - General Family Medicine 04/18/23
== END 2025-04-14 13:47 | disposition home or self-care (01) ==
LOC: HO.HOS 12:54
PROVIDERS: PCP Family Medicine; Visit Provider Physician Assistant
DX: Z96.641 Presence of right artificial hip joint (principal)
CPT/HCPCS: 99024

== ENCOUNTER → 2025-04-14 12:53 | Outpatient (BNVA) | payer OTHER, SELFPAY ==
[2025-01-07 11:12] VITALS: BP 120/78; BP 156/70; BMI 49.2
== END ==
PROVIDERS: PCP Family Medicine; Visit Provider Physician Assistant
DX: Z47.1 Aftercare following joint replacement surgery (principal); Z96.641 Presence of right artificial hip joint
CPT/HCPCS: 99212

== ENCOUNTER 2025-04-22 09:41 | Outpatient (AMB) | payer OTHER, SELFPAY ==
[2025-01-07 11:12] VITALS: BP 120/78; BP 156/70; BMI 49.2
--- NOTE | 2025-04-22 09:48 | MHC.OFFVIS ---
Intake Visit Reasons: 2WKPO: R AMBER w/NE 04/06/25 Intake Note: Silver is a 64 year old male who presents today post operatively after undergoing a right total hip arthroplasty, performed by Dr. Colorado on 04/06/25. Patient reports improvement in his pain since his surgery. He is requesting a partial refill on his pain medication, stating he only has 1 tablet left. Allergies Penicillins Allergy (Intermediate, Verified 04/22/25 09:50) Hives Medication List - Last Reconciled 04/22/25 by Ryland Acosta PA-C acetaminophen 650 mg (2 x 325 mg) PO Q6H PRN 30 days alfuzosin ER 10 mg PO BEDTIME apixaban (Eliquis) 5 mg PO BID atorvastatin 80 mg PO QAM carvedilol 3.125 mg PO BID celecoxib 200 mg PO BID 30 days coenzyme Q10 (Co Q-10) 200 mg PO BEDTIME docusate sodium 100 mg PO BID 30 days evolocumab (Repatha SureClick) 140 mg subcut Q2W 90 days [Folding Front Wheeled walker Duration: 99 days] multivitamin (Daily Multi-Vitamin tablet) 1 tab PO QAM omega-3 fatty acids 1,000 mg PO QAM oxycodone 5 mg PO Q4H PRN 7 days [Raised toilet seat duration - 99 days] triamcinolone acetonide 0.1% 1 appl topical QAM HPI HPI 2WKPO: R AMBER w/NE 04/06/25: Details: [age] old gentleman returns to the office today 2 weeks status post right total hip arthroplasty on 04/06/2025. The patient is ambulating with a cane and he begins outpatient physical therapy tomorrow. Otherwise he is doing well with no concerns. [facility] Medical History (Updated 04/09/25 @ 00:01 by Background Daemon) Pre-diabetes CAD (coronary artery disease) Psoriasis BPH (benign prostatic hyperplasia) History of concussion (~1977) HLD (hyperlipidemia) HTN (hypertension) Paroxysmal atrial fibrillation Tinnitus Osteoarthritis Sleep apnea Surgical History (Updated 04/09/25 @ 00:01 by Background Daemon) History of total left hip arthroplasty Status post Maze operation for atrial fibrillation (04/09/23) S/P quadruple vessel bypass (04/09/23) H/O cardiac catheterization History of surgery on lower extremity Family History Mother Afib No family history of mental disorder Father No family history of mental disorder Hyperlipidemia Social History Household Members: Friend(s) Household Members Other:: rents rooms to 2 people Housing: House Are you a primary veterinarian laboratory animal care to a significant other at home: No Do you presently have visiting nurse or other home services: No 75 years or older and lives alone: No Alcohol intake: current Alcohol intake frequency: a few times a week Comment: aware of trip hazard & will remove Patient Tobacco Use Status: Never used Tobacco Tobacco use type: Cigar e-Cigarette/Vaping Use: Never Used Substance Use Type: Marijuana and Caffiene service: No Current occupational status: employed and disabled 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 No pain with range of motion hip flexion. The calf is supple and nontender neurovascularly intact. Assessment & Plan Assessment & Plan (1) Status post total hip replacement, right: Code(s): Z96.641 - Presence of right artificial hip joint Category: Surgical Plan: Sarmad removed today Steri-Strips applied. The patient will continue working with physical therapy on an outpatient basis. He will continue his anticoagulant therapy. He will require antibiotics for DVT prophylaxis but understands he should not have dental appointments for a total of 3 months postop. He will see us back in 6 weeks as scheduled, sooner if needed. Medications: Changed From oxycodone Partial Fill upon patient request. 5 mg PO Q4H 7 days PRN 42 tabs 0RF Pain, Moderate(Pain Scale 4-6) To oxycodone Partial Fill upon patient request. 5 mg PO Q6H PRN 28 tabs 0RF Pain, Moderate(Pain Scale 4-6) 7 days Coding Level of Care Code Global (18761) Diagnoses Status post total hip replacement, right Z96.641
--- OUTSIDE RECORDS SUMMARY | 2025-04-22 11:30 | XMS_ITS | Clinical Summary ---
Author Organization [facility] Facility Address [address] [place] [address], [place] [address] Care Team Providers Care Explosive Expert Name Role Phone Wilfrid Mcmahon MD Primary [...] patient's age to complete this topic Insurance [facility] Care Teams Explosive Expert Relationship Specialty Start Date End Date Wilfrid Mcmahon MD [address] [facility] [address] [place] [address] [phone] PCP - General Family Medicine 04/18/23
--- OUTSIDE RECORDS SUMMARY | 2025-04-22 11:30 | XMS_ITS | Clinical Summary ---
Author Organization [facility] Address [address] [place] [address] Phone Care Team Providers Care Patrol Judge Name Role Phone Pcp, Unknown Primary Care Provider Unavailabl e Allergies Active Allergy Reactions Criticality Noted Date Comments Penicillins Swelling 09/18/2017 Medications aspirin 81 mg chewable tablet Take 1 tablet by mouth daily. Active omega 4-bid-klf-fish oil 1,000 mg (120 mg-180 mg) Cap [...] topic Medical Devices Not on file Insurance [facility] CAREPLUS [facility] CAREPLUS TOGETHER [facility] [place] [facility] [place] [facility]AREPL[facility] [place] CAREPLUS [facility] CAREPLUS [place] CARE[facility] CAREPLUS [facility] [place] CAREPLUS [facility] CAREPLUS [place] CAREPLUS [facility] CAREPLUS TOGETHER Member Subscriber Plan / Payer (Ef fective 2017-Present) Name:Silver Valladares Relation to Subscriber:Self Name:German Valladareshen Payer ID:[id number] (NAIC) Group ID:Not on file Type:Medicaid Phone: Address: [address] [place] CAREPLUS [facility] [place] [facility] [place] CAREPLUS [facility] TOGETHER [facility] DIRECT Care Teams Patrol Judge Relationship Specialty Start Date End Date Pcp, Unknown PCP - General 03/09/21 Additional Source Comments The information contained in this document represents components of the legal health record. It is not the complete legal health record.[facility]
== END 2025-04-22 10:22 | disposition home or self-care (01) ==
LOC: HO.HOS 09:42
PROVIDERS: PCP Family Medicine; Visit Provider Physician Assistant
DX: Z96.641 Presence of right artificial hip joint (principal)
CPT/HCPCS: 99024

== ENCOUNTER → 2025-04-22 09:41 | Outpatient (BNVA) | payer OTHER, SELFPAY ==
[2025-01-07 11:12] VITALS: BP 120/78; BP 156/70; BMI 49.2
== END ==
PROVIDERS: PCP Family Medicine; Visit Provider Physician Assistant
DX: M25.551 Pain in right hip (principal); Z96.641 Presence of right artificial hip joint; Z98.890 Other specified postprocedural states
CPT/HCPCS: 99212

== ENCOUNTER 2025-05-13 13:39 | Outpatient (AMB) | payer OTHER, SELFPAY ==
[2025-01-07 11:12] VITALS: BP 120/78; BP 156/70; BMI 49.2
--- NOTE | 2025-05-13 13:53 | MHC.OFFVIS ---
Intake Visit Reasons: 2ND PO: R AMBER w/NE 04/06/25 Intake Note: Silver is a 64 year old male who presents today for a post operative follow up s/p Right AMBER 04/06/25.Patient reports that he is doing very well with no current concerns. He states that this surgery was intitially more painful than the TKA on the Left knee but things have significantly improved. Patient is seeing CORE therapy Allergies Penicillins Allergy (Intermediate, Verified 04/22/25 09:50) Hives HPI HPI 2ND PO: R AMBER w/NE 04/06/25: Details: Silver is a 64 year old male who presents today for a post operative follow up s/p Right AMBER 04/06/25.Patient reports that he is doing very well with no current concerns. He states that this surgery was intitially more painful than the TKA on the Left knee but things have significantly improved. Patient is seeing CORE therapy [facility] Medical History (Updated 04/09/25 @ 00:01 by Background Daemon) Pre-diabetes CAD (coronary artery disease) Psoriasis BPH (benign prostatic hyperplasia) History of concussion (~1977) HLD (hyperlipidemia) HTN (hypertension) Paroxysmal atrial fibrillation Tinnitus Osteoarthritis Sleep apnea Surgical History (Updated 04/09/25 @ 00:01 by Background Daemon) History of total left hip arthroplasty Status post Maze operation for atrial fibrillation (04/09/23) S/P quadruple vessel bypass (04/09/23) H/O cardiac catheterization History of surgery on lower extremity Family History Mother Afib No family history of mental disorder Father No family history of mental disorder Hyperlipidemia Social History Household Members: Friend(s) Household Members Other:: rents rooms to 2 people Housing: House Are you a primary administrator health care facility to a significant other at home: No Do you presently have visiting nurse or other home services: No 75 years or older and lives alone: No Alcohol intake: current Alcohol intake frequency: a few times a week Comment: aware of trip hazard & will remove Patient Tobacco Use Status: Never used Tobacco Tobacco use type: Cigar e-Cigarette/Vaping Use: Never Used Substance Use Type: Marijuana and Caffiene service: No Current occupational status: employed and disabled 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 F/u 6 weeks with PA. Coding Level of Care Code Global (97654) Diagnoses History of total right hip replacement Z96.641
--- OUTSIDE RECORDS SUMMARY | 2025-05-13 17:25 | XMS_ITS | Clinical Summary ---
Author Organization [facility] Facility Address [address] [place] [address], [place] [address] Care Team Providers Care Certified Ski Patroller Name Role Phone Wilfrid Mcmahon MD Primary Care Provider [phone] Social History Tobacco Use Types Packs/Day Years [...] patient's age to complete this topic Insurance [facility] Care Teams Certified Ski Patroller Relationship Specialty Start Date End Date Wilfrid Mcmahon MD [address] [facility] [address] [place] [address] [phone] PCP - General Family Medicine 04/18/23
--- OUTSIDE RECORDS SUMMARY | 2025-05-13 17:25 | XMS_ITS | Clinical Summary ---
Author Organization [facility] Address [address] [place] [address] Phone Care Team Providers Care Canvas Baster Jumpbasting Name Role Phone Pcp, Unknown Primary Care Provider Unavailabl e Allergies Active Allergy Reactions Criticality Noted Date Comments Penicillins Swelling 09/18/2017 Medications aspirin 81 mg chewable tablet Take 1 tablet by mouth daily. Active omega 4-fsg-jfs-fish oil 1,000 mg (120 mg-180 mg) Cap [...] 2012 ZOSTER VACCINES (1 of 2) 2012 INFLUENZA VACCINE (#1) 2025 2, 05/31/2021, 09/18/2017 COVID-19 VACCINE ( season) 2025 06/13/2022, 01/01/2022, 06/19/2021, Additional history exists RSV VACCINE (1 - 1-dose 75+ series) 2037 SMOKING STATUS SCREENING (Once After 26 Yrs) [...] topic Medical Devices Not on file Insurance [facility] CAREPLUS [facility] CAREPLUS TOGETHER [facility] [place] CAREPLUS [facility] CAREPLUS TOGETHER [facility] [place] [facility]AREPL[facility] [place] [facility] [facility] [place] [facility] [place] CARE[facility]US [facility] TO[facility]HER Member Subscriber Plan / Payer (Ef fective 2017-Present) Name:Silver Valladares Relation to Subscriber:Self Name:BlaineGermanSilver Payer ID:[id number] (NAIC) Group ID:Not on file Type:Medicaid Phone: Address: [address] [place] CAREPLUS [facility] [place] CARE[place] TOGETHER [facility]CTORCARE [place] CAREPLUS [facility] [place] CAREPLUS TOGETHER [facility] DIRECT Care Teams Canvas Baster Jumpbasting Relationship Specialty Start Date End Date Pcp, Unknown PCP - General 03/09/21 Additional Source Comments The information contained in this document represents components of the legal health record. It is not the complete legal health record.[facility]
== END 2025-05-13 14:16 | disposition home or self-care (01) ==
LOC: HO.HOS 13:40
PROVIDERS: PCP Family Medicine; Visit Provider Orthopaedic Surgery
DX: Z96.641 Presence of right artificial hip joint (principal)
CPT/HCPCS: 99024

== ENCOUNTER → 2025-05-13 13:39 | Outpatient (BNVA) | payer OTHER, SELFPAY ==
[2025-01-07 11:12] VITALS: BP 120/78; BP 156/70; BMI 49.2
== END ==
PROVIDERS: PCP Family Medicine; Visit Provider Orthopaedic Surgery
DX: Z96.641 Presence of right artificial hip joint (principal)
CPT/HCPCS: 99212

== ENCOUNTER 2025-05-14 11:28 | Outpatient (AMB) | payer OTHER, SELFPAY ==
[2025-01-07 11:12] VITALS: BP 120/78; BP 156/70; BMI 49.2
--- NOTE | 2025-05-14 11:51 | A.OFFPC_ITS ---
Vital Signs 05/14/25 12:00 Height 5 ft 10.5 in Weight 344 lb 8 oz BMI 48.7 BP 136/72 Blood Pressure Location Rt brachial Position Sitting Respiration 18 Pulse 64 Pulse Source Pulse Oximeter Temp 97.5 F Temp Source Temporal Artery Scan Pulse Oximetry (%) 97 Oxygen Delivery Method Room Air Intake Visit Reasons: f/u chronic conditions Intake Note: Rodriguez presents in the office today to follow up to chronic conditions. Patient had a hip replacement done April 06, 2025. Allergies Penicillins Allergy (Intermediate, Verified 05/14/25 11:54) Hives Medication List - Last Reconciled 05/14/25 by Wilfrid Mcmahon MD apixaban (Eliquis) 5 mg PO BID atorvastatin 80 mg PO QAM carvedilol 3.125 mg PO BID clindamycin phosphate 1% 1 appl topical BID coenzyme Q10 (Co Q-10) 200 mg PO BEDTIME evolocumab (Repatha SureClick) 140 mg subcut Q2W 90 days [Folding Front Wheeled walker Duration: 99 days] multivitamin (Daily Multi-Vitamin tablet) 1 tab PO QAM omega-3 fatty acids 1,000 mg PO QAM [Raised toilet seat duration - 99 days] triamcinolone acetonide 0.1% 1 appl topical QAM Tobacco use date assessed: 05/14/25 Dental Screening Dental Screen Date: 05/14/25 Did you have a dental visit in the last 12 months?: No Did you have a dental problem in the last 6 months where you did not have access to dental care?: No Was dental information given to patient?: Patient declined HPI f/u chronic conditions HPI Details 64 y/o male presents to f/u chronic cond itions. S/p total R hip replacement and had been following up with Dr. [place], orthopedics. Labs drawn 04/07/25. Reviewed labs with pt. Worsening anemia. Blood pressure today 136/72, 64p. He is on carvedilol 3.125mg b.i.d. [facility] Medical History (Updated 05/14/25 @ 12:22 by Sharif Dumont) Pre-diabetes CAD (coronary artery disease) Psoriasis BPH (benign prostatic hyperplasia) History of concussion (~1977) HLD (hyperlipidemia) HTN (hypertension) Paroxysmal atrial fibrillation Tinnitus Osteoarthritis Sleep apnea Surgical History (Updated 04/09/25 @ 00:01 by Background Daemon) History of total left hip arthroplasty Status post Maze operation for atrial fibrillation (04/09/23) S/P quadruple vessel bypass (04/09/23) H/O cardiac catheterization History of surgery on lower extremity Family History Mother Afib No family history of mental disorder Father No family history of mental disorder Hyperlipidemia Social History (Updated 05/14/25 @ 11:58 by Donna Prabhakar CMA) Household Members: Friend(s) Household Members Other:: rents rooms to 2 people Housing: House Are you a primary healthcare market consultant to a significant other at home: No Do you presently have visiting nurse or other home services: No 75 years or older and lives alone: No Alcohol intake: current Alcohol intake frequency: a few times a week Comment: aware of trip hazard & will remove Patient Tobacco Use Status: Never used Tobacco Tobacco use type: Cigar e-Cigarette/Vaping Use: Never Used Second Hand Smoke Exposure: No Use of substances other than those prescribed or required for medical reasons: Yes Substance Use Type: Marijuana and Caffiene service: No Current occupational status: employed and disabled 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 Cognitive needs: No Hearing needs: No Vision needs: Yes Questionnaire Thrive Questionnaire Date Thrive assessed: 07/31/24 I am a: Patient What is your living situation today?: I choose not to answer this question Within the past 12 months, did the food you bought not last and you didn't have the money to get more?: I choose not to answer this question Within the past 12 months, did you worry whether your food would run out before you got money to buy more?: I choose not to answer this question Do you have trouble paying for medicines?: I choose not to answer this question Do you have trouble getting transportation to medical appointments?: I choose not to answer this question Do you have trouble paying your heating and electricity bill?: I choose not to answer this question Do you have trouble taking care of your child, family member or friend?: I choose not to answer this question Do you have trouble with day-to-day activities such as bathing, preparing meals, shopping, managing finances, etc.?: I choose not to answer this question Are you currently unemployed and looking for a job?: I choose not to answer this question Are you interested in more education?: I choose not to answer this question Please select the resources that you would like help with: None Currently or been in a relationship where the following occur: I choose not to answer THRIVE Score: 0 SHAMAR-7 AMB Questionnaire SHAMAR-7 Date SHAMAR - 7 assessed: 01/07/24 Source: Developed by Drs. Govind Hoang, Jessica Padilla, Agustin Appiah and colleagues, with an educational pradip from [employer]. Review of Systems Const Denies chills, Denies fatigue, Denies fever(s), Denies headache(s) and Denies weakness ENT Denies dizziness and Denies headache(s) Card Denies dyspnea Resp Denies cough, Denies dyspnea, Denies wheezing and Denies other (shortness of breath) Musc Denies numbness and Denies tingling Neuro Denies dizziness, Denies headache(s), Denies numbness, Denies tingling and Denies weakness Psych Denies anxiety and Denies depression Endo Denies fatigue Aller/Immun Denies wheezing Physical exam (Primary Care) Vital Signs: Last Vital Signs Temp 97.5 F 05/14/25 12:00 Pulse 64 05/14/25 12:00 Resp 18 05/14/25 12:00 BP 136/72 05/14/25 12:00 Pulse Ox 97 05/14/25 12:00 Oxygen Delivery Method Room Air 05/14/25 12:00 BMI result Body Mass Index 48.7 Tobacco/Smoking Status: Tobacco use Status Tobacco use date assessed 05/14/25 05/14/25 12:02 Patient Tobacco Use Status Never used Tobacco 05/14/25 11:58 Tobacco use type Cigar 05/14/25 11:58 e-Cigarette/Vaping Use Never Used 05/14/25 11:58 Thrive Assessment: Date of Thrive Assessment Date Thrive assessed 07/31/24 05/14/25 11:53 Currently or been in a relationship where the following occur: I choose not to answer Const General: well developed; No acute distress Nutritional Appearance: well nourished and obese morbidly obese Orientation/consciousness: patient oriented x3 HENMT Head: Yes normocephalic and Yes atraumatic Eyes General: appearance normal, both eyes and all related structures Pupils: Equal, round and reactive pupils present EOM: EOMs intact bilaterally Resp Effort & Inspection: normal respiratory effort Auscultation: clear to auscultation bilaterally Cardio Rate: regular rate Rhythm: regular rhythm Heart sounds: S1 normal heart sound present, S2 normal heart sound present, no gallops, no murmurs and no rubs Neuro General: patient oriented x3 and gait normal Cranial nerves: Yes Equal, round and reactive pupils present Psych Affect: normal affect Coding Level of Care Code Est Pt Level 4 (29441) Diagnoses Anemia D64.9 Primary hypertension I10 Hypertension type: primary hypertension Coronary artery disease I25.10 Pre-diabetes R73.03 History of total right hip replacement Z96.641 Morbid obesity with BMI of 50.0-59.9, adult E66.01; Z68.43 Colon cancer screening Z12.11 Assessment & Plan Assessment & Plan (1) Anemia: Code(s): D64.9 - Anemia, unspecified Category: Medical Plan: Rechecking w/ prephysical labs (2) Hypertension: Code(s): I10 - Essential (primary) hypertension Category: Medical Qualifiers: Hypertension type: primary hypertension Qualified Code(s): I10 - Essential (primary) hypertension Plan: Blood pressure: Fair control. Goal is less than 130/80 Continue carvedilol Watch salt/sodium (3) Coronary artery disease: Code(s): I25.10 - Atherosclerotic heart disease of [place] coronary artery without angina pectoris Category: Medical Plan: Stable (4) Pre-diabetes: Code(s): R73.03 - Prediabetes Category: Medical Plan: A1c in pre diabetes range Continue working on diet low in sugars and starches Encouraged weight loss Trying to get patient tirzepatide for weight control and this may help with blood sugars as well (5) History of total right hip replacement: Code(s): Z96.641 - Presence of right artificial hip joint Category: Surgical Plan: Recent total hip replacement. Patient is doing well Follow-up with ortho as recommended (6) Morbid obesity with BMI of 50.0-59.9, adult: Code(s): E66.01 - Morbid (severe) obesity due to excess calories; Z68.43 - Body mass index [BMI] 50.0-59.9, adult Category: Medical Plan: Trial Zepbound Risks/benefits discussed (7) Colon cancer screening: Code(s): Z12.11 - Encounter for screening for malignant neoplasm of colon Category: Medical Plan: Cologuard test ordered Orders: Orders Comprehensive Avalon. Panel Fast Today I25.10 - Atherosclerotic heart disease of [place] coronary artery without angina pectoris, Z00.00 - Encounter for general adult medical examination without abnormal findings Lipid Panel Today I25.10 - Atherosclerotic heart disease of [place] coronary artery without angina pectoris, Z00.00 - Encounter for general adult medical examination without abnormal findings Complete Blood Count Auto Diff Today I25.10 - Atherosclerotic heart disease of [place] coronary artery without angina pectoris, Z00.00 - Encounter for general adult medical examination without abnormal findings TSH reflex Free T4 Today I25.10 - Atherosclerotic heart disease of [place] coronary artery without angina pectoris, Z00.00 - Encounter for general adult medical examination without abnormal findings UA CC w/rflx Micro + Cult Today I25.10 - Atherosclerotic heart disease of [place] coronary artery without angina pectoris, Z00.00 - Encounter for general adult medical examination without abnormal findings Microalbumin, Random (w Creat) Today I10 - Essential (primary) hypertension, I25.10 - Atherosclerotic heart disease of [place] coronary artery without angina pectoris Prostate Specific Antigen Scr Today I25.10 - Atherosclerotic heart disease of [place] coronary artery without angina pectoris, Z12.5 - Encounter for screening for malignant neoplasm of prostate Referrals Cologuard Test Z12.11 - Encounter for screening for malignant neoplasm of colon, Z12.12 - Encounter for screening for malignant neoplasm of rectum Medications: New tirzepatide (weight loss) (Zepbound) for 4 weeks 2.5 mg (0.5 mL) subcut QWEEK 2 mL 3RF 28 days E66.01 - Morbid (severe) obesity due to excess calories, I25.10 - Atherosclerotic heart disease of [place] coronary artery without angina pectoris
[2025-05-14 12:00] VITALS: BP 136/72; PULSE 64; RESP 18; TEMP 36.4; O2SAT 97; BMI 48.7
--- OUTSIDE RECORDS SUMMARY | 2025-05-14 14:14 | XMS_ITS | Clinical Summary ---
Author Organization [facility] Facility Address [address] [place] [address], [place] [address] Care Team Providers Care Labor Crew Supervisor Name Role Phone Wilfrid Mcmahon MD Primary Care Provider [phone] Social History Tobacco Use Types Packs/Day Years [...] age to complete this topic Insurance [facility] Care Teams Labor Crew Supervisor Relationship Specialty Start Date End Date Wilfrid Mcmahon MD [address] [facility] [address] [place] [address] [phone] PCP - General Family Medicine 04/18/23
--- OUTSIDE RECORDS SUMMARY | 2025-05-14 14:14 | XMS_ITS | Clinical Summary ---
Author Organization [facility] Address [address] [place] [phone] Phone Care Team Providers Care Plaster Block Layer Name Role Phone Pcp, Unknown Primary Care Provider Unavailabl e Allergies Active Allergy Reactions Criticality Noted Date Comments Penicillins Swelling 09/18/2017 Medications aspirin 81 mg chewable tablet Take 1 tablet by mouth daily. Active omega 3-exb-wmt-fish oil 1,000 mg (120 mg-180 mg) Cap [...] topic Medical Devices Not on file Insurance [facility] C[facility] TOGETHER [facility] [place] [facility] TOGETHER [facility] [place] [facility] [place] [facility] [place] [facility] [place] [facility] [place] [facility] Member Subscriber Plan / Payer (Ef fective 2017-Present) Name:Silver Valladares Relation to Subscriber:Self Name:BlaineGermanSilver Payer ID:[id number] (NAIC) Group ID:Not on file Type:Medicaid Phone: Address: [address] [place]ARE[place] [facility] [place] TOGETHER [facility] CONNECTORCARE [place] CARE[place]US [facility] [place] TOGETHER [facility] DIRECT Care Teams Plaster Block Layer Relationship Specialty Start Date End Date Pcp, Unknown PCP - General 03/09/21 Additional Source Comments The information contained in this document represents components of the legal health record. It is not the complete legal health record.[facility]
== END 2025-05-14 12:34 | disposition home or self-care (01) ==
LOC: HO.HMCFM 11:29
PROVIDERS: PCP Family Medicine; Visit Provider Family Medicine
DX: D64.9 Anemia, unspecified (principal); I10 Essential (primary) hypertension; I25.10 Atherosclerotic heart disease of native coronary artery without angina pectoris; R73.03 Prediabetes; Z96.641 Presence of right artificial hip joint; E66.01 Morbid (severe) obesity due to excess calories; Z68.43 Body mass index [BMI] 50.0-59.9, adult; Z12.11 Encounter for screening for malignant neoplasm of colon

== ENCOUNTER → 2025-05-14 11:28 | Outpatient (BNVA) | payer OTHER, SELFPAY ==
[2025-01-07 11:12] VITALS: BP 120/78; BP 156/70; BMI 49.2
== END ==
PROVIDERS: PCP Family Medicine; Visit Provider Family Medicine
DX: I10 Essential (primary) hypertension (principal); D64.9 Anemia, unspecified; I25.10 Atherosclerotic heart disease of native coronary artery without angina pectoris; R73.03 Prediabetes; E66.01 Morbid (severe) obesity due to excess calories; Z68.43 Body mass index [BMI] 50.0-59.9, adult; Z96.641 Presence of right artificial hip joint
CPT/HCPCS: 99212

== ENCOUNTER 2025-05-25 11:00 | Outpatient (RCR) | payer OTHER, SELFPAY ==
[2025-01-07 11:12] VITALS: BP 120/78; BP 156/70; BMI 49.2
== END 2025-06-21 15:36 | disposition home or self-care (01) ==
LOC: HO.PT 11:00
PROVIDERS: PCP Family Medicine; Visit Provider Physician Assistant
DX: Z47.1 Aftercare following joint replacement surgery (principal); Z96.641 Presence of right artificial hip joint
CPT/HCPCS: 97110; 97161; 97530; 97535

== ENCOUNTER 2025-06-21 09:06 | Outpatient (REF) | payer OTHER, SELFPAY ==
[2025-01-07 11:12] VITALS: BP 120/78; BP 156/70; BMI 49.2
--- NOTE | ~2025-06-21 | XR_ITS ---
EXAMINATION: XR HIP 2 OR MORE VIEWS RIGHT HISTORY: M25.551 - Pain in right hip COMPARISON: Comparison is made with the prior examination of the pelvis dated 04/06/2025. FINDINGS: A single AP view of the pelvis and 2 views of the right hip are submitted. The patient is again noted to be status post right total hip arthroplasty. The orthopedic elements are in anatomic alignment. There is no radiographic evidence of loosening. There is no fracture or dislocation. The soft tissues are unremarkable. The patient is also status post left total hip arthroplasty. XR/XR hip RT min 2V IMPRESSION: Status post right total hip arthroplasty. Electronically signed by: Govind Cole MD 06/21/2025 10:54 AM [facility]
[2025-06-21 09:26] LABS: MANUAL DIFF FLAG NO
[2025-06-21 09:46] LABS: Hematocrit 40.8 % (42.0-52.0); Hemoglobin 13.1 g/dl (14.0-18.0); Imm Gran Abs Auto 0.03 X10*3/uL (0.00-0.03); Imm Gran Pct Auto 0.4 % (0.0-0.4); Lymphocytes Absolute Auto 1.3 X10*3/uL (1.2-4.9); Mean Corpuscular HGB Conc 32.1 g/dl (31.0-36.0); Mean Corpuscular Hemoglobin 27.8 pg (27.0-33.0); Mean Corpuscular Volume 86.6 fL (80.0-98.0); NRBC Abs Auto 0.000 X10*3/uL (0.0-0.012); NRBC Pct Auto 0.0 /100WBC (0.0-0.2); Platelet Count 227 X10*3/uL (160-400); Red Blood Count 4.71 X10*6/uL (4.60-5.80); White Blood Count 8.4 X10*3/uL (4.8-10.8)
--- OUTSIDE RECORDS SUMMARY | 2025-06-21 09:58 | XMS_ITS | Clinical Summary ---
Author Organization [facility] Facility Address [address] [place] [address], [place] [address] Care Team Providers Care Electrophysiology Scientist Name Role Phone Wilfrid Mcmahon MD Primary [...] patient's age to complete this topic Insurance [facility] Care Teams Electrophysiology Scientist Relationship Specialty Start Date End Date Wilfrid Mcmahon MD 10 [facility] [address] [place] [address] [phone] PCP - General Family Medicine 04/18/23
--- OUTSIDE RECORDS SUMMARY | 2025-06-21 09:58 | XMS_ITS | Clinical Summary ---
Author Organization [facility] Address [address] [place] [phone] Phone Care Team Providers Care Air Pollution Engineer Name Role Phone Pcp, Unknown Primary Care Provider Unavailabl e Allergies Active Allergy Reactions Criticality Noted Date Comments Penicillins Swelling 09/18/2017 Medications aspirin 81 mg chewable tablet Take 1 tablet by mouth daily. Active omega 8-pfb-gqw-fish oil 1,000 mg (120 mg-180 mg) Cap [...] topic Medical Devices Not on file Insurance [facility] CAREPLUS [facility] TOGETHER [facility] [place] [facility] TOGETHER [facility] [place] [facility] [place] [facility] [place] [facility] [place] [facility] [facility] Member Subscriber Plan / Payer (Ef fective 2017-Present) Name:Silver Valladares Relation to Subscriber:Self Name:BlaineGermanSilver Payer ID:[id number] (NAIC) Group ID:Not on file Type:Medicaid Phone: Address: [address] [place] [facility] [place] TOGETHER [facility] [place] CARE[place] [facility] [place] TOGETHER [facility] DIRECT Care Teams Air Pollution Engineer Relationship Specialty Start Date End Date Pcp, Unknown PCP - General 03/09/21 Additional Source Comments The information contained in this document represents components of the legal health record. It is not the complete legal health record.[facility]
[2025-06-21 10:10] LABS: Appearance Urine Clear; Glucose Urine UA Negative (Negative); PH 5.0 (5.0-9.0); Specific Gravity - Urine 1.020 (1.005-1.025)
[2025-06-21 10:16] LABS: Alanine Aminotransferase 23 U/L (0-40); Albumin Level 4.4 g/dL (3.5-5.0); Alkaline Phosphatase 129 U/L (39-117); Anion Gap 13 (12-20); Aspartate Amino Transferase 25 U/L (5-37); Blood Urea Nitrogen 20 mg/dL (9-16); Calcium 9.2 mg/dL (8.4-10.2); Carbon Dioxide 22 mmol/L (22-29); Chloride 108 mmol/L (96-108); Cholesterol 122 mg/dL (<200); Estimated Glomerular Filt Rate > 60; HDL Cholesterol 45 mg/dL (>40); Potassium 4.3 mmol/L (3.3-5.1); Sodium 139 mmol/L (135-145); Total Protein 7.3 g/dL (6.5-8.0); Triglycerides 121 mg/dL (<150)
[2025-06-21 11:12] LABS: Microalbum/Creatinine Ratio Ur 8.9 ug/mg cr (<30)
== END 2025-06-21 09:07 | disposition home or self-care (01) ==
LOC: HO.HOSX 09:06
PROVIDERS: PCP Family Medicine; Visit Provider Physician Assistant
DX: Z47.89 Encounter for other orthopedic aftercare (principal); Z96.641 Presence of right artificial hip joint; I25.10 Atherosclerotic heart disease of native coronary artery without angina pectoris; I10 Essential (primary) hypertension; Z00.00 Encounter for general adult medical examination without abnormal findings; Z12.5 Encounter for screening for malignant neoplasm of prostate
CPT/HCPCS: 36415; 73502; 80053; 80061; 81003; 82043; 82570; 84153; 84443; 85025; 99212

== ENCOUNTER 2025-06-21 09:50 | Outpatient (AMB) | payer OTHER, SELFPAY ==
[2025-01-07 11:12] VITALS: BP 120/78; BP 156/70; BMI 49.2
--- NOTE | 2025-06-21 10:20 | MHC.OFFVIS ---
Vital Signs 06/21/25 10:24 Height 5 ft 10.5 in Weight 344 lb BMI 48.7 Intake Visit Reasons: PO: R AMBER w/NE 04/06/25-follow up Intake Note: Silver is a 64 year old male who presents today for a post operative follow up s/p right AMBER, performed by Dr. Colorado on 04/06/25. At his last visit with Dr. Colorado patient was doing well, instructed to follow up in 6 weeks. Today patient reports that he is doing great. His only concern today is with walking his foot seems to be pointing more out than his left side. Allergies Penicillins Allergy (Intermediate, Verified 06/21/25 10:24) Hives Medication List - Last Reconciled 06/21/25 by Ryland Acosta PA-C apixaban (Eliquis) 5 mg PO BID atorvastatin 80 mg PO QAM blood pressure monitor Automatic, Digital. Dx: I10. Daily As directed, 999 days/lifetime carvedilol 3.125 mg PO BID clindamycin phosphate 1% 1 appl topical BID coenzyme Q10 (Co Q-10) 200 mg PO BEDTIME evolocumab (Repatha SureClick) 140 mg subcut Q2W 90 days [Folding Front Wheeled walker Duration: 99 days] multivitamin (Daily Multi-Vitamin tablet) 1 tab PO QAM omega-3 fatty acids 1,000 mg PO QAM [Raised toilet seat duration - 99 days] tirzepatide (weight loss) (Zepbound) 2.5 mg (0.5 mL) subcut QWEEK 28 days triamcinolone acetonide 0.1% 1 appl topical QAM HPI HPI PO: R AMBER w/NE 04/06/25-follow up: Details: 64-year-old gentleman presents to the office today for a three-month follow-up right total hip done with Dr. Colorado on 04/06/2025. The patient is doing quite well. He has completed physical therapy. [facility] Medical History (Updated 05/14/25 @ 12:22 by Sharif Dumont) Pre-diabetes CAD (coronary artery disease) Psoriasis BPH (benign prostatic hyperplasia) History of concussion (~1977) HLD (hyperlipidemia) HTN (hypertension) Paroxysmal atrial fibrillation Tinnitus Osteoarthritis Sleep apnea Surgical History History of total left hip arthroplasty Status post Maze operation for atrial fibrillation (04/09/23) S/P quadruple vessel bypass (04/09/23) H/O cardiac catheterization History of surgery on lower extremity Family History Mother Afib No family history of mental disorder Father No family history of mental disorder Hyperlipidemia Social History Household Members: Friend(s) Household Members Other:: rents rooms to 2 people Housing: House Are you a primary respiratory care practitioner to a significant other at home: No Do you presently have visiting nurse or other home services: No 75 years or older and lives alone: No Alcohol intake: current Alcohol intake frequency: a few times a week Comment: aware of trip hazard & will remove Patient Tobacco Use Status: Never used Tobacco Tobacco use type: Cigar e-Cigarette/Vaping Use: Never Used Second Hand Smoke Exposure: No Substance Use Type: Marijuana and Caffiene service: No Current occupational status: employed and disabled 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 He has no pain with range of motion or flexion. Walks without antalgic gait pattern. Neurovascularly intact. Results Reviewed Results Reviewed: X-rays of the right hip obtained in the office today and reviewed by me shows well seated hip prosthesis with no abnormalities Assessment & Plan Assessment & Plan (1) History of total right hip replacement: Code(s): Z96.641 - Presence of right artificial hip joint Category: Surgical Plan: Patient will continue with strengthening conditioning exercises. He has a cystoscopy coming up and I did give him a prescription for amoxicillin for prophylaxis. He will make an appointment for his 1 year visit in February or March of next year and we can review both hips. Orders: Orders XR hip RT min 2V Today M25.551 - Pain in right hip Medications: New amoxicillin take 4 capsules 1 hr prior to dental procedure 2,000 mg (4 x 500 mg) PO ONCE 4 tabs 3RF 1 day Coding Level of Care Code Global (37119) Diagnoses History of total right hip replacement Z96.641
[2025-06-21 10:24] VITALS: BMI 48.7
== END 2025-06-21 10:45 | disposition home or self-care (01) ==
LOC: HO.HOS 09:51
PROVIDERS: PCP Family Medicine; Visit Provider Physician Assistant
DX: Z96.641 Presence of right artificial hip joint (principal)
CPT/HCPCS: 99024

== ENCOUNTER → 2025-06-21 09:57 | Outpatient (BNV) | payer OTHER, SELFPAY ==
[2025-01-07 11:12] VITALS: BP 120/78; BP 156/70; BMI 49.2
== END ==
PROVIDERS: PCP Family Medicine; Visit Provider Radiology Diagnostic Radiology
DX: M25.551 Pain in right hip (principal); Z96.641 Presence of right artificial hip joint
CPT/HCPCS: 73502

== ENCOUNTER 2025-06-28 15:51 | Outpatient (AMB) | payer OTHER, SELFPAY ==
[2025-01-07 11:12] VITALS: BP 120/78; BP 156/70; BMI 49.2
[2025-06-28 15:56] VITALS: BP 138/84; PULSE 65; TEMP 36.2; O2SAT 97; BMI 50.0
--- NOTE | 2025-06-28 15:56 | MHC.PC.OV ---
Vital Signs 06/28/25 15:56 Height 5 ft 10.5 in Weight 353 lb 6 oz BMI 50.0 BP 138/84 Blood Pressure Location Rt brachial Position Sitting Pulse 65 Pulse Source Pulse Oximeter Temp 97.2 F Temp Source Temporal Artery Scan Pulse Oximetry (%) 97 Oxygen Delivery Method Room Air Intake Visit Reasons: Physical Allergies Penicillins Allergy (Intermediate, Verified 06/28/25 15:57) Hives Medication List - Last Reconciled 06/28/25 by Wilfrid Mcmahon MD amoxicillin 2,000 mg (4 x 500 mg) PO ONCE 1 day apixaban (Eliquis) 5 mg PO BID atorvastatin 80 mg PO QAM betamethasone dipropionate 0.05% 1 appl topical DAILY PRN blood pressure monitor Automatic, Digital. Dx: I10. Daily As directed, 999 days/lifetime carvedilol 3.125 mg PO BID clindamycin phosphate 1% 1 appl topical BID coenzyme Q10 (Co Q-10) 200 mg PO BEDTIME evolocumab (Repatha SureClick) 140 mg subcut Q2W 90 days [Folding Front Wheeled walker Duration: 99 days] multivitamin (Daily Multi-Vitamin tablet) 1 tab PO QAM omega-3 fatty acids 1,000 mg PO QAM [Raised toilet seat duration - 99 days] tirzepatide (weight loss) (Zepbound) 2.5 mg (0.5 mL) subcut QWEEK 28 days triamcinolone acetonide 0.1% 1 appl topical QAM Tobacco use date assessed: 06/28/25 Dental Screening Dental Screen Date: 06/28/25 Did you have a dental visit in the last 12 months?: No Did you have a dental problem in the last 6 months where you did not have access to dental care?: No Was dental information given to patient?: Patient has dentist HPI Physical HPI Details 64 y/o male presents for a CPE with f/u labs and health maintenance. Labs drawn 06/21/25. Reviewed labs with pt. Mild stable anemia. Triglycerides 121. TC 122. LDL 53. HDL 45. PSA 0.74 ng/mL. Blood pressure today 138/84, 65p. He is on carvedilol 3.125mg b.i.d. REPLACED BY [facility] Medical History Pre-diabetes CAD (coronary artery disease) Psoriasis BPH (benign prostatic hyperplasia) History of concussion (~1977) HLD (hyperlipidemia) HTN (hypertension) Paroxysmal atrial fibrillation Tinnitus Osteoarthritis Sleep apnea Surgical History (Updated 06/28/25 @ 15:58 by Vanessa Sharma CMA) History of right hip replacement (03/2025) History of total left hip arthroplasty Status post Maze operation for atrial fibrillation (04/09/23) S/P quadruple vessel bypass (04/09/23) H/O cardiac catheterization History of surgery on lower extremity Family History Mother Afib No family history of mental disorder Father No family history of mental disorder Hyperlipidemia Social History Household Members: Friend(s) Household Members Other:: rents rooms to 2 people Housing: House Are you a primary point of care specialist to a significant other at home: No Do you presently have visiting nurse or other home services: No 75 years or older and lives alone: No Alcohol intake: current Alcohol intake frequency: a few times a week Comment: aware of trip hazard & will remove Patient Tobacco Use Status: Never used Tobacco Tobacco use type: Cigar e-Cigarette/Vaping Use: Never Used Second Hand Smoke Exposure: No Substance Use Type: Marijuana and Caffiene service: No Current occupational status: employed and disabled 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 1. Little interest or pleasure in doing things: not at all 2. Feeling down, depressed, or hopeless: not at all 3. Trouble falling or staying asleep, or sleeping too much: not at all 4. Feeling tired or having little energy: not at all 5. Poor appetite or overeating: not at all 6. Feeling bad about yourself - or that you are a failure or have let yourself or your family down: not at all 7. Trouble concentrating on things, such as reading the newspaper or watching television: several days 8. Moving or speaking so slowly that other people could have noticed. Or the opposite - being so fidgety or restless that you have been moving around a lot more than usual: not at all 9. Thoughts that you would be better off or of hurting yourself in some way: not at all Total score: 1 Depression Screening Interpretation: Negative Depression Screening Done: Yes Source: Developed by Drs. Govind Hoang, Jessica Padilla, Agustin Appiah and colleagues, with an educational pradip from [employer]. Thrive Questionnaire Date Thrive assessed: 07/31/24 I am a: Patient What is your living situation today?: I choose not to answer this question Within the past 12 months, did the food you bought not last and you didn't have the money to get more?: I choose not to answer this question Within the past 12 months, did you worry whether your food would run out before you got money to buy more?: I choose not to answer this question Do you have trouble paying for medicines?: I choose not to answer this question Do you have trouble getting transportation to medical appointments?: I choose not to answer this question Do you have trouble paying your heating and electricity bill?: I choose not to answer this question Do you have trouble taking care of your child, family member or friend?: I choose not to answer this question Do you have trouble with day-to-day activities such as bathing, preparing meals, shopping, managing finances, etc.?: I choose not to answer this question Are you currently unemployed and looking for a job?: I choose not to answer this question Are you interested in more education?: I choose not to answer this question Please select the resources that you would like help with: None Currently or been in a relationship where the following occur: I choose not to answer THRIVE Score: 0 AUDIT C Alcohol Use Questionnaire (AUDIT-C) 1. How often do you have a drink containing alcohol?: 2-4 times a month 2. How many drinks containing alcohol do you have on a typical day when you are drinking?: 1 or 2 3. How often do you have six or more drinks on one occasion?: Never Total Score: 2 SHAMAR-7 AMB Questionnaire SHAMAR-7 Date SHAMAR - 7 assessed: 07/31/24 Feeling nervous, anxious, or on edge: 0 = Not at all Not being able to stop or control worryin = Not at all Worrying too much about different things: 0 = Not at all Trouble relaxin = Not at all Being so restless that it is hard to sit still: 0 = Not at all Becoming easily annoyed or irritable: 0 = Not at all Feeling afraid as if something awful might happen: 0 = Not at all Total SHAMAR-7 score (0-4 normal; 5-9 mild; 10-14 moderate; 15-21 severe): 0 Source: Developed by Drs. Govind Hoang, Jessica Padilla, Agustin Appiah and colleagues, with an educational pradip from [employer]. Review of Systems Const Denies chills, Denies fatigue, Denies fever(s), Denies headache(s) and Denies weakness Eyes Denies change in vision ENT Denies dizziness, Denies headache(s), Denies hearing loss, Denies nasal congestion, Denies sinus pain, Denies sinus pressure and Denies sore throat Card Denies chest pain, Denies lightheadedness, Denies dyspnea and Denies other (palpitations) Resp Denies cough, Denies dyspnea and Denies wheezing GI Denies abdominal pain, Denies melena, Denies hematochezia, Denies change in bowel habits, Denies dyspepsia and Denies nausea Denies hematuria and Denies dysuria Musc Denies abnormal gait, Denies myalgias, Denies arthralgias, Denies numbness and Denies tingling Skin/Breast Denies rash, Denies unusual bruising and Denies wounds Neuro Denies abnormal gait, Denies dizziness, Denies headache(s), Denies memory loss, Denies numbness, Denies Sensory deficit (Neuro), Denies tingling and Denies weakness Psych Denies anxiety, Denies depression and Denies memory loss Endo Denies cold intolerance, Denies fatigue, Denies heat intolerance, Denies polydipsia and Denies polyuria Mejia/Lymph Denies easy bleeding and Denies easy bruising Aller/Immun Denies wheezing Physical exam (Primary Care) BMI result Body Mass Index 50.0 Tobacco/Smoking Status: Tobacco use Status Tobacco use date assessed 06/28/25 06/28/25 15:58 Patient Tobacco Use Status Never used Tobacco 06/28/25 15:58 Tobacco use type Cigar 06/28/25 15:58 e-Cigarette/Vaping Use Never Used 06/28/25 15:58 Depression Screening Interpretation: Negative Thrive Assessment: Date of Thrive Assessment Date Thrive assessed 07/31/24 06/28/25 15:58 Currently or been in a relationship where the following occur: I choose not to answer Const General: no acute distress, well developed, alert and awake Nutritional Appearance: well nourished and obese morbidly obese Orientation/consciousness: patient oriented x3 HENMT Head: Yes normocephalic and Yes atraumatic Ears: hearing grossly normal bilaterally and TM's normal bilaterally General nose exam: Normal external nose present and Normal nares present Mouth: Normal oral and palatal mucosa present and moist mucous membranes Teeth and gingiva: dentition normal Throat: Yes posterior oropharynx normal Eyes General: appearance normal, both eyes and all related structures Pupils: Equal, round and reactive pupils present and Pupil accommodation reflex normal EOM: EOMs intact bilaterally Neck Neck: Yes normal visual inspection, Yes no lymphadenopathy and Yes trachea midline Thyroid: Thyroid normal Carotids: no bruits Lymphatic: no lymphadenopathy noted Chest Chest palpation & inspection: normal inspection of the chest Resp Effort & Inspection: normal respiratory effort Auscultation: clear to auscultation bilaterally Cardio Rate: regular rate Rhythm: regular rhythm Heart sounds: S1 normal heart sound present, S2 normal heart sound present, no gallops, no murmurs and no rubs Bruits: no abdominal aortic bruits and no carotid bruits GI Palpation (GI): No Abdominal aortic bruit present, Soft to palpation, nontender, No hepatosplenomegaly present and No Rebound tenderness present Auscultation: normal bowel sounds General: Yes no CVA tenderness Back/Spine/Pelvis Back: no CVA tenderness Cervical Spine: cervical ROM normal and No Cervical spine tenderness Thoracic/Lumbar Spine: thoraco-lumbar ROM normal, No pain with thoraco-lumbar ROM, No thoracic spinal tenderness and No lumbar spinal tenderness Skin Lesions: no lesions Rashes: no rashes Trauma: no lacerations or abrasions Wounds: no wounds Nails: normal Neuro General: patient oriented x3 Cranial nerves: Yes Equal, round and reactive pupils present Cognition (Neuro): normal cognition Gait exam (Neuro): Normal gait present Motor exam (neuro): 5/5 motor strength present throughout Sensory Exam: No Sensory deficit (Neuro) Deep tendon reflexes (DTR's): Right patellar reflex intensity grade: 2+ and Left patellar reflex intensity grade: 2+ Extrem General: Yes normal to inspection and No edema Psych Appearance: grossly normal Affect: normal affect Attitude: cooperative Thought process: Normal thought process present Coding Level of Care Code Est Pt Level 3 (56565) Est Pt Prev Care 40-64y(85241) Diagnoses Physical exam, annual Z00.00 Primary hypertension I10 Hypertension type: primary hypertension Coronary artery disease I25.10 Hyperlipidemia E78.5 Anemia D64.9 Colon cancer screening Z12.11 Screening PSA (prostate specific antigen) Z12.5 Morbid obesity E66.01 Assessment & Plan Assessment & Plan (1) Physical exam, annual: Code(s): Z00.00 - Encounter for general adult medical examination without abnormal findings Category: Medical Plan: 64-year-old male presents for complete physical exam Encouraged healthy diet with active lifestyle and plenty of exercise (2) Hypertension: Code(s): I10 - Essential (primary) hypertension Category: Medical Qualifiers: Hypertension type: primary hypertension Qualified Code(s): I10 - Essential (primary) hypertension Plan: Blood pressure is again a little above goal of less than 130/80 Will increase carvedilol from 3.125 mg b.i.d. to 6.25 mg b.i.d. (3) Coronary artery disease: Code(s): I25.10 - Atherosclerotic heart disease of [place] coronary artery without angina pectoris Category: Medical Plan: Stable but will increase carvedilol for better blood pressure control Continue statin Follow-up with Cardiology as recommended (4) Hyperlipidemia: Code(s): E78.5 - Hyperlipidemia, unspecified Category: Medical Plan: Lipids are well controlled on atorvastatin 80 mg daily Continue medication (5) Anemia: Code(s): D64.9 - Anemia, unspecified Category: Medical Plan: Mild anemia which has improved Will continue monitor (6) Colon cancer screening: Code(s): Z12.11 - Encounter for screening for malignant neoplasm of colon Category: Medical Plan: Cologuard test could not be read and company has already sent repeat test which patient turned around Awaiting result.. (7) Screening PSA (prostate specific antigen): Code(s): Z12.5 - Encounter for screening for malignant neoplasm of prostate Category: Medical Plan: PSA was within normal range Will continue annual screening (8) Morbid obesity: Code(s): E66.01 - Morbid (severe) obesity due to excess calories Category: Medical Plan: He is tolerating Zepbound No weight loss yet Increasing dose Orders: Referrals Cologuard Test Z12.11 - Encounter for screening for malignant neoplasm of colon Medications: Changed From tirzepatide (weight loss) (Zepbound) for 4 weeks 2.5 mg (0.5 mL) subcut QWEEK 28 days 2 mL 3RF E66.01 - Morbid (severe) obesity due to excess calories, I25.10 - Atherosclerotic heart disease of [place] coronary artery without angina pectoris To tirzepatide (weight loss) for 4 weeks 5 mg (0.5 mL) subcut QWEEK 2 mL 3RF 28 days E66.01 - Morbid (severe) obesity due to excess calories, I25.10 - Atherosclerotic heart disease of [place] coronary artery without angina pectoris From carvedilol 3.125 mg PO BID 180 tabs 3RF To carvedilol 6.25 mg PO BID 180 tabs 3RF 90 days
--- OUTSIDE RECORDS SUMMARY | 2025-06-28 18:34 | XMS_ITS | Clinical Summary ---
Author Organization [facility] Address [address] [place] [id number] Phone Care Team Providers Care Secondary Art Teacher Name Role Phone Pcp, Unknown Primary Care Provider Unavailabl e Allergies Active Allergy Reactions Criticality Noted Date Comments Penicillins Swelling 09/18/2017 Medications aspirin 81 mg chewable tablet Take 1 tablet by mouth daily. Active omega 2-nal-qpk-fish oil 1,000 mg (120 mg-180 mg) Cap [...] topic Medical Devices Not on file Insurance [facility] C[facility] TOGETHER [facility] [place] [facility] [place] [facility] [place] [facility] [facility] [place] [facility] [place] [facility] [place] [facility] Member Subscriber Plan / Payer (Ef fective 2017-Present) Name:Silver Valladares Relation to Subscriber:Self Name:BlaineGermanSilver Payer ID:[id number] (NAIC) Group ID:Not on file Type:Medicaid Phone: Address: [address] [place] [facility] [place] [facility] [place] [facility] [place] [facility] TO[place]HER [facility] DIRECT Care Teams Secondary Art Teacher Relationship Specialty Start Date End Date Pcp, Unknown PCP - General 03/09/21 Additional Source Comments The information contained in this document represents components of the legal health record. It is not the complete legal health record.[facility]
--- OUTSIDE RECORDS SUMMARY | 2025-06-28 18:34 | XMS_ITS | Clinical Summary ---
Author Organization [facility] Facility Address [address] [place] [address], [place] [address] Care Team Providers Care Overhead Distribution Engineer Name Role Phone Wilfrid Mcmahon MD [...] patient's age to complete this topic Insurance [facility] Care Teams Overhead Distribution Engineer Relationship Specialty Start Date End Date Wilfrid Mcmahon MD [address] [facility] [address] [place] [address] [phone] PCP - General Family Medicine 04/18/23
== END 2025-06-28 16:56 | disposition home or self-care (01) ==
LOC: HO.HMCFM 15:52
PROVIDERS: PCP Family Medicine; Visit Provider Family Medicine
DX: Z00.00 Encounter for general adult medical examination without abnormal findings (principal); I10 Essential (primary) hypertension; E66.01 Morbid (severe) obesity due to excess calories; Z68.43 Body mass index [BMI] 50.0-59.9, adult; I25.10 Atherosclerotic heart disease of native coronary artery without angina pectoris; E78.5 Hyperlipidemia, unspecified; D64.9 Anemia, unspecified; Z12.11 Encounter for screening for malignant neoplasm of colon; Z12.5 Encounter for screening for malignant neoplasm of prostate

== ENCOUNTER → 2025-06-28 15:51 | Outpatient (BNVA) | payer OTHER, SELFPAY ==
[2025-01-07 11:12] VITALS: BP 120/78; BP 156/70; BMI 49.2
== END ==
PROVIDERS: PCP Family Medicine; Visit Provider Family Medicine
DX: Z00.00 Encounter for general adult medical examination without abnormal findings (principal); I10 Essential (primary) hypertension; R73.03 Prediabetes; I25.10 Atherosclerotic heart disease of native coronary artery without angina pectoris; E78.5 Hyperlipidemia, unspecified; D64.9 Anemia, unspecified; E66.01 Morbid (severe) obesity due to excess calories; Z68.43 Body mass index [BMI] 50.0-59.9, adult
CPT/HCPCS: 99396